=== PATIENT | female | born 1950 | race Caucasian/White ===

== ENCOUNTER 2020-03-23 19:42 | Inpatient (IN) | payer MEDICARE, BC ==
[~2020-03-23] VITALS: Ht 165.1 cm; Wt 72.7 kg
[2020-03-23] MEDS ORDERED: METHYL SALICYLATE/MENTHOL TOPICAL OINTMENT 57GM TUBE. TP PRN (20:30)
[2020-03-23] MEDS ORDERED: MAGNESIUM HYDROXIDE 2,400 MG/30 ML ORAL.SUSP. PO PRN (20:30)
[2020-03-23] MEDS ORDERED: MAG HYDROX/AL HYDROX/SIMETH 30 ML ORAL.SUSP PO PRN (20:30)
[2020-03-23] MEDS ORDERED: ACETAMINOPHEN 325 MG TABLET PO PRN (20:30)
[2020-03-23] MEDS ORDERED: CALC-44 PO (20:49)
[2020-03-23] MEDS ORDERED: OMEG-117 PO (20:49)
[2020-03-23] MEDS ORDERED: LISI-338 PO (20:49)
[2020-03-23] MEDS ORDERED: DONE10TA7 PO (20:49)
[2020-03-23] MEDS ORDERED: MULT-238 PO (20:49)
[2020-03-23] MEDS ORDERED: TRAZ-120 PO (20:49)
[2020-03-23] MEDS ORDERED: MEMA10TA PO (20:49)
[2020-03-23] MEDS ORDERED: OMEP20CA16 PO (20:49)
[2020-03-23] MEDS ORDERED: ESCITALOPRAM OX10 MG PO (20:49)
[2020-03-23] MEDS ORDERED: Vitamin D3 PO (20:49)
[2020-03-23] MEDS ORDERED: ACET500T68 PO (20:49)
[2020-03-23] MEDS ORDERED: ASCO500C PO (20:49)
[2020-03-23] MEDS ORDERED: ACETAMINOPHEN 500 MG TABLET PO PRN (21:00)
--- NOTE | 2020-03-23 21:01 | NUR ---
Admission Note with Justification for Admission to [facility] Patient admitted to [facility] for protective oversight for emergency stabilization of acute psychiatric crisis. Pt admitted from: [facility] Facility- [facility] Mode of arrival: POV Accompanied By: Family Precipitating behaviors that initiated intake and admission: Exit seeking, agitated, forgetful, hugs and kisses some peers, expresses "I just want to kill myself", gets into others personal space Description of failure of out patient attempts at stabilization in previous setting list behavior and medication trials:PCP appointment, 1:1 sitter, set boundaries, distraction Behaviors and assessment findings upon admission: Alert, fairly cooperative, sarcastic, VSS, ambulatory Plan: Admit for protective oversight for adjustment and stabilization of medications, behaviors and mood. Intense treatment regimen including groups, medication adjustments, therapy, consistent regimen for ADL's, self care, and sleep hygiene. Daily monitoring by Inpatient staff, Psychiatry, and Medical Physician.
[2020-03-23 21:09] VITALS: BP 135/64
[2020-03-23 21:52] LABS: BASO % 0 % (0-3); EOS # 0.1 x10^3/uL (0.0-0.7); EOS % 2 % (0-3); HEMOGLOBIN 9.7 g/dL (12.0-15.5); LYMPH # 1.9 x10^3/uL (1.0-4.8); LYMPH % 28 % (24-48); MEAN CORPUSCULAR HEMOGLOBIN 31 pg (25-35); MEAN CORPUSCULAR HGB CONC 33 g/dL (31-37); MEAN CORPUSCULAR VOLUME 95 fL (79-100); MONO # 0.5 x10^3/uL (0.0-1.1); MONO % 7 % (0-9); NEUT # 4.2 x10^3uL (1.8-7.7); NEUT % 63 % (31-73); PLATELET COUNT 198 x10^3/uL (140-400); RED BLOOD COUNT 3.17 x10^6/uL (3.50-5.40); RED CELL DISTRIBUTION WIDTH 13.1 % (11.5-14.5); WHITE BLOOD COUNT 6.7 x10^3/uL (4.0-11.0)
--- NOTE | 2020-03-23 22:01 | PDOC ---
Exam Note: Tyler Note: Please also refer to the separate dictated note~for this date of service dictated separately.~Patient seen individually. Discussed the patient with Nursing staff reviewed the chart.~Reviewed interim history and current functioning. Reviewed vital signs,~Labs/ Radiology~and current medications noted below. Continue current treatment with the changes noted in the dictated addendum note Assessment: Vital Signs/I&O: Vital Signs Date Time Temp Pulse Resp B/P (MAP) Pulse Ox O2 Delivery O2 Flow Rate FiO2 03/23/20 21:09 97.4 69 18 135/64 (87) 97 Labs: Laboratory Tests Test 03/23/20 21:40 White Blood Count 6.7 x10^3/uL (4.0-11.0) Red Blood Count 3.17 x10^6/uL (3.50-5.40) L Hemoglobin 9.7 g/dL (12.0-15.5) L Hematocrit 30.0 % (36.0-47.0) L Mean Corpuscular Volume 95 fL (79-100) Mean Corpuscular Hemoglobin 31 pg (25-35) Mean Corpuscular Hemoglobin Concent 33 g/dL (31-37) Red Cell Distribution Width 13.1 % (11.5-14.5) Platelet Count 198 x10^3/uL (140-400) Neutrophils (%) (Auto) 63 % (31-73) Lymphocytes (%) (Auto) 28 % (24-48) Monocytes (%) (Auto) 7 % (0-9) Eosinophils (%) (Auto) 2 % (0-3) Basophils (%) (Auto) 0 % (0-3) Neutrophils # (Auto) 4.2 x10^3uL (1.8-7.7) Lymphocytes # (Auto) 1.9 x10^3/uL (1.0-4.8) Monocytes # (Auto) 0.5 x10^3/uL (0.0-1.1) Eosinophils # (Auto) 0.1 x10^3/uL (0.0-0.7) Basophils # (Auto) 0.0 x10^3/uL (0.0-0.2) Current Medications: I have reviewed the current psychotropics carefully including drug interactions. Risk benefit ratio favors no change other than as noted in my dictated progress note. Diagnosis: Problems: (1) Major neurocognitive disorder DIMITRIOS RANDALL MD Mar 23, 2020 22:01
[2020-03-23 22:05] LABS: ALBUMIN 3.2 g/dL (3.4-5.0); ALBUMIN/GLOBULIN RATIO 1.2 (1.0-1.7); CALCIUM 8.2 mg/dL (8.5-10.1); CREATININE 1.8 mg/dL (0.6-1.0); GFR 27.7; MAGNESIUM 2.5 mg/dL (1.8-2.4); POTASSIUM 4.8 mmol/L (3.5-5.1); TOTAL BILIRUBIN 0.5 mg/dL (0.2-1.0); TOTAL PROTEIN 5.9 g/dL (6.4-8.2)
[2020-03-23] MEDS: DONEPEZIL HCL 10 MG TABLET PO SCH (22:21)
[2020-03-23 22:22] LABS: BACTERIA,URINE MOD /HPF (0-FEW); BILIRUBIN,URINE NEG (NEG); CLARITY,URINE CLOUDY; COLOR,URINE YELLOW; GLUCOSE,URINE NEG (NEG); NITRITE,URINE NEG (NEG); SQUAMOUS EPITHELIAL CELL,UR MANY /LPF; UROBILINOGEN,URINE 0.2 mg/dL (0.2 mg/dL); WBC,URINE >40 /HPF (0-4)
--- NOTE | 2020-03-24 06:15 | NUR ---
Covid test to lab pt tolerated well. Pt has slept well tonight. She is somewhat suspicious and sarcastic at times but has been cooperative. She walks without difficulty and has been continent of urine. Note that UA sent last night was sent for culture.
[2020-03-24 06:31] VITALS: BP 131/63
[2020-03-24] MEDS ORDERED: VITAMIN D3 50 MCG PO SCH (09:00)
[2020-03-24] MEDS: CALCIUM CARB/VIT D3 500/200 TABLET PO SCH ×2 (09:25→17:16)
[2020-03-24] MEDS: ASCORBIC ACID 500 MG TABLET PO SCH (09:26)
[2020-03-24] MEDS: LISINOPRIL 5 MG TABLET. PO SCH (09:26)
[2020-03-24] MEDS: OMEGA-3 FATTY ACIDS/FISH OIL 1,000 MG CAPSULE. PO SCH (09:26)
[2020-03-24] MEDS: MEMANTINE 10 MG TABLET. PO SCH (09:26)
[2020-03-24] MEDS: CITALOPRAM 20 MG TABLET. PO SCH (09:27)
[2020-03-24] MEDS: PANTOPRAZOLE 40 MG TABLET. PO SCH (09:27)
[2020-03-24] MEDS: CHOLECALCIFEROL (VITAMIN D3) 1,000 UNIT TABLET PO SCH (09:27)
[2020-03-24] MEDS: MULTIVITAMIN with MINERAL TABLET. PO SCH (09:27)
--- NOTE | 2020-03-24 11:30 | NUR ---
ACTIVITY THERAPY ASSESSMENT completed based on notes, observation, and interview. Pt was sitting in hallway speaking with DISABILITY COUNSELOR. AT asked pt if she could ask pt some questions in her room. Pt complied and walked into her room. To start the assessment pt was calm, pleasant, and sociable. Pt said that she likes to be with family, take care of Veterans, watch TV, reading, arts and crafts, exercise. Pt said that she doesn't like to color. Pt said that she isn't and has no children and also said she was sterile. AT asked pt if she knew where they were at and she said [place], [place]. AT explained that they were at [facility] in [place], [place]. At this point in time pt became agitated, frustrated,and unpleasant. AT asked pt if she knew why she was here and she said no. AT explained the doctor will be looking over her medications to get her better which she was not pleased with and said she didn't understand. Pt said that she came from her home in [place] before admission. AT asked if she took care of [place] at the [place]. Pt was sarcastic and replied with 'well yeah, where else would it be?' AT asked if the pt reports and stress and she said 'not till I came over.' AT asked how she coped with the stress and she said that she likes to make people laugh and get them involved. Pt said that she doesn't do many activities with her family. Pt said that she loves her friends and has no interference with activities. 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 AT asked if pt has any further questions and she said 'I guess not.' Pt asked if she had to sit in her room and AT explained she could sit in the hallway if she would like. Pt moved out to hallway where she began speaking with another pt. Pt kept making sarcastic comments about hospital gown and why she couldn't have her clothes. Pt then said "do you want to see my ass" as she flipped open her hospital gown." Pt is not redirectable and doesn't respond to structure well. Initial goal aimed to increase stress management/relaxation and socialization skills. Addendum: 03/24/20 at 1236 by JUNG LINTON ACT Pt will participate in at least one group or individual Activity Therapy session per week. Addendum: 04/01/20 at 1142 by FAY CERDA ACT Goal changed 04/01: Pt. will participate in at least five Activity Therapy groups per week.
--- NOTE | 2020-03-24 13:53 | CONS ---
DATE OF CONSULTATION: 03/24/2020 ATTENDING PHYSICIANS: Dr. Perry, Dr. Mendez. REASON FOR CONSULTATION: We are asked to see this patient for medical consultation. HISTORY OF PRESENT ILLNESS: The patient is a 69-year-old female admitted recently from a local [facility] for behavioral issues. She has had inappropriate behavior with some agitation. She has profound dementia. She cannot give much history, much of it is obtained from her chart from the [facility]. She has had a longstanding history of dementia, cognitive issues, behavioral issues essential hypertension, cognition impairment, and hypothyroidism. CURRENT MEDICATIONS: Reviewed. She takes aluminum hydroxide, vitamin C, calcium, benazepril, Celexa, lisinopril, Namenda, multivitamin, omega 3 fish oil and omeprazole. ALLERGIES: She has no recorded drug allergies. SOCIAL HISTORY: She is a nonsmoker and nondrinker by history. FAMILY HISTORY: Unobtainable. PHYSICAL EXAMINATION: VITAL SIGNS: Showed a blood pressure of 131/63 mmHg, pulse of 79 and regular, temperature 98.5 degrees Fahrenheit, oxygen saturation 99% on room air. HEENT: The head is without trauma. Pupils are reactive. Sclerae nonicteric. The oropharynx is clear. NECK: Supple, no bruits. LUNGS: Otherwise clear. CARDIOVASCULAR: Showed regular heart tones. No obvious gallops. Peripheral pulses are palpable and full. ABDOMEN: Soft, scaphoid, nontender, no organomegaly. Bowel sounds are hypoactive. EXTREMITIES: Showed no cyanosis or edema. NEUROLOGIC: Her cranial nerves 2 through 12 were grossly intact. She has a normal speech. Her diversional therapist were intact, upper and lower extremities. Tendon reflexes were symmetrical. Her gait was normal and her Romberg test was negative. PERTINENT LABORATORY AND X-RAY STUDIES: Her admission hemoglobin was 9.7 g/dL with a white count of 6700, in normal differential. Chemistry showed a sodium 140 mEq/L, potassium 4.8 mEq, creatinine is 1.8 mg/dL with a BUN of 19. Nonfasting blood sugar is 160. Her transaminases and liver functions were normal. I reviewed lab work from 2 weeks ago and at that time, her creatinine was 1.4 mg/dL, dated 03/09/2020. ASSESSMENT: 1. This 69-year-old female has profound dementia with behavioral issues. 2. Mild anemia, etiology is unclear. 3. Chronic kidney disease stage 3. I think her baseline creatinine is somewhere around 1.4 mg/dL. She is not on a diuretic at this time. 4. Hypothyroidism, on replacement. 5. Hypertension. RECOMMENDATIONS: 1. Home meds have been reviewed. 2. Diet as tolerated. 3. I would recommend following up with the weekly chemistry panel to see what kind of trending her creatinine does at this time. Otherwise, she is medically stable. Thank you again for asking me to see this patient for medical consultation. We should gladly follow with you during the course of her stay. ARI MENDEZ MD DR: DORI/uma JOB#: [id number] / [id number]
[2020-03-24 14:33] LABS: THYROID STIM HORMONE (TSH) 1.613 uIU/mL (0.358-3.740)
--- NOTE | 2020-03-24 14:41 | NUR ---
PSYCHOSOCIAL ASSESSMENT ADMISSION DATE: 03/23/20 CONTACT INFORMATION: DPOA/Guardian Contact Name: Ella Pelaez-sister in law Contact Phone #: [phone] ETHNIC ORIGIN: REASONS FOR ADMISSION: Agitated Angry Anxiety/Panic Confusion/Disoriented Depressed Poor impulse control Relation/conflict Suicidal ideation Suspicious/paranoid ADDITIONAL ADMISSION COMMENTS: Per intake record, Betty has been exit seeking, agitated, forgetful and confused, hugging and kissing peers making them feel uncomfortable, expressing "I just want to kill myself", and getting in to others personal space. REASON FOR ADMISSION IN PATIENT/FAMILY'S OWN WORDS: Per Betty, "I don't know why they sent me here." PATIENT/FAMILY EXPECTATIONS FOR ADMISSION: Per ZEE, wants Betty's medications reviewed to ensure they are the right ones for her, for Betty to have decreased anxiety, and feel at peace. LIVING SITUATION: Patient lives with: Assisted [facility] Contact Name: Chen AL Contact Address: [address] [place] [address] Contact Phone #: [phone] Contact Fax #: [phone] FAMILY RELATIONS: Marital Status: Single # of Marriages: 0 # of Children: 0 [facility] Family Support: Concerned Cooperative Additional Comments r/t Family: Betty is single. SIGNIFICANT PSYCHIATRIC/MEDICAL HISTORY: Psychiatric/Treatment History: Betty had gastric bypass surgery 15 years ago and was connected with a psychiatrist at that time. Betty continued to have regular psychiatry appointments until approximately 2 years ago when family felt that they were no longer beneficial. Pertinent Family History: Betty denies any history of mental illness in her family of origin. Betty's brother Carlitos has been sober for 36 years now. HISTORICAL DATA: Childhood Environment: [place] [facility] Environment Additional Comments: Betty was born in [facility] and raised in [place] [facility] [facility] to Abdulkadir and Cortney Pelaez. Her father was a grease machine worker and mother was a homemaker. Betty was the oldest of five children. Siblings are Andria, Carlitos, Neelima, and Ainsley. Betty reported her parents to have a good sense of humor and denied trauma or abuse in childhood. It was reported that Betty and her sisters have little contact. Trauma History: None Drug Abuse History last 12 months: None Comment: Betty does not smoke, drink alcohol, and use drugs. 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 service: None Hinduism background: Betty is of the Worship kyle and reports it is important to her. She states, "I want to be a good Worship and go to hoahaoism." She also shared that she prays regularly. Sexual orientation: Unknown Educational Level: Betty graduated high school and obtained her nursing training in the area. Past/Present Interests/Hobbies: Betty has enjoyed country music, reading, movies, playing [employer]thing[employer], volunteering at her hoahaoism, and doing word puzzles. Financial support/resources: Social Security Monthly income: Unknown-adequate Person handling finances: Ella/Carlitos Do you have a history of legal problems: None reported Cultural considerations: None reported SOCIAL RELATIONSHIPS-CURRENT/PAST: Psychiatrist: None. PCP: Dr. Gibbs- [phone] Counselor/Therapist: None Veterans' Administration: N/A Support Group: N/A Manufacturing Plant Technician/Recycle Worker: N/A Other relationships: Family support STRENGTHS & WEAKNESSES: Patient's strengths: Good family support Stable living arrange Ambulatory Patient's weaknesses: Impulsive Health problems Other patient weaknesses: Impaired memory due to dementia PRELIMINARY PLAN OF TREATMENT: Preliminary plan: Dec. Anxiety/Panic Dec. Symp. Depression No Suicidal/Kev. ideation Medication Stabilization Monitor Med Effects Control abnormal behavior Dec. Outbursts Other preliminary treatment comments: Betty will be encouraged to visit with staff, peers, and be involved in groups as offered while she is on the unit. DISCHARGE PLANNING: Discharge planning/disposition: Memory Care Additional discharge needs identified: [facility] is determining unit in which Betty would be best suited for readmission. Out patient psychiatry is available. ADDITIONAL INFORMATION: Other Pertinent Data: Met with Betty this afternoon to support related to recent admission. She was easily annoyed and sarcastic. Betty was disoriented to place and time. She was unable to recall when she arrived to the hospital. Betty was able to answer some questions about her past but at times, had difficulty recalling remote memories. She asked the same questions repeatedly. Betty expressed frustration and negativity about her sister in law Ella, "Ella is a big shot, Ella wants it all, Ella wants her men." Betty could not say how she was related to Ella. From [facility] report and this worker's observations, Ella is involved and supportive with Betty's care. Ella assisted to provide additional social history information and assisted Betty to live in her home until she moved to [facility] in 11/2019. Ella will be involved in team meeting via phone on 03/25/2020.
[2020-03-24 15:53] VITALS: BP 120/76
--- NOTE | 2020-03-24 17:46 | NUR ---
Patient has very short memory. She will forget the question that she asked while staff is answering her. She has asked why she is wearing the hospital gown at least 25 times today. She is compliant with medications, taken whole. She argues with staff stating that she is in [place]. She is refusing to wear her mask while in the hallway. Patient caused peers to become agitated because she was demanding to leave and to make phone calls. Patient yelling in hallway and very disruptive. Verbal redirection failed, patient taken to [facility] where she continued to yell and began cursing at this nurse. Patient eventually calmed down and was let into hallway, wearing her mask.
[2020-03-24 19:07] LABS: THYROXINE 5.8 ug/dL (4.5-12.0)
[2020-03-24] MEDS: DONEPEZIL HCL 10 MG TABLET PO SCH (20:42)
--- NOTE | 2020-03-24 22:12 | PDOC ---
Exam Note: Tyler Note: Please also refer to the separate dictated note~for this date of service dictated separately.~Patient seen individually. Discussed the patient with Nursing staff reviewed the chart.~Reviewed interim history and current functioning. Reviewed vital signs,~Labs/ Radiology~and current medications noted below. Continue current treatment with the changes noted in the dictated addendum note Assessment: Vital Signs/I&O: Vital Signs Date Time Temp Pulse Resp B/P (MAP) Pulse Ox O2 Delivery O2 Flow Rate FiO2 03/24/20 21:07 97.2 98 03/24/20 15:53 65 18 120/76 (91) 03/24/20 06:31 Room Air I & O 03/23/20 03/23/20 03/24/20 15:00 23:00 07:00 Intake Total 120 ml Balance 120 ml Current Medications: Meds: Current Medications Medications (Trade) Dose Ordered Sig/Toño Route PRN Reason Start Time Stop Time Status Last Admin Dose Admin Lisinopril (Prinivil) 5 mg DAILY PO 03/24/20 09:00 03/24/20 09:26 Memantine (Namenda) 10 mg DAILY PO 03/24/20 09:00 03/24/20 09:26 Ascorbic Acid (Vitamin C) 500 mg DAILY PO 03/24/20 09:00 03/24/20 09:26 Calcium/Vitamin D (Oscal D 500mg/ 200uts) 1 tab BIDWMEALS PO 03/24/20 08:00 03/24/20 09:25 Citalopram Hydrobromide (CeleXA) 20 mg DAILY PO 03/24/20 09:00 03/24/20 09:27 Multivitamins/ Calcium (Thera-M Plus) 1 tab DAILY PO 03/24/20 09:00 03/24/20 09:27 Fish Oil (Fish Oil) 1,000 mg DAILY PO 03/24/20 09:00 03/24/20 09:26 Pantoprazole Sodium (Protonix) 40 mg DAILYAC PO 03/24/20 07:30 03/24/20 09:27 Vitamin D (Vitamin D3) 2,000 unit DAILY PO 03/24/20 09:00 03/24/20 09:27 I have reviewed the current psychotropics carefully including drug interactions. Risk benefit ratio favors no change other than as noted in my dictated progress note. Diagnosis: Problems: (1) Major neurocognitive disorder (2) Mild cognitive impairment DIMITRIOS RANDALL MD Mar 24, 2020 22:12
--- NOTE | 2020-03-25 00:24 | NUR ---
Early in shift pt was angry and demanding to make phone calls and wants to see Ella. Attempted to orient and redirect, she soon was sitting in do calmly visiting with peers. At med pass she was in her room and was cheerful and pleasant. 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 A couple of times she has mentioned that she is sterile and has never been . Since going to bed she has been sleeping.
[2020-03-25 01:07] LABS: HEMOGLOBIN A1C 5.5 % (4.8-5.6)
[2020-03-25 05:42] VITALS: BP 103/63
--- NOTE | 2020-03-25 10:38 | TX PLAN ---
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 Problems Active Problems: agitated verbally aggressive, beligerent confused/disoriented UTI Inactive Problems: Medication compliant Sleeping adequately Intakes are adequate Pt Strengths/Limitations Ability for [place]: Poor Cognitive Functioning/Ability: Poor Communication Skills/Ability: Fair Financial Resources: Fair Insight/Judgement: Poor Intellectual Ability: Fair Physical Health: Fair Social Skills: Fair Stability in Family: Fair Verbal Skills: Fair Discharge Criteria Discharge Criteria: Adequate arrangements @DC, Improved behavior, Improved mood/thought Preliminary Discharge Plan Preliminary DC Plan: Memory Care Other Arrangements: Betty will be returning to [facility], but moving to memory care. Special Precautions Special Precautions: Agitation/Assault Fall Risk: High Initial D/C Plan Betty will return to [facility], she will be going to their memory care unit. Identified Discharge Needs: [facility] is determining unit in which Betty would be best suited for readmission. Currently Utilized Resources Currently Utilized Resources/P: PCP 24 hour oversight by [facility] Referrals Community Resources: Psychiatry if available Identified Problems/Hx/Goals Objectives/Short-Term Goals Short Term Goals: Control abnormal behavior, Dec. Anxiety/Panic, Dec. Outbursts, Dec. Symp. Depression, Medication Stabilization, Monitor Med Effects, No Suicidal/Kev. ideation Short Term Goals in Patient's: Medication review Decreased anxiousness peace Interventions/Frequency Staff Interventions/Frequency&: Nursing to provide routine safety checks, medication administration, and adl support. Psychiatry visits 3-5 times weekly. SW visits twice weekly. Recreational therapy activites as Betty will be involved. 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 Social: Betty enjoys Likva music, reading, and playing cards. 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 Community Follow-up PCP Psychiatry, if available Community Provider/Family Inpu: Ella, Betty's sister in law/POA, particpiated in team meeting via phone on this date. Will proceed with Medication evaluation, treatment of UTI, and CT head. Treatment Plan Explained Patient/Service Superintendent had this treatment plan explained to him/her as indicated by the signature below and has been given the opportunity to ask questions and make suggestions: Date: Patient/Service Superintendent Signature: Patient/Service Superintendent Decline: No CARROLL KAUR Mar 25, 2020 10:38
[2020-03-25] MEDS: ASCORBIC ACID 500 MG TABLET PO SCH (10:44)
[2020-03-25] MEDS: MEMANTINE 10 MG TABLET. PO SCH (10:45)
[2020-03-25] MEDS: CITALOPRAM 20 MG TABLET. PO SCH (10:45)
[2020-03-25] MEDS: MULTIVITAMIN with MINERAL TABLET. PO SCH (10:45)
[2020-03-25] MEDS: CHOLECALCIFEROL (VITAMIN D3) 1,000 UNIT TABLET PO SCH (10:45)
[2020-03-25] MEDS: OMEGA-3 FATTY ACIDS/FISH OIL 1,000 MG CAPSULE. PO SCH (10:45)
[2020-03-25] MEDS: PANTOPRAZOLE 40 MG TABLET. PO SCH (10:45)
[2020-03-25] MEDS: CALCIUM CARB/VIT D3 500/200 TABLET PO SCH ×2 (10:45→17:49)
[2020-03-25] MEDS: LISINOPRIL 5 MG TABLET. PO SCH (10:46)
--- NOTE | 2020-03-25 14:40 | NUR ---
Nurse took patient to radiology for CT of head. Patient cooperative and calm. 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
[2020-03-25 15:37] VITALS: BP 100/67
--- NOTE | 2020-03-25 16:02 | NUR ---
Patient interactive and pleasant this morning. Compliant with medications. After lunch she began door checking and exit seeking. She was not able to be verbally redirected. PRN zyprexa was given per order for agitation/psychosis. Patient later observed calmly walking in hallway holding hands with a male peer. Staff asked her to stop holding hands, she did. She was then observed flirting, giggling to two male peers. Patient remains very repetitive in her speech, asking the same question many times and sometimes forgetting what question nurse is even answering. She is focused on "where are my clothes", "why am I in this gown?". She has also told staff about her service to the veterans in the [facility]. 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 She seems very proud of this accomplishment. Patient has told nursing staff several times that she is "sterile" and has no children. Patient is calm at this time and much more relaxed.
--- NOTE | 2020-03-25 16:04 | NUR ---
Met with Betty this afternoon. She was resting in bed but awake and agreeable to meet with this worker. SW had observed Betty involved in a recreational therapy music activity earlier in the day. Betty was calm and without s/s of distress. She was not agitated or sarcastic as observed on 03/24/20. Betty scored 12/30 on the MMSE indicating possible severe cognitive impairment. Betty was unable to draw the face of a clock. Betty had no unmet needs or requests during visit. Ella, Betty's sister in law/POA, participated in team meeting via phone this morning. Estimated d/c date 04/02 or early the week after.
--- NOTE | 2020-03-25 16:59 | RAD ---
EXAM: CT HEAD WITHOUT CONTRAST. HISTORY: Altered mental status. TECHNIQUE: Computed tomography of the head was performed without intravenous contrast. One or more of the following individualized dose reduction techniques were utilized for this examination: 1. Automated exposure control. 2. Adjustment of the mA and/or kV according to patient size. 3. Use of iterative reconstruction technique. COMPARISON: None. FINDINGS: There is no intracranial hemorrhage. Hypoattenuation within the periventricular white matter indicates mild chronic microangiopathic change. Prominence of the lateral ventricles and hemispheric sulci indicates moderate atrophy. The visualized paranasal sinuses appear clear. The orbits are unremarkable. The temporal bones are unremarkable. The calvarium reveals no suspicious lesions. IMPRESSION: 1. No acute intracranial findings. 2. Moderate atrophy and mild chronic microangiopathic white matter change. Electronically signed by: Ben Seaman MD (03/25/2020 4:56 PM) [id number]
[2020-03-25] MEDS: DONEPEZIL HCL 10 MG TABLET PO SCH (20:50)
--- NOTE | 2020-03-25 22:07 | PDOC ---
Exam Note: Tyler Note: Please also refer to the separate dictated note~for this date of service dictated separately.~Patient seen individually. Discussed the patient with Nursing staff reviewed the chart.~Reviewed interim history and current functioning. Reviewed vital signs,~Labs/ Radiology~and current medications noted below. Continue current treatment with the changes noted in the dictated addendum note Assessment: Vital Signs/I&O: Vital Signs Date Time Temp Pulse Resp B/P (MAP) Pulse Ox O2 Delivery O2 Flow Rate FiO2 03/25/20 20:28 98.6 72 98 03/25/20 15:37 18 100/67 (78) 03/24/20 06:31 Room Air I & O 03/24/20 03/24/20 03/25/20 15:00 23:00 07:00 Intake Total 480 ml 360 ml Balance 480 ml 360 ml Current Medications: I have reviewed the current psychotropics carefully including drug interactions. Risk benefit ratio favors no change other than as noted in my dictated progress note. Diagnosis: Problems: (1) Major neurocognitive disorder (2) Mild cognitive impairment DIMITRIOS RANDALL MD Mar 25, 2020 22:07
--- NOTE | 2020-03-26 03:52 | NUR ---
Betty was in bed sleeping at shift change, she was awaken for HS med and was able to give name and but said she was in [place]. Med was taken whole without difficulty then she went back to sleep. She has continued to sleep, when awake to use BR she self toilets then returns self to bed. No behaviors tonight
[2020-03-26 07:08] VITALS: BP 135/79
[2020-03-26] MEDS: MULTIVITAMIN with MINERAL TABLET. PO SCH (08:16)
[2020-03-26] MEDS: CITALOPRAM 20 MG TABLET. PO SCH (08:16)
[2020-03-26] MEDS: MEMANTINE 10 MG TABLET. PO SCH (08:16)
[2020-03-26] MEDS: ASCORBIC ACID 500 MG TABLET PO SCH (08:16)
[2020-03-26] MEDS: OMEGA-3 FATTY ACIDS/FISH OIL 1,000 MG CAPSULE. PO SCH (08:16)
[2020-03-26] MEDS: CALCIUM CARB/VIT D3 500/200 TABLET PO SCH ×2 (08:16→16:31)
[2020-03-26] MEDS: PANTOPRAZOLE 40 MG TABLET. PO SCH (08:16)
[2020-03-26] MEDS: CHOLECALCIFEROL (VITAMIN D3) 1,000 UNIT TABLET PO SCH (08:16)
[2020-03-26] MEDS: LISINOPRIL 5 MG TABLET. PO SCH (08:17)
[2020-03-26] MEDS ORDERED: SERTRALINE 25 MG TABLET. PO SCH (09:00)
[2020-03-26 16:20] VITALS: BP 100/61
--- NOTE | 2020-03-26 17:04 | NUR ---
Pt up mid morning. Has been compliant with meds and cares. Has been sitting calmly at nursing station this afternoon.
[2020-03-26 20:49] VITALS: BP 116/66
[2020-03-26] MEDS: DONEPEZIL HCL 10 MG TABLET PO SCH (21:04)
--- NOTE | 2020-03-26 22:00 | NUR ---
Patient is located in her room on assumption of care, reading in her bed. She is in pleasant spirits, polite and interactive with this nurse. Compliant with assessments and medications taken whole. Requested to have a large print book, which she was given. No agitation. Denies any pain or discomfort. Denies SI/HI. Patient appears to be sleeping comfortably at present time.
--- NOTE | 2020-03-26 22:25 | PDOC ---
Exam Note: Tyler Note: Please also refer to the separate dictated note~for this date of service dictated separately.~Patient seen individually. Discussed the patient with Nursing staff reviewed the chart.~Reviewed interim history and current functioning. Reviewed vital signs,~Labs/ Radiology~and current medications noted below. Continue current treatment with the changes noted in the dictated addendum note Assessment: Vital Signs/I&O: Vital Signs Date Time Temp Pulse Resp B/P (MAP) Pulse Ox O2 Delivery O2 Flow Rate FiO2 03/26/20 20:49 97.5 79 116/66 (83) 97 03/26/20 16:20 18 03/24/20 06:31 Room Air I & O 03/25/20 03/25/20 03/26/20 15:00 23:00 07:00 Intake Total 240 ml Balance 240 ml Current Medications: I have reviewed the current psychotropics carefully including drug interactions. Risk benefit ratio favors no change other than as noted in my dictated progress note. Diagnosis: Problems: (1) Major neurocognitive disorder (2) Mild cognitive impairment DIMITRIOS RANDALL MD Mar 26, 2020 22:25
--- NOTE | 2020-03-26 22:36 | PN ---
DATE: 03/24/2020 PSYCHIATRIC PROGRESS NOTE This late entry of 03/24/2020 covers the elements not covered in my initial note. SUBJECTIVE: I met with the patient in the evening of 03/24/2020. Per nursing report, the patient remains confused, anxious, restless. REVIEW OF SYSTEMS: No CV, , pulmonary, eye, ENT system symptoms on review. Reliability poor. MENTAL STATUS EXAM: Oriented to herself. Insight, judgment, recent and remote memory, attention, concentration, fund of knowledge poor, consistent with her diagnosis mentioned in my initial note. PLAN: No change from initial note. MAN Shayan RANDALL MD DR: TARYN/uma JOB#: [id number] / [id number]
--- NOTE | 2020-03-26 22:38 | PN ---
DATE: 03/25/2020 PSYCHIATRIC PROGRESS NOTE This late entry 03/25/2020 covers elements not covered in my initial note. SUBJECTIVE: I met with the patient evening of 03/25/2020 on telehealth rounds and staffed at a treatment team meeting with the entire team earlier in the day with GIANFRANCO Peralta and [facility]. Reviewed the patient's family history of Alzheimer's disease in her mother and maternal aunt. The patient's [id number], Ella, attended the treatment team meeting as well. Ella reported a 7-year history of progressive memory deficits. We will do a CT head. She was agitated, intermittently. Slept 7 hours previous night. REVIEW OF SYSTEMS: No CV, , pulmonary, eye, ENT system symptoms on review. Reliability poor. MENTAL STATUS EXAM: Oriented to herself. Insight, judgment, recent and remote memory, attention, concentration, fund of knowledge poor, consistent with her diagnoses. IMPRESSION: Major neurocognitive disorder, Alzheimer, vascular with delusion, depression, behavioral disturbance; anxiety disorder, unspecified; impulse control disorder, unspecified. Rest unchanged. PLAN: Continue psychotropics from initial note. Adjust further as clinically indicated. DIMITRIOS RANDALL MD DR: TARYN/uma JOB#: [id number] / [id number]
--- NOTE | 2020-03-26 22:40 | PN ---
DATE: 03/26/2020 PSYCHIATRIC PROGRESS NOTE This note covers elements not covered in my initial note 03/26/2020. SUBJECTIVE: The patient was seen on telehealth rounds in the evening. Per GIANFRANCO Chacon, the patient was somewhat sedated in the morning, slept through breakfast, slept 9 hours previous night. She has been up and awake rest of the day. As I met with her on rounds in the evening, she had a book in her hands and said she was reading it oblivious of what it was. CT head shows no acute changes, some white matter changes, compliant with medications. REVIEW OF SYSTEMS: No CV, , pulmonary, eye, ENT system symptoms on review. Reliability is poor. MENTAL STATUS EXAM: Oriented to herself. Insight, judgment, recent and remote memory, attention, concentration, fund of knowledge poor, consistent with her diagnosis mentioned in my initial note. PLAN: No change from initial note. DIMITRIOS RANDALL MD DR: TARYN/uma JOB#: [id number] / [id number]
[2020-03-27 05:59] VITALS: BP 105/58
[2020-03-27] MEDS: ASCORBIC ACID 500 MG TABLET PO SCH (08:52)
[2020-03-27] MEDS: CHOLECALCIFEROL (VITAMIN D3) 1,000 UNIT TABLET PO SCH (08:52)
[2020-03-27] MEDS: MEMANTINE 10 MG TABLET. PO SCH (08:52)
[2020-03-27] MEDS: CITALOPRAM 20 MG TABLET. PO SCH (08:52)
[2020-03-27] MEDS: PANTOPRAZOLE 40 MG TABLET. PO SCH (08:52)
[2020-03-27] MEDS: MULTIVITAMIN with MINERAL TABLET. PO SCH (08:52)
[2020-03-27] MEDS: CALCIUM CARB/VIT D3 500/200 TABLET PO SCH ×2 (08:52→17:00)
[2020-03-27] MEDS: LISINOPRIL 5 MG TABLET. PO SCH (08:52)
[2020-03-27] MEDS: OMEGA-3 FATTY ACIDS/FISH OIL 1,000 MG CAPSULE. PO SCH (08:52)
[2020-03-27 16:17] VITALS: BP 109/63
--- NOTE | 2020-03-27 18:16 | NUR ---
Pt up for meals. Has attempted several times to console peer. Pt has been compliant with meds cares and wearing mask.
[2020-03-27] MEDS: DONEPEZIL HCL 10 MG TABLET PO SCH (20:47)
--- NOTE | 2020-03-27 22:00 | NUR ---
Patient is in her room on assumption of care. She is pleasant, compliant with assessments and medications taken whole. She spent the evening in her room, reading. No agitation. Denies any pain or discomfort. Denies SI. Patient appears to be sleeping comfortably at present time.
--- NOTE | 2020-03-27 22:09 | PDOC ---
Exam Note: Tyler Note: Please also refer to the separate dictated note~for this date of service dictated separately.~Patient seen individually. Discussed the patient with Nursing staff reviewed the chart.~Reviewed interim history and current functioning. Reviewed vital signs,~Labs/ Radiology~and current medications noted below. Continue current treatment with the changes noted in the dictated addendum note Assessment: Vital Signs/I&O: Vital Signs Date Time Temp Pulse Resp B/P (MAP) Pulse Ox O2 Delivery O2 Flow Rate FiO2 03/27/20 16:17 98.1 65 17 109/63 (78) 99 Room Air I & O 03/26/20 03/26/20 03/27/20 15:00 23:00 07:00 Intake Total 240 ml 480 ml 240 ml Balance 240 ml 480 ml 240 ml Current Medications: I have reviewed the current psychotropics carefully including drug interactions. Risk benefit ratio favors no change other than as noted in my dictated progress note. Diagnosis: Problems: (1) Major neurocognitive disorder (2) Mild cognitive impairment DIMITRIOS RANDALL MD Mar 27, 2020 22:09
[2020-03-28 05:38] VITALS: BP 94/51
[2020-03-28] MEDS: CITALOPRAM 20 MG TABLET. PO SCH (08:37)
[2020-03-28] MEDS: MEMANTINE 10 MG TABLET. PO SCH (08:37)
[2020-03-28] MEDS: OMEGA-3 FATTY ACIDS/FISH OIL 1,000 MG CAPSULE. PO SCH (08:37)
[2020-03-28] MEDS: PANTOPRAZOLE 40 MG TABLET. PO SCH (08:38)
[2020-03-28] MEDS: CHOLECALCIFEROL (VITAMIN D3) 1,000 UNIT TABLET PO SCH (08:38)
[2020-03-28] MEDS: LISINOPRIL 5 MG TABLET. PO SCH (08:38)
[2020-03-28] MEDS: CALCIUM CARB/VIT D3 500/200 TABLET PO SCH ×2 (08:38→17:00)
[2020-03-28] MEDS: MULTIVITAMIN with MINERAL TABLET. PO SCH (08:38)
[2020-03-28] MEDS: ASCORBIC ACID 500 MG TABLET PO SCH (08:38)
--- NOTE | 2020-03-28 15:44 | NUR ---
Pt up for meals in room. Compliant with meds and cares. Has been withdrawn to room thus far.
[2020-03-28 16:18] VITALS: BP 126/80
[2020-03-28] MEDS: DONEPEZIL HCL 10 MG TABLET PO SCH (20:47)
--- NOTE | 2020-03-28 22:03 | PDOC ---
Exam Note: Tyler Note: Please also refer to the separate dictated note~for this date of service dictated separately.~Patient seen individually. Discussed the patient with Nursing staff reviewed the chart.~Reviewed interim history and current functioning. Reviewed vital signs,~Labs/ Radiology~and current medications noted below. Continue current treatment with the changes noted in the dictated addendum note Assessment: Vital Signs/I&O: Vital Signs Date Time Temp Pulse Resp B/P (MAP) Pulse Ox O2 Delivery O2 Flow Rate FiO2 03/28/20 19:59 98.4 97 03/28/20 16:18 71 16 126/80 (95) 03/27/20 16:17 Room Air I & O 03/27/20 03/27/20 03/28/20 15:00 23:00 07:00 Intake Total 480 ml 240 ml 120 ml Balance 480 ml 240 ml 120 ml Current Medications: I have reviewed the current psychotropics carefully including drug interactions. Risk benefit ratio favors no change other than as noted in my dictated progress note. Diagnosis: Problems: (1) Major neurocognitive disorder (2) Mild cognitive impairment DIMITRIOS RANDALL MD Mar 28, 2020 22:03
[2020-03-29 05:51] VITALS: BP 111/72
[2020-03-29] MEDS: MEMANTINE 10 MG TABLET. PO SCH (08:02)
[2020-03-29] MEDS: PANTOPRAZOLE 40 MG TABLET. PO SCH (08:02)
[2020-03-29] MEDS: OMEGA-3 FATTY ACIDS/FISH OIL 1,000 MG CAPSULE. PO SCH (08:02)
[2020-03-29] MEDS: LISINOPRIL 5 MG TABLET. PO SCH (08:02)
[2020-03-29] MEDS: MULTIVITAMIN with MINERAL TABLET. PO SCH (08:03)
[2020-03-29] MEDS: CITALOPRAM 20 MG TABLET. PO SCH (08:03)
[2020-03-29] MEDS: CALCIUM CARB/VIT D3 500/200 TABLET PO SCH ×2 (08:03→17:00)
[2020-03-29] MEDS: ASCORBIC ACID 500 MG TABLET PO SCH (08:03)
[2020-03-29] MEDS: CHOLECALCIFEROL (VITAMIN D3) 1,000 UNIT TABLET PO SCH (08:03)
--- NOTE | 2020-03-29 14:23 | HP ---
ADMIT DATE: 03/23/2020 This late entry 03/23/2020 covers elements not covered in my initial note 03/23/2020. I had previously dictated this evaluation or at least that is what I remember, but it cannot be traced [facility] the [facility] [place] [facility] at [facility]. IDENTIFYING DATA: The patient is a 69-year-old female referred to us from [facility] by her primary care physician on account of worsening confusion within the context of her diagnosis of major neurocognitive disorder, vascular Alzheimer with delusion, depression, behavioral disturbance. The patient has been exit seeking, agitated, forgetful, making statements, "I just want to kill myself. At other times, she has been hugging and kissing her peers very inappropriately, disruptive, intrusive, unmanageable. She has failed outpatient psychiatric interventions resulting in this referral. CHIEF COMPLAINT: "I have been here a long time." HISTORY OF PRESENT ILLNESS: The patient has a history of dementia, Alzheimer's vascular type. She has been residing at the [facility] assisted for some time and according to information from the family, specifically Ella her zjoefr-xm-wem who is her power of insurance assistant, the patient's confusion has been worsening for about 7 years. She does have a history of Alzheimer's disease in her mother and maternal aunt as well predisposing her to the illness. She has had sleep and appetite changes and recent behaviors have been disruptive, unmanageable at the facility. No clear history of bipolar disorder. PAST PSYCHIATRIC HISTORY: As above. MEDICAL HISTORY: Positive for hypothyroidism, polycystic ovarian disease, urethral strictures. DRUG ALLERGIES: Negative. CODE STATUS: Full code. ACCU-CHEKS: None. Ambulates up ad radha. CURRENT PSYCHOTROPICS: Aricept 10 mg a day, Namenda 10 mg daily, trazodone p.r.n. FAMILY HISTORY: Noncontributory. SOCIAL HISTORY: No history of alcohol, drug abuse, physical, sexual or elder abuse. She is not known to be a perpetrator. REVIEW OF SYSTEMS: No CV, , pulmonary, eye, ENT system symptoms on review. MENTAL STATUS EXAMINATION: The patient is oriented to herself. Insight, judgment, recent and remote memory, attention, concentration, fund of knowledge poor, consistent with her diagnoses. IMPRESSION: Major neurocognitive disorder, Alzheimer, vascular with delusion, depression, behavioral disturbance; anxiety disorder, unspecified; impulse control disorder, unspecified. Rest as above. PLAN: Admit to Geropsychiatry Unit at [facility]. I will see the patient daily individually from a psychiatric standpoint. Medical followup per Dr. Machado/Dr. Sr. Continue the patient on her current psychotropics. Observe baseline, adjust psychotropics further as clinically indicated. ESTIMATED LENGTH OF STAY: 10-12 days. DISPOSITION: Plans back to assisted when stable. DIMITRIOS RANDALL MD DR: TARYN/uma JOB#: [id number] / [id number]
[2020-03-29 16:26] VITALS: BP 130/75
--- NOTE | 2020-03-29 16:53 | NUR ---
Pt has been pleasant and compliant. Has been in room most of day.
[2020-03-29] MEDS: traZODone 50 MG TABLET. PO PRN (20:54)
[2020-03-29] MEDS: DONEPEZIL HCL 10 MG TABLET PO SCH (20:54)
--- NOTE | 2020-03-29 22:01 | PDOC ---
Exam Note: Tyler Note: Please also refer to the separate dictated note~for this date of service dictated separately.~Patient seen individually. Discussed the patient with Nursing staff reviewed the chart.~Reviewed interim history and current functioning. Reviewed vital signs,~Labs/ Radiology~and current medications noted below. Continue current treatment with the changes noted in the dictated addendum note Assessment: Vital Signs/I&O: Vital Signs Date Time Temp Pulse Resp B/P (MAP) Pulse Ox O2 Delivery O2 Flow Rate FiO2 03/29/20 16:26 98.6 82 18 130/75 (93) 98 03/27/20 16:17 Room Air I & O 03/28/20 03/28/20 03/29/20 15:00 23:00 07:00 Intake Total 240 ml 600 ml Balance 240 ml 600 ml Current Medications: I have reviewed the current psychotropics carefully including drug interactions. Risk benefit ratio favors no change other than as noted in my dictated progress note. Diagnosis: Problems: (1) Dementia in Alzheimer's disease with delusions (2) Dementia in Alzheimer's disease with depression (3) Dementia in Alzheimer's disease with early onset with behavioral disturbance (4) Dementia, vascular, with delusions (5) Dementia, vascular, with depression (6) Anxiety disorder, unspecified (7) Impulse control disorder, unspecified (8) Major neurocognitive disorder DIMITRIOS RANDALL MD Mar 29, 2020 22:01
--- NOTE | 2020-03-30 02:31 | NUR ---
Last evening pt walked in the do or sat in her room. She was cooperative with shower and took meds whole. She has had no behaviors tonight.
[2020-03-30 05:59] VITALS: BP 155/80
--- NOTE | 2020-03-30 06:14 | NUR ---
Covid test obtained and sent to lab.
--- NOTE | 2020-03-30 07:24 | PDOC ---
Exam Note: Tyler Note: This note is a late entry for 03/27/2020 covers elements not covered in my initial note. Subjective: The patient was evaluated face to face in the evening of 03/27/2020 with Ines MEDEL. The patient slept 5-3/4 hours previous night. She has been out in the hallway, keeping her mask on. She minimizes her memory deficits. At one point, she was dancing with another male patient, quite appropriately on the unit. Review of Systems: No CV, , pulmonary, eye, ENT system symptoms on review. Reliability poor. Mental Status Exam: Oriented to herself. Insight and judgment, recent and remote memory, attention and concentration, fund of knowledge is poor consistent with her diagnoses mentioned in my initial note. Laboratory Data: Reviewed. Impression: Major neurocognitive disorder Alzheimer vascular with delusion, depression, behavioral disturbance. Anxiety disorder unspecified. Impulse control disorder unspecified. Mild cognitive impairment. Plan: No change from initial note. Assessment: Vital Signs/I&O: Vital Signs Date Time Temp Pulse Resp B/P (MAP) Pulse Ox O2 Delivery O2 Flow Rate FiO2 03/30/20 05:59 97.9 70 16 155/80 (105) 97 03/27/20 16:17 Room Air I & O 03/29/20 03/29/20 03/30/20 15:00 23:00 07:00 Intake Total 720 ml 360 ml 360 ml Balance 720 ml 360 ml 360 ml Current Medications: I have reviewed the current psychotropics carefully including drug interactions. Risk benefit ratio favors no change other than as noted in my dictated progress note. Diagnosis: Problems: (1) Major neurocognitive disorder (2) Mild cognitive impairment (3) Impulse control disorder, unspecified (4) Anxiety disorder, unspecified (5) Dementia, vascular, with depression (6) Dementia, vascular, with delusions (7) Dementia in Alzheimer's disease with depression (8) Dementia in Alzheimer's disease with delusions (9) Dementia in Alzheimer's disease with early onset with behavioral disturbance DIMITRIOS RANDALL MD Mar 30, 2020 07:23
--- NOTE | 2020-03-30 07:54 | PDOC ---
Exam Note: Tyler Note: This note is a late entry for 03/28/2020 covers elements not covered in my initial note. Subjective: The patient was evaluated on telehealth rounds in the evening of 03/28/2020 with Tavo Felix RN. Nursing report with Ines MEDEL. The patient remains confused, otherwise pleasant, keeping her mask on as before when she is out in the hallway. Review of Systems: No CV, , pulmonary, eye, ENT system symptoms on review. Reliability poor. Mental Status Exam: Oriented to herself. Insight and judgment, recent and remote memory, attention and concentration, fund of knowledge is poor consistent with her diagnoses mentioned in my initial note. Laboratory Data: Reviewed. Impression: Major neurocognitive disorder Alzheimer vascular with delusion, depression, behavioral disturbance. Mild cognitive impairment. Rest unchanged. Plan: No change from initial note. Assessment: Vital Signs/I&O: Vital Signs Date Time Temp Pulse Resp B/P (MAP) Pulse Ox O2 Delivery O2 Flow Rate FiO2 03/30/20 05:59 97.9 70 16 155/80 (105) 97 03/27/20 16:17 Room Air I & O 03/29/20 03/29/20 03/30/20 15:00 23:00 07:00 Intake Total 720 ml 360 ml 360 ml Balance 720 ml 360 ml 360 ml Current Medications: I have reviewed the current psychotropics carefully including drug interactions. Risk benefit ratio favors no change other than as noted in my dictated progress note. Diagnosis: Problems: (1) Major neurocognitive disorder (2) Mild cognitive impairment (3) Impulse control disorder, unspecified (4) Anxiety disorder, unspecified (5) Dementia, vascular, with depression (6) Dementia, vascular, with delusions (7) Dementia in Alzheimer's disease with depression (8) Dementia in Alzheimer's disease with delusions (9) Dementia in Alzheimer's disease with early onset with behavioral disturbance DIMITRIOS RANDALL MD Mar 30, 2020 07:54
[2020-03-30] MEDS: CALCIUM CARB/VIT D3 500/200 TABLET PO SCH ×2 (07:59→17:00)
[2020-03-30] MEDS: ASCORBIC ACID 500 MG TABLET PO SCH (07:59)
[2020-03-30] MEDS: MEMANTINE 10 MG TABLET. PO SCH (07:59)
[2020-03-30] MEDS: MULTIVITAMIN with MINERAL TABLET. PO SCH (07:59)
[2020-03-30] MEDS: PANTOPRAZOLE 40 MG TABLET. PO SCH (07:59)
[2020-03-30] MEDS: CITALOPRAM 20 MG TABLET. PO SCH (08:00)
[2020-03-30] MEDS: CHOLECALCIFEROL (VITAMIN D3) 1,000 UNIT TABLET PO SCH (08:00)
[2020-03-30] MEDS: LISINOPRIL 5 MG TABLET. PO SCH (08:00)
[2020-03-30] MEDS: OMEGA-3 FATTY ACIDS/FISH OIL 1,000 MG CAPSULE. PO SCH (08:00)
--- NOTE | 2020-03-30 15:36 | NUR ---
1:1 with Betty who was resting in her bed in her room reading a large print book. Betty's affect was pleasant and social. She reported to be eating and sleeping well and had no complaints or unmet needs at time of visit. 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 She also repeated several times about being sterile. Betty expressed that she knows everything is going wrong in the world today but prays about it and depends on God. Later, observed Betty in a small group conversation with staff and peers. Call placed to Tiffanie at [facility] unit and provided update. Faxed current notes, medication list, and labs for review. Anticipated d/c date of 04/05/20.
[2020-03-30 16:18] VITALS: BP 101/58
--- NOTE | 2020-03-30 18:33 | NUR ---
Pt up adl in room. Has been pleasantly confused. Compliant with meds and cares.
[2020-03-30] MEDS: DONEPEZIL HCL 10 MG TABLET PO SCH (19:52)
--- NOTE | 2020-03-30 22:10 | PDOC ---
Exam Note: Tyler Note: Please also refer to the separate dictated note~for this date of service dictated separately.~Patient seen individually. Discussed the patient with Nursing staff reviewed the chart.~Reviewed interim history and current functioning. Reviewed vital signs,~Labs/ Radiology~and current medications noted below. Continue current treatment with the changes noted in the dictated addendum note Assessment: Vital Signs/I&O: Vital Signs Date Time Temp Pulse Resp B/P (MAP) Pulse Ox O2 Delivery O2 Flow Rate FiO2 03/30/20 16:18 98.2 82 20 101/58 (72) 97 Room Air I & O 03/29/20 03/29/20 03/30/20 15:00 23:00 07:00 Intake Total 720 ml 360 ml 360 ml Balance 720 ml 360 ml 360 ml Current Medications: I have reviewed the current psychotropics carefully including drug interactions. Risk benefit ratio favors no change other than as noted in my dictated progress note. Diagnosis: Problems: (1) Major neurocognitive disorder (2) Mild cognitive impairment (3) Impulse control disorder, unspecified (4) Anxiety disorder, unspecified (5) Dementia, vascular, with depression (6) Dementia, vascular, with delusions (7) Dementia in Alzheimer's disease with depression (8) Dementia in Alzheimer's disease with delusions (9) Dementia in Alzheimer's disease with early onset with behavioral disturbance DIMITRIOS RANDALL MD Mar 30, 2020 22:10
--- NOTE | 2020-03-30 23:55 | NUR ---
Pt has mainly been in her room tonight. She is pleasantly confused, talking about taking care of all the veterans and how they come to visit her everyday. She took her med without difficulty. Later she came out of her room and said "all the people that went to [place] are going to be coming back soon so we need to be ready". After this announcement she went back into her room and has been sleeping.
[2020-03-31 06:42] VITALS: BP 158/80
--- NOTE | 2020-03-31 07:23 | PDOC ---
Exam Note: Tyler Note: This note is a late entry for 03/29/2020 covers elements not covered in my initial note. Subjective: The patient was evaluated face to face in the evening 03/29/2020 with Ines MEDEL. The patient slept 7-1/4 hours previous night. Overall the patient remains confused. She was seen in her room at length by me individually and she was reading a novel, said she read about a 100 pages but did not have any idea what the novel was about once I talked to her. Review of Systems: No CV, , pulmonary, eye, ENT system symptoms on review. Reliability poor. Mental Status Exam: Oriented to herself. Insight and judgment, recent and remote memory, attention and concentration, fund of knowledge is poor consistent with her diagnoses mentioned in my initial note. Laboratory Data: Reviewed. Impression: Major neurocognitive disorder Alzheimer vascular with delusion, depression, behavioral disturbance. Mild cognitive impairment. Rest unchanged. Plan: No change from initial note. Maintain Aricept, Namenda, Celexa, Zyprexa p.r.n. Adjust further as clinically indicated. Assessment: Vital Signs/I&O: Vital Signs Date Time Temp Pulse Resp B/P (MAP) Pulse Ox O2 Delivery O2 Flow Rate FiO2 03/31/20 06:42 98.2 75 14 158/80 (106) 98 03/30/20 16:18 Room Air l I & O 03/30/20 03/30/20 03/31/20 15:00 23:00 07:00 Intake Total 440 ml 480 ml Balance 440 ml 480 ml Current Medications: I have reviewed the current psychotropics carefully including drug interactions. Risk benefit ratio favors no change other than as noted in my dictated progress note. Diagnosis: Problems: (1) Major neurocognitive disorder (2) Mild cognitive impairment (3) Impulse control disorder, unspecified (4) Anxiety disorder, unspecified (5) Dementia, vascular, with depression (6) Dementia, vascular, with delusions (7) Dementia in Alzheimer's disease with depression (8) Dementia in Alzheimer's disease with delusions (9) Dementia in Alzheimer's disease with early onset with behavioral disturbance DIMITRIOS RANDALL MD Mar 31, 2020 07:23
--- NOTE | 2020-03-31 07:37 | PDOC ---
Exam Note: Tyler Note: This note is a late entry for 03/30/2020 covers elements not covered in my initial note. Subjective: The patient was evaluated on telehealth rounds in the evening of 03/30/2020 because of the COVID-19 pandemic restrictions with [facility] nursing aid. Nursing report was with Ines MEDEL. She slept 6-1/2 hours previous night. She was irritable previous night. Family are looking at Memory Care placement for her. Review of Systems: No CV, , pulmonary, eye, ENT system symptoms on review. Mental Status Exam: Oriented to herself. Insight and judgment, recent and remote memory, attention and concentration, fund of knowledge is poor consistent with her diagnoses mentioned in my initial note. Laboratory Data: Reviewed. Impression: Major neurocognitive disorder Alzheimer vascular with delusion, depression, behavioral disturbance. Mild cognitive impairment. Rest unchanged. Plan: The patient continues to spend much time in her room reading a novel but in fact does not follow much of that at all and I processed this with her. Assessment: Vital Signs/I&O: Vital Signs Date Time Temp Pulse Resp B/P (MAP) Pulse Ox O2 Delivery O2 Flow Rate FiO2 03/31/20 06:42 98.2 75 14 158/80 (106) 98 03/30/20 16:18 Room Air I & O 03/30/20 03/30/20 03/31/20 15:00 23:00 07:00 Intake Total 440 ml 480 ml Balance 440 ml 480 ml Current Medications: I have reviewed the current psychotropics carefully including drug interactions. Risk benefit ratio favors no change other than as noted in my dictated progress note. Diagnosis: Problems: (1) Major neurocognitive disorder (2) Mild cognitive impairment (3) Impulse control disorder, unspecified (4) Anxiety disorder, unspecified (5) Dementia, vascular, with depression (6) Dementia, vascular, with delusions (7) Dementia in Alzheimer's disease with depression (8) Dementia in Alzheimer's disease with delusions (9) Dementia in Alzheimer's disease with early onset with behavioral disturbance DIMITRIOS RANDALL MD Mar 31, 2020 07:37
[2020-03-31 09:35] LABS: BASO % 0 % (0-3); EOS # 0.1 x10^3/uL (0.0-0.7); EOS % 3 % (0-3); HEMATOCRIT 32.3 % (36.0-47.0); HEMOGLOBIN 10.4 g/dL (12.0-15.5); LYMPH % 20 % (24-48); MEAN CORPUSCULAR HEMOGLOBIN 30 pg (25-35); MEAN CORPUSCULAR HGB CONC 32 g/dL (31-37); MEAN CORPUSCULAR VOLUME 94 fL (79-100); MONO # 0.3 x10^3/uL (0.0-1.1); MONO % 5 % (0-9); NEUT # 3.6 x10^3uL (1.8-7.7); NEUT % 72 % (31-73); PLATELET COUNT 214 x10^3/uL (140-400); RED BLOOD COUNT 3.45 x10^6/uL (3.50-5.40)
[2020-03-31 09:44] LABS: ALBUMIN/GLOBULIN RATIO 0.9 (1.0-1.7); CALCIUM 8.3 mg/dL (8.5-10.1); CREATININE 1.8 mg/dL (0.6-1.0); GFR 27.7; POTASSIUM 4.4 mmol/L (3.5-5.1); TOTAL BILIRUBIN 0.6 mg/dL (0.2-1.0); TOTAL PROTEIN 6.2 g/dL (6.4-8.2)
[2020-03-31] MEDS: PANTOPRAZOLE 40 MG TABLET. PO SCH (09:46)
[2020-03-31] MEDS: CALCIUM CARB/VIT D3 500/200 TABLET PO SCH ×2 (09:46→17:33)
[2020-03-31] MEDS: CITALOPRAM 20 MG TABLET. PO SCH (09:47)
[2020-03-31] MEDS: MEMANTINE 10 MG TABLET. PO SCH (09:47)
[2020-03-31] MEDS: OMEGA-3 FATTY ACIDS/FISH OIL 1,000 MG CAPSULE. PO SCH (09:47)
[2020-03-31] MEDS: ASCORBIC ACID 500 MG TABLET PO SCH (09:48)
[2020-03-31] MEDS: MULTIVITAMIN with MINERAL TABLET. PO SCH (09:48)
[2020-03-31] MEDS: LISINOPRIL 5 MG TABLET. PO SCH (09:48)
[2020-03-31] MEDS: CHOLECALCIFEROL (VITAMIN D3) 1,000 UNIT TABLET PO SCH (09:48)
--- NOTE | 2020-03-31 15:07 | NUR ---
Pt is calm, cooperative and compliant. No agitation, no aggression, no hallucinations, no delusions. She is compliant with her medications and assessment.
--- NOTE | 2020-03-31 15:07 | NUR ---
Observed Betty walking hand in hand with two male peers on the unit this afternoon. She is socializing with her peers and has decreased episodes of agitation and verbal aggression. She remains disoriented to place and time. Call placed to ZEE Jaramillo, who will be involved in team meeting via phone on 04/01/20. Ella is in the process of moving Betty's personal belongings at [facility] to the memory care unit which is in an alternate building. Update provided to Ella with tentative d/c date of 04/05/20.
[2020-03-31 16:28] VITALS: BP 130/83
[2020-03-31] MEDS: DONEPEZIL HCL 10 MG TABLET PO SCH (20:46)
--- NOTE | 2020-03-31 22:05 | PDOC ---
Exam Note: Tyler Note: Please also refer to the separate dictated note~for this date of service dictated separately.~Patient seen individually. Discussed the patient with Nursing staff reviewed the chart.~Reviewed interim history and current functioning. Reviewed vital signs,~Labs/ Radiology~and current medications noted below. Continue current treatment with the changes noted in the dictated addendum note Assessment: Vital Signs/I&O: Vital Signs Date Time Temp Pulse Resp B/P (MAP) Pulse Ox O2 Delivery O2 Flow Rate FiO2 03/31/20 21:57 98.1 98 03/31/20 16:28 74 18 130/83 (99) 03/30/20 16:18 Room Air I & O 03/30/20 03/30/20 03/31/20 15:00 23:00 07:00 Intake Total 440 ml 480 ml Balance 440 ml 480 ml Labs: Laboratory Tests Test 03/31/20 09:10 White Blood Count 5.0 x10^3/uL (4.0-11.0) Red Blood Count 3.45 x10^6/uL (3.50-5.40) L Hemoglobin 10.4 g/dL (12.0-15.5) L Hematocrit 32.3 % (36.0-47.0) L Mean Corpuscular Volume 94 fL (79-100) Mean Corpuscular Hemoglobin 30 pg (25-35) Mean Corpuscular Hemoglobin Concent 32 g/dL (31-37) Red Cell Distribution Width 13.0 % (11.5-14.5) Platelet Count 214 x10^3/uL (140-400) Neutrophils (%) (Auto) 72 % (31-73) Lymphocytes (%) (Auto) 20 % (24-48) L Monocytes (%) (Auto) 5 % (0-9) Eosinophils (%) (Auto) 3 % (0-3) Basophils (%) (Auto) 0 % (0-3) Neutrophils # (Auto) 3.6 x10^3uL (1.8-7.7) Lymphocytes # (Auto) 1.0 x10^3/uL (1.0-4.8) Monocytes # (Auto) 0.3 x10^3/uL (0.0-1.1) Eosinophils # (Auto) 0.1 x10^3/uL (0.0-0.7) Basophils # (Auto) 0.0 x10^3/uL (0.0-0.2) Sodium Level 140 mmol/L (136-145) Potassium Level 4.4 mmol/L (3.5-5.1) Chloride Level 108 mmol/L (98-107) H Carbon Dioxide Level 25 mmol/L (21-32) Anion Gap 7 (6-14) Blood Urea Nitrogen 30 mg/dL (7-20) H Creatinine 1.8 mg/dL (0.6-1.0) H Estimated GFR (Cockcroft-Gault) 27.7 BUN/Creatinine Ratio 17 (6-20) Glucose Level 136 mg/dL (70-99) H Calcium Level 8.3 mg/dL (8.5-10.1) L Total Bilirubin 0.6 mg/dL (0.2-1.0) Aspartate Amino Transferase (AST) 21 U/L (15-37) Alanine Aminotransferase (ALT) 23 U/L (14-59) Alkaline Phosphatase 84 U/L (46-116) Total Protein 6.2 g/dL (6.4-8.2) L Albumin 3.0 g/dL (3.4-5.0) L Albumin/Globulin Ratio 0.9 (1.0-1.7) L Current Medications: I have reviewed the current psychotropics carefully including drug interactions. Risk benefit ratio favors no change other than as noted in my dictated progress note. Diagnosis: Problems: (1) Major neurocognitive disorder (2) Mild cognitive impairment (3) Impulse control disorder, unspecified (4) Anxiety disorder, unspecified (5) Dementia, vascular, with depression (6) Dementia, vascular, with delusions (7) Dementia in Alzheimer's disease with depression (8) Dementia in Alzheimer's disease with delusions (9) Dementia in Alzheimer's disease with early onset with behavioral disturbance DIMITRIOS RANDALL MD Mar 31, 2020 22:05
--- NOTE | 2020-04-01 00:28 | NUR ---
Nursing Note Pt doesn't even know her own name this PM, asks where we are, what kind of place is this, where did she come from. Compliant with meds and assessments. Seems genuinely confused about all the orientation questions but not emotional etc.
[2020-04-01 07:17] VITALS: BP 96/53
[2020-04-01] MEDS: ASCORBIC ACID 500 MG TABLET PO SCH (08:45)
[2020-04-01] MEDS: OMEGA-3 FATTY ACIDS/FISH OIL 1,000 MG CAPSULE. PO SCH (08:45)
[2020-04-01] MEDS: MEMANTINE 10 MG TABLET. PO SCH (08:46)
[2020-04-01] MEDS: LISINOPRIL 5 MG TABLET. PO SCH (08:46)
[2020-04-01] MEDS: CITALOPRAM 20 MG TABLET. PO SCH (08:46)
[2020-04-01] MEDS: CALCIUM CARB/VIT D3 500/200 TABLET PO SCH ×2 (08:46→16:36)
[2020-04-01] MEDS: PANTOPRAZOLE 40 MG TABLET. PO SCH (08:46)
[2020-04-01] MEDS: CHOLECALCIFEROL (VITAMIN D3) 1,000 UNIT TABLET PO SCH (08:46)
[2020-04-01] MEDS: MULTIVITAMIN with MINERAL TABLET. PO SCH (08:46)
--- NOTE | 2020-04-01 11:21 | TX PLAN ---
Interdisciplinary Tx Plan Admission Information Mar 23, 2020 at 19:55 Legal Status (on Admission): Voluntary, DPOA DPOA/Guardian Name: Ella Pelaez-sister in law Contact Other Contact Name: Chen AL Other Contact Verified Code Status: Full Code Allergies: Coded Allergies: No Known Drug Allergies (Unverified , 03/23/20) Estimated Length of Stay: 14 Diagnoses Primary Diagnosis: Major neurocognitive disorder vascular Alzheimer's with delusions, depression, BD; Anxiety disorder unspecified; impulse control disorder Reasons for Admission: Relation/conflict, Agitated, Depressed, Angry, Anxiety/Panic, Suicidal ideation, Suspicious/paranoid, Confusion/Disoriented, Poor impulse control Problem in Patient's Words: Per Ebtty, "I don't know why they sent me here." Additional Admission Comments: Per intake record, Betty has been exit seeking, agitated, forgetful and confused, hugging and kissing peers making them feel uncomfortable, expressing "I just want to kill myself", and getting in to others personal space. Problems Active Problems: agitated verbally aggressive, beligerent confused/disoriented UTI Inactive Problems: Medication compliant Sleeping adequately Intakes are adequate Pt Strengths/Limitations Ability for [place]: Poor Cognitive Functioning/Ability: Poor Communication Skills/Ability: Fair Financial Resources: Fair Insight/Judgement: Poor Intellectual Ability: Fair Physical Health: Fair Social Skills: Fair Stability in Family: Fair Verbal Skills: Fair Discharge Criteria Discharge Criteria: Adequate arrangements @DC, Improved behavior, Improved mood/thought Preliminary Discharge Plan Preliminary DC Plan: Memory Care Other Arrangements: Betty will be returning to [facility], but moving to memory care. Special Precautions Special Precautions: Agitation/Assault Fall Risk: High Initial D/C Plan Betty will return to [facility], she will be going to their memory care unit. Identified Discharge Needs: [facility] is determining unit in which Betty would be best suited for readmission. Currently Utilized Resources Currently Utilized Resources/P: PCP 24 hour oversight by [facility] Referrals Community Resources: Psychiatry if available Identified Problems/Hx/Goals Objectives/Short-Term Goals Short Term Goals: Control abnormal behavior, Dec. Anxiety/Panic, Dec. Outbursts, Dec. Symp. Depression, Medication Stabilization, Monitor Med Effects, No Suicidal/Kev. ideation Short Term Goals in Patient's: Medication review Decreased anxiousness peace Interventions/Frequency Staff Interventions/Frequency&: Nursing to provide routine safety checks, medication administration, and adl support. Psychiatry visits 3-5 times weekly. SW visits twice weekly. Recreational therapy activites as Betty will be involved. 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 Social: Betty enjoys [email or web address] music, reading, and playing cards. 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 Community Follow-up PCP Psychiatry, if available Community Provider/Family Inpu: Ella Betty's sister in law/ZEE, particpiated in team meeting via phone on this date. Will proceed with Medication evaluation, treatment of UTI, and CT head. Treatment Plan Explained Patient/Hand Plate Stacker had this treatment plan explained to him/her as indicated by the signature below and has been given the opportunity to ask questions and make suggestions: Date: Patient/Hand Plate Stacker Signature: Status Update Update WEEKLY NOTE/UPDATE: Betty is averaging 6-7 hours of sleep at night and 70-80% of meal intakes. She has been medication compliant and has had decreased verbal and physical aggression towards staff. Betty relates to her role as a nurse caring for veterans and often believes she is still fulfilling that role and responsibility. She will care take her peers and can be intrusive at times with her peers. She scored 12/30 on MMSE indicating significant cognitive impairment. Betty has been involved in six small group activities. ZEE Jaramillo, participated in team meeting via phone on this date and is in the process of moving Betty's personal belongings to the memory care unit at [facility]. Betty will return to [facility] early to middle of next week. CARROLL KAUR Apr 01, 2020 11:20
--- NOTE | 2020-04-01 11:27 | NUR ---
WEEKLY ACTIVITY THERAPY NOTE Date of Admission:03/23 Date of AT Assessment:03/24 Precipitating behaviors that initiated intake and admission:Exit seeking, agitated, forgetful, hugs and kisses some peers, expresses "I just want to kill myself", gets into others personal space Description of failure of out patient attempts at stabilization in previous setting list behavior and medication trials:PCP appointment, 1:1 sitter, set boundaries, distraction Goal aimed:increase stress management/relaxation and socialization skills Initial Goal:Pt will participate in at least one group or individual Activity Therapy session per week. Weekly progress towards goal: exceeded, 01/04 Group participation level: 4 full, 2 mod Weekly highlights: enjoying banana split on Sunday Behaviors observed: sarcastic comments, attention seeking with mask in group on Sunday, dancing and holding hands wither peers with need monitoring and redirection, comments about buildings nearby and wanting to drive to them, wants to help peers Plan: change goal to: Pt. will participate in at least five Activity Therapy groups per week. Beneficial adaptations:
[2020-04-01 15:26] LABS: BACTERIA,URINE MOD /HPF (0-FEW); BILIRUBIN,URINE NEG (NEG); CLARITY,URINE CLOUDY; COLOR,URINE YELLOW; GLUCOSE,URINE NEG (NEG); NITRITE,URINE NEG (NEG); SQUAMOUS EPITHELIAL CELL,UR MANY /LPF; UROBILINOGEN,URINE 0.2 mg/dL (0.2 mg/dL); WBC,URINE >40 /HPF (0-4)
--- NOTE | 2020-04-01 15:49 | NUR ---
1:1 with Betty this afternoon. She was sitting in the [place] area with several peers. She was listening to music and tapping her foot. She was upbeat and social. Betty's conversation is often unrelated to the present situation or hard to follow. 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 ZEE Jaramillo, was involved in treatment team via phone this morning. See treatment plan update for details.
[2020-04-01 16:43] VITALS: BP 144/84
[2020-04-01] MEDS: DONEPEZIL HCL 10 MG TABLET PO SCH (21:30)
--- NOTE | 2020-04-01 22:06 | PDOC ---
Exam Note: Tyler Note: Please also refer to the separate dictated note~for this date of service dictated separately.~Patient seen individually. Discussed the patient with Nursing staff reviewed the chart.~Reviewed interim history and current functioning. Reviewed vital signs,~Labs/ Radiology~and current medications noted below. Continue current treatment with the changes noted in the dictated addendum note Assessment: Vital Signs/I&O: Vital Signs Date Time Temp Pulse Resp B/P (MAP) Pulse Ox O2 Delivery O2 Flow Rate FiO2 04/01/20 16:43 98.3 69 16 144/84 (104) 98 03/30/20 16:18 Room Air I & O 03/31/20 03/31/20 04/01/20 15:00 23:00 07:00 Intake Total 240 ml 480 ml Balance 240 ml 480 ml Labs: Laboratory Tests Test 04/01/20 14:25 Urine Collection Type Unknown Urine Color Yellow Urine Clarity Cloudy Urine pH 5.5 Urine Specific [place] 1.015 Urine Protein Neg (NEG-TRACE) Urine Glucose (UA) Neg mg/dL (NEG) Urine Ketones (Stick) Neg mg/dL (NEG) Urine Blood Neg (NEG) Urine Nitrite Neg (NEG) Urine Bilirubin Neg (NEG) Urine Urobilinogen Dipstick 0.2 mg/dL (0.2 mg/dL) Urine Leukocyte Esterase Mod (NEG) Urine RBC 1-2 /HPF (0-2) Urine WBC >40 /HPF (0-4) Urine Squamous Epithelial Cells Many /LPF Urine Bacteria Mod /HPF (0-FEW) Current Medications: I have reviewed the current psychotropics carefully including drug interactions. Risk benefit ratio favors no change other than as noted in my dictated progress note. Diagnosis: Problems: (1) Major neurocognitive disorder (2) Mild cognitive impairment (3) Impulse control disorder, unspecified (4) Anxiety disorder, unspecified (5) Dementia, vascular, with depression (6) Dementia, vascular, with delusions (7) Dementia in Alzheimer's disease with depression (8) Dementia in Alzheimer's disease with delusions (9) Dementia in Alzheimer's disease with early onset with behavioral disturbance DIMITRIOS RANDALL MD Apr 01, 2020 22:06
--- NOTE | 2020-04-01 23:01 | NUR ---
Pt very disorganized today. A/O to name only. Irritable, sarcastic and demanding at times. Compliant with HS medications. Intrusive with other pts, attempting to "help" them.
[2020-04-02 06:34] VITALS: BP 139/68
--- NOTE | 2020-04-02 07:09 | PDOC ---
Exam Note: Tyler Note: This note is a late entry for 03/31/2020 covers elements not covered in my initial note. Subjective: The patient was evaluated face to face in the evening of 03/31/2020 with Palma MEDEL. She slept 6-1/2 hours previous night. She is confused, reading a book, but unaware of what she is reading as I questioned her, did well at night, reasonably during the day. Review of Systems: No CV, , pulmonary, eye, ENT system symptoms on review. Reliability poor. Mental Status Exam: Oriented to herself. Insight and judgment, recent and remote memory, attention and concentration, fund of knowledge is poor consistent with her diagnoses mentioned in my initial note. Laboratory Data: Reviewed. Impression: Major neurocognitive disorder Alzheimer vascular with delusion, depression, behavioral disturbance. Mild cognitive impairment. Rest unchanged. Plan: No change from initial note. Assessment: Vital Signs/I&O: Vital Signs Date Time Temp Pulse Resp B/P (MAP) Pulse Ox O2 Delivery O2 Flow Rate FiO2 04/02/20 06:34 98.0 71 22 139/68 (91) 97 03/30/20 16:18 Room Air I & O 04/01/20 04/01/20 04/02/20 15:00 23:00 07:00 Intake Total 600 ml 240 ml 360 ml Balance 600 ml 240 ml 360 ml Labs: Laboratory Tests Test 04/01/20 14:25 Urine Collection Type Unknown Urine Color Yellow Urine Clarity Cloudy Urine pH 5.5 Urine Specific [place] 1.015 Urine Protein Neg (NEG-TRACE) Urine Glucose (UA) Neg mg/dL (NEG) Urine Ketones (Stick) Neg mg/dL (NEG) Urine Blood Neg (NEG) Urine Nitrite Neg (NEG) Urine Bilirubin Neg (NEG) Urine Urobilinogen Dipstick 0.2 mg/dL (0.2 mg/dL) Urine Leukocyte Esterase Mod (NEG) Urine RBC 1-2 /HPF (0-2) Urine WBC >40 /HPF (0-4) Urine Squamous Epithelial Cells Many /LPF Urine Bacteria Mod /HPF (0-FEW) Current Medications: I have reviewed the current psychotropics carefully including drug interactions. Risk benefit ratio favors no change other than as noted in my dictated progress note. Diagnosis: Problems: (1) Major neurocognitive disorder (2) Mild cognitive impairment (3) Impulse control disorder, unspecified (4) Anxiety disorder, unspecified (5) Dementia, vascular, with depression (6) Dementia, vascular, with delusions (7) Dementia in Alzheimer's disease with depression (8) Dementia in Alzheimer's disease with delusions (9) Dementia in Alzheimer's disease with early onset with behavioral disturbance DIMITRIOS RANDALL MD Apr 02, 2020 07:09
--- NOTE | 2020-04-02 07:45 | PDOC ---
Exam Note: Tyler Note: This note is a late entry for 04/01/2020 covers elements not covered in my initial note. Subjective: The patient was evaluated face to face in the morning of 04/01/2020 for treatment team meeting with Tc (social service staff), Mercedes, activity therapy, and Tarah Grover RN. She slept 6-7 hours previous night. Lopymx-mz-eau Ella attended the treatment team meeting with entire team in the morning. Appetite is 80%. Review of Systems: No CV, , pulmonary, eye, ENT system symptoms on review. Mental Status Exam: Oriented to herself. Insight and judgment, recent and remote memory, attention and concentration, fund of knowledge is poor consistent with her diagnoses mentioned in my initial note. Laboratory Data: Reviewed. Impression: Major neurocognitive disorder Alzheimer vascular with delusion, depression, behavioral disturbance. Mild cognitive impairment. Rest unchanged. Plan: No change from initial note. Assessment: Vital Signs/I&O: Vital Signs Date Time Temp Pulse Resp B/P (MAP) Pulse Ox O2 Delivery O2 Flow Rate FiO2 04/02/20 06:34 98.0 71 22 139/68 (91) 97 03/30/20 16:18 Room Air I & O 04/01/20 04/01/20 04/02/20 14:59 22:59 06:59 Intake Total 600 ml 240 ml 360 ml Balance 600 ml 240 ml 360 ml Labs: Laboratory Tests Test 04/01/20 14:25 Urine Collection Type Unknown Urine Color Yellow Urine Clarity Cloudy Urine pH 5.5 Urine Specific [place] 1.015 Urine Protein Neg (NEG-TRACE) Urine Glucose (UA) Neg mg/dL (NEG) Urine Ketones (Stick) Neg mg/dL (NEG) Urine Blood Neg (NEG) Urine Nitrite Neg (NEG) Urine Bilirubin Neg (NEG) Urine Urobilinogen Dipstick 0.2 mg/dL (0.2 mg/dL) Urine Leukocyte Esterase Mod (NEG) Urine RBC 1-2 /HPF (0-2) Urine WBC >40 /HPF (0-4) Urine Squamous Epithelial Cells Many /LPF Urine Bacteria Mod /HPF (0-FEW) Current Medications: I have reviewed the current psychotropics carefully including drug interactions. Risk benefit ratio favors no change other than as noted in my dictated progress note. Diagnosis: Problems: (1) Major neurocognitive disorder (2) Mild cognitive impairment (3) Impulse control disorder, unspecified (4) Anxiety disorder, unspecified (5) Dementia, vascular, with depression (6) Dementia, vascular, with delusions (7) Dementia in Alzheimer's disease with depression (8) Dementia in Alzheimer's disease with delusions (9) Dementia in Alzheimer's disease with early onset with behavioral disturbance DIMITRIOS RANDALL MD Apr 02, 2020 07:45
[2020-04-02] MEDS: CHOLECALCIFEROL (VITAMIN D3) 1,000 UNIT TABLET PO SCH (08:53)
[2020-04-02] MEDS: MEMANTINE 10 MG TABLET. PO SCH (08:53)
[2020-04-02] MEDS: OMEGA-3 FATTY ACIDS/FISH OIL 1,000 MG CAPSULE. PO SCH (08:53)
[2020-04-02] MEDS: CALCIUM CARB/VIT D3 500/200 TABLET PO SCH ×2 (08:53→16:35)
[2020-04-02] MEDS: CITALOPRAM 20 MG TABLET. PO SCH (08:53)
[2020-04-02] MEDS: LISINOPRIL 5 MG TABLET. PO SCH (08:53)
[2020-04-02] MEDS: MULTIVITAMIN with MINERAL TABLET. PO SCH (08:54)
[2020-04-02] MEDS: PANTOPRAZOLE 40 MG TABLET. PO SCH (08:54)
[2020-04-02] MEDS: ASCORBIC ACID 500 MG TABLET PO SCH (08:54)
--- NOTE | 2020-04-02 13:12 | NUR ---
Call placed to Ella (ZEE) to inform that d/c for 04/07/20 is currently on hold due to a possible Covid exposure on [facility]. Explained that a call has been placed to the health department for further direction and that we are awaiting return phone call. MALU will update Ella as additional guidance is given.
[2020-04-02 17:05] VITALS: BP 150/79
--- NOTE | 2020-04-02 17:26 | NUR ---
Pt up adl in room. Has been reading books. Out of room x1 without mask. Returned to room when asked. Has been pleasantly confused.
[2020-04-02] MEDS: traZODone 50 MG TABLET. PO PRN (21:04)
[2020-04-02] MEDS: DONEPEZIL HCL 10 MG TABLET PO SCH (21:04)
--- NOTE | 2020-04-02 22:01 | PDOC ---
Exam Note: Tyler Note: Please also refer to the separate dictated note~for this date of service dictated separately.~Patient seen individually. Discussed the patient with Nursing staff reviewed the chart.~Reviewed interim history and current functioning. Reviewed vital signs,~Labs/ Radiology~and current medications noted below. Continue current treatment with the changes noted in the dictated addendum note Assessment: Vital Signs/I&O: Vital Signs Date Time Temp Pulse Resp B/P (MAP) Pulse Ox O2 Delivery O2 Flow Rate FiO2 04/02/20 17:05 98.1 60 18 150/79 (102) 96 03/30/20 16:18 Room Air I & O 04/01/20 04/01/20 04/02/20 15:00 23:00 07:00 Intake Total 600 ml 240 ml 360 ml Balance 600 ml 240 ml 360 ml Current Medications: I have reviewed the current psychotropics carefully including drug interactions. Risk benefit ratio favors no change other than as noted in my dictated progress note. Diagnosis: Problems: (1) Major neurocognitive disorder (2) Mild cognitive impairment (3) Impulse control disorder, unspecified (4) Anxiety disorder, unspecified (5) Dementia, vascular, with depression (6) Dementia, vascular, with delusions (7) Dementia in Alzheimer's disease with depression (8) Dementia in Alzheimer's disease with delusions (9) Dementia in Alzheimer's disease with early onset with behavioral disturbance DIMITRIOS RANDALL MD Apr 02, 2020 22:01
--- NOTE | 2020-04-02 22:47 | NUR ---
Nursing Note: Pt in room upon assessment. Pt pleasant and cooperative with meds and assessment. Pt took medications whole. Pt pleasant and cooperative.
[2020-04-03 05:56] VITALS: BP 144/79
[2020-04-03] MEDS: CHOLECALCIFEROL (VITAMIN D3) 1,000 UNIT TABLET PO SCH (08:16)
[2020-04-03] MEDS: MEMANTINE 10 MG TABLET. PO SCH (08:16)
[2020-04-03] MEDS: MULTIVITAMIN with MINERAL TABLET. PO SCH (08:16)
[2020-04-03] MEDS: CALCIUM CARB/VIT D3 500/200 TABLET PO SCH ×2 (08:16→17:00)
[2020-04-03] MEDS: ASCORBIC ACID 500 MG TABLET PO SCH (08:16)
[2020-04-03] MEDS: CITALOPRAM 20 MG TABLET. PO SCH (08:16)
[2020-04-03] MEDS: PANTOPRAZOLE 40 MG TABLET. PO SCH (08:16)
[2020-04-03] MEDS: OMEGA-3 FATTY ACIDS/FISH OIL 1,000 MG CAPSULE. PO SCH (08:16)
[2020-04-03] MEDS: LISINOPRIL 5 MG TABLET. PO SCH (08:17)
[2020-04-03 15:52] VITALS: BP 130/77
--- NOTE | 2020-04-03 16:27 | NUR ---
Pt up adl in room. Has been compliant with meds and cares.
--- NOTE | 2020-04-03 22:00 | PDOC ---
Exam Note: Tyler Note: Please also refer to the separate dictated note~for this date of service dictated separately.~Patient seen individually. Discussed the patient with Nursing staff reviewed the chart.~Reviewed interim history and current functioning. Reviewed vital signs,~Labs/ Radiology~and current medications noted below. Continue current treatment with the changes noted in the dictated addendum note Assessment: Vital Signs/I&O: Vital Signs Date Time Temp Pulse Resp B/P (MAP) Pulse Ox O2 Delivery O2 Flow Rate FiO2 04/03/20 15:52 98.2 81 18 130/77 (94) 99 Room Air I & O 04/02/20 04/02/20 04/03/20 15:00 23:00 07:00 Intake Total 600 ml 360 ml Balance 600 ml 360 ml Current Medications: I have reviewed the current psychotropics carefully including drug interactions. Risk benefit ratio favors no change other than as noted in my dictated progress note. Diagnosis: Problems: (1) Major neurocognitive disorder (2) Mild cognitive impairment (3) Impulse control disorder, unspecified (4) Anxiety disorder, unspecified (5) Dementia, vascular, with depression (6) Dementia, vascular, with delusions (7) Dementia in Alzheimer's disease with depression (8) Dementia in Alzheimer's disease with delusions (9) Dementia in Alzheimer's disease with early onset with behavioral disturbance DIMITRIOS RANDALL MD Apr 03, 2020 22:00
[2020-04-03] MEDS: DONEPEZIL HCL 10 MG TABLET PO SCH (22:08)
[2020-04-03] MEDS: AMOXICILLIN 250 MG CAPSULE PO SCH (22:08)
--- NOTE | 2020-04-03 23:43 | NUR ---
Pt located in her room all evening. Compliant with whole medications. Became irritable with assessment questions. Pt asked "what is going on here?" "why is everyone crazy?" When asked to elaborate, pt became irritated and sarcastically stated "oh nevermind." It appears as if pt is hoarding various items on her window sill. Will continue to monitor.
[2020-04-04 05:50] VITALS: BP 114/63
[2020-04-04] MEDS: MEMANTINE 10 MG TABLET. PO SCH (07:53)
[2020-04-04] MEDS: ASCORBIC ACID 500 MG TABLET PO SCH (07:53)
[2020-04-04] MEDS: CALCIUM CARB/VIT D3 500/200 TABLET PO SCH ×2 (07:53→17:00)
[2020-04-04] MEDS: OMEGA-3 FATTY ACIDS/FISH OIL 1,000 MG CAPSULE. PO SCH (07:53)
[2020-04-04] MEDS: PANTOPRAZOLE 40 MG TABLET. PO SCH (07:53)
[2020-04-04] MEDS: CITALOPRAM 20 MG TABLET. PO SCH (07:53)
[2020-04-04] MEDS: MULTIVITAMIN with MINERAL TABLET. PO SCH (07:53)
[2020-04-04] MEDS: AMOXICILLIN 250 MG CAPSULE PO SCH ×2 (07:53→21:00)
[2020-04-04] MEDS: CHOLECALCIFEROL (VITAMIN D3) 1,000 UNIT TABLET PO SCH (07:53)
[2020-04-04] MEDS: LISINOPRIL 5 MG TABLET. PO SCH (07:54)
[2020-04-04 15:50] VITALS: BP 108/64
--- NOTE | 2020-04-04 17:15 | NUR ---
Pt irritable when woken to take am meds but was easily redirected. Has been up adl in room.
[2020-04-04] MEDS: DONEPEZIL HCL 10 MG TABLET PO SCH (21:00)
[2020-04-04] MEDS: LACTOBACILLUS RHAMNOSUS GG 1 CAPSULE. PO SCH (21:01)
--- NOTE | 2020-04-04 22:03 | PDOC ---
Exam Note: Tyler Note: Please also refer to the separate dictated note~for this date of service dictated separately.~Patient seen individually. Discussed the patient with Nursing staff reviewed the chart.~Reviewed interim history and current functioning. Reviewed vital signs,~Labs/ Radiology~and current medications noted below. Continue current treatment with the changes noted in the dictated addendum note Assessment: Vital Signs/I&O: Vital Signs Date Time Temp Pulse Resp B/P (MAP) Pulse Ox O2 Delivery O2 Flow Rate FiO2 04/04/20 21:15 98.5 98 Room Air 04/04/20 15:50 71 18 108/64 (79) I & O 04/03/20 04/03/20 04/04/20 15:00 23:00 07:00 Intake Total 240 ml 240 ml 400 ml Balance 240 ml 240 ml 400 ml Current Medications: Meds: Current Medications Medications (Trade) Dose Ordered Sig/Toño Route PRN Reason Start Time Stop Time Status Last Admin Dose Admin Lactobacillus Rhamnosus (Culturelle) 1 cap BID PO 04/04/20 21:00 04/04/20 21:01 I have reviewed the current psychotropics carefully including drug interactions. Risk benefit ratio favors no change other than as noted in my dictated progress note. Diagnosis: Problems: (1) Major neurocognitive disorder (2) Mild cognitive impairment (3) Impulse control disorder, unspecified (4) Anxiety disorder, unspecified (5) Dementia, vascular, with depression (6) Dementia, vascular, with delusions (7) Dementia in Alzheimer's disease with depression (8) Dementia in Alzheimer's disease with delusions (9) Dementia in Alzheimer's disease with early onset with behavioral disturbance DIMITRIOS RANDALL MD Apr 04, 2020 22:03
--- NOTE | 2020-04-04 22:43 | NUR ---
Pt has been disorganized but calmer than previous evenings. Compliant with whole medications. Pt is currently awake and reading in bed.
[2020-04-05 06:11] VITALS: BP 100/62
--- NOTE | 2020-04-05 07:05 | PDOC ---
Exam Note: Tyler Note: This note is a late entry for 04/02/2020 covers elements not covered in my initial note. Subjective: The patient was evaluated on telehealth rounds in the evening of 04/02/2020 with [facility] nursing aid as one of the patients on the unit has tested positive for COVID-19 and unit is on a lockdown with no admission and discharges. That is the reason I am doing telehealth rounds to minimize any further spread of the infection. Nursing report with Ines MEDEL. She slept 6- 1/2 hours previous night. She remains confused, but otherwise pleasant. Has a sense of humor, smiling as I met with her. Review of Systems: No CV, , pulmonary, eye, ENT system symptoms on review. Mental Status Exam: Oriented to herself. Insight and judgment, recent and remote memory, attention and concentration, fund of knowledge is poor consistent with her diagnoses mentioned in my initial note. Laboratory Data: Reviewed. Impression: Major neurocognitive disorder Alzheimer vascular with delusion, depression, behavioral disturbance. Mild cognitive impairment. Rest unchanged. Plan: No change from initial note. Assessment: Vital Signs/I&O: Vital Signs Date Time Temp Pulse Resp B/P (MAP) Pulse Ox O2 Delivery O2 Flow Rate FiO2 04/05/20 06:11 98.1 65 18 100/62 (75) 98 04/04/20 21:15 Room Air I & O 04/04/20 04/04/20 04/05/20 15:00 23:00 07:00 Intake Total 360 ml 480 ml Balance 360 ml 480 ml Current Medications: Meds: Current Medications Medications (Trade) Dose Ordered Sig/Toño Route PRN Reason Start Time Stop Time Status Last Admin Dose Admin Lactobacillus Rhamnosus (Culturelle) 1 cap BID PO 04/04/20 21:00 04/04/20 21:01 I have reviewed the current psychotropics carefully including drug interactions. Risk benefit ratio favors no change other than as noted in my dictated progress note. Diagnosis: Problems: (1) Major neurocognitive disorder (2) Mild cognitive impairment (3) Impulse control disorder, unspecified (4) Anxiety disorder, unspecified (5) Dementia, vascular, with depression (6) Dementia, vascular, with delusions (7) Dementia in Alzheimer's disease with depression (8) Dementia in Alzheimer's disease with delusions (9) Dementia in Alzheimer's disease with early onset with behavioral disturbance PRAKASH,MAN M MD Apr 05, 2020 07:05
--- NOTE | 2020-04-05 07:20 | PDOC ---
Exam Note: Tyler Note: This note is a late entry for 04/03/2020 covers elements not covered in my initial note. Subjective: The patient was evaluated on telehealth rounds in the evening of 04/03/2020 with An[facility] nursing aid as one of the patients on the unit has tested positive for COVID-19 and unit is on a lockdown with no admission and discharges. That is the reason I am doing telehealth rounds to minimize any further spread of the infection. Nursing report with Ines MEDEL. She slept 8- 1/4 hours previous night. She has been coming out of her room, a little bit more. She has a bit sense of humor, confused. She still believes she is working with the [employer]. Review of Systems: No CV, , pulmonary, eye, ENT system symptoms on review. Mental Status Exam: Reasonably oriented. Insight and judgment, recent and remote memory, attention and concentration, fund of knowledge is poor consistent with her diagnoses mentioned in my initial note. Laboratory Data: Reviewed. Impression: Major neurocognitive disorder Alzheimer vascular with delusion, depression, behavioral disturbance. Mild cognitive impairment. Rest unchanged. Plan: No change from initial note. Assessment: Vital Signs/I&O: Vital Signs Date Time Temp Pulse Resp B/P (MAP) Pulse Ox O2 Delivery O2 Flow Rate FiO2 04/05/20 06:11 98.1 65 18 100/62 (75) 98 04/04/20 21:15 Room Air I & O 04/04/20 04/04/20 04/05/20 15:00 23:00 07:00 Intake Total 360 ml 480 ml Balance 360 ml 480 ml Current Medications: Meds: Current Medications Medications (Trade) Dose Ordered Sig/Toño Route PRN Reason Start Time Stop Time Status Last Admin Dose Admin Lactobacillus Rhamnosus (Culturelle) 1 cap BID PO 04/04/20 21:00 04/04/20 21:01 I have reviewed the current psychotropics carefully including drug interactions. Risk benefit ratio favors no change other than as noted in my dictated progress note. Diagnosis: Problems: (1) Major neurocognitive disorder (2) Mild cognitive impairment (3) Impulse control disorder, unspecified (4) Anxiety disorder, unspecified (5) Dementia, vascular, with depression (6) Dementia, vascular, with delusions (7) Dementia in Alzheimer's disease with depression (8) Dementia in Alzheimer's disease with delusions (9) Dementia in Alzheimer's disease with early onset with behavioral disturbance DIMITRIOS RANDALL MD Apr 05, 2020 07:20
--- NOTE | 2020-04-05 07:30 | PDOC ---
Exam Note: Tyler Note: This note is a late entry for 04/04/2020 covers elements not covered in my initial note. Subjective: The patient was evaluated on telehealth rounds in the evening of 04/04/2020 with An[facility] nursing aid as one of the patients on the unit has tested positive for COVID-19 and unit is on a lockdown with no admission and discharges. That is the reason I am doing telehealth rounds to minimize any further spread of the infection. Nursing report with Robby MEDEL. The patient does have a UTI, started on Amoxil. Previous night she was irritable, sarcastic, hoarding things. She is pleasant, verbal, smiling as I met with her. Review of Systems: No CV, , pulmonary, eye, ENT system symptoms on review. Mental Status Exam: Oriented to herself. Insight and judgment, recent and remote memory, attention and concentration, fund of knowledge is poor consistent with her diagnoses mentioned in my initial note. Laboratory Data: Reviewed. Impression: Major neurocognitive disorder Alzheimer vascular with delusion, depression, behavioral disturbance. Mild cognitive impairment. Rest unchanged. Plan: No change from initial note. Assessment: Vital Signs/I&O: Vital Signs Date Time Temp Pulse Resp B/P (MAP) Pulse Ox O2 Delivery O2 Flow Rate FiO2 04/05/20 06:11 98.1 65 18 100/62 (75) 98 04/04/20 21:15 Room Air I & O 04/04/20 04/04/20 04/05/20 15:00 23:00 07:00 Intake Total 360 ml 480 ml Balance 360 ml 480 ml Current Medications: Meds: Current Medications Medications (Trade) Dose Ordered Sig/Toño Route PRN Reason Start Time Stop Time Status Last Admin Dose Admin Lactobacillus Rhamnosus (Culturelle) 1 cap BID PO 04/04/20 21:00 04/04/20 21:01 I have reviewed the current psychotropics carefully including drug interactions. Risk benefit ratio favors no change other than as noted in my dictated progress note. Diagnosis: Problems: (1) Major neurocognitive disorder (2) Mild cognitive impairment (3) Impulse control disorder, unspecified (4) Anxiety disorder, unspecified (5) Dementia, vascular, with depression (6) Dementia, vascular, with delusions (7) Dementia in Alzheimer's disease with depression (8) Dementia in Alzheimer's disease with delusions (9) Dementia in Alzheimer's disease with early onset with behavioral disturbance DIMITRIOS RANDALL MD Apr 05, 2020 07:30
[2020-04-05] MEDS: PANTOPRAZOLE 40 MG TABLET. PO SCH (08:33)
[2020-04-05] MEDS: MULTIVITAMIN with MINERAL TABLET. PO SCH (08:33)
[2020-04-05] MEDS: CALCIUM CARB/VIT D3 500/200 TABLET PO SCH ×2 (08:33→16:12)
[2020-04-05] MEDS: CITALOPRAM 20 MG TABLET. PO SCH (08:33)
[2020-04-05] MEDS: LACTOBACILLUS RHAMNOSUS GG 1 CAPSULE. PO SCH ×2 (08:34→20:49)
[2020-04-05] MEDS: LISINOPRIL 5 MG TABLET. PO SCH (08:34)
[2020-04-05] MEDS: CHOLECALCIFEROL (VITAMIN D3) 1,000 UNIT TABLET PO SCH (08:34)
[2020-04-05] MEDS: MEMANTINE 10 MG TABLET. PO SCH (08:34)
[2020-04-05] MEDS: ASCORBIC ACID 500 MG TABLET PO SCH (08:34)
[2020-04-05] MEDS: AMOXICILLIN 250 MG CAPSULE PO SCH ×2 (08:34→20:49)
[2020-04-05] MEDS: OMEGA-3 FATTY ACIDS/FISH OIL 1,000 MG CAPSULE. PO SCH (08:34)
--- NOTE | 2020-04-05 11:57 | NUR ---
Call placed to ZEE Jaramillo, to inform that all patients will be rapid swabbed today per recommendation of the health department. [facility] is currently on hold for any admission or discharges. Will update Ella as needed. Addendum: 04/05/20 at 1203 by CARROLL TORIBIO MALU received call from Tiffanie, nurse at [facility], indicating that she would be faxing over admission assessment that needed to be completed by physician on Betty's behalf. Updated Tiffanie that [facility] is currently on hold for admissions/discharges due to Covid exposer last week. Awaiting further direction from health department once all patients are rapid swabbed this date. Addendum: 04/05/20 at 1507 by CARROLL TORIBIO Admission assessment paperwork completed and signed by Dr. Machado and faxed to Tiffanie at [facility].
--- NOTE | 2020-04-05 12:57 | NUR ---
Patient in bed with eyes open at shift change. Patient answered questions but not conversational. Took medications whole without difficulty. Denied pain, no delusions noted. Calm and cooperative with assessment and care. Patient very upset during COVID testing. Will continue to monitor.
--- NOTE | 2020-04-05 15:42 | NUR ---
MALU updated ZEE Jaramillo, that per health department recommendations, SB will be on a 14 day quarantine, no admissions or discharges during that time.
[2020-04-05 16:39] VITALS: BP 130/71
[2020-04-05] MEDS: DONEPEZIL HCL 10 MG TABLET PO SCH (20:49)
--- NOTE | 2020-04-05 23:11 | NUR ---
Pt calm and cooperative this evening. Compliant with whole medications. Less irritable and sarcastic.
[2020-04-06 06:02] VITALS: BP 125/58
--- NOTE | 2020-04-06 07:35 | PDOC ---
Exam Note: Tyler Note: This note is a late entry for 04/05/2020 covers elements not covered in my initial note. Subjective: The patient was evaluated on telehealth rounds in the evening on 04/05/2020 due to COVID-19 pandemic on the unit with [facility], nursing aid. Nursing report in the evening was with Tami MEDEL. She is compliant with medications. She slept 5-1/4 hours previous night. Review of Systems: No CV, , pulmonary, eye, ENT system symptoms on review. Mental Status Exam: She is quite pleasant, verbal, interactive, confused. She has a sense of humor. She tries to cover up her memory deficits with her humor. Insight and judgment, recent and remote memory, attention and concentration, fund of knowledge is poor consistent with her diagnoses mentioned in my initial note. Laboratory Data: Reviewed. Impression: Major neurocognitive disorder Alzheimer vascular with delusion, depression, behavioral disturbance. Mild cognitive impairment. Rest unchanged. Plan: No change from initial note. Dr. Roberson will be covering for me during my vacation from 04/06/2020 to 04/12/2020. Assessment: Vital Signs/I&O: Vital Signs Date Time Temp Pulse Resp B/P (MAP) Pulse Ox O2 Delivery O2 Flow Rate FiO2 04/06/20 06:02 98.1 65 16 125/58 (80) 97 04/04/20 21:15 Room Air I & O 04/05/20 04/05/20 04/06/20 15:00 23:00 07:00 Intake Total 600 ml 480 ml Balance 600 ml 480 ml Labs: Laboratory Tests Test 04/05/20 11:20 SARS-CoV-2 Antigen (Rapid) Negative (NEGATIVE) Current Medications: I have reviewed the current psychotropics carefully including drug interactions. Risk benefit ratio favors no change other than as noted in my dictated progress note. Diagnosis: Problems: (1) Major neurocognitive disorder (2) Mild cognitive impairment (3) Impulse control disorder, unspecified (4) Anxiety disorder, unspecified (5) Dementia, vascular, with depression (6) Dementia, vascular, with delusions (7) Dementia in Alzheimer's disease with depression (8) Dementia in Alzheimer's disease with delusions (9) Dementia in Alzheimer's disease with early onset with behavioral disturbance DIMITRIOS RANDALL MD Apr 06, 2020 07:35
[2020-04-06] MEDS: ASCORBIC ACID 500 MG TABLET PO SCH (09:40)
[2020-04-06] MEDS: CITALOPRAM 20 MG TABLET. PO SCH (09:40)
[2020-04-06] MEDS: LACTOBACILLUS RHAMNOSUS GG 1 CAPSULE. PO SCH ×2 (09:40→21:17)
[2020-04-06] MEDS: MULTIVITAMIN with MINERAL TABLET. PO SCH (09:40)
[2020-04-06] MEDS: AMOXICILLIN 250 MG CAPSULE PO SCH ×2 (09:40→21:17)
[2020-04-06] MEDS: CALCIUM CARB/VIT D3 500/200 TABLET PO SCH ×2 (09:40→17:15)
[2020-04-06] MEDS: OMEGA-3 FATTY ACIDS/FISH OIL 1,000 MG CAPSULE. PO SCH (09:40)
[2020-04-06] MEDS: MEMANTINE 10 MG TABLET. PO SCH (09:41)
[2020-04-06] MEDS: CHOLECALCIFEROL (VITAMIN D3) 1,000 UNIT TABLET PO SCH (09:41)
[2020-04-06] MEDS: LISINOPRIL 5 MG TABLET. PO SCH (09:41)
[2020-04-06] MEDS: PANTOPRAZOLE 40 MG TABLET. PO SCH (09:41)
--- NOTE | 2020-04-06 12:03 | NUR ---
Patient laying in bed facing the window. She told this nurse that she did not eat breakfast as her stomach hurts too bad. Nurse asked SAFETY PHYSICIAN who reported that patient ate 100% at breakfast. Patient is compliant with medications, she takes them whole. She was calm and cooperative in the shower this morning. Patient spent time sleeping and then was observed reading a book. No adverse behaviors noted at this time.
--- NOTE | 2020-04-06 14:12 | NUR ---
1:1 with Betty to socialize and support. Betty was resting in her bed reading a western book. She was in good spirits and made jokes about the cowboy on the front of the book being handsome and how she would him. She laughed easily and often and expressed that laughing is better than crying. She is oriented to herself only and does not recall SW from previous visits. She had no unmet needs when asked and SW provided her some water at request.
[2020-04-06 16:20] VITALS: BP 165/66
--- NOTE | 2020-04-06 17:44 | NUR ---
Patient was flirty and giggling while talking to Dr Aiken on Zoom rounds. She is oriented to self only and has been reading the same page in her book most of the day. She is compliant with staying in her room and wearing her mask if she comes to the doorway to speak to staff.
[2020-04-06] MEDS: DONEPEZIL HCL 10 MG TABLET PO SCH (21:17)
--- NOTE | 2020-04-06 23:03 | PN ---
DATE: 04/06/2020 SUBJECTIVE: The patient was evaluated by tele rounds, discussed with the staff, reviewed her current medications and labs. The patient continues to have some emotional lability, talkative, impulse control problems. Otherwise, no major complaints. OBSERVATION: VITAL SIGNS: Temperature 98.1, blood pressure 125/58, pulse 65, respirations 16, O2 sat 97%. Slept about 7 hours last night. MEDICATIONS: Reviewed. Currently on citalopram 20 mg daily, Namenda 10 mg daily, Aricept 10 mg at night, and olanzapine 2.5 mg q. 2 hours p.r.n. The patient also currently on amoxicillin 250 mg b.i.d. p.o. The patient is not having any side effects. ASSESSMENT: Major neurocognitive disorder, most likely Alzheimer's with behavior problems. PLAN: To continue with the current treatment plan. LENGTH OF STAY: 4-5 days. TODD PENG MD DR: DEVANTE/uma JOB#: [id number] / [id number]
--- NOTE | 2020-04-06 23:35 | NUR ---
At meds pass pt was sitting up in bed reading a book. 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 She took her meds without difficulty. She is only able to state name and . No behaviors tonight.
[2020-04-07 06:39] VITALS: BP 116/62
[2020-04-07] MEDS: MULTIVITAMIN with MINERAL TABLET. PO SCH (09:17)
[2020-04-07] MEDS: LISINOPRIL 5 MG TABLET. PO SCH (09:18)
[2020-04-07] MEDS: CHOLECALCIFEROL (VITAMIN D3) 1,000 UNIT TABLET PO SCH (09:18)
[2020-04-07] MEDS: LACTOBACILLUS RHAMNOSUS GG 1 CAPSULE. PO SCH ×2 (09:18→20:45)
[2020-04-07] MEDS: PANTOPRAZOLE 40 MG TABLET. PO SCH (09:19)
[2020-04-07] MEDS: ASCORBIC ACID 500 MG TABLET PO SCH (09:19)
[2020-04-07] MEDS: AMOXICILLIN 250 MG CAPSULE PO SCH ×2 (09:19→20:45)
[2020-04-07] MEDS: CALCIUM CARB/VIT D3 500/200 TABLET PO SCH ×2 (09:19→17:00)
[2020-04-07] MEDS: MEMANTINE 10 MG TABLET. PO SCH (09:19)
[2020-04-07] MEDS: OMEGA-3 FATTY ACIDS/FISH OIL 1,000 MG CAPSULE. PO SCH (09:19)
[2020-04-07] MEDS: CITALOPRAM 20 MG TABLET. PO SCH (09:19)
--- NOTE | 2020-04-07 11:05 | NUR ---
Patient is calm and compliant. She stated that she is in [place], [place]. 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 Patient is up adlib and independent. She has been appropriate during interactions this day. No agitation or self harm statements made. She spends her time in bed reading a book.
[2020-04-07 16:09] VITALS: BP 125/93
[2020-04-07] MEDS: DONEPEZIL HCL 10 MG TABLET PO SCH (20:45)
--- NOTE | 2020-04-07 22:13 | PN ---
DATE: 04/07/2020 SUBJECTIVE: The patient was seen on daily rounds, met with the staff, chart reviewed. The patient has not presented with any major problems. She is interacting with the staff, periods of high level of anxiety and some agitation. OBSERVATION: VITAL SIGNS: Temperature 98.3, blood pressure 116/62, pulse 74, respiration 18, O2 sat 98%. GENERAL: Slept about 4 hours last night. The patient is not having any physical problems. No falls. CURRENT MEDICATIONS: Include citalopram 20 mg daily, Namenda 10 mg daily, Aricept 10 mg at night, and olanzapine 2.5 mg every 2 hours p.r.n. The patient denies of any side effects. LABORATORY DATA: The patient's lab reviewed. ASSESSMENT: 1. Major neurocognitive disorder, most likely Alzheimer's with behavior problems. PLAN: To continue with the current treatment plan. LENGTH OF STAY: [address] PENG MD DR: DEVANTE/uma JOB#: [id number] / [id number]
--- NOTE | 2020-04-08 00:42 | NUR ---
Pt has been in her room tonight mainly resting in bed. She took her meds whole without difficulty and has been pleasant and cooperative. She is only able to state name and and continues to say we are in [place]. She has had no behaviors tonight and seems to be sleeping well.
[2020-04-08 06:43] VITALS: BP 106/62
[2020-04-08] MEDS: PANTOPRAZOLE 40 MG TABLET. PO SCH (08:06)
[2020-04-08] MEDS: CHOLECALCIFEROL (VITAMIN D3) 1,000 UNIT TABLET PO SCH (08:06)
[2020-04-08] MEDS: ASCORBIC ACID 500 MG TABLET PO SCH (08:06)
[2020-04-08] MEDS: MULTIVITAMIN with MINERAL TABLET. PO SCH (08:06)
[2020-04-08] MEDS: AMOXICILLIN 250 MG CAPSULE PO SCH (08:06)
[2020-04-08] MEDS: MEMANTINE 10 MG TABLET. PO SCH (08:07)
[2020-04-08] MEDS: CITALOPRAM 20 MG TABLET. PO SCH (08:07)
[2020-04-08] MEDS: LACTOBACILLUS RHAMNOSUS GG 1 CAPSULE. PO SCH ×2 (08:07→20:19)
[2020-04-08] MEDS: OMEGA-3 FATTY ACIDS/FISH OIL 1,000 MG CAPSULE. PO SCH (08:07)
[2020-04-08] MEDS: LISINOPRIL 5 MG TABLET. PO SCH (08:07)
[2020-04-08] MEDS: CALCIUM CARB/VIT D3 500/200 TABLET PO SCH ×2 (08:10→17:33)
--- NOTE | 2020-04-08 11:48 | NUR ---
Patient has been sitting in her chair reading a book. When the floors were being deep cleaned, patient sat outside and put her face mask over her eyes as well as mouth and nose. Patient takes medications whole. She is cooperative and independent with ADLs, No adverse behaviors noted at this time,
--- NOTE | 2020-04-08 14:38 | TX PLAN ---
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 Problems Active Problems: agitated verbally aggressive, beligerent confused/disoriented UTI Inactive Problems: Medication compliant Sleeping adequately Intakes are adequate Pt Strengths/Limitations Ability for [place]: Poor Cognitive Functioning/Ability: Poor Communication Skills/Ability: Fair Financial Resources: Fair Insight/Judgement: Poor Intellectual Ability: Fair Physical Health: Fair Social Skills: Fair Stability in Family: Fair Verbal Skills: Fair Discharge Criteria Discharge Criteria: Adequate arrangements @DC, Improved behavior, Improved mood/thought Preliminary Discharge Plan Preliminary DC Plan: Memory Care Other Arrangements: Betty will be returning to [facility], but moving to memory care. Special Precautions Special Precautions: Agitation/Assault Fall Risk: High Initial D/C Plan Betty will return to [facility], she will be going to their memory care unit. Identified Discharge Needs: [facility] is determining unit in which Betty would be best suited for readmission. Currently Utilized Resources Currently Utilized Resources/P: PCP 24 hour oversight by [facility] Referrals Community Resources: Psychiatry if available Identified Problems/Hx/Goals Objectives/Short-Term Goals Short Term Goals: Control abnormal behavior, Dec. Anxiety/Panic, Dec. Outbursts, Dec. Symp. Depression, Medication Stabilization, Monitor Med Effects, No Suicidal/Kev. ideation Short Term Goals in Patient's: Medication review Decreased anxiousness peace Interventions/Frequency Staff Interventions/Frequency&: Nursing to provide routine safety checks, medication administration, and adl support. Psychiatry visits 3-5 times weekly. SW visits twice weekly. Recreational therapy activites as Betty will be involved. 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 Social: Betty enjoys [employer] music, reading, and playing cards. 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 Community Follow-up PCP Psychiatry, if available Community Provider/Family Inpu: Ella Betty's sister in law/ZEE, particpiated in team meeting via phone on this date. Will proceed with Medication evaluation, treatment of UTI, and CT head. Treatment Plan Explained Patient/Fourchette Sewer had this treatment plan explained to him/her as indicated by the signature below and has been given the opportunity to ask questions and make suggestions: Date: Patient/Fourchette Sewer Signature: Status Update Update WEEKLY UPDATE/NOTE: Betty is averaging 95% of meal intakes and 7.5 hours of sleep. She has been cooperative with cares and medication administration. She is compliant with being in her room for quarantine and occupies her time reading. Tentative d/c date of 04/19/20 provided quarantine is lifted at that time. MALU updated Ella KOCH, via phone on 04/07/20. MALU will fax update to Tiffanie nurse at [facility] for review. Betty completed her antibiotic for UTI this date. CARROLL KAUR Apr 08, 2020 14:38
[2020-04-08 15:51] VITALS: BP 112/71
[2020-04-08] MEDS: DONEPEZIL HCL 10 MG TABLET PO SCH (20:19)
--- NOTE | 2020-04-08 21:23 | PN ---
DATE: 04/08/2020 SUBJECTIVE: The patient was evaluated today by telehealth rounds, met with the staff, chart reviewed. Staff reports no major behavior problems. She is compliant with the medications. Still has periods of confusion. OBSERVATION: VITAL SIGNS: Stable. Slept about 7-1/2 hours last night. The patient ate 95% of her meals. The patient is not having any side effects from the medication, also reviewed the patient's care, the discharge plan and the treatment review conference. ASSESSMENT: Major neurocognitive disorder, most likely Alzheimer's with behavior problems. PLAN: To continue with the current treatment plan. The patient is scheduled for discharge on 04/19/2020. TODD PENG MD DR: DEVANTE/uma JOB#: [id number] / [id number]
--- NOTE | 2020-04-08 22:16 | NUR ---
Pt has been in her room tonight and has been pleasant and cooperative. She remains confused other than to name and . Meds were taken whole and she has had no behaviors tonight.
[2020-04-09 05:50] VITALS: BP 134/73
[2020-04-09] MEDS: CHOLECALCIFEROL (VITAMIN D3) 1,000 UNIT TABLET PO SCH (07:59)
[2020-04-09] MEDS: PANTOPRAZOLE 40 MG TABLET. PO SCH (07:59)
[2020-04-09] MEDS: CALCIUM CARB/VIT D3 500/200 TABLET PO SCH ×2 (08:00→17:00)
[2020-04-09] MEDS: CITALOPRAM 20 MG TABLET. PO SCH (08:00)
[2020-04-09] MEDS: OMEGA-3 FATTY ACIDS/FISH OIL 1,000 MG CAPSULE. PO SCH (08:00)
[2020-04-09] MEDS: LACTOBACILLUS RHAMNOSUS GG 1 CAPSULE. PO SCH ×2 (08:00→21:06)
[2020-04-09] MEDS: ASCORBIC ACID 500 MG TABLET PO SCH (08:00)
[2020-04-09] MEDS: MULTIVITAMIN with MINERAL TABLET. PO SCH (08:00)
[2020-04-09] MEDS: MEMANTINE 10 MG TABLET. PO SCH (08:00)
[2020-04-09] MEDS: LISINOPRIL 5 MG TABLET. PO SCH (08:00)
[2020-04-09 09:23] LABS: BASO % 0 % (0-3); EOS # 0.1 x10^3/uL (0.0-0.7); EOS % 3 % (0-3); HEMATOCRIT 32.2 % (36.0-47.0); HEMOGLOBIN 10.4 g/dL (12.0-15.5); LYMPH # 0.8 x10^3/uL (1.0-4.8); LYMPH % 19 % (24-48); MEAN CORPUSCULAR HEMOGLOBIN 30 pg (25-35); MEAN CORPUSCULAR HGB CONC 32 g/dL (31-37); MEAN CORPUSCULAR VOLUME 93 fL (79-100); MONO # 0.3 x10^3/uL (0.0-1.1); MONO % 8 % (0-9); NEUT % 70 % (31-73); PLATELET COUNT 203 x10^3/uL (140-400); RED BLOOD COUNT 3.45 x10^6/uL (3.50-5.40); RED CELL DISTRIBUTION WIDTH 12.8 % (11.5-14.5); WHITE BLOOD COUNT 4.3 x10^3/uL (4.0-11.0)
--- NOTE | 2020-04-09 09:30 | NUR ---
Covid and rapid done and sent to lab.
[2020-04-09 09:35] LABS: ALBUMIN 3.1 g/dL (3.4-5.0); CALCIUM 8.3 mg/dL (8.5-10.1); CREATININE 1.7 mg/dL (0.6-1.0); GFR 29.6; TOTAL BILIRUBIN 0.7 mg/dL (0.2-1.0); TOTAL PROTEIN 6.2 g/dL (6.4-8.2)
--- NOTE | 2020-04-09 10:13 | NUR ---
Faxed current notes, labs, and medication list to Tiffanie/Orly Marr at [facility] for review. Call placed to Olry Marr who confirmed she received the faxed update. Reviewed that tentative d/c date is 04/19/20 provided unit quarantine is not extended. Betty will need one negative Covid swab in order to transfer to [facility]. Call placed to ZEE Jaramillo, to provide update on above information.
--- NOTE | 2020-04-09 13:16 | NUR ---
Pt up for meals and took am without difficulty. Pt outside with mask for morning group.
--- NOTE | 2020-04-09 14:16 | NUR ---
1:1 with Betty this afternoon to socialize. Betty was reading a book in her bed. She was alert and oriented to herself. 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 She told SW of one that joked with her about being the mother of his 13 children and how she always said back to him, "Where's my milk money?" Betty laughed throughout visit. Betty showed SW coloring pages that she had completed and SW assisted to pompa her how to do a word search puzzle. Betty spoke positively of her brother and sister in law this date and expressed the desire to see them again soon. Will follow.
[2020-04-09 16:05] VITALS: BP 106/48
[2020-04-09 21:00] VITALS: BP 110/67
[2020-04-09] MEDS: traZODone 50 MG TABLET. PO PRN (21:06)
[2020-04-09] MEDS: DONEPEZIL HCL 10 MG TABLET PO SCH (21:06)
--- NOTE | 2020-04-09 22:00 | NUR ---
Patient is in her room on assumption of care. She is laying in bed, awake. Calm, cooperative and compliant with assessments and medications taken whole. No agitation. Patient denies any pain or discomfort. She appears to be sleeping comfortably at present time.
--- NOTE | 2020-04-09 22:10 | PN ---
DATE: 04/09/2020 SUBJECTIVE: The patient was seen today, met with the staff, chart reviewed. The patient was evaluated today by the telehealth rounds. Staff reports no major behavior problems except she is confused, having difficulty orienting herself. She is disoriented to time, place, and person. The patient is also having difficulty following the rules. The patient is also impulsive at times, but no major behavior problems. OBSERVATION: VITAL SIGNS: Temperature 98.2, blood pressure 134/73, pulse 63, respirations 16, and O2 sat 97%. GENERAL: Slept about 7 hours last night. The patient's appetite is normal. MEDICATIONS: The patient's current medications include olanzapine 2.5 mg q. __ hours p.r.n., citalopram 20 mg daily, Namenda 10 mg daily, trazodone 50 mg at night p.r.n., Aricept 10 mg at night. She is not having any side effects to medications. ASSESSMENT: 1. Major neurocognitive disorder, most likely Alzheimer's with behavior problems. PLAN: To continue with the treatment. LENGTH OF STAY: 5 days. The patient is planned for discharge on the because of discharge restrictions. TODD PENG MD DR: DEVANTE/uma JOB#: [id number] / [id number]
[2020-04-10 06:10] VITALS: BP 105/64
[2020-04-10] MEDS: CITALOPRAM 20 MG TABLET. PO SCH (07:55)
[2020-04-10] MEDS: PANTOPRAZOLE 40 MG TABLET. PO SCH (07:55)
[2020-04-10] MEDS: LACTOBACILLUS RHAMNOSUS GG 1 CAPSULE. PO SCH ×2 (07:55→19:58)
[2020-04-10] MEDS: CALCIUM CARB/VIT D3 500/200 TABLET PO SCH ×2 (07:55→17:00)
[2020-04-10] MEDS: ASCORBIC ACID 500 MG TABLET PO SCH (07:55)
[2020-04-10] MEDS: MEMANTINE 10 MG TABLET. PO SCH (07:55)
[2020-04-10] MEDS: LISINOPRIL 5 MG TABLET. PO SCH (07:56)
[2020-04-10] MEDS: MULTIVITAMIN with MINERAL TABLET. PO SCH (07:56)
[2020-04-10] MEDS: CHOLECALCIFEROL (VITAMIN D3) 1,000 UNIT TABLET PO SCH (07:56)
[2020-04-10] MEDS: OMEGA-3 FATTY ACIDS/FISH OIL 1,000 MG CAPSULE. PO SCH (07:56)
[2020-04-10 16:18] VITALS: BP 124/73
--- NOTE | 2020-04-10 16:58 | NUR ---
Pt up in room for meals. Has been compliant with meds and cares.
[2020-04-10] MEDS: traZODone 50 MG TABLET. PO PRN (19:58)
[2020-04-10] MEDS: DONEPEZIL HCL 10 MG TABLET PO SCH (19:59)
[2020-04-11 06:12] VITALS: BP 108/58
[2020-04-11] MEDS: OMEGA-3 FATTY ACIDS/FISH OIL 1,000 MG CAPSULE. PO SCH (07:55)
[2020-04-11] MEDS: LACTOBACILLUS RHAMNOSUS GG 1 CAPSULE. PO SCH ×2 (07:55→19:44)
[2020-04-11] MEDS: CITALOPRAM 20 MG TABLET. PO SCH (07:56)
[2020-04-11] MEDS: PANTOPRAZOLE 40 MG TABLET. PO SCH (07:56)
[2020-04-11] MEDS: MEMANTINE 10 MG TABLET. PO SCH (07:56)
[2020-04-11] MEDS: CHOLECALCIFEROL (VITAMIN D3) 1,000 UNIT TABLET PO SCH (07:56)
[2020-04-11] MEDS: CALCIUM CARB/VIT D3 500/200 TABLET PO SCH ×2 (07:56→17:00)
[2020-04-11] MEDS: MULTIVITAMIN with MINERAL TABLET. PO SCH (07:56)
[2020-04-11] MEDS: ASCORBIC ACID 500 MG TABLET PO SCH (07:56)
[2020-04-11] MEDS: LISINOPRIL 5 MG TABLET. PO SCH (07:57)
--- NOTE | 2020-04-11 08:55 | PN ---
DATE: 04/10/2020 SUBJECTIVE: The patient was evaluated today by telehealth rounds, met with the staff, chart reviewed. Staff reports that she has been irritable and rankin today and also isolating herself and also periods of confusion. OBSERVATION: VITAL SIGNS: Temperature 97.9, blood pressure 105/64, pulse 61, respirations 16, O2 sat 98%. GENERAL: Slept about 8 hours last night. The patient is not having any physical complaints. CURRENT MEDICATIONS: Include olanzapine 2.5 mg p.r.n., citalopram 20 mg daily, Namenda 10 mg daily, trazodone 50 mg at night p.r.n. She is also on Aricept 10 mg at night. She is not exhibiting any side effects to medications. ASSESSMENT: Major neurocognitive disorder, most likely Alzheimer's with behavior problems. PLAN: To continue with the current treatment plan. The patient is scheduled for discharge on 04/20/2020. TODD PENG MD DR: DEVANTE/uma JOB#: [id number] / [id number]
--- NOTE | 2020-04-11 12:17 | PN ---
DATE: 04/11/2020 SUBJECTIVE: The patient was evaluated by telehealth rounds, met with the staff, chart reviewed and also covering for Dr. Perry. The patient's behavior remains the same and she is usually irritable in the morning. Later in the day, her behavior improves, pleasant. OBSERVATION: VITAL SIGNS: Temperature 98.7, blood pressure 108/58, pulse 62, respirations 16, O2 sat 99%. Slept about 3 hours last night. CURRENT MEDICATIONS: The patient's current medications include Celexa 20 mg daily, Namenda 10 mg daily, trazodone 50 mg at night p.r.n., also olanzapine 2.5 mg p.r.n. daily. The patient is also on Aricept 10 mg daily. She denies of any side effects, no major physical complaints. No falls. ASSESSMENT: Major neurocognitive disorder, most likely Alzheimer's with behavior problems. PLAN: To continue with the current treatment plan. The patient is planned for discharge on 04/20/2020. TODD PENG MD DR: DEVANTE/uma JOB#: [id number] / [id number]
[2020-04-11 16:27] VITALS: BP 118/74
--- NOTE | 2020-04-11 17:28 | NUR ---
Pt up adl in room. Has been in pleasant spirits. Has been compliant with meds and cares.
[2020-04-11] MEDS: traZODone 50 MG TABLET. PO PRN (19:44)
[2020-04-11] MEDS: DONEPEZIL HCL 10 MG TABLET PO SCH (19:44)
--- NOTE | 2020-04-11 21:01 | NUR ---
Patient is in her room on assumption of care. She is laying in bed, reading. Calm, cooperative and compliant with assessments and medications taken whole. No agitation. Patient denies any pain or discomfort. She continues to sit in her room reading at present time. Will continue to monitor.
[2020-04-12 05:59] VITALS: BP 106/69
[2020-04-12] MEDS: PANTOPRAZOLE 40 MG TABLET. PO SCH (08:09)
[2020-04-12] MEDS: LISINOPRIL 5 MG TABLET. PO SCH (08:09)
[2020-04-12] MEDS: CITALOPRAM 20 MG TABLET. PO SCH (08:09)
[2020-04-12] MEDS: OMEGA-3 FATTY ACIDS/FISH OIL 1,000 MG CAPSULE. PO SCH (08:10)
[2020-04-12] MEDS: MEMANTINE 10 MG TABLET. PO SCH (08:10)
[2020-04-12] MEDS: LACTOBACILLUS RHAMNOSUS GG 1 CAPSULE. PO SCH ×2 (08:10→20:16)
[2020-04-12] MEDS: ASCORBIC ACID 500 MG TABLET PO SCH (08:10)
[2020-04-12] MEDS: MULTIVITAMIN with MINERAL TABLET. PO SCH (08:10)
[2020-04-12] MEDS: CALCIUM CARB/VIT D3 500/200 TABLET PO SCH ×2 (08:10→16:57)
[2020-04-12] MEDS: CHOLECALCIFEROL (VITAMIN D3) 1,000 UNIT TABLET PO SCH (08:10)
--- NOTE | 2020-04-12 12:14 | NUR ---
Patient is in her room, up to bathroom and then sitting on her bed. Patient compliant with medications taken whole. Patient later observed lying in her bed reading a book. Patient is pleasant when approached but does not initiate conversation. Patient oriented to self only, she is calm and appropriate in her interactions with peers.
[2020-04-12 16:09] VITALS: BP 118/56
--- NOTE | 2020-04-12 20:03 | PN ---
DATE: 04/12/2020 SUBJECTIVE: The patient was seen today on telehealth rounds, met with the staff, chart reviewed. Staff reports no major behavior problems except in the morning. She is very irritable, rankin. The patient is pleasant today, not angry, not upset, able to make eye contact, able to hold a reasonable conversation. OBSERVATION: VITAL SIGNS: Stable. GENERAL: Slept about 6-1/2 hours last night. The patient is not having any side effects of medications. No falls. CURRENT MEDICATIONS: Include Celexa 20 mg daily, Namenda 10 mg daily, trazodone 50 mg at night p.r.n. and olanzapine 2.5 mg p.r.n. She is also on Aricept 10 mg at night. ASSESSMENT: Major neurocognitive disorder, most likely Alzheimer's with behavior problems. PLAN: To continue with the treatment. TODD PENG MD DR: DEVANTE/uma JOB#: [id number] / [id number]
[2020-04-12] MEDS: DONEPEZIL HCL 10 MG TABLET PO SCH (20:16)
--- NOTE | 2020-04-12 22:47 | NUR ---
Pt has been in her room this shift. She took her meds whole without difficulty and has been pleasant and cooperative. She remains very confused only able to state name and . No behaviors seen tonight.
[2020-04-13 06:02] VITALS: BP 118/62
[2020-04-13] MEDS: PANTOPRAZOLE 40 MG TABLET. PO SCH (09:48)
[2020-04-13] MEDS: CHOLECALCIFEROL (VITAMIN D3) 1,000 UNIT TABLET PO SCH (09:48)
[2020-04-13] MEDS: MULTIVITAMIN with MINERAL TABLET. PO SCH (09:48)
[2020-04-13] MEDS: CALCIUM CARB/VIT D3 500/200 TABLET PO SCH ×2 (09:48→17:22)
[2020-04-13] MEDS: ASCORBIC ACID 500 MG TABLET PO SCH (09:48)
[2020-04-13] MEDS: LISINOPRIL 5 MG TABLET. PO SCH (09:48)
[2020-04-13] MEDS: OMEGA-3 FATTY ACIDS/FISH OIL 1,000 MG CAPSULE. PO SCH (09:49)
[2020-04-13] MEDS: CITALOPRAM 20 MG TABLET. PO SCH (09:49)
[2020-04-13] MEDS: MEMANTINE 10 MG TABLET. PO SCH (09:49)
[2020-04-13] MEDS: LACTOBACILLUS RHAMNOSUS GG 1 CAPSULE. PO SCH ×2 (09:49→19:47)
--- NOTE | 2020-04-13 11:24 | NUR ---
Patient laying in bed, oriented only to self. Patient up for meals and to go to the bathroom and then usually returns to bed. Patient denies pain when asked, states she is "fine" and answers most questions with yes or no. Patient is oriented only to herself and thinks she is in [place], [place]. Patient has not been intrusive nor exit seeking.
[2020-04-13 16:01] VITALS: BP 134/80
[2020-04-13] MEDS: DONEPEZIL HCL 10 MG TABLET PO SCH (19:47)
--- NOTE | 2020-04-13 22:13 | PDOC ---
Exam Note: Tyler Note: Please also refer to the separate dictated note~for this date of service dictated separately.~Patient seen individually. Discussed the patient with Nursing staff reviewed the chart.~Reviewed interim history and current functioning. Reviewed vital signs,~Labs/ Radiology~and current medications noted below. Continue current treatment with the changes noted in the dictated addendum note Assessment: Vital Signs/I&O: Vital Signs Date Time Temp Pulse Resp B/P (MAP) Pulse Ox O2 Delivery O2 Flow Rate FiO2 04/13/20 19:43 97.5 97 04/13/20 16:01 65 19 134/80 (98) 04/10/20 16:18 Room Air I & O 04/12/20 04/12/20 04/13/20 15:00 23:00 07:00 Intake Total 600 ml 480 ml Balance 600 ml 480 ml Current Medications: I have reviewed the current psychotropics carefully including drug interactions. Risk benefit ratio favors no change other than as noted in my dictated progress note. Diagnosis: Problems: (1) Major neurocognitive disorder (2) Mild cognitive impairment (3) Impulse control disorder, unspecified (4) Anxiety disorder, unspecified (5) Dementia, vascular, with depression (6) Dementia, vascular, with delusions (7) Dementia in Alzheimer's disease with depression (8) Dementia in Alzheimer's disease with delusions (9) Dementia in Alzheimer's disease with early onset with behavioral disturbance DIMITRIOS RANDALL MD Apr 13, 2020 22:13
--- NOTE | 2020-04-13 23:49 | NUR ---
Pt has been pleasant and cooperative tonight. Meds were taken whole without difficulty. She remains confused said we are in [place] and when reoriented quickly forgets. She denies pain has no complaints and no behaviors observed tonight.
[2020-04-14 06:08] VITALS: BP 126/61
[2020-04-14] MEDS: CALCIUM CARB/VIT D3 500/200 TABLET PO SCH ×2 (08:20→17:27)
[2020-04-14] MEDS: CHOLECALCIFEROL (VITAMIN D3) 1,000 UNIT TABLET PO SCH (08:20)
[2020-04-14] MEDS: OMEGA-3 FATTY ACIDS/FISH OIL 1,000 MG CAPSULE. PO SCH (08:20)
[2020-04-14] MEDS: LACTOBACILLUS RHAMNOSUS GG 1 CAPSULE. PO SCH ×2 (08:20→21:06)
[2020-04-14] MEDS: PANTOPRAZOLE 40 MG TABLET. PO SCH (08:21)
[2020-04-14] MEDS: CITALOPRAM 20 MG TABLET. PO SCH (08:21)
[2020-04-14] MEDS: MEMANTINE 10 MG TABLET. PO SCH (08:21)
[2020-04-14] MEDS: ASCORBIC ACID 500 MG TABLET PO SCH (08:21)
[2020-04-14] MEDS: LISINOPRIL 5 MG TABLET. PO SCH (08:21)
[2020-04-14] MEDS: MULTIVITAMIN with MINERAL TABLET. PO SCH (08:21)
--- NOTE | 2020-04-14 10:24 | PDOC ---
Exam Note: Tyler Note: This note is a late entry for 04/13/2020 covers elements not covered in my initial note. Subjective: The patient was evaluated on telehealth rounds in the evening of 04/13/2020 with [facility] nursing aid. The unit is shut down due to COVID-19 exposure on the unit with no admissions and discharges for now. Dr. Roberson has covered for me for the past several days since I had been on vacation. Reviewed information with Dr. Roberson. Per Kathryn MEDEL, she slept 8 hours previous night. She remains confused, pleasant, has a sense of humor. Review of Systems: No CV, , pulmonary, eye, ENT system symptoms on review. Mental Status Exam: Oriented to herself. Insight and judgment, recent and alexa te memory, attention and concentration, fund of knowledge is poor consistent with her diagnoses mentioned in my initial note. Laboratory Data: Reviewed. Impression: Major neurocognitive disorder Alzheimer vascular with delusion, depression, behavioral disturbance. Mild cognitive impairment. Plan: No change from initial note. Assessment: Vital Signs/I&O: Vital Signs Date Time Temp Pulse Resp B/P (MAP) Pulse Ox O2 Delivery O2 Flow Rate FiO2 04/14/20 08:21 61 126/61 04/14/20 06:08 98.0 14 98 04/10/20 16:18 Room Air I & O 04/13/20 04/13/20 04/14/20 15:00 23:00 07:00 Intake Total 720 ml 360 ml Balance 720 ml 360 ml Current Medications: I have reviewed the current psychotropics carefully including drug interactions. Risk benefit ratio favors no change other than as noted in my dictated progress note. Diagnosis: Problems: (1) Major neurocognitive disorder (2) Mild cognitive impairment (3) Impulse control disorder, unspecified (4) Anxiety disorder, unspecified (5) Dementia, vascular, with depression (6) Dementia, vascular, with delusions (7) Dementia in Alzheimer's disease with depression (8) Dementia in Alzheimer's disease with delusions (9) Dementia in Alzheimer's disease with early onset with behavioral disturbance DIMITRIOS RANDALL MD Apr 14, 2020 10:24
--- NOTE | 2020-04-14 11:59 | NUR ---
Patient pacing in the room and hallway after breakfast, this is unusual for her. When nurse asked what she was doing she wanted to go into the day room. Nurse told patient that group would be later this morning and she calmed down and went to her room. She was then calmly sitting on her bed looking at her book. Patient compliant with medications, disorganized and has very poor short term memory.
[2020-04-14 16:07] VITALS: BP 140/68
--- NOTE | 2020-04-14 18:22 | NUR ---
Patient interested in looking out the window today. She has asked nurse several times what was "behind the farthest trees". She has been reading her book and resting in bed this afternoon. She attended group earlier in the day room.
[2020-04-14] MEDS: DONEPEZIL HCL 10 MG TABLET PO SCH (21:06)
--- NOTE | 2020-04-14 21:57 | PDOC ---
Exam Note: Tyler Note: Please also refer to the separate dictated note~for this date of service dictated separately.~Patient seen individually. Discussed the patient with Nursing staff reviewed the chart.~Reviewed interim history and current functioning. Reviewed vital signs,~Labs/ Radiology~and current medications noted below. Continue current treatment with the changes noted in the dictated addendum note Assessment: Vital Signs/I&O: Vital Signs Date Time Temp Pulse Resp B/P (MAP) Pulse Ox O2 Delivery O2 Flow Rate FiO2 04/14/20 19:48 97.8 99 04/14/20 16:07 60 18 140/68 (92) 04/10/20 16:18 Room Air I & O 04/13/20 04/13/20 04/14/20 15:00 23:00 07:00 Intake Total 720 ml 360 ml Balance 720 ml 360 ml Current Medications: I have reviewed the current psychotropics carefully including drug interactions. Risk benefit ratio favors no change other than as noted in my dictated progress note. Diagnosis: Problems: (1) Major neurocognitive disorder (2) Mild cognitive impairment (3) Impulse control disorder, unspecified (4) Anxiety disorder, unspecified (5) Dementia, vascular, with depression (6) Dementia, vascular, with delusions (7) Dementia in Alzheimer's disease with depression (8) Dementia in Alzheimer's disease with delusions (9) Dementia in Alzheimer's disease with early onset with behavioral disturbance DIMITRIOS RANDALL MD Apr 14, 2020 21:57
--- NOTE | 2020-04-15 04:45 | NUR ---
Nursing Note The patient has been calm and cooperative this shift and took all of her medication whole. The patient is currently sleeping in her room.
[2020-04-15 05:43] VITALS: BP 113/64
[2020-04-15] MEDS: CALCIUM CARB/VIT D3 500/200 TABLET PO SCH ×2 (08:36→16:03)
[2020-04-15] MEDS: MEMANTINE 10 MG TABLET. PO SCH (08:36)
[2020-04-15] MEDS: LACTOBACILLUS RHAMNOSUS GG 1 CAPSULE. PO SCH ×2 (08:36→20:09)
[2020-04-15] MEDS: MULTIVITAMIN with MINERAL TABLET. PO SCH (08:37)
[2020-04-15] MEDS: CHOLECALCIFEROL (VITAMIN D3) 1,000 UNIT TABLET PO SCH (08:37)
[2020-04-15] MEDS: ASCORBIC ACID 500 MG TABLET PO SCH (08:37)
[2020-04-15] MEDS: LISINOPRIL 5 MG TABLET. PO SCH (08:37)
[2020-04-15] MEDS: CITALOPRAM 20 MG TABLET. PO SCH (08:37)
[2020-04-15] MEDS: PANTOPRAZOLE 40 MG TABLET. PO SCH (08:37)
[2020-04-15] MEDS: OMEGA-3 FATTY ACIDS/FISH OIL 1,000 MG CAPSULE. PO SCH (08:37)
--- NOTE | 2020-04-15 11:07 | NUR ---
Patient in bed with eyes closed at the time of initial assessment. Calm and cooperative with assessment. Medications taken whole without difficulty. Assessment per charting. Patient continues to be withdrawn to her room. Patient stated "thank you for being nice to me" after assessment. No behaviors noted at this time. Patient currently in bed resting with her eye closed.
[2020-04-15 16:19] VITALS: BP 106/65
[2020-04-15] MEDS: DONEPEZIL HCL 10 MG TABLET PO SCH (20:09)
--- NOTE | 2020-04-15 21:55 | PDOC ---
Exam Note: Tyler Note: This note is a late entry for 04/14/2020 covers elements not covered in my initial note. Subjective: The patient was evaluated on telehealth rounds in the evening of 04/14/2020 with Kathryn MEDEL. The unit is shut down due to COVID-19 exposure on the unit with no admissions and discharges for now. Per Kathryn MEDEL, she slept 7 hours previous night. She remains confused, but pleasant, has a sense of humor, smiling, interacting with me as I met with her on telehealth rounds. Review of Systems: No CV, , pulmonary, eye, ENT system symptoms on review. Mental Status Exam: Oriented to herself. Insight and judgment, recent and remote memory, attention and concentration, fund of knowledge is poor consistent with her diagnoses mentioned in my initial note. 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 Able to compensate for this. No suicidal or homicidal ideation. Laboratory Data: Reviewed. Impression: Major neurocognitive disorder Alzheimer vascular with delusion, depression, behavioral disturbance. Mild cognitive impairment. Plan: No change from initial note. Assessment: Vital Signs/I&O: Vital Signs Date Time Temp Pulse Resp B/P (MAP) Pulse Ox O2 Delivery O2 Flow Rate FiO2 04/15/20 21:37 97.9 97 04/15/20 16:19 73 15 106/65 (79) Room Air I & O 04/14/20 04/14/20 04/15/20 15:00 23:00 07:00 Intake Total 600 ml 480 ml Balance 600 ml 480 ml Current Medications: I have reviewed the current psychotropics carefully including drug interactions. Risk benefit ratio favors no change other than as noted in my dictated progress note. Diagnosis: Problems: (1) Major neurocognitive disorder (2) Mild cognitive impairment (3) Impulse control disorder, unspecified (4) Anxiety disorder, unspecified (5) Dementia, vascular, with depression (6) Dementia, vascular, with delusions (7) Dementia in Alzheimer's disease with depression (8) Dementia in Alzheimer's disease with delusions (9) Dementia in Alzheimer's disease with early onset with behavioral disturbance DIMITRIOS RANDALL MD Apr 15, 2020 21:55
--- NOTE | 2020-04-15 22:00 | PDOC ---
Exam Note: Tyler Note: Please also refer to the separate dictated note~for this date of service dictated separately.~Patient seen individually. Discussed the patient with Nursing staff reviewed the chart.~Reviewed interim history and current functioning. Reviewed vital signs,~Labs/ Radiology~and current medications noted below. Continue current treatment with the changes noted in the dictated addendum note Assessment: Vital Signs/I&O: Vital Signs Date Time Temp Pulse Resp B/P (MAP) Pulse Ox O2 Delivery O2 Flow Rate FiO2 04/15/20 21:37 97.9 97 04/15/20 16:19 73 15 106/65 (79) Room Air I & O 04/14/20 04/14/20 04/15/20 15:00 23:00 07:00 Intake Total 600 ml 480 ml Balance 600 ml 480 ml Current Medications: I have reviewed the current psychotropics carefully including drug interactions. Risk benefit ratio favors no change other than as noted in my dictated progress note. Diagnosis: Problems: (1) Major neurocognitive disorder (2) Mild cognitive impairment (3) Impulse control disorder, unspecified (4) Anxiety disorder, unspecified (5) Dementia, vascular, with depression (6) Dementia, vascular, with delusions (7) Dementia in Alzheimer's disease with depression (8) Dementia in Alzheimer's disease with delusions (9) Dementia in Alzheimer's disease with early onset with behavioral disturbance DIMITRIOS RANDALL MD Apr 15, 2020 22:00
--- NOTE | 2020-04-15 22:33 | NUR ---
Patient is in her room on assumption of care. She is in pleasant spirits. Polite, interactive, appropriate. Compliant with assessments and medications taken whole. Denies any pain or discomfort. Patient appears to be sleeping comfortably at present time.
[2020-04-16 06:42] VITALS: BP 120/68
[2020-04-16] MEDS: CHOLECALCIFEROL (VITAMIN D3) 1,000 UNIT TABLET PO SCH (07:50)
[2020-04-16] MEDS: CALCIUM CARB/VIT D3 500/200 TABLET PO SCH ×2 (07:50→16:37)
[2020-04-16] MEDS: LACTOBACILLUS RHAMNOSUS GG 1 CAPSULE. PO SCH ×2 (07:50→21:18)
[2020-04-16] MEDS: MEMANTINE 10 MG TABLET. PO SCH (07:50)
[2020-04-16] MEDS: CITALOPRAM 20 MG TABLET. PO SCH (07:51)
[2020-04-16] MEDS: LISINOPRIL 5 MG TABLET. PO SCH (07:51)
[2020-04-16] MEDS: PANTOPRAZOLE 40 MG TABLET. PO SCH (07:51)
[2020-04-16] MEDS: OMEGA-3 FATTY ACIDS/FISH OIL 1,000 MG CAPSULE. PO SCH (07:51)
[2020-04-16] MEDS: MULTIVITAMIN with MINERAL TABLET. PO SCH (07:51)
[2020-04-16] MEDS: ASCORBIC ACID 500 MG TABLET PO SCH (07:51)
--- NOTE | 2020-04-16 11:26 | NUR ---
[facility] Social Work Discharge Planning Form Patient Name MADIHA WASHINGTON Admit Date: 03/23/2020 DISCHARGE PLAN Discharge Destination: [facility] Care Assessment: Previously completed Transportation: Ella, sister in law/POA, will transport on 04/19/2020 at 10am. Special Instructions/Notes: Upon return to [facility], schedule f/u appointment with PCP and facility psychiatrist in 7-10 days. DISCHARGE TO FACILITY Facility: [facility] Address: [address] [place] [address] Contact Name: MIKAELA Moreno Contact Name: Corinne Marr, Metals Analyst PCP: Dr. Gibbs [phone], (fax) Psychiatrist: Facility Provider
[2020-04-16 15:40] VITALS: BP 111/67
--- NOTE | 2020-04-16 16:09 | NUR ---
Pt up adl in room. Compliant with meds and cares.
[2020-04-16] MEDS: DONEPEZIL HCL 10 MG TABLET PO SCH (21:18)
--- NOTE | 2020-04-16 22:03 | PDOC ---
Exam Note: Tyler Note: Please also refer to the separate dictated note~for this date of service dictated separately.~Patient seen individually. Discussed the patient with Nursing staff reviewed the chart.~Reviewed interim history and current functioning. Reviewed vital signs,~Labs/ Radiology~and current medications noted below. Continue current treatment with the changes noted in the dictated addendum note Assessment: Vital Signs/I&O: Vital Signs Date Time Temp Pulse Resp B/P (MAP) Pulse Ox O2 Delivery O2 Flow Rate FiO2 04/16/20 21:59 98.5 100 04/16/20 15:40 67 18 111/67 (82) Room Air I & O 04/15/20 04/15/20 04/16/20 15:00 23:00 07:00 Intake Total 360 ml 240 ml Balance 360 ml 240 ml Current Medications: I have reviewed the current psychotropics carefully including drug interactions. Risk benefit ratio favors no change other than as noted in my dictated progress note. Diagnosis: Problems: (1) Major neurocognitive disorder (2) Mild cognitive impairment (3) Impulse control disorder, unspecified (4) Anxiety disorder, unspecified (5) Dementia, vascular, with depression (6) Dementia, vascular, with delusions (7) Dementia in Alzheimer's disease with depression (8) Dementia in Alzheimer's disease with delusions (9) Dementia in Alzheimer's disease with early onset with behavioral disturbance DIMITRIOS RANDALL MD Apr 16, 2020 22:03
--- NOTE | 2020-04-16 22:31 | NUR ---
Nursing Note The patient was located in her room laying in bed reading when approached for her assessment and medication pass. The patient took her medication whole. The patient was unable to answer orientation questions such as date, location and situation. The only answers the patient was able to provide were "we are in [place]" and her first and last name. The patient is currently sleeping in her room.
--- NOTE | 2020-04-16 23:25 | PDOC ---
Exam Note: Tyler Note: This note is a late entry for 04/15/2020 covers elements not covered in my initial note. Subjective: The patient was evaluated on telehealth rounds in the morning of 04/15/2020 with treatment team meeting with Ekta (social services technician), Tami MEDEL and [facility] nursing aid. The unit is still on a lockdown due to COVID-19 exposure with no admissions and discharges. Per Tami MEDEL in the evening, she slept 7-1/2 hours previous night. She remains confused, somewhat withdrawn, spends much time in her room by herself. She does keep her mask in place. Review of Systems: No CV, , pulmonary, eye, ENT system symptoms on review. Mental Status Exam: Oriented to herself. Insight and judgment, recent and remote memory, attention and concentration, fund of knowledge is poor consistent with her diagnoses mentioned in my initial note. Laboratory Data: Reviewed. Impression: Major neurocognitive disorder Alzheimer vascular with delusion, depression, behavioral disturbance. Mild cognitive impairment. Plan: No change from initial note. Transition back to nursing facility next week. Assessment: Vital Signs/I&O: Vital Signs Date Time Temp Pulse Resp B/P (MAP) Pulse Ox O2 Delivery O2 Flow Rate FiO2 04/16/20 21:59 98.5 100 04/16/20 15:40 67 18 111/67 (82) Room Air I & O 04/15/20 04/15/20 04/16/20 15:00 23:00 07:00 Intake Total 360 ml 240 ml Balance 360 ml 240 ml Current Medications: I have reviewed the current psychotropics carefully including drug interactions. Risk benefit ratio favors no change other than as noted in my dictated progress note. Diagnosis: Problems: (1) Major neurocognitive disorder (2) Mild cognitive impairment (3) Impulse control disorder, unspecified (4) Anxiety disorder, unspecified (5) Dementia, vascular, with depression (6) Dementia, vascular, with delusions (7) Dementia in Alzheimer's disease with depression (8) Dementia in Alzheimer's disease with delusions (9) Dementia in Alzheimer's disease with early onset with behavioral disturbance DIMITRIOS RANDALL MD Apr 16, 2020 23:25
[2020-04-17 05:51] VITALS: BP 118/73
[2020-04-17 07:44] LABS: BASO % 0 % (0-3); EOS # 0.1 x10^3/uL (0.0-0.7); EOS % 3 % (0-3); HEMATOCRIT 33.1 % (36.0-47.0); LYMPH # 1.3 x10^3/uL (1.0-4.8); LYMPH % 28 % (24-48); MEAN CORPUSCULAR HEMOGLOBIN 31 pg (25-35); MEAN CORPUSCULAR HGB CONC 33 g/dL (31-37); MEAN CORPUSCULAR VOLUME 92 fL (79-100); MONO # 0.4 x10^3/uL (0.0-1.1); MONO % 8 % (0-9); NEUT # 2.7 x10^3uL (1.8-7.7); NEUT % 60 % (31-73); PLATELET COUNT 211 x10^3/uL (140-400); RED BLOOD COUNT 3.59 x10^6/uL (3.50-5.40); RED CELL DISTRIBUTION WIDTH 12.8 % (11.5-14.5); WHITE BLOOD COUNT 4.5 x10^3/uL (4.0-11.0)
[2020-04-17 07:51] LABS: ALBUMIN 3.2 g/dL (3.4-5.0); CALCIUM 8.6 mg/dL (8.5-10.1); CREATININE 1.5 mg/dL (0.6-1.0); GFR 34.2; POTASSIUM 4.8 mmol/L (3.5-5.1); TOTAL BILIRUBIN 0.8 mg/dL (0.2-1.0); TOTAL PROTEIN 6.3 g/dL (6.4-8.2)
[2020-04-17] MEDS: MEMANTINE 10 MG TABLET. PO SCH (07:59)
[2020-04-17] MEDS: OMEGA-3 FATTY ACIDS/FISH OIL 1,000 MG CAPSULE. PO SCH (07:59)
[2020-04-17] MEDS: MULTIVITAMIN with MINERAL TABLET. PO SCH (07:59)
[2020-04-17] MEDS: LACTOBACILLUS RHAMNOSUS GG 1 CAPSULE. PO SCH (07:59)
[2020-04-17] MEDS: ASCORBIC ACID 500 MG TABLET PO SCH (08:00)
[2020-04-17] MEDS: CALCIUM CARB/VIT D3 500/200 TABLET PO SCH ×2 (08:00→17:00)
[2020-04-17] MEDS: CHOLECALCIFEROL (VITAMIN D3) 1,000 UNIT TABLET PO SCH (08:00)
[2020-04-17] MEDS: CITALOPRAM 20 MG TABLET. PO SCH (08:00)
[2020-04-17] MEDS: PANTOPRAZOLE 40 MG TABLET. PO SCH (08:00)
[2020-04-17] MEDS: LISINOPRIL 5 MG TABLET. PO SCH (08:00)
[2020-04-17 16:07] VITALS: BP 118/74
--- NOTE | 2020-04-17 16:56 | NUR ---
Pt up adl in room. Pt came out to nurses station to ask when she was going home. Has been compliant with meds and cares. Compliant with redirection.
[2020-04-17] MEDS: DONEPEZIL HCL 10 MG TABLET PO SCH (21:22)
[2020-04-17] MEDS: traZODone 50 MG TABLET. PO SCH (21:23)
--- NOTE | 2020-04-17 21:53 | PDOC ---
Exam Note: Tyler Note: Please also refer to the separate dictated note~for this date of service dictated separately.~Patient seen individually. Discussed the patient with Nursing staff reviewed the chart.~Reviewed interim history and current functioning. Reviewed vital signs,~Labs/ Radiology~and current medications noted below. Continue current treatment with the changes noted in the dictated addendum note Assessment: Vital Signs/I&O: Vital Signs Date Time Temp Pulse Resp B/P (MAP) Pulse Ox O2 Delivery O2 Flow Rate FiO2 04/17/20 16:07 97.6 64 16 118/74 (89) 97 Room Air I & O 04/16/20 04/16/20 04/17/20 15:00 23:00 07:00 Intake Total 556 ml 600 ml Balance 556 ml 600 ml Labs: Laboratory Tests Test 04/17/20 07:26 White Blood Count 4.5 x10^3/uL (4.0-11.0) Red Blood Count 3.59 x10^6/uL (3.50-5.40) Hemoglobin 11.0 g/dL (12.0-15.5) L Hematocrit 33.1 % (36.0-47.0) L Mean Corpuscular Volume 92 fL (79-100) Mean Corpuscular Hemoglobin 31 pg (25-35) Mean Corpuscular Hemoglobin Concent 33 g/dL (31-37) Red Cell Distribution Width 12.8 % (11.5-14.5) Platelet Count 211 x10^3/uL (140-400) Neutrophils (%) (Auto) 60 % (31-73) Lymphocytes (%) (Auto) 28 % (24-48) Monocytes (%) (Auto) 8 % (0-9) Eosinophils (%) (Auto) 3 % (0-3) Basophils (%) (Auto) 0 % (0-3) Neutrophils # (Auto) 2.7 x10^3uL (1.8-7.7) Lymphocytes # (Auto) 1.3 x10^3/uL (1.0-4.8) Monocytes # (Auto) 0.4 x10^3/uL (0.0-1.1) Eosinophils # (Auto) 0.1 x10^3/uL (0.0-0.7) Basophils # (Auto) 0.0 x10^3/uL (0.0-0.2) Sodium Level 140 mmol/L (136-145) Potassium Level 4.8 mmol/L (3.5-5.1) Chloride Level 107 mmol/L (98-107) Carbon Dioxide Level 26 mmol/L (21-32) Anion Gap 7 (6-14) Blood Urea Nitrogen 19 mg/dL (7-20) Creatinine 1.5 mg/dL (0.6-1.0) H Estimated GFR (Cockcroft-Gault) 34.2 BUN/Creatinine Ratio 13 (6-20) Glucose Level 103 mg/dL (70-99) H Calcium Level 8.6 mg/dL (8.5-10.1) Total Bilirubin 0.8 mg/dL (0.2-1.0) Aspartate Amino Transferase (AST) 48 U/L (15-37) H Alanine Aminotransferase (ALT) 59 U/L (14-59) Alkaline Phosphatase 81 U/L (46-116) Total Protein 6.3 g/dL (6.4-8.2) L Albumin 3.2 g/dL (3.4-5.0) L Albumin/Globulin Ratio 1.0 (1.0-1.7) Current Medications: Meds: Current Medications Medications (Trade) Dose Ordered Sig/Toño Route PRN Reason Start Time Stop Time Status Last Admin Dose Admin Trazodone HCl (Desyrel) 50 mg QHS PO 04/17/20 21:00 04/17/20 21:23 I have reviewed the current psychotropics carefully including drug interactions. Risk benefit ratio favors no change other than as noted in my dictated progress note. Diagnosis: Problems: (1) Major neurocognitive disorder (2) Mild cognitive impairment (3) Impulse control disorder, unspecified (4) Anxiety disorder, unspecified (5) Dementia, vascular, with depression (6) Dementia, vascular, with delusions (7) Dementia in Alzheimer's disease with depression (8) Dementia in Alzheimer's disease with delusions (9) Dementia in Alzheimer's disease with early onset with behavioral disturbance DIMITRIOS RANDALL MD Apr 17, 2020 21:53
--- NOTE | 2020-04-17 23:08 | NUR ---
Nursing Note The patient was located in her room laying in bed for her assessment and medication pass. The patient was unable to answer her assessment questions such as date, location and situation. The patient was pleasant during interactions. The patient took her medication whole and is currently sleeping in her room.
[2020-04-18 06:29] VITALS: BP 146/74
--- NOTE | 2020-04-18 06:39 | PDOC ---
Exam Note: Tyler Note: This note is a late entry for 04/16/2020 covers elements not covered in my initial note. Subjective: The patient was evaluated on telehealth rounds in the evening of 04/16/2020 with [facility] nursing aid. The unit is shut down due to COVID-19 exposure on the unit with no admissions and discharges per Department of Health directives. Per Ines RN in the evening, she slept 7-3/4 hours previous night. She has been pleasant, cooperative, quite confused. Review of Systems: No CV, , pulmonary, eye, ENT system symptoms on review. Mental Status Exam: Oriented to herself. Insight and judgment, recent and remote memory, attention and concentration, fund of knowledge is poor consistent with her diagnoses mentioned in my initial note. Laboratory Data: Reviewed. Impression: Major neurocognitive disorder Alzheimer vascular with delusion, depression, behavioral disturbance. Mild cognitive impairment. Plan: No change from initial note. The patient is on Aricept and Namenda which are probably little benefit for her memory deficits but given the fact that she is overall doing better, I would rather not stop this but consideration may be given to stopping both of these [facility] perhaps Aricept in 30 days and Namenda in 60 days depending on her progress. Assessment: Vital Signs/I&O: Vital Signs Date Time Temp Pulse Resp B/P (MAP) Pulse Ox O2 Delivery O2 Flow Rate FiO2 04/18/20 06:29 98.2 76 18 146/74 (98) 97 Room Air I & O 04/17/20 04/17/20 04/18/20 15:00 23:00 07:00 Intake Total 240 ml 360 ml 60 ml Balance 240 ml 360 ml 60 ml Labs: Laboratory Tests Test 04/17/20 07:26 White Blood Count 4.5 x10^3/uL (4.0-11.0) Red Blood Count 3.59 x10^6/uL (3.50-5.40) Hemoglobin 11.0 g/dL (12.0-15.5) L Hematocrit 33.1 % (36.0-47.0) L Mean Corpuscular Volume 92 fL (79-100) Mean Corpuscular Hemoglobin 31 pg (25-35) Mean Corpuscular Hemoglobin Concent 33 g/dL (31-37) Red Cell Distribution Width 12.8 % (11.5-14.5) Platelet Count 211 x10^3/uL (140-400) Neutrophils (%) (Auto) 60 % (31-73) Lymphocytes (%) (Auto) 28 % (24-48) Monocytes (%) (Auto) 8 % (0-9) Eosinophils (%) (Auto) 3 % (0-3) Basophils (%) (Auto) 0 % (0-3) Neutrophils # (Auto) 2.7 x10^3uL (1.8-7.7) Lymphocytes # (Auto) 1.3 x10^3/uL (1.0-4.8) Monocytes # (Auto) 0.4 x10^3/uL (0.0-1.1) Eosinophils # (Auto) 0.1 x10^3/uL (0.0-0.7) Basophils # (Auto) 0.0 x10^3/uL (0.0-0.2) Sodium Level 140 mmol/L (136-145) Potassium Level 4.8 mmol/L (3.5-5.1) Chloride Level 107 mmol/L (98-107) Carbon Dioxide Level 26 mmol/L (21-32) Anion Gap 7 (6-14) Blood Urea Nitrogen 19 mg/dL (7-20) Creatinine 1.5 mg/dL (0.6-1.0) H Estimated GFR (Cockcroft-Gault) 34.2 BUN/Creatinine Ratio 13 (6-20) Glucose Level 103 mg/dL (70-99) H Calcium Level 8.6 mg/dL (8.5-10.1) Total Bilirubin 0.8 mg/dL (0.2-1.0) Aspartate Amino Transferase (AST) 48 U/L (15-37) H Alanine Aminotransferase (ALT) 59 U/L (14-59) Alkaline Phosphatase 81 U/L (46-116) Total Protein 6.3 g/dL (6.4-8.2) L Albumin 3.2 g/dL (3.4-5.0) L Albumin/Globulin Ratio 1.0 (1.0-1.7) Current Medications: Meds: Current Medications Medications (Trade) Dose Ordered Sig/Toño Route PRN Reason Start Time Stop Time Status Last Admin Dose Admin Trazodone HCl (Desyrel) 50 mg QHS PO 04/17/20 21:00 04/17/20 21:23 I have reviewed the current psychotropics carefully including drug interactions. Risk benefit ratio favors no change other than as noted in my dictated progress note. Diagnosis: Problems: (1) Major neurocognitive disorder (2) Mild cognitive impairment (3) Impulse control disorder, unspecified (4) Anxiety disorder, unspecified (5) Dementia, vascular, with depression (6) Dementia, vascular, with delusions (7) Dementia in Alzheimer's disease with depression (8) Dementia in Alzheimer's disease with delusions (9) Dementia in Alzheimer's disease with early onset with behavioral disturbance DIMITRIOS RANDALL MD Apr 18, 2020 06:39
--- NOTE | 2020-04-18 06:51 | PDOC ---
Exam Note: Tyler Note: This note is a late entry for 04/17/2020 covers elements not covered in my initial note. Subjective: The patient was evaluated on telehealth rounds in the evening of 04/17/2020 with Ines MEDEL. The unit is shut down due to COVID-19 exposure on the unit with no admissions and discharges per Department of Health directives. Per Ines RN in the evening, she slept 7 hours previous night. She has been anxious, restless, but appropriate, has a sense of humor. Review of Systems: No CV, , pulmonary, eye, ENT system symptoms on review. Reliability poor. Mental Status Exam: Oriented to herself. 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 Insight and judgment, recent and remote memory, attention and concentration, fund of knowledge is poor consistent with her diagnoses mentioned in my initial note. No suicidal or homicidal ideation. Laboratory Data: Reviewed. Impression: Major neurocognitive disorder Alzheimer vascular with delusion, depression, behavioral disturbance. Mild cognitive impairment. Plan: No change from initial note. Assessment: Vital Signs/I&O: Vital Signs Date Time Temp Pulse Resp B/P (MAP) Pulse Ox O2 Delivery O2 Flow Rate FiO2 04/18/20 06:29 98.2 76 18 146/74 (98) 97 Room Air I & O 04/17/20 04/17/20 04/18/20 15:00 23:00 07:00 Intake Total 240 ml 360 ml 60 ml Balance 240 ml 360 ml 60 ml Labs: Laboratory Tests Test 04/17/20 07:26 White Blood Count 4.5 x10^3/uL (4.0-11.0) Red Blood Count 3.59 x10^6/uL (3.50-5.40) Hemoglobin 11.0 g/dL (12.0-15.5) L Hematocrit 33.1 % (36.0-47.0) L Mean Corpuscular Volume 92 fL (79-100) Mean Corpuscular Hemoglobin 31 pg (25-35) Mean Corpuscular Hemoglobin Concent 33 g/dL (31-37) Red Cell Distribution Width 12.8 % (11.5-14.5) Platelet Count 211 x10^3/uL (140-400) Neutrophils (%) (Auto) 60 % (31-73) Lymphocytes (%) (Auto) 28 % (24-48) Monocytes (%) (Auto) 8 % (0-9) Eosinophils (%) (Auto) 3 % (0-3) Basophils (%) (Auto) 0 % (0-3) Neutrophils # (Auto) 2.7 x10^3uL (1.8-7.7) Lymphocytes # (Auto) 1.3 x10^3/uL (1.0-4.8) Monocytes # (Auto) 0.4 x10^3/uL (0.0-1.1) Eosinophils # (Auto) 0.1 x10^3/uL (0.0-0.7) Basophils # (Auto) 0.0 x10^3/uL (0.0-0.2) Sodium Level 140 mmol/L (136-145) Potassium Level 4.8 mmol/L (3.5-5.1) Chloride Level 107 mmol/L (98-107) Carbon Dioxide Level 26 mmol/L (21-32) Anion Gap 7 (6-14) Blood Urea Nitrogen 19 mg/dL (7-20) Creatinine 1.5 mg/dL (0.6-1.0) H Estimated GFR (Cockcroft-Gault) 34.2 BUN/Creatinine Ratio 13 (6-20) Glucose Level 103 mg/dL (70-99) H Calcium Level 8.6 mg/dL (8.5-10.1) Total Bilirubin 0.8 mg/dL (0.2-1.0) Aspartate Amino Transferase (AST) 48 U/L (15-37) H Alanine Aminotransferase (ALT) 59 U/L (14-59) Alkaline Phosphatase 81 U/L (46-116) Total Protein 6.3 g/dL (6.4-8.2) L Albumin 3.2 g/dL (3.4-5.0) L Albumin/Globulin Ratio 1.0 (1.0-1.7) Current Medications: Meds: Current Medications Medications (Trade) Dose Ordered Sig/Toño Route PRN Reason Start Time Stop Time Status Last Admin Dose Admin Trazodone HCl (Desyrel) 50 mg QHS PO 04/17/20 21:00 04/17/20 21:23 I have reviewed the current psychotropics carefully including drug interactions. Risk benefit ratio favors no change other than as noted in my dictated progress note. Diagnosis: Problems: (1) Major neurocognitive disorder (2) Mild cognitive impairment (3) Impulse control disorder, unspecified (4) Anxiety disorder, unspecified (5) Dementia, vascular, with depression (6) Dementia, vascular, with delusions (7) Dementia in Alzheimer's disease with depression (8) Dementia in Alzheimer's disease with delusions (9) Dementia in Alzheimer's disease with early onset with behavioral disturbance DIMITRIOS RANDALL MD Apr 18, 2020 06:51
[2020-04-18] MEDS: OMEGA-3 FATTY ACIDS/FISH OIL 1,000 MG CAPSULE. PO SCH (08:17)
[2020-04-18] MEDS: PANTOPRAZOLE 40 MG TABLET. PO SCH (08:17)
[2020-04-18] MEDS: CALCIUM CARB/VIT D3 500/200 TABLET PO SCH ×2 (08:17→16:26)
[2020-04-18] MEDS: CHOLECALCIFEROL (VITAMIN D3) 1,000 UNIT TABLET PO SCH (08:17)
[2020-04-18] MEDS: CITALOPRAM 20 MG TABLET. PO SCH (08:17)
[2020-04-18] MEDS: MEMANTINE 10 MG TABLET. PO SCH (08:18)
[2020-04-18] MEDS: ASCORBIC ACID 500 MG TABLET PO SCH (08:18)
[2020-04-18] MEDS: LISINOPRIL 5 MG TABLET. PO SCH (08:18)
[2020-04-18] MEDS: MULTIVITAMIN with MINERAL TABLET. PO SCH (08:18)
[2020-04-18] MEDS ORDERED: ACET325T21 PO (10:57)
[2020-04-18] MEDS ORDERED: MAG355OR12 PO (11:00)
[2020-04-18] MEDS ORDERED: MAGN24003 PO (11:01)
[2020-04-18] MEDS ORDERED: OLAN5TAB99 PO (11:02)
[2020-04-18] MEDS ORDERED: TRAZ-120 PO (11:03)
[2020-04-18 16:05] VITALS: BP 128/68
--- NOTE | 2020-04-18 16:36 | NUR ---
Pt up adl in room. Out in do in afternoon with mask. Sitting with staff. Out in dayroom with staff in afternoon watching TV. Has been compliant with meds and cares.
[2020-04-18] MEDS: DONEPEZIL HCL 10 MG TABLET PO SCH (20:26)
[2020-04-18] MEDS: traZODone 50 MG TABLET. PO SCH (20:26)
--- NOTE | 2020-04-18 21:56 | PDOC ---
Exam Note: Tyler Note: Please also refer to the separate dictated note~for this date of service dictated separately.~Patient seen individually. Discussed the patient with Nursing staff reviewed the chart.~Reviewed interim history and current functioning. Reviewed vital signs,~Labs/ Radiology~and current medications noted below. Continue current treatment with the changes noted in the dictated addendum note Assessment: Vital Signs/I&O: Vital Signs Date Time Temp Pulse Resp B/P (MAP) Pulse Ox O2 Delivery O2 Flow Rate FiO2 04/18/20 20:24 98.1 97 04/18/20 16:05 65 16 128/68 (88) 04/18/20 06:29 Room Air I & O 04/17/20 04/17/20 04/18/20 15:00 23:00 07:00 Intake Total 240 ml 360 ml 60 ml Balance 240 ml 360 ml 60 ml Current Medications: I have reviewed the current psychotropics carefully including drug interactions. Risk benefit ratio favors no change other than as noted in my dictated progress note. Diagnosis: Problems: (1) Major neurocognitive disorder (2) Mild cognitive impairment (3) Impulse control disorder, unspecified (4) Anxiety disorder, unspecified (5) Dementia, vascular, with depression (6) Dementia, vascular, with delusions (7) Dementia in Alzheimer's disease with depression (8) Dementia in Alzheimer's disease with delusions (9) Dementia in Alzheimer's disease with early onset with behavioral disturbance DIMITRIOS RANDALL MD Apr 18, 2020 21:56
--- NOTE | 2020-04-18 22:28 | NUR ---
Pt located in her room this evening. Pt A/O to name and became defensive when asked other orientation questions. Compliant with whole HS medications.
[2020-04-19 05:48] VITALS: BP 102/60
[2020-04-19] MEDS: PANTOPRAZOLE 40 MG TABLET. PO SCH (08:04)
[2020-04-19] MEDS: CHOLECALCIFEROL (VITAMIN D3) 1,000 UNIT TABLET PO SCH (08:04)
[2020-04-19] MEDS: MULTIVITAMIN with MINERAL TABLET. PO SCH (08:04)
[2020-04-19] MEDS: CALCIUM CARB/VIT D3 500/200 TABLET PO SCH ×2 (08:04→16:30)
[2020-04-19] MEDS: ASCORBIC ACID 500 MG TABLET PO SCH (08:04)
[2020-04-19] MEDS: OMEGA-3 FATTY ACIDS/FISH OIL 1,000 MG CAPSULE. PO SCH (08:04)
[2020-04-19] MEDS: CITALOPRAM 20 MG TABLET. PO SCH (08:05)
[2020-04-19] MEDS: MEMANTINE 10 MG TABLET. PO SCH (08:05)
[2020-04-19] MEDS: LISINOPRIL 5 MG TABLET. PO SCH (08:41)
--- NOTE | 2020-04-19 10:46 | NUR ---
Patient sitting in bed during initial assessment. Cooperative with assessment and medications. Denies pain. Stated "I want to go home now." Asked this nurse if she could use the phone. When I asked her who she wanted to call she said "myself because I want to leave." Patient sitting in do with mask on at this time. Will continue to monitor.
--- NOTE | 2020-04-19 14:28 | NUR ---
Betty's discharge is on hold at this time pending direction from health department. MALU discussed with ZEE Jaramillo, this morning and left detailed message this afternoon that unit is still waiting to hear from health department. SW will update family once additional direction from the health department is provided.
[2020-04-19 18:39] VITALS: BP 115/72
[2020-04-19] MEDS: DONEPEZIL HCL 10 MG TABLET PO SCH (20:13)
[2020-04-19] MEDS: traZODone 50 MG TABLET. PO SCH (20:13)
--- NOTE | 2020-04-19 21:44 | NUR ---
Pt calm and cooperative. Compliant with whole medications. Pt currently laying in bed reading a book.
--- NOTE | 2020-04-19 22:17 | PDOC ---
Exam Note: Tyler Note: Please also refer to the separate dictated note~for this date of service dictated separately.~Patient seen individually. Discussed the patient with Nursing staff reviewed the chart.~Reviewed interim history and current functioning. Reviewed vital signs,~Labs/ Radiology~and current medications noted below. Continue current treatment with the changes noted in the dictated addendum note Assessment: Vital Signs/I&O: Vital Signs Date Time Temp Pulse Resp B/P (MAP) Pulse Ox O2 Delivery O2 Flow Rate FiO2 04/19/20 21:34 97.8 97 04/19/20 18:39 75 18 115/72 (86) 04/18/20 06:29 Room Air I & O 04/18/20 04/18/20 04/19/20 15:00 23:00 07:00 Intake Total 100 ml 600 ml Balance 100 ml 600 ml Current Medications: I have reviewed the current psychotropics carefully including drug interactions. Risk benefit ratio favors no change other than as noted in my dictated progress note. Diagnosis: Problems: (1) Major neurocognitive disorder (2) Mild cognitive impairment (3) Impulse control disorder, unspecified (4) Anxiety disorder, unspecified (5) Dementia, vascular, with depression (6) Dementia, vascular, with delusions (7) Dementia in Alzheimer's disease with depression (8) Dementia in Alzheimer's disease with delusions (9) Dementia in Alzheimer's disease with early onset with behavioral disturbance DIMITRIOS RANDALL MD Apr 19, 2020 22:17
[2020-04-20 05:49] VITALS: BP 113/60
[2020-04-20] MEDS: CALCIUM CARB/VIT D3 500/200 TABLET PO SCH ×2 (08:49→17:26)
[2020-04-20] MEDS: MULTIVITAMIN with MINERAL TABLET. PO SCH (08:49)
[2020-04-20] MEDS: PANTOPRAZOLE 40 MG TABLET. PO SCH (08:49)
[2020-04-20] MEDS: OMEGA-3 FATTY ACIDS/FISH OIL 1,000 MG CAPSULE. PO SCH (08:49)
[2020-04-20] MEDS: ASCORBIC ACID 500 MG TABLET PO SCH (08:49)
[2020-04-20] MEDS: CHOLECALCIFEROL (VITAMIN D3) 1,000 UNIT TABLET PO SCH (08:49)
[2020-04-20] MEDS: LISINOPRIL 5 MG TABLET. PO SCH (08:49)
[2020-04-20] MEDS: MEMANTINE 10 MG TABLET. PO SCH (08:49)
[2020-04-20] MEDS: CITALOPRAM 20 MG TABLET. PO SCH (08:49)
--- NOTE | 2020-04-20 12:30 | NUR ---
Patient swabbed for COVID send out lab.
--- NOTE | 2020-04-20 13:19 | NUR ---
Provided update to ZEE Jaramillo, on health department recommendations. Depending on staff Covid swab results that are being completed this date, will determine if [facility] is able to proceed with discharging patients. will update Ella accordingly. Left message for Tiffanie, director global medical affairs at [facility], to inform of above. Requested return call. Awaiting call.
--- NOTE | 2020-04-20 13:46 | NUR ---
Patient is lying in her bed, sleeping at times and reading a book at others. She is oriented only to herself and states we are in [place], [place] when asked. She is compliant with medications, she takes them whole with water. She is a finicky eater and has been eating 50% of her meals this day. She is not agitated and spends her time reading, sleeping and looking out the window. Patient sometimes gets defensive when being asked orientation questions, if pressured to answer.
[2020-04-20 15:38] VITALS: BP 112/71
[2020-04-20] MEDS: traZODone 50 MG TABLET. PO SCH (20:50)
[2020-04-20] MEDS: DONEPEZIL HCL 10 MG TABLET PO SCH (20:50)
--- NOTE | 2020-04-20 21:58 | PDOC ---
Exam Note: Tyler Note: Please also refer to the separate dictated note~for this date of service dictated separately.~Patient seen individually. Discussed the patient with Nursing staff reviewed the chart.~Reviewed interim history and current functioning. Reviewed vital signs,~Labs/ Radiology~and current medications noted below. Continue current treatment with the changes noted in the dictated addendum note Assessment: Vital Signs/I&O: Vital Signs Date Time Temp Pulse Resp B/P (MAP) Pulse Ox O2 Delivery O2 Flow Rate FiO2 04/20/20 19:57 97.7 97 04/20/20 15:38 63 17 112/71 (85) Room Air I & O 04/19/20 04/19/20 04/20/20 15:00 23:00 07:00 Intake Total 554 ml 240 ml Balance 554 ml 240 ml Current Medications: I have reviewed the current psychotropics carefully including drug interactions. Risk benefit ratio favors no change other than as noted in my dictated progress note. Diagnosis: Problems: (1) Major neurocognitive disorder (2) Mild cognitive impairment (3) Impulse control disorder, unspecified (4) Anxiety disorder, unspecified (5) Dementia, vascular, with depression (6) Dementia, vascular, with delusions (7) Dementia in Alzheimer's disease with depression (8) Dementia in Alzheimer's disease with delusions (9) Dementia in Alzheimer's disease with early onset with behavioral disturbance DIMITRIOS RANDALL MD Apr 20, 2020 21:58
--- NOTE | 2020-04-20 22:49 | NUR ---
Pt resting in bed this evening. Compliant with whole medications. Disorganized and irritable with assessment questions.
[2020-04-21 05:49] VITALS: BP 126/71
[2020-04-21] MEDS: MEMANTINE 10 MG TABLET. PO SCH (09:28)
[2020-04-21] MEDS: LISINOPRIL 5 MG TABLET. PO SCH (09:28)
[2020-04-21] MEDS: CALCIUM CARB/VIT D3 500/200 TABLET PO SCH ×2 (09:28→17:06)
[2020-04-21] MEDS: PANTOPRAZOLE 40 MG TABLET. PO SCH (09:28)
[2020-04-21] MEDS: CITALOPRAM 20 MG TABLET. PO SCH (09:28)
[2020-04-21] MEDS: ASCORBIC ACID 500 MG TABLET PO SCH (09:28)
[2020-04-21] MEDS: OMEGA-3 FATTY ACIDS/FISH OIL 1,000 MG CAPSULE. PO SCH (09:29)
[2020-04-21] MEDS: MULTIVITAMIN with MINERAL TABLET. PO SCH (09:29)
[2020-04-21] MEDS: CHOLECALCIFEROL (VITAMIN D3) 1,000 UNIT TABLET PO SCH (09:29)
--- NOTE | 2020-04-21 11:43 | PDOC ---
Exam Note: Tyler Note: This note is a late entry for 04/18/2020 covers elements not covered in my initial note. Subjective: The patient was evaluated on telehealth rounds in the evening of 04/18/2020 due to COVID-19 restrictions on the unit with no admissions and discharges. Per Ines RN in the evening, she slept 7-1/4 hours previous night. She has been pleasant, verbal, interactive, confused, but smiling. Review of Systems: No CV, , pulmonary, eye, ENT system symptoms on review. Reliability poor. Mental Status Exam: Oriented to herself. Insight and judgment, recent and re mote memory, attention and concentration, fund of knowledge is poor consistent with her diagnoses mentioned in my initial note. Laboratory Data: Reviewed. Impression: Major neurocognitive disorder Alzheimer vascular with delusion, depression, behavioral disturbance. Mild cognitive impairment. Plan: No change from initial note. Assessment: Vital Signs/I&O: Vital Signs Date Time Temp Pulse Resp B/P (MAP) Pulse Ox O2 Delivery O2 Flow Rate FiO2 04/21/20 09:28 57 126/71 04/21/20 05:49 97.8 16 97 04/20/20 15:38 Room Air I & O 04/20/20 04/20/20 04/21/20 15:00 23:00 07:00 Intake Total 480 ml 480 ml Balance 480 ml 480 ml Current Medications: I have reviewed the current psychotropics carefully including drug interactions. Risk benefit ratio favors no change other than as noted in my dictated progress note. Diagnosis: Problems: (1) Major neurocognitive disorder (2) Mild cognitive impairment (3) Impulse control disorder, unspecified (4) Anxiety disorder, unspecified (5) Dementia, vascular, with depression (6) Dementia, vascular, with delusions (7) Dementia in Alzheimer's disease with depression (8) Dementia in Alzheimer's disease with delusions (9) Dementia in Alzheimer's disease with early onset with behavioral disturbance DIMITRIOS RANDALL MD Apr 21, 2020 11:43
--- NOTE | 2020-04-21 11:50 | PDOC ---
Exam Note: Tyler Note: This note is a late entry for 04/19/2020 covers elements not covered in my initial note. Subjective: The patient was reviewed on telehealth rounds in the evening of 04/19/2020 with Domenica MEDEL due to COVID-19 restrictions on the unit with no admissions and discharges. She slept 7-3/4 hours previous night. She has been anxious, restless. Review of Systems: No CV, , pulmonary, eye, ENT system symptoms on review. Reliability poor. Mental Status Exam: Oriented to herself. She is pleasant, verbal, interactive, confused. 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 Insight and judgment, recent and remote memory, attention and concentration, fund of knowledge is poor consistent with her diagnoses mentioned in my initial note. No suicidal or homicidal ideation. Laboratory Data: Reviewed. Impression: Major neurocognitive disorder Alzheimer vascular with delusion, depression, behavioral disturbance. Mild cognitive impairment. Plan: No change from initial note. Assessment: Vital Signs/I&O: Vital Signs Date Time Temp Pulse Resp B/P (MAP) Pulse Ox O2 Delivery O2 Flow Rate FiO2 04/21/20 09:28 57 126/71 04/21/20 05:49 97.8 16 97 04/20/20 15:38 Room Air I & O 04/20/20 04/20/20 04/21/20 15:00 23:00 07:00 Intake Total 480 ml 480 ml Balance 480 ml 480 ml Current Medications: I have reviewed the current psychotropics carefully including drug interactions. Risk benefit ratio favors no change other than as noted in my dictated progress note. Diagnosis: Problems: (1) Major neurocognitive disorder (2) Mild cognitive impairment (3) Impulse control disorder, unspecified (4) Anxiety disorder, unspecified (5) Dementia, vascular, with depression (6) Dementia, vascular, with delusions (7) Dementia in Alzheimer's disease with depression (8) Dementia in Alzheimer's disease with delusions (9) Dementia in Alzheimer's disease with early onset with behavioral disturbance DIMITRIOS RANDALL MD Apr 21, 2020 11:50
--- NOTE | 2020-04-21 11:59 | PDOC ---
Exam Note: Tyler Note: This note is a late entry for 04/20/2020 covers elements not covered in my initial note. Subjective: The patient was reviewed on telehealth rounds in the evening of 04/20/2020 with Rosalinda MEDEL due to COVID-19 restrictions on the unit with no admissions and discharges. Per Kathryn MEDEL in the evening, she refused Ensure. She is oriented just to herself, more agitated in the evening. Appetite is 50%. Review of Systems: No CV, , pulmonary, eye, ENT system symptoms on review. Mental Status Exam: Oriented to herself. She is very pleasant, verbal, interactive especially if we talk about the [facility] veterans. Insight and judgment, recent and remote memory, attention and concentration, fund of knowledge is poor consistent with her diagnoses mentioned in my initial note. No suicidal or homicidal ideation. Laboratory Data: Reviewed. Impression: Major neurocognitive disorder Alzheimer vascular with delusion, depression, behavioral disturbance. Mild cognitive impairment. Plan: No change from initial note. Assessment: Vital Signs/I&O: Vital Signs Date Time Temp Pulse Resp B/P (MAP) Pulse Ox O2 Delivery O2 Flow Rate FiO2 04/21/20 09:28 57 126/71 04/21/20 05:49 97.8 16 97 04/20/20 15:38 Room Air I & O 04/20/20 04/20/20 04/21/20 15:00 23:00 07:00 Intake Total 480 ml 480 ml Balance 480 ml 480 ml Current Medications: I have reviewed the current psychotropics carefully including drug interactions. Risk benefit ratio favors no change other than as noted in my dictated progress note. Diagnosis: Problems: (1) Major neurocognitive disorder (2) Mild cognitive impairment (3) Impulse control disorder, unspecified (4) Anxiety disorder, unspecified (5) Dementia, vascular, with depression (6) Dementia, vascular, with delusions (7) Dementia in Alzheimer's disease with depression (8) Dementia in Alzheimer's disease with delusions (9) Dementia in Alzheimer's disease with early onset with behavioral disturbance DIMITRIOS RANDALL MD Apr 21, 2020 11:59
[2020-04-21 15:28] VITALS: BP 118/73
[2020-04-21] MEDS: DONEPEZIL HCL 10 MG TABLET PO SCH (20:08)
[2020-04-21] MEDS: traZODone 50 MG TABLET. PO SCH (20:08)
--- NOTE | 2020-04-21 21:54 | PDOC ---
Exam Note: Tyler Note: Please also refer to the separate dictated note~for this date of service dictated separately.~Patient seen individually. Discussed the patient with Nursing staff reviewed the chart.~Reviewed interim history and current functioning. Reviewed vital signs,~Labs/ Radiology~and current medications noted below. Continue current treatment with the changes noted in the dictated addendum note Assessment: Vital Signs/I&O: Vital Signs Date Time Temp Pulse Resp B/P (MAP) Pulse Ox O2 Delivery O2 Flow Rate FiO2 04/21/20 21:02 98.2 99 04/21/20 15:28 59 16 118/73 (88) Room Air I & O 04/20/20 04/20/20 04/21/20 15:00 23:00 07:00 Intake Total 480 ml 480 ml Balance 480 ml 480 ml Current Medications: I have reviewed the current psychotropics carefully including drug interactions. Risk benefit ratio favors no change other than as noted in my dictated progress note. Diagnosis: Problems: (1) Major neurocognitive disorder (2) Mild cognitive impairment (3) Impulse control disorder, unspecified (4) Anxiety disorder, unspecified (5) Dementia, vascular, with depression (6) Dementia, vascular, with delusions (7) Dementia in Alzheimer's disease with depression (8) Dementia in Alzheimer's disease with delusions (9) Dementia in Alzheimer's disease with early onset with behavioral disturbance DIMITRIOS RANDALL MD Apr 21, 2020 21:54
--- NOTE | 2020-04-21 23:11 | NUR ---
Nursing Note Pt pleasant and cooperative. No behaviors. Takes meds whole.
[2020-04-22] MEDS ORDERED: CITA20TA9 PO (01:55)
[2020-04-22] MEDS ORDERED: CHOL10003 PO (01:59)
[2020-04-22] MEDS ORDERED: METH57CR17 TP (02:01)
[2020-04-22] MEDS: CHOLECALCIFEROL (VITAMIN D3) 1,000 UNIT TABLET PO SCH (05:14)
[2020-04-22] MEDS: CALCIUM CARB/VIT D3 500/200 TABLET PO SCH ×2 (05:14→17:00)
[2020-04-22] MEDS: PANTOPRAZOLE 40 MG TABLET. PO SCH (05:14)
[2020-04-22] MEDS: OMEGA-3 FATTY ACIDS/FISH OIL 1,000 MG CAPSULE. PO SCH (05:14)
[2020-04-22] MEDS: LISINOPRIL 5 MG TABLET. PO SCH ×2 (05:14→09:00)
[2020-04-22] MEDS: ASCORBIC ACID 500 MG TABLET PO SCH (05:15)
[2020-04-22] MEDS: MEMANTINE 10 MG TABLET. PO SCH (05:15)
[2020-04-22] MEDS: MULTIVITAMIN with MINERAL TABLET. PO SCH (05:15)
[2020-04-22] MEDS: CITALOPRAM 20 MG TABLET. PO SCH (05:15)
[2020-04-22 05:53] VITALS: BP 95/59
--- NOTE | 2020-04-22 10:11 | TX PLAN ---
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 Problems Active Problems: agitated verbally aggressive, beligerent confused/disoriented UTI Inactive Problems: Medication compliant Sleeping adequately Intakes are adequate Pt Strengths/Limitations Ability for [place]: Poor Cognitive Functioning/Ability: Poor Communication Skills/Ability: Fair Financial Resources: Fair Insight/Judgement: Poor Intellectual Ability: Fair Physical Health: Fair Social Skills: Fair Stability in Family: Fair Verbal Skills: Fair Discharge Criteria Discharge Criteria: Adequate arrangements @DC, Improved behavior, Improved mood/thought Preliminary Discharge Plan Preliminary DC Plan: Memory Care Other Arrangements: Betty will be returning to [facility], but moving to memory care. Special Precautions Special Precautions: Agitation/Assault Fall Risk: High Initial D/C Plan Betty will return to [facility], she will be going to their memory care unit. Identified Discharge Needs: [facility] is determining unit in which Betty would be best suited for readmission. Currently Utilized Resources Currently Utilized Resources/P: PCP 24 hour oversight by [facility] Referrals Community Resources: Psychiatry if available Identified Problems/Hx/Goals Objectives/Short-Term Goals Short Term Goals: Control abnormal behavior, Dec. Anxiety/Panic, Dec. Outbursts, Dec. Symp. Depression, Medication Stabilization, Monitor Med Effects, No Suicidal/Kev. ideation Short Term Goals in Patient's: Medication review Decreased anxiousness peace Interventions/Frequency Staff Interventions/Frequency&: Nursing to provide routine safety checks, medication administration, and adl support. Psychiatry visits 3-5 times weekly. SW visits twice weekly. Recreational therapy activites as Betty will be involved. 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 Social: Betty enjoys country music, reading, and playing cards. 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 Community Follow-up PCP Psychiatry, if available Community Provider/Family Inpu: Ella, Betty's sister in law/POA, particpiated in team meeting via phone on this date. Will proceed with Medication evaluation, treatment of UTI, and CT head. Treatment Plan Explained Patient/Clinical Science Liaison had this treatment plan explained to him/her as indicated by the signature below and has been given the opportunity to ask questions and make suggestions: Date: Patient/Clinical Science Liaison Signature: Status Update Update WEEKLY UPDATE/NOTE: Betty is averaging 75% of meal intakes and 7.5 hours of sleep. She has been compliant with medications and cares. She has had periods where her speech is more sensical but continues with short and retirement memory impairment . She uses humor and enjoys laughter. Betty is tentatively scheduled for d/c on 04/23/20 provided pending staff Covid swabs are negative. MALU will coordinate d/c with family and Padmini Field once Covid swab results are received. CARROLL KAUR Apr 22, 2020 10:11
--- NOTE | 2020-04-22 10:35 | NUR ---
MALU updated Ella (POA) and Tiffanie (rn admissions at [facility]) to provide update and plan for tentative d/c on 04/24/20. [id number] will provide transport at 10am on 04/24/20. Faxed current notes, labs, and medication list to Tiffanie for review.
--- NOTE | 2020-04-22 10:53 | NUR ---
[facility] Social Work Discharge Planning Form Patient Name MADIHA WASHINGTON Admit Date: 03/23/2020 DISCHARGE PLAN Discharge Destination: [facility] Assessment: Previously completed Transportation: Ella, sister in law/POA, will transport on 04/23/2020 at 10am. Special Instructions/Notes: Upon return to [facility], schedule f/u appointment with PCP and facility psychiatrist in 7-10 days. DISCHARGE TO FACILITY Facility: [facility] Care Address: [address] [place] [address] Contact Name: MIKAELA Moreno Contact Name: Corinne Marr, Power Reactor Operator PCP: Dr. Gibbs [phone], (fax) Psychiatrist: Facility Provider
--- NOTE | 2020-04-22 16:00 | NUR ---
Assumed care of patient at 1100. Patient has spent time in her room reading and lying calmly in her bed. Patient is disorganized and oriented only to herself she is pleasant. 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 Patient takes her medications whole and is cooperative. She
[2020-04-22 16:33] VITALS: BP 120/68
[2020-04-22] MEDS: DONEPEZIL HCL 10 MG TABLET PO SCH (20:01)
[2020-04-22] MEDS: traZODone 50 MG TABLET. PO SCH (20:02)
--- NOTE | 2020-04-22 21:50 | NUR ---
Patient sitting in the dark "reading" a book. Nurse turned the light on and patient continued to read the book. Patient cooperative with shower and pleasant, compliant with medications taken whole.
--- NOTE | 2020-04-22 21:54 | PDOC ---
Exam Note: Tyler Note: Please also refer to the separate dictated note~for this date of service dictated separately.~Patient seen individually. Discussed the patient with Nursing staff reviewed the chart.~Reviewed interim history and current functioning. Reviewed vital signs,~Labs/ Radiology~and current medications noted below. Continue current treatment with the changes noted in the dictated addendum note Assessment: Vital Signs/I&O: Vital Signs Date Time Temp Pulse Resp B/P (MAP) Pulse Ox O2 Delivery O2 Flow Rate FiO2 04/22/20 16:33 98.8 71 20 120/68 (85) 99 04/21/20 15:28 Room Air I & O 04/21/20 04/21/20 04/22/20 15:00 23:00 07:00 Intake Total 640 ml 320 ml Balance 640 ml 320 ml Current Medications: I have reviewed the current psychotropics carefully including drug interactions. Risk benefit ratio favors no change other than as noted in my dictated progress note. Diagnosis: Problems: (1) Major neurocognitive disorder (2) Mild cognitive impairment (3) Impulse control disorder, unspecified (4) Anxiety disorder, unspecified (5) Dementia, vascular, with depression (6) Dementia, vascular, with delusions (7) Dementia in Alzheimer's disease with depression (8) Dementia in Alzheimer's disease with delusions (9) Dementia in Alzheimer's disease with early onset with behavioral disturbance DIMITRIOS RANDALL MD Apr 22, 2020 21:54
[2020-04-23 06:21] VITALS: BP 102/66
--- NOTE | 2020-04-23 06:36 | PDOC ---
Exam Note: Tyler Note: This note is a late entry for 04/21/2020 covers elements not covered in my initial note. Subjective: The patient was reviewed on telehealth rounds due to COVID-19 restrictions on the unit in the evening of 04/21/2020 with Kathryn MEDEL. She slept 6 hours previous night. Review of Systems: No CV, , pulmonary, eye, ENT system symptoms on review. Mental Status Exam: Oriented to herself. She is pleasant, cooperative, interactive as I met with her, confused, forgetful, seems to have sense of humor. Insight and judgment, recent and remote memory, attention and concentration, fund of knowledge is poor consistent with her diagnoses mentioned in my initial note. Laboratory Data: Reviewed. Impression: Major neurocognitive disorder Alzheimer vascular with delusion, depression, behavioral disturbance. Mild cognitive impairment. Plan: No change from initial note. Assessment: Vital Signs/I&O: Vital Signs Date Time Temp Pulse Resp B/P (MAP) Pulse Ox O2 Delivery O2 Flow Rate FiO2 04/23/20 06:21 98.1 55 15 102/66 (78) 97 04/21/20 15:28 Room Air I & O 04/22/20 04/22/20 04/23/20 14:59 22:59 06:59 Intake Total 480 ml 360 ml Balance 480 ml 360 ml Current Medications: I have reviewed the current psychotropics carefully including drug interactions. Risk benefit ratio favors no change other than as noted in my dictated progress note. Diagnosis: Problems: (1) Major neurocognitive disorder (2) Mild cognitive impairment (3) Impulse control disorder, unspecified (4) Anxiety disorder, unspecified (5) Dementia, vascular, with depression (6) Dementia, vascular, with delusions (7) Dementia in Alzheimer's disease with depression (8) Dementia in Alzheimer's disease with delusions (9) Dementia in Alzheimer's disease with early onset with behavioral disturbance DIMITRIOS RANDALL MD Apr 23, 2020 06:36
--- NOTE | 2020-04-23 06:46 | PDOC ---
Exam Note: Tyler Note: This note is a late entry for 04/22/2020 covers elements not covered in my initial note. Subjective: The patient was reviewed on telehealth rounds due to COVID-19 restrictions on the unit in the morning of 04/22/2020 with treatment team with Nanette Pace and Ekta (social scientist) and Tarah MEDEL. She spends much time in her room, talking and interacting more with staff. She slept 7-1/2 hours previous night. Appetite is 90%. As per nursing report she appears psychiatrically stable. [facility] Review of Systems: No CV, , pulmonary, eye, ENT system symptoms on review. Mental Status Exam: Oriented to herself. She is very pleasant, verbal, interactive. Insight and judgment, recent and remote memory, attention and concentration, fund of knowledge is poor consistent with her diagnoses mentioned in my initial note. No suicidal or homicidal ideation. Laboratory Data: Reviewed. Impression: Major neurocognitive disorder Alzheimer vascular with delusion, depression, behavioral disturbance. Mild cognitive impairment. Plan: No change from initial note. Assessment: Vital Signs/I&O: Vital Signs Date Time Temp Pulse Resp B/P (MAP) Pulse Ox O2 Delivery O2 Flow Rate FiO2 04/23/20 06:21 98.1 55 15 102/66 (78) 97 04/21/20 15:28 Room Air I & O 04/22/20 04/22/20 04/23/20 15:00 23:00 07:00 Intake Total 480 ml 360 ml Balance 480 ml 360 ml Current Medications: I have reviewed the current psychotropics carefully including drug interactions. Risk benefit ratio favors no change other than as noted in my dictated progress note. 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
[2020-04-23] MEDS: OMEGA-3 FATTY ACIDS/FISH OIL 1,000 MG CAPSULE. PO SCH (08:06)
[2020-04-23 08:07] VITALS: BP 102/66
[2020-04-23] MEDS: MULTIVITAMIN with MINERAL TABLET. PO SCH (08:07)
[2020-04-23] MEDS: CALCIUM CARB/VIT D3 500/200 TABLET PO SCH (08:07)
[2020-04-23] MEDS: LISINOPRIL 5 MG TABLET. PO SCH (08:07)
[2020-04-23] MEDS: PANTOPRAZOLE 40 MG TABLET. PO SCH (08:07)
[2020-04-23] MEDS: ASCORBIC ACID 500 MG TABLET PO SCH (08:07)
[2020-04-23] MEDS: MEMANTINE 10 MG TABLET. PO SCH (08:07)
[2020-04-23] MEDS: CITALOPRAM 20 MG TABLET. PO SCH (08:07)
[2020-04-23] MEDS: CHOLECALCIFEROL (VITAMIN D3) 1,000 UNIT TABLET PO SCH (08:07)
--- NOTE | 2020-04-23 10:12 | NUR ---
Transition Record was faxed to follow-up provider with the following elements: Reason for admission, procedures, tests, principal diagnosis, pending studies, patient instructions, 26/02 contact information for unit, phone number to obtain pending test results, plan for follow-up care, physician follow-up, advanced directive information, and medication list with dose, duration and instructions. This information was included in the following documents: History and physical, lab results, study results, progress notes, social work planning form, DC instruction form, patient visit summary, and medication reconciliation form. Date & time record faxed: 04/23/20 Record faxed to: Padmini Field Record discussed with/ report given to: Tiffanie MEDEL
--- NOTE | 2020-04-23 21:55 | PDOC ---
Exam Note: Tyler Note: Please also refer to the separate dictated note~for this date of service dictated separately.~Patient seen individually. Discussed the patient with Nursing staff reviewed the chart.~Reviewed interim history and current functioning. Reviewed vital signs,~Labs/ Radiology~and current medications noted below. Continue current treatment with the changes noted in the dictated addendum note Assessment: Vital Signs/I&O: Vital Signs Date Time Temp Pulse Resp B/P (MAP) Pulse Ox O2 Delivery O2 Flow Rate FiO2 04/23/20 08:07 55 102/66 04/23/20 06:21 98.1 15 97 04/21/20 15:28 Room Air I & O 04/22/20 04/22/20 04/23/20 15:00 23:00 07:00 Intake Total 480 ml 360 ml Balance 480 ml 360 ml Current Medications: I have reviewed the current psychotropics carefully including drug interactions. Risk benefit ratio favors no change other than as noted in my dictated progress note. Diagnosis: Problems: (1) Major neurocognitive disorder (2) Mild cognitive impairment (3) Impulse control disorder, unspecified (4) Anxiety disorder, unspecified (5) Dementia, vascular, with depression (6) Dementia, vascular, with delusions (7) Dementia in Alzheimer's disease with depression (8) Dementia in Alzheimer's disease with delusions (9) Dementia in Alzheimer's disease with early onset with behavioral disturbance DIMITRIOS RANDALL MD Apr 23, 2020 21:55
--- NOTE | 2020-04-25 21:38 | DS ---
DATE OF DISCHARGE: 04/23/2020 DISCHARGE SUMMARY/PSYCHIATRIC PROGRESS NOTE This late entry 04/23/2020 covers elements not covered in my initial note. REASON FOR ADMISSION: Please refer to the admission history for details. Briefly, the patient is a 69-year-old female referred to us from [facility] by her primary care physician on account of increasing confusion and agitation. She is exit seeking, agitated, forgetful. She is hugging and kissing some peers inappropriately, stating "I just want to kill myself." She is getting into others' personal space, disruptive, unmanageable at the facility, had failed outpatient psychiatric intervention resulting in this referral. SIGNIFICANT FINDINGS AND CLINICAL COURSE: Following admission, the patient was seen daily individually by myself from a psychiatric standpoint, medical followup per Dr. Machado/Dr. Sr. The patient remained initially quite confused and restless, anxious, agitated, somewhat paranoid, labile. Adjustments were made in her psychotropics and she seemed to respond to a combination of Aricept 10 mg at bedtime, Namenda 10 mg a day, trazodone 50 mg at bedtime and may repeat x 1, Celexa 20 mg a day, Zyprexa 2.5 mg q. 2 hours p.r.n. for psychosis and agitation. REVIEW OF SYSTEMS: Prior to discharge on 04/23/2020, no CV, , pulmonary, eye, ENT system symptoms on review. Reliability poor. MENTAL STATUS EXAM: Oriented to herself. Insight, judgment, recent and remote memory, attention, concentration, fund of knowledge poor, consistent with her diagnoses. FINAL DIAGNOSES: Major neurocognitive disorder, Alzheimer, vascular with delusion, depression, behavioral disturbance; anxiety disorder, unspecified; impulse control disorder, unspecified. DISCHARGE MEDICATIONS: Please refer to the MRAD. DISCHARGE INSTRUCTIONS: Outpatient psychiatric and medical followup at the long term. DIMITRIOS RANDALL MD DR: TARYN/uma JOB#: [id number] / [id number]
== END 2020-04-23 10:21 | DRG 57 ==
LOC: GEROPSY 19:55
PROVIDERS: ADMIT Psychiatry & Neurology Psychiatry; ATTEND Psychiatry & Neurology Psychiatry
DX: G30.9 Alzheimer's disease, unspecified (principal); F01.51 Vascular dementia, unspecified severity, with behavioral disturbance; F02.81 Dementia in other diseases classified elsewhere, unspecified severity, with behavioral disturbance; N39.0 Urinary tract infection, site not specified; E03.9 Hypothyroidism, unspecified; F32.9 Major depressive disorder, single episode, unspecified; F41.9 Anxiety disorder, unspecified; Z20.828 Contact with and (suspected) exposure to other viral communicable diseases; F63.9 Impulse disorder, unspecified; I12.9 Hypertensive chronic kidney disease with stage 1 through stage 4 chronic kidney disease, or unspecified chronic kidney disease; N18.3 Chronic kidney disease, stage 3 (moderate); Z79.899 Other long term (current) drug therapy; Z82.0 Family history of epilepsy and other diseases of the nervous system
CPT/HCPCS: 36415; 70450; 80053; 80061; 81001; 82306; 82607; 83036; 83540; 83550; 83735; 84436; 84443; 84480; 85025; 86592; 87086; 87147; 87426; U0003-CS

== ENCOUNTER 2020-12-24 13:59 | Inpatient (IN) | payer MEDICARE, BC ==
[~2020-12-24] VITALS: Ht 165.1 cm; Wt 70.0 kg
[~2020-12-24 13:59] MED LIST: ACET325T21 PO; ACET500T68 PO; ASCO500C PO; CALC-44 PO; CHOL10004 PO; CITA20TA9 PO; DONE10TA7 PO; ESCITALOPRAM OX10 MG PO; LISI-517 PO; MAG355OR12 PO; MAGN24003 PO; MEMA10TA PO; METH57CR17 TP; MULT-238 PO; OLAN5TAB99 PO; OMEG-117 PO; OMEP20CA16 PO; TRAZ-120 PO; Vitamin D3 PO
--- NOTE | 2020-12-24 14:19 | PHYS DOC ---
Past History Past Medical History: Anxiety Adult General Chief Complaint Chief Complaint: MEDICAL CLEARANCE [facility] HPI Patient is a 70-year-old female presenting for medical clearance for admission to geriatric psych facility. Patient a poor historian. Per documentation, patient has history of major neurocognitive dysfunction, Alzheimer's dementia, impulsive control and anxiety disorder. Patient was sent here from a [facility] in [place] as she was reportedly pulling staffs hair, hitting staff, yelling and grabbing peers arm and name-calling. This is not her baseline behavior and has worsened over the past week. She has prior history of [facility] admission at our facility March 23 through April 15, 2020. No sick contacts, no febrile illness, patient is fully vaccinated and received x2 Covid vaccines August 11 and September 01, 2019 respectively. Patient has no acute complaints on arrival. Patient is alert and oriented to person only which is her baseline per her brother and [id number] who are present and assisting with history. Have been in close contact with hospital regarding transfer for admission to [facility] psychiatric floor Review of Systems Review of Systems Fourteen body systems of review of systems have been reviewed. See HPI for pertinent positives and negative responses, other telles all other systems are negative, non-pertinent or non-contributory Allergies Allergies Allergies Coded Allergies Type Severity Reaction Last Updated Verified No Known Drug Allergies 03/23/20 No Physical Exam Physical Exam Constitutional: Well developed, well nourished, no acute distress, non-toxic appearance. HENT: Normocephalic, atraumatic, bilateral external ears normal, oropharynx moist, no oral exudates, nose normal. Eyes: PERRLA, EOMI, conjunctiva normal, no discharge. Neck: Normal range of motion, no tenderness, supple, no stridor. Cardiovascular: Heart rate regular, sinus rhythm, no murmurs rubs or gallops Lungs & Thorax: Bilateral breath sounds clear to auscultation Abdomen: Bowel sounds normal, soft, no tenderness, no masses, no pulsatile masses. Nonsurgical abdomen, no peritoneal signs Skin: Warm, dry, no erythema, no rash. Back: No tenderness, no CVA tenderness. Extremities: No tenderness, no cyanosis, no clubbing, ROM intact, no edema. Neurologic: Alert and oriented to person only, cranial nerves II through XII, normal motor & sensory function, no focal deficits noted. No neurologic deficits appreciated Psychologic: Affect normal, judgement normal, mood normal. Current Patient Data Vital Signs Vital Signs Date Time Temp Pulse Resp B/P (MAP) Pulse Ox O2 Delivery O2 Flow Rate FiO2 12/24/20 14:39 98.3 67 16 122/72 (89) 97 Room Air Vital Signs Date Time Temp Pulse Resp B/P (MAP) Pulse Ox O2 Delivery O2 Flow Rate FiO2 12/24/20 14:39 98.3 67 16 122/72 (89) 97 Room Air Lab Results Laboratory Tests Test 12/24/20 14:17 12/24/20 14:45 Urine Collection Type Unknown Urine Color Yellow Urine Clarity Cloudy Urine pH 6.0 Urine Specific Stow 1.020 Urine Protein Neg Urine Glucose (UA) Neg mg/dL Urine Ketones (Stick) Neg mg/dL Urine Blood Neg Urine Nitrite Neg Urine Bilirubin Neg Urine Urobilinogen Dipstick 0.2 mg/dL Urine Leukocyte Esterase Neg Urine RBC Occ /HPF Urine WBC 5-10 /HPF Urine Squamous Epithelial Cells Many /LPF Urine Bacteria Many /HPF Urine Opiates Screen Neg Urine Methadone Screen Neg Urine Barbiturates Neg Urine Phencyclidine Screen Neg Urine Amphetamine/Methamphetamine Neg Urine Benzodiazepines Screen Neg Urine Cocaine Screen Neg Urine Cannabinoids Screen Neg Urine Ethyl Alcohol Neg White Blood Count 5.9 x10^3/uL Red Blood Count 3.74 x10^6/uL Hemoglobin 11.2 g/dL Hematocrit 33.7 % Mean Corpuscular Volume 90 fL Mean Corpuscular Hemoglobin 30 pg Mean Corpuscular Hemoglobin Concent 33 g/dL Red Cell Distribution Width 13.2 % Platelet Count 230 x10^3/uL Neutrophils (%) (Auto) 70 % Lymphocytes (%) (Auto) 19 % Monocytes (%) (Auto) 9 % Eosinophils (%) (Auto) 1 % Basophils (%) (Auto) 0 % Neutrophils # (Auto) 4.1 x10^3uL Lymphocytes # (Auto) 1.1 x10^3/uL Monocytes # (Auto) 0.5 x10^3/uL Eosinophils # (Auto) 0.1 x10^3/uL Basophils # (Auto) 0.0 x10^3/uL Sodium Level 141 mmol/L Potassium Level 4.0 mmol/L Chloride Level 106 mmol/L Carbon Dioxide Level 27 mmol/L Anion Gap 8 Blood Urea Nitrogen 16 mg/dL Creatinine 1.4 mg/dL Estimated GFR (Cockcroft-Gault) 37.0 BUN/Creatinine Ratio 11 Glucose Level 74 mg/dL Calcium Level 8.6 mg/dL Total Bilirubin 0.9 mg/dL Aspartate Amino Transf (AST/SGOT) 19 U/L Alanine Aminotransferase (ALT/SGPT) 26 U/L Alkaline Phosphatase 83 U/L Troponin I Quantitative < 0.017 ng/mL Total Protein 6.7 g/dL Albumin 3.5 g/dL Albumin/Globulin Ratio 1.1 Ethyl Alcohol Level < 10 mg/dL EKG EKG EKG ordered and interpreted by myself at 1508 hrs. as sinus rhythm at 58 bpm, prolonged LA 210 otherwise unremarkable intervals, no axis deviation, no acute ischemic findings, no STEMI Radiology/Procedures Radiology/Procedures AP chest. HISTORY: Psychiatric clearance AP view was taken of the chest. Lungs are clear. Heart is normal in size. There is no pleural effusion. IMPRESSION: 1. No acute chest disease. Electronically signed by: Abdulkadir Smith MD (12/24/2020 2:46 PM) [id number] Heart Score C/O Chest Pain: No HEART Score for Chest Pain: HEART Score for Chest Pain Response (Comments) Value History Slighlty/Non-Suspicious 0 ECG Normal 0 Age > 65 2 Risk Factors 1 or 2 Risk Factors 1 Troponin < Normal Limit 0 Total 3 Risk Factors: Risk Factors: DM, Current or recent (<one month) smoker, HTN, HLP, family history of CAD, obesity. Risk Scores: Risk Factors: DM, Current or recent (<one month) smoker, HTN, HLP, family history of CAD, obesity. Course & Med Decision Making Course & Med Decision Making Vital signs stable. History and physical exam nonconcerning for emergent or surgical pathology. ER work-up obtained and nonconcerning for any infectious pathology. Patient medically cleared for admission to geriatric psych at [facility] as previously planned This admission was previously set up, accepting physician will be writing all orders for patient Patient, brother and [id number] present all updated on plan of care that included hospital admission and they were amenable. Patient's CODE STATUS reviewed, patient is full code at this time All questions and concerns addressed prior to hospital admission Critical Care Time This patient required critical care. Due to the fact that the patient required a significant amount of one on one physician - patient contact time, ordering and review of studies, arranging urgent treatment with development of a management plan, evaluation of patients response to treatment with frequent reassessments, and discussions with other providers this patient required 40 minutes of critical care time. Critical care time was indicated due to the inherent instability and/or potential for instability in this patient. The critical care time that is allocated to this patient is above and beyond any time spent on any other billable procedures performed on this patient. Dragon Disclaimer Dragon Disclaimer This electronic medical record was generated, in whole or in part, using a voice recognition dictation system. Departure Departure: Impression: Primary Impression: Dementia in Alzheimer's disease with delusions Additional Impression: Major neurocognitive disorder Disposition: ADMITTED INPATIENT ([place]) Condition: STABLE Referrals: MATTHEW MEADOWS MD (PCP) Problem Qualifiers TAMY GROSSMAN DO December 24, 2020 14:19
[2020-12-24 14:45] LABS: BILIRUBIN,URINE NEG (NEG); CLARITY,URINE CLOUDY; COLOR,URINE YELLOW; GLUCOSE,URINE NEG (NEG); NITRITE,URINE NEG (NEG); UROBILINOGEN,URINE 0.2 mg/dL (0.2 mg/dL)
--- NOTE | 2020-12-24 14:48 | RAD ---
AP chest. HISTORY: Psychiatric clearance AP view was taken of the chest. Lungs are clear. Heart is normal in size. There is no pleural effusio n. IMPRESSION: 1. No acute chest disease. Electronically signed by: Abdulkadir Smith MD (12/24/2020 2:46 PM) [id number]
[2020-12-24 14:49] LABS: BARBITURATES NEG (NEG); BENZODIAZEPINES NEG (NEG); CANNABINOIDS NEG (NEG); COCAINE NEG (NEG); METHADONE NEG (NEG); OPIATES NEG (NEG); PHENCYCLIDINE NEG (NEG)
[2020-12-24 14:53] LABS: AMPHETAMINE/METHAMPHETAMINE NEG (NEG)
[2020-12-24 14:56] LABS: BACTERIA,URINE MANY /HPF (0-FEW); RBC,URINE OCC /HPF (0-2); SQUAMOUS EPITHELIAL CELL,UR MANY /LPF
[2020-12-24 15:06] LABS: BASO % 0 % (0-3); EOS # 0.1 x10^3/uL (0.0-0.7); EOS % 1 % (0-3); HEMATOCRIT 33.7 % (36.0-47.0); HEMOGLOBIN 11.2 g/dL (12.0-15.5); LYMPH # 1.1 x10^3/uL (1.0-4.8); LYMPH % 19 % (24-48); MEAN CORPUSCULAR HEMOGLOBIN 30 pg (25-35); MEAN CORPUSCULAR HGB CONC 33 g/dL (31-37); MEAN CORPUSCULAR VOLUME 90 fL (79-100); MONO # 0.5 x10^3/uL (0.0-1.1); MONO % 9 % (0-9); NEUT # 4.1 x10^3uL (1.8-7.7); NEUT % 70 % (31-73); PLATELET COUNT 230 x10^3/uL (140-400); RED BLOOD COUNT 3.74 x10^6/uL (3.50-5.40); RED CELL DISTRIBUTION WIDTH 13.2 % (11.5-14.5); WHITE BLOOD COUNT 5.9 x10^3/uL (4.0-11.0)
[2020-12-24 15:15] LABS: CALCIUM 8.6 mg/dL (8.5-10.1); CREATININE 1.4 mg/dL (0.6-1.0)
--- NOTE | 2020-12-24 15:15 | EKG ---
[address] [address] Test Date: 2020-12-24 Test Time: 15:03:47 Pat Name: MADIHA WASHINGTON Department: Room: Gender: F [employer] Unloader: CEFERINO : 1950 Requested By: TAMY GROSSMAN Order Number: [id number] Reading MD: Measurements Intervals [place] Rate: 58 P: 48 MO: 210 QRS: 11 QRSD: 84 T: 28 QT: 420 QTc: 416 Interpretive Statements SINUS RHYTHM NORMAL ECG RI6.02 No previous ECG available for comparison
[2020-12-24 15:22] LABS: ALBUMIN 3.5 g/dL (3.4-5.0); ALBUMIN/GLOBULIN RATIO 1.1 (1.0-1.7); TOTAL BILIRUBIN 0.9 mg/dL (0.2-1.0); TOTAL PROTEIN 6.7 g/dL (6.4-8.2)
[2020-12-24] MEDS ORDERED: ESCITALOPRAM OX20 MG PO (16:38)
[2020-12-24] MEDS ORDERED: PANT40TA6 PO (16:38)
--- NOTE | 2020-12-24 16:43 | NUR ---
NSG NOTE; Admission Note with Justification for Admission to [facility] Patient admitted to [facility] for protective oversight for emergency stabilization of acute psychiatric crisis. Pt admitted at 1630 through [facility] ER from [facility] in [facility] Mode of arrival: EMS from ED. Pt amb on to floor Accompanied By ED Kb RN. Precipitating behaviors that initiated intake and admission: agitation, pulling hair and hitting staff, yelling, grabbed peer's arm, name calling Description of failure of out patient attempts at stabilization in previous setting list behavior and medication trials: labs, redirection, UA negative, security intervention, reassurance Behaviors and assessment findings upon admission: confused, kept asking why she is here and unable to comprehend the answer, denied existence of son and [id number], kept repeating her name, impatient Plan: Admit for protective oversight for adjustment and stabilization of medications, behaviors and mood. Intense treatment regimen including groups, medication adjustments, therapy, consistent regimen for ADL's, self care, and sleep hygiene. Daily monitoring by Inpatient staff, Psychiatry, and Medical Physician.
[2020-12-24] MEDS ORDERED: ACETAMINOPHEN 325 MG TABLET PO PRN ×2 (16:45→17:00)
[2020-12-24] MEDS ORDERED: traZODone 50 MG TABLET. PO PRN (16:45)
[2020-12-24] MEDS ORDERED: MAG HYDROX/AL HYDROX/SIMETH 30 ML ORAL.SUSP PO PRN ×2 (16:45→17:00)
[2020-12-24] MEDS ORDERED: METHYL SALICYLATE/MENTHOL TOPICAL OINTMENT 57GM TUBE. TP PRN (17:00)
[2020-12-24] MEDS: CALCIUM CARB/VIT D3 500/200 TABLET PO SCH (17:00)
[2020-12-24] MEDS ORDERED: MAGNESIUM HYDROXIDE 2,400 MG/30 ML ORAL.SUSP. PO PRN ×2 (17:00→17:15)
[2020-12-24 18:43] VITALS: BP 145/85
[2020-12-24] MEDS: DONEPEZIL HCL 10 MG TABLET PO SCH (20:54)
[2020-12-24] MEDS: traZODone 50 MG TABLET. PO SCH (20:54)
--- NOTE | 2020-12-24 23:59 | NUR ---
Patient is walking around the unit on assumption of care, door checking. She is irritable, disorganized, oriented to self. She is insistent that she doesn't belong here, and refuses attempts at reorientation. She was compliant with medications whole. No agitation. She denies any pain or discomfort. Patient appears to be sleeping comfortably at present time. Will continue to monitor.
[2020-12-25 06:16] VITALS: BP 122/71
[2020-12-25] MEDS: ASCORBIC ACID 500 MG TABLET PO SCH (09:00)
[2020-12-25] MEDS: CHOLECALCIFEROL (VITAMIN D3) 1,000 UNIT TABLET PO SCH (09:33)
[2020-12-25] MEDS: LISINOPRIL 5 MG TABLET. PO SCH (09:33)
[2020-12-25] MEDS: OMEGA-3 FATTY ACIDS/FISH OIL 1,000 MG CAPSULE. PO SCH (09:33)
[2020-12-25] MEDS: CALCIUM CARB/VIT D3 500/200 TABLET PO SCH ×2 (09:33→16:31)
[2020-12-25] MEDS: MEMANTINE 10 MG TABLET. PO SCH (09:33)
[2020-12-25] MEDS: MULTIVITAMIN with MINERAL TABLET. PO SCH (09:34)
[2020-12-25] MEDS: PANTOPRAZOLE 40 MG TABLET. PO SCH (09:34)
[2020-12-25] MEDS: CITALOPRAM 20 MG TABLET. PO SCH (09:34)
--- NOTE | 2020-12-25 10:33 | NUR ---
Patient is calm and cooperative. patient confused on where she is but is willing to learn and take medication. Patient does not appear to be retaining information well at this time.
[2020-12-25 11:26] LABS: THYROID STIM HORMONE (TSH) 0.599 uIU/mL (0.358-3.740)
[2020-12-25 16:10] VITALS: BP 155/78
[2020-12-25] MEDS: traZODone 50 MG TABLET. PO SCH (20:19)
[2020-12-25] MEDS: busPIRone 10 MG TABLET. PO SCH (20:19)
[2020-12-25] MEDS: DONEPEZIL HCL 10 MG TABLET PO SCH (20:20)
--- NOTE | 2020-12-25 22:44 | PSYEV ---
DATE OF SERVICE: 12/25/2020 PSYCHIATRIC EVALUATION REASON FOR ADMISSION: This 70-year-old female was admitted to the [facility] Unit from [facility]. The patient apparently exhibiting problems including pulling staff members ear, hitting staff, yelling, grabbed a peer, name calling and agitated easily. CHIEF COMPLAINT: "I don't belong here. You asking me all the questions, I do not have any problems." HISTORY OF PRESENT ILLNESS: The patient has a long history of dementia, Alzheimer's vascular type and has been residing at the retirement for quite some time. Her [id number] is the power of intermediate frame tender. The patient has been confused and has gotten worse over the past 8 years. The patient has been diagnosed with Alzheimer disease several years ago. The patient is also having sleep and appetite problems and behavior problems. PAST PSYCHIATRIC HISTORY: The patient was hospitalized to [facility] in March of 2020 and she presented with similar problems, increased confusion, exit-seeking behaviors, also threatening to kill herself. The patient also exhibited at that time inappropriate behaviors including disruptive, intrusive, unmanageable behaviors. PAST MEDICAL HISTORY: History of hypothyroidism, polycystic ovarian disease and urethral strictures. DRUG ALLERGIES: None. CODE STATUS: Full code. ACCU-CHEKS: None. CURRENT MEDICATIONS: Include Celexa 40 mg daily, Namenda 10 mg daily, Aricept 10 mg at night. She is also on lisinopril 5 mg daily and p.r.n. trazodone 50 mg at night for sleep. Also, olanzapine 2.5 mg q.2 hours p.r.n. LABORATORY DATA: Reviewed. Hemoglobin was 11.2. The patient's creatinine level was 1.4. Cholesterol 216, LDL 108, HDL 92. The patient's urinalysis was within normal limits. PSYCHOSOCIAL HISTORY: The patient is unable to get much information from the prior records. The patient had no history of any alcohol or drug abuse. Denies of any physical or sexual abuse in the past. FAMILY HISTORY: Noncontributory. REVIEW OF SYSTEMS: The patient is able to ambulate. The patient is able to make eye contact. The patient has no problems with hearing. Her speech is incoherent. The patient has had no recent falls. MENTAL STATUS EXAMINATION: The patient appeared to be of her stated age, casually dressed, able to make eye contact, but confused, did not know where she was and why she is here. The patient is still delusional that she is acting as a nurse. 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 So on arrival, she is not taking care of another patient and apparently, she was treated by this nurse several years ago. The patient's speech is incoherent, rapid with increased rate and rhythm. Affect and mood showed irritable, rankin, angry, difficult to reason out with her. The patient is confused to the point. She did not know where she was. She is disoriented to time, place and person. Memory is impaired for both past and present. The patient currently not exhibiting any psychotic symptoms except for the confusion. STRENGTHS: Fairly in good health, able to ambulate. WEAKNESSES: The patient has no insight to her problems secondary to her dementia. DIAGNOSES: 1. Major neurocognitive disorder, Alzheimer's, vascular with delusion, depression and behavioral disturbances. 2. Anxiety disorder, unspecified. 3. Impulse control disorder, unspecified. PLAN: Continue with the current treatment plan. The patient will be involved in individual therapy, group therapy and activity therapy. The patient's medication will be monitored. LENGTH OF STAY: 10-12 days. AFTERCARE PLANS: The patient will return to the retirement when she is medically and emotionally stable. NICOLA DR: Clifford TID: [id number]
--- NOTE | 2020-12-25 23:06 | NUR ---
Patient is walking around the unit on assumption of care, door checking. She is irritable, disorganized, oriented to self. Continues to insist that she doesn't belong here, and refuses attempts at reorientation. She was compliant with medications whole. Cooperative with shower and HS care. No agitation. She denies any pain or discomfort. Patient appears to be sleeping comfortably at present time. Will continue to monitor.
--- NOTE | 2020-12-26 02:16 | CONS ---
HISTORY OF PRESENT ILLNESS: The patient is a 70-year-old female patient who [facility] [place] and who was seen in the Emergency Room for medical clearance and was admitted to [facility] for inpatient psychiatric stabilization. Reportedly, the patient pulled staff members' hair, hit staff, yelling, grabbed peer arm, name calling, agitated, all this in a major neurocognitive disorder, impulse control disorder and anxiety. PAST MEDICAL HISTORY: Significant for hypertension, gastroesophageal reflux disease, hyperlipidemia, vitamin D deficiency. PAST SURGICAL HISTORY: Unobtainable. ALLERGIES: She has no known drug allergies. MEDICATIONS: The patient is currently on buspirone 10 mg twice a day, vitamin D 2000 units once a day, fish oil 1000 mg once a day, multivitamin with calcium 1 tablet once a day, citalopram hydrobromide 40 mg once a day, ascorbic acid 500 mg once a day, Protonix 40 mg daily, Namenda 10 mg daily, lisinopril 5 mg once a day, trazodone 50 mg at bedtime, Aricept 10 mg at bedtime, magnesium hydroxide for milk of magnesia 30 mL p.o. daily p.r.n. for constipation, calcium with vitamin D 1 tablet twice a day, olanzapine 2.5 mg every 2 hours, Mylanta 15 mL after meals and as needed, acetaminophen 650 mg every 6 hours. FAMILY HISTORY: Unobtainable. SOCIAL HISTORY: She is actually a resident at [facility] in [place]. PHYSICAL EXAMINATION: GENERAL: On examining her, she looked well and was clearly in no apparent respiratory distress. There is no pallor, jaundice, cyanosis or thyromegaly. No jugular venous distention. No lower limb edema. VITAL SIGNS: Her heart rate was 69, blood pressure was 155/78, temperature was 97.3, respiratory rate was 18 and oxygen saturation was 99%. HEAD, EYES, EARS, NOSE AND THROAT: Normocephalic, atraumatic. NECK: Supple. HEART: Normal first and second heart sounds. No gallop or murmur. CHEST: Clear to auscultation. No crepitations or rhonchi. ABDOMEN: Distended, soft, nontender. NEUROLOGIC: She is demented, but without any obvious lateralizing sign. All her cranial nerves intact. She moves all extremities without difficulty. She ambulates without assistance or assistive devices. LABORATORY DATA: Showed a white cell count of 5900, hemoglobin 11, hematocrit 33, MCV 90 and platelet count of 130,000 with normal manual differential. D-dimer was 0.83 mg/dL. Serum sodium 141, potassium 4, chloride 106, bicarbonate 27, anion gap of 8, BUN 16, creatinine 1.4. Estimated GFR was 37 mL per minute. Her glucose was 74, calcium was 8.6, magnesium was 2.4. Serum iron 37, TIBC was 249, iron saturation was 15. Her total bilirubin, AST, ALT, alkaline phosphatase were normal. Total protein 6.7, albumin 3.5. Serum triglycerides was 81, total cholesterol 216, LDL was 108, VLDL was 16, HDL cholesterol ____ and the ratio was 2. TSH was 0.599. Urinalysis was essentially unremarkable and toxic screen was negative. Her chest x-ray showed that the lungs are clear. Heart size is normal. There is no pleural effusion or pneumothorax. ASSESSMENT: In summary, this is a 70-year-old female patient, resident of [facility] in [place], who was admitted to [facility] Unit on account of pulling staff members' hair, hitting a staff, yelling, grabbing a peer arm, name calling and being agitated, all this in a background of major neurocognitive disorder, impulse control disorder and anxiety. Medically, the patient seems to be all in all stable. Her vital signs are stable. Her lab works are all within acceptable range. PLAN: My plan is obviously to continue with all her current medication, follow all her labs that are still pending at the time of this dictation and make any necessary recommendation. Thank you, Dr. Perry, for allowing me to participate in the care of this patient. TRI/LIZET DR: Curly TID: [id number]
[2020-12-26 03:06] LABS: HEMOGLOBIN A1C 5.7 % (4.8-5.6); THYROXINE 7.5 ug/dL (4.5-12.0)
[2020-12-26 05:59] VITALS: BP 144/84
[2020-12-26] MEDS: MULTIVITAMIN with MINERAL TABLET. PO SCH (08:45)
[2020-12-26] MEDS: PANTOPRAZOLE 40 MG TABLET. PO SCH (08:45)
[2020-12-26] MEDS: MEMANTINE 10 MG TABLET. PO SCH (08:45)
[2020-12-26] MEDS: CITALOPRAM 20 MG TABLET. PO SCH (08:45)
[2020-12-26] MEDS: CHOLECALCIFEROL (VITAMIN D3) 1,000 UNIT TABLET PO SCH (08:45)
[2020-12-26] MEDS: CALCIUM CARB/VIT D3 500/200 TABLET PO SCH ×2 (08:45→16:52)
[2020-12-26] MEDS: busPIRone 10 MG TABLET. PO SCH ×2 (08:45→20:37)
[2020-12-26] MEDS: OMEGA-3 FATTY ACIDS/FISH OIL 1,000 MG CAPSULE. PO SCH (08:45)
[2020-12-26] MEDS: ASCORBIC ACID 500 MG TABLET PO SCH (08:45)
[2020-12-26] MEDS: LISINOPRIL 5 MG TABLET. PO SCH (08:45)
--- NOTE | 2020-12-26 09:07 | NUR ---
Patient is calm but refusing medications at this time. patient will be allowed to rest so more in her bed and will be offer her medication at a later time.
[2020-12-26 15:27] VITALS: BP 145/70
[2020-12-26] MEDS: traZODone 50 MG TABLET. PO SCH (20:37)
[2020-12-26] MEDS: DONEPEZIL HCL 10 MG TABLET PO SCH (20:37)
--- NOTE | 2020-12-27 01:01 | PN ---
DATE: 12/26/2020 SUBJECTIVE: The patient was seen today, met with the staff, chart reviewed. Staff reports increased confusion, repetitive statements, obsessed with a roommate, insists that she does not belong here. She was cooperative with showers. OBSERVATION: VITAL SIGNS: Temperature 97.7, blood pressure 144/84, pulse 71, respirations 18, O2 sat 96 percent. GENERAL: Slept about 7 hours last night. The patient's appetite is fair. CURRENT MEDICATIONS: The patient's medications reviewed. Currently on BuSpar 10 mg twice a day, citalopram 40 mg daily, Namenda 10 mg daily, trazodone 50 mg at night, Aricept 10 mg at night, trazodone 50 mg at night p.r.n. for insomnia, olanzapine 2.5 mg q. 2 hours p.r.n. for anxiety and agitation. The patient is not having any side effects. LABORATORY DATA: The patient's lab reviewed. Hemoglobin 11.2. The patient's hemoglobin A1c was 5.7. Creatinine level 1.4. ASSESSMENT: 1. Major neurocognitive disorder, Alzheimer's, vascular with delusion, depression, and behavioral disturbances. 2. Anxiety disorder, unspecified. 3. Impulse control disorder, unspecified. PLAN: To continue with the current treatment plan. The patient is difficult to interact with. The patient has high level of anxiety, on 1:1. The patient also frustrated because she is not able to hold a reasonable conversation, not able to respond to questions. LENGTH OF STAY: 10-[address]: Clifford TID: [id number]
--- NOTE | 2020-12-27 04:48 | NUR ---
Nursing Note Pt wanders the unit confused, thinks she works here not a patient. Easy to redirect, ambulatory no agitation. Takes po meds willingly.
[2020-12-27 05:38] VITALS: BP 117/68
[2020-12-27] MEDS: PANTOPRAZOLE 40 MG TABLET. PO SCH (08:30)
[2020-12-27] MEDS: MEMANTINE 10 MG TABLET. PO SCH ×2 (08:30→21:04)
[2020-12-27] MEDS: busPIRone 10 MG TABLET. PO SCH ×2 (08:30→21:04)
[2020-12-27] MEDS: CALCIUM CARB/VIT D3 500/200 TABLET PO SCH ×2 (08:30→17:27)
[2020-12-27] MEDS: ASCORBIC ACID 500 MG TABLET PO SCH (08:31)
[2020-12-27] MEDS: LISINOPRIL 5 MG TABLET. PO SCH (08:31)
[2020-12-27] MEDS: MULTIVITAMIN with MINERAL TABLET. PO SCH (08:31)
[2020-12-27] MEDS: OMEGA-3 FATTY ACIDS/FISH OIL 1,000 MG CAPSULE. PO SCH (08:31)
[2020-12-27] MEDS: CITALOPRAM 20 MG TABLET. PO SCH (08:31)
[2020-12-27] MEDS: CHOLECALCIFEROL (VITAMIN D3) 1,000 UNIT TABLET PO SCH (08:32)
--- NOTE | 2020-12-27 13:37 | NUR ---
WEEKLY ACTIVITY THERAPY NOTE Date of Admission:12/24/20 Date of AT Assessment: TBD Precipitating behaviors that initiated intake and admission:agitation, pulling hair and hitting staff, yelling, grabbed peer's arm, name calling Goal aimed:TBD Initial Goal: TBD Weekly progress towards goal: NA Group participation level: NA Weekly highlights: arrived on [facility] Behaviors observed: Plan: meet/assess pt Beneficial adaptations:
--- NOTE | 2020-12-27 14:13 | NUR ---
ACTIVITY THERAPY ASSESSMENT completed based on notes, observation and interview. Pt has had a previous stay on [facility] in 2019. Pt was laying in her bed after lunch. Pt was irritable during time of assessment and unable to answer assessment questions appropriately. AT asked pt what activities she likes to do and pt said "I do everything" in a irritable tone. With prompting from AT pt said that she likes gardening and music. Per notes from Activity Therapy assessment in 2019 pt likes to be with family, take care of veterans, exercise,watch TV, reading and arts and crafts. Pt was unable to recall her birthday when asked her age pt said "I'm young". Pt was unable to recall the current year or that her sister in law brought her here. Pt remained irritable and agitated throughout the entire assessment. Pt repeatedly said that she should not be here and didn't know why she was here. Initial goal aimed to increase stress management and relaxation skills. Pt will participate in at least three individual or group Activity Therapy sessions per week.
[2020-12-27 15:40] VITALS: BP 133/78
--- NOTE | 2020-12-27 16:17 | NUR ---
PSYCHOSOCIAL ASSESSMENT ADMISSION DATE: 12/24/20 CONTACT INFORMATION: DPOA/Guardian Contact Name: Ella Pelaez-sister in law Contact Phone #: [phone] ETHNIC ORIGIN: REASONS FOR ADMISSION: Agitated Angry Confusion/Disoriented Poor impulse control Combative ADDITIONAL ADMISSION COMMENTS: Per intake record, Betty has pulled staff's hair, hit staff, is yelling, grabbed peers arm, name calling, and is agitated. REASON FOR ADMISSION IN PATIENT/FAMILY'S OWN WORDS: Per Betty, "I don't know why they sent me here." PATIENT/FAMILY EXPECTATIONS FOR ADMISSION: Per ZEE, wants Betty's medications reviewed to ensure they are the right ones for her, for Betty to have decreased anxiety, and feel at peace. LIVING SITUATION: Patient lives with: Memory Care Other living arrangements: [facility]- since 04/23/2020, prior at [facility] Contact Name: Luca INMAN Contact Address: [address] [place] [address] Contact Phone #: [phone] Contact Fax #: [phone] FAMILY RELATIONS: Marital Status: Single # of Marriages: 0 # of Children: 0 [facility] Family Support: Concerned Cooperative Additional Comments r/t Family: Betty is single. SIGNIFICANT PSYCHIATRIC/MEDICAL HISTORY: Psychiatric/Treatment History: Betty had gastric bypass surgery 15 years ago and was connected with a psychiatrist at that time. Betty continued to have regular psychiatry appointments until approximately 2 years ago when family felt that they were no longer beneficial. Betty was at [facility] in fall. Pertinent Family History: Betty denies any history of mental illness in her family of origin. Betty's brother Carlitos has been sober for 36 years now. HISTORICAL DATA: Childhood Environment: [place] Childhood Environment Additional Comments: Betty was born in [facility] and raised in [facility] to Abdulkadir and Cortney Pelaez. Her father was a terrazzo worker apprentice and mother was a homemaker. Betty was the oldest of five children. Siblings are Andria, Carlitos, Neelima, and Ainsley. Betty reported her parents to have a good sense of humor and denied trauma or abuse in childhood. It was reported that Betty and her sisters have little contact. Trauma History: None Drug Abuse History last 12 months: None Comment: Betty does not smoke, drink alcohol, and use drugs. 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 service: None Uatsdin background: Betty is of the Hinduism kyle and reports it is important to her. She states, "I want to be a good Hinduism and go to orthodox." She also shared that she prays regularly. Sexual orientation: Unknown Educational Level: Betty graduated high school and obtained her nursing training in the area. Past/Present Interests/Hobbies: Betty has enjoyed country music, reading, movies, playing [employer], volunteering at her orthodox, and doing word puzzles. Financial support/resources: Social Security Monthly income: Unknown-adequate Person handling finances: Ella/Carlitos Do you have a history of legal problems: None reported Cultural considerations: None reported SOCIAL RELATIONSHIPS-CURRENT/PAST: Psychiatrist: None. PCP: Dr. Gibbs- [phone] Counselor/Therapist: None Veterans[employer] Administration: N/A Support Group: N/A Truck Service Technician/Chaser Apprentice: N/A Other relationships: Family support STRENGTHS & WEAKNESSES: Patient's strengths: Good family support Stable living arrange Ambulatory Patient's weaknesses: Impulsive Health problems Other patient weaknesses: Impaired memory due to dementia PRELIMINARY PLAN OF TREATMENT: Preliminary plan: Medication Stabilization Monitor Med Effects Control abnormal behavior Dec. Outbursts Other preliminary treatment comments: Betty will be encouraged to visit with staff, peers, and be involved in groups as offered while she is on the unit. DISCHARGE PLANNING: Discharge planning/disposition: Memory Care Additional discharge needs identified: Padmini Heartrick ADDITIONAL INFORMATION: Other Pertinent Data: Ella, sister in law/POA, was involved in team meeting held on this date.
--- NOTE | 2020-12-27 18:35 | NUR ---
Patient has been confused, disorganized, and compliant throughout this shift. She has occasionally been intrusive with other patients, attempting to provide nursing care to them. She is delusional and believes she works here, patient responds to verbal redirection well. Will continue to monitor and report to oncoming shift.
[2020-12-27] MEDS: DONEPEZIL HCL 10 MG TABLET PO SCH (21:04)
[2020-12-27] MEDS: traZODone 50 MG TABLET. PO SCH (21:04)
--- NOTE | 2020-12-27 21:58 | PDOC ---
Exam Note: Tyler Note: Please also refer to the separate dictated note~for this date of service dictated separately.~Patient seen individually. Discussed the patient with Nursing staff reviewed the chart.~Reviewed interim history and current functioning. Reviewed vital signs,~Labs/ Radiology~and current medications noted below. Continue current treatment with the changes noted in the dictated addendum note Assessment: Vital Signs/I&O: Vital Signs Date Time Temp Pulse Resp B/P (MAP) Pulse Ox O2 Delivery O2 Flow Rate FiO2 12/27/20 15:40 97.6 68 16 133/78 (96) 98 12/26/20 05:59 Room Air I & O 12/26/20 12/26/20 12/27/20 15:00 23:00 07:00 Intake Total 0 ml 480 ml Balance 0 ml 480 ml Current Medications: Meds: Current Medications Medications (Trade) Dose Ordered Sig/Toño Route PRN Reason Start Time Stop Time Status Last Admin Dose Admin Acetaminophen (Tylenol) 650 mg PRN Q6HRS PRN PO MILD PAIN / TEMP > 100.3'F 12/24/20 16:45 Donepezil HCl (Aricept) 10 mg QHS PO 12/24/20 21:00 12/27/20 21:04 Lisinopril (Prinivil) 5 mg DAILY PO 12/25/20 09:00 12/27/20 08:31 Al Hydroxide/Mg Hydroxide (Mylanta Plus Xs) 15 ml PRN AFTMEALHC PRN PO DYSPEPSIA 12/24/20 16:45 Memantine (Namenda) 10 mg DAILY PO 12/25/20 09:00 12/27/20 13:12 DC 12/27/20 08:30 Olanzapine (ZyPREXA ZYDIS) 2.5 mg PRN Q2HR PRN PO ANXIETY / AGITATION 12/24/20 16:45 Pantoprazole Sodium (Protonix) 40 mg DAILY PO 12/25/20 09:00 12/27/20 08:30 Trazodone HCl (Desyrel) 50 mg HS PO 12/24/20 21:00 12/27/20 21:04 Trazodone HCl (Desyrel) 50 mg PRN QHS PRN PO INSOMNIA 12/24/20 16:45 Ascorbic Acid (Vitamin C) 500 mg DAILY PO 12/25/20 09:00 12/27/20 08:31 Calcium/Vitamin D (Oscal D 500mg/ 200uts) 1 tab BIDWMEALS PO 12/24/20 17:00 12/27/20 17:27 Citalopram Hydrobromide (CeleXA) 40 mg DAILY PO 12/25/20 09:00 12/27/20 13:12 DC 12/27/20 08:31 Magnesium Hydroxide (Milk Of Magnesia) 2,400 mg PRN QHS PRN PO CONSTIPATION 12/24/20 17:15 Multivitamins/ Calcium (Thera-M Plus) 1 tab DAILY PO 12/25/20 09:00 12/27/20 08:31 Fish Oil (Fish Oil) 1,000 mg DAILY PO 12/25/20 09:00 12/27/20 08:31 Vitamin D (Vitamin D3) 2,000 unit DAILY PO 12/25/20 09:00 12/27/20 08:32 Acetaminophen (Tylenol) 650 mg PRN Q6HRS PRN PO MILD PAIN / TEMP > 100.3'F 12/24/20 17:00 UNV Multi-Ingredient Ointment (Analgesic Monument) 1 micah PRN QID PRN TP MUSCLE PAIN 12/24/20 17:00 Al Hydroxide/Mg Hydroxide (Mylanta Plus Xs) 15 ml PRN AFTMEALHC PRN PO DYSPEPSIA 12/24/20 17:00 UNV Magnesium Hydroxide (Milk Of Magnesia) 2,400 mg PRN QHS PRN PO CONSTIPATION 12/24/20 17:00 UNV Buspirone HCl (Buspar) 10 mg BID PO 12/25/20 21:00 12/27/20 21:04 Memantine (Namenda) 10 mg BID PO 12/27/20 21:00 12/27/20 21:04 Sertraline HCl (Zoloft) 50 mg DAILY PO 12/28/20 09:00 Current Medications Medications (Trade) Dose Ordered Sig/Toño Route PRN Reason Start Time Stop Time Status Last Admin Dose Admin Memantine (Namenda) 10 mg BID PO 12/27/20 21:00 12/27/20 21:04 I have reviewed the current psychotropics carefully including drug interactions. Risk benefit ratio favors no change other than as noted in my dictated progress note. Diagnosis: Problems: (1) Dementia, vascular, with depression (2) Dementia, vascular, with delusions (3) Dementia in Alzheimer's disease with depression (4) Dementia in Alzheimer's disease with early onset with behavioral disturbance (5) Dementia in Alzheimer's disease with delusions (6) Impulse control disorder, unspecified (7) Anxiety disorder, unspecified (8) Major neurocognitive disorder DIMITRIOS RANDALL MD December 27, 2020 21:58
--- NOTE | 2020-12-27 23:36 | NUR ---
Nursing Note Pt in her room in bed asleep awakens for assessment. Takes po meds states she had a horrible day but will not elaborate. She answers in short staccato responses rather irritable in nature. Once she takes meds rolls back over to sleep with her back to me.
[2020-12-28 05:43] VITALS: BP 132/78
[2020-12-28] MEDS: OMEGA-3 FATTY ACIDS/FISH OIL 1,000 MG CAPSULE. PO SCH (08:35)
[2020-12-28] MEDS: CALCIUM CARB/VIT D3 500/200 TABLET PO SCH ×2 (08:35→17:39)
[2020-12-28] MEDS: MULTIVITAMIN with MINERAL TABLET. PO SCH (08:35)
[2020-12-28] MEDS: MEMANTINE 10 MG TABLET. PO SCH ×2 (08:35→19:50)
[2020-12-28] MEDS: CHOLECALCIFEROL (VITAMIN D3) 1,000 UNIT TABLET PO SCH (08:35)
[2020-12-28] MEDS: PANTOPRAZOLE 40 MG TABLET. PO SCH (08:35)
[2020-12-28] MEDS: busPIRone 10 MG TABLET. PO SCH ×2 (08:35→19:50)
[2020-12-28] MEDS: ASCORBIC ACID 500 MG TABLET PO SCH (08:36)
[2020-12-28] MEDS: LISINOPRIL 5 MG TABLET. PO SCH (08:36)
[2020-12-28] MEDS: SERTRALINE 50 MG TABLET. PO SCH (08:36)
--- NOTE | 2020-12-28 14:13 | TX PLAN ---
Interdisciplinary Tx Plan Admission Information December 24, 2020 at 16:30 Legal Status (on Admission): Voluntary, DPOA DPOA/Guardian Name: Ella Pelaez-sister in law Contact Other Contact Name: Guillermo Other Contact Verified Code Status: DNR Allergies: Coded Allergies: No Known Drug Allergies (Unverified , 03/23/20) Estimated Length of Stay: 14 Diagnoses Primary Diagnosis: Major Neurocognitive disorder alzheimers, vascular with delusions, depression, BD Anxiety d/o unspecified Impulse control d/o, unspecified Reasons for Admission: Aggressive, Agitated, Angry, Combative, Suspicious/paranoid, Confusion/Disoriented, Poor impulse control Problem in Patient's Words: Betty is unaware of where or why she is hospitlaized. Per POA, Betty's behavior is becoming increasingly aggressive towards staff and peers. Additional Admission Comments: Per intake record, pulled staff's hair, hit staf, yelling, grabbed peers arm, name calling, agitated Problems Active Problems: aggressive/combative verbally aggressive confused/disoriented periods of refusing medications Inactive Problems: adequate meal intake, averaging 50% intake averaging seven hours of sleep Pt Strengths/Limitations Ability for [place]: Poor Cognitive Functioning/Ability: Poor Communication Skills/Ability: Fair Financial Resources: Fair Insight/Judgement: Poor Intellectual Ability: Fair Physical Health: Fair Social Skills: Fair Stability in Family: Good Verbal Skills: Fair Discharge Criteria Discharge Criteria: Adequate arrangements @DC, Improved behavior, Improved mood/thought Preliminary Discharge Plan Preliminary DC Plan: Memory Care Other Arrangements: [facility] Special Precautions Special Precautions: Agitation/Assault Fall Risk: High Initial D/C Plan Betty will return to [facility] memory care once stable Identified Discharge Needs: F/U with PCP Identified Problems/Hx/Goals Objectives/Short-Term Goals Short Term Goals: Control abnormal behavior, Dec. Aggression, Dec. Outbursts, Medication Stabilization, Monitor Med Effects, Prevent Deterioration Short Term Goals in Patient's: Per POA, mood and behavior stabilization. Interventions/Frequency Staff Interventions/Frequency&: Nursing to provide routine safety checks, medication administration, and adl support. Psychiatry to see thre times weekly. SW visits twice weekly. Recreational and SW group involvement as Betty is agreeable. 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 Community Follow-up PCP f/u Community Provider/Family Inpu: ZEE Jaramillo, was involved in team meeting held on 12/27/20 via phone. seismic engineer of treatment plan was completed on 12/28/20. 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
--- NOTE | 2020-12-28 14:14 | NUR ---
Observed Betty at noon meal in the dining room. Greeted her and she appeared suspicious of SW and was somewhat irritable with responses to questions SW asked her. Betty did not recall when or why she arrived to the unit. SW attempted to provide reassurance and informed her she had come for an evaluation of her memory. Within a short period of time, Betty asked again why she had come. MALU Cherry at [facility], called this afternoon and was provided an update.
[2020-12-28 15:42] VITALS: BP 137/68
--- NOTE | 2020-12-28 18:30 | NUR ---
Patient has been confused, disorganized, and compliant throughout this shift. She has been repeatedly incontinent preventing collection of UA sample. She occasionally is delusional and believes she works here, patient responds to verbal redirection well. Will continue to monitor and report to oncoming shift.
[2020-12-28] MEDS: traZODone 50 MG TABLET. PO SCH (19:50)
[2020-12-28] MEDS: DONEPEZIL HCL 10 MG TABLET PO SCH (19:50)
--- NOTE | 2020-12-28 21:43 | PDOC ---
Exam Note: Tyler Note: Please also refer to the separate dictated note~for this date of service dictated separately.~Patient seen individually. Discussed the patient with Nursing staff reviewed the chart.~Reviewed interim history and current functioning. Reviewed vital signs,~Labs/ Radiology~and current medications noted below. Continue current treatment with the changes noted in the dictated addendum note Assessment: Vital Signs/I&O: Vital Signs Date Time Temp Pulse Resp B/P (MAP) Pulse Ox O2 Delivery O2 Flow Rate FiO2 12/28/20 15:42 98.2 70 18 137/68 (91) 97 12/26/20 05:59 Room Air I & O 12/27/20 12/27/20 12/28/20 15:00 23:00 07:00 Intake Total 720 ml 360 ml Balance 720 ml 360 ml Current Medications: Meds: Current Medications Medications (Trade) Dose Ordered Sig/Toño Route PRN Reason Start Time Stop Time Status Last Admin Dose Admin Acetaminophen (Tylenol) 650 mg PRN Q6HRS PRN PO MILD PAIN / TEMP > 100.3'F 12/24/20 16:45 Donepezil HCl (Aricept) 10 mg QHS PO 12/24/20 21:00 12/28/20 19:50 Lisinopril (Prinivil) 5 mg DAILY PO 12/25/20 09:00 12/28/20 08:36 Al Hydroxide/Mg Hydroxide (Mylanta Plus Xs) 15 ml PRN AFTMEALHC PRN PO DYSPEPSIA 12/24/20 16:45 Memantine (Namenda) 10 mg DAILY PO 12/25/20 09:00 12/27/20 13:12 DC 12/27/20 08:30 Olanzapine (ZyPREXA ZYDIS) 2.5 mg PRN Q2HR PRN PO ANXIETY / AGITATION 12/24/20 16:45 Pantoprazole Sodium (Protonix) 40 mg DAILY PO 12/25/20 09:00 12/28/20 08:35 Trazodone HCl (Desyrel) 50 mg HS PO 12/24/20 21:00 12/28/20 19:50 Trazodone HCl (Desyrel) 50 mg PRN QHS PRN PO INSOMNIA 12/24/20 16:45 Ascorbic Acid (Vitamin C) 500 mg DAILY PO 12/25/20 09:00 12/28/20 08:36 Calcium/Vitamin D (Oscal D 500mg/ 200uts) 1 tab BIDWMEALS PO 12/24/20 17:00 12/28/20 17:39 Citalopram Hydrobromide (CeleXA) 40 mg DAILY PO 12/25/20 09:00 12/27/20 13:12 DC 12/27/20 08:31 Magnesium Hydroxide (Milk Of Magnesia) 2,400 mg PRN QHS PRN PO CONSTIPATION 12/24/20 17:15 Multivitamins/ Calcium (Thera-M Plus) 1 tab DAILY PO 12/25/20 09:00 12/28/20 08:35 Fish Oil (Fish Oil) 1,000 mg DAILY PO 12/25/20 09:00 12/28/20 08:35 Vitamin D (Vitamin D3) 2,000 unit DAILY PO 12/25/20 09:00 12/28/20 08:35 Acetaminophen (Tylenol) 650 mg PRN Q6HRS PRN PO MILD PAIN / TEMP > 100.3'F 12/24/20 17:00 UNV Multi-Ingredient Ointment (Analgesic [place]) 1 micah PRN QID PRN TP MUSCLE PAIN 12/24/20 17:00 Al Hydroxide/Mg Hydroxide (Mylanta Plus Xs) 15 ml PRN AFTMEALHC PRN PO DYSPEPSIA 12/24/20 17:00 UNV Magnesium Hydroxide (Milk Of Magnesia) 2,400 mg PRN QHS PRN PO CONSTIPATION 12/24/20 17:00 UNV Buspirone HCl (Buspar) 10 mg BID PO 12/25/20 21:00 12/28/20 19:50 Memantine (Namenda) 10 mg BID PO 12/27/20 21:00 12/28/20 19:50 Sertraline HCl (Zoloft) 50 mg DAILY PO 12/28/20 09:00 12/28/20 08:36 Current Medications Medications (Trade) Dose Ordered Sig/Toño Route PRN Reason Start Time Stop Time Status Last Admin Dose Admin Sertraline HCl (Zoloft) 50 mg DAILY PO 12/28/20 09:00 12/28/20 08:36 I have reviewed the current psychotropics carefully including drug interactions. Risk benefit ratio favors no change other than as noted in my dictated progress note. Diagnosis: Problems: (1) Mild cognitive impairment (2) Dementia in Alzheimer's disease with delusions (3) Impulse control disorder, unspecified (4) Anxiety disorder, unspecified (5) Dementia, vascular, with depression (6) Dementia, vascular, with delusions (7) Dementia in Alzheimer's disease with depression (8) Major neurocognitive disorder (9) Dementia in Alzheimer's disease with early onset with behavioral disturbance DIMITRIOS RANDALL MD December 28, 2020 21:43
[2020-12-28 22:18] LABS: CLARITY,URINE CLEAR; COLOR,URINE YELLOW
[2020-12-28 22:19] LABS: BILIRUBIN,URINE NEG (NEG); GLUCOSE,URINE NEG (NEG); NITRITE,URINE NEG (NEG); UROBILINOGEN,URINE 0.2 mg/dL (0.2 mg/dL)
[2020-12-28 22:20] LABS: BACTERIA,URINE 0 /HPF (0-FEW); RBC,URINE 0 /HPF (0-2); SQUAMOUS EPITHELIAL CELL,UR MOD /LPF; WBC,URINE 0 /HPF (0-4)
--- NOTE | 2020-12-29 00:14 | NUR ---
Pt sitting quietly in the day room when approached. Pt calm, pleasantly confused, and disorganized. Pt cooperative with assessment and compliant with medications administered whole. No agitation or aggression noted thus far this shift.
[2020-12-29 05:30] VITALS: BP 112/67
[2020-12-29] MEDS: PANTOPRAZOLE 40 MG TABLET. PO SCH (08:14)
[2020-12-29] MEDS: LISINOPRIL 5 MG TABLET. PO SCH (08:15)
[2020-12-29] MEDS: OMEGA-3 FATTY ACIDS/FISH OIL 1,000 MG CAPSULE. PO SCH (08:15)
[2020-12-29] MEDS: MULTIVITAMIN with MINERAL TABLET. PO SCH (08:15)
[2020-12-29] MEDS: MEMANTINE 10 MG TABLET. PO SCH ×2 (08:15→19:52)
[2020-12-29] MEDS: CHOLECALCIFEROL (VITAMIN D3) 1,000 UNIT TABLET PO SCH (08:15)
[2020-12-29] MEDS: CALCIUM CARB/VIT D3 500/200 TABLET PO SCH ×2 (08:15→17:31)
[2020-12-29] MEDS: ASCORBIC ACID 500 MG TABLET PO SCH (08:16)
[2020-12-29] MEDS: busPIRone 10 MG TABLET. PO SCH ×2 (08:16→19:52)
[2020-12-29] MEDS: SERTRALINE 50 MG TABLET. PO SCH (08:16)
--- NOTE | 2020-12-29 08:23 | PDOC ---
Exam Note: Tyler Note: This note is a late entry for 12/27/2020 covers elements not covered in my initial note. Subjective: The patient was reviewed in the morning of 12/27/2020 for a treatment team meeting with Nanette Pace, Ekta Chang and Pascale (social research assistant), Antoinette, activity therapy and Jus MEDEL, discussed and reviewed the chart. The patient slept 6-3/4 hours previous night. She is sleeping 7 hours average. Appetite is 50%. Her sister Ella attended the treatment team meeting. We had a lengthy discussion about the patients diagnoses. She is pleasant, verbal, smiling as I met with her in the evening, otherwise, oriented to herself. Appetite is poor but Ella indicated the patient prefers fruits and yogurt and the staff will accommodate this. Review of Systems: No CV, , pulmonary, eye, ENT system symptoms on review. Reliability poor. Mental Status Exam: The patient is oriented to herself. Insight and judgment, recent and remote memory, attention and concentration, fund of knowledge is poor consistent with her diagnoses. Laboratory Data: Reviewed. Impression: Major neurocognitive disorder Alzheimer vascular with delusion, depression, behavioral disturbance. Anxiety disorder unspecified. Impulse control disorder unspecified. Plan: I have carefully reviewed the patients current psychotropics and revie wed information with Dr. Roberson who had covered for me for the past 2 weeks. Continue current psychotropics. Change Celexa 40 mg a day to Zoloft 50 mg a day. Increase Namenda from 10 mg daily to 10 mg b.i.d. Maintain Aricept 10 mg a day, trazodone h.s. p.r.n., Zyprexa p.r.n. Assessment: Vital Signs/I&O: Vital Signs Date Time Temp Pulse Resp B/P (MAP) Pulse Ox O2 Delivery O2 Flow Rate FiO2 12/29/20 08:15 70 112/67 12/29/20 05:30 97.4 16 98 Room Air I & O 12/28/20 12/28/20 12/29/20 15:00 23:00 07:00 Intake Total 840 ml 480 ml Balance 840 ml 480 ml Labs: Laboratory Tests Test 12/28/20 22:00 Urine Collection Type Unknown Urine Color Yellow Urine Clarity Clear Urine pH 5.5 Urine Specific [place] >=1.030 Urine Protein Neg (NEG-TRACE) Urine Glucose (UA) Neg mg/dL (NEG) Urine Ketones (Stick) Neg mg/dL (NEG) Urine Blood Mod (NEG) Urine Nitrite Neg (NEG) Urine Bilirubin Neg (NEG) Urine Urobilinogen Dipstick 0.2 mg/dL (0.2 mg/dL) Urine Leukocyte Esterase Neg (NEG) Urine RBC 0 /HPF (0-2) Urine WBC 0 /HPF (0-4) Urine Squamous Epithelial Cells Mod /LPF Urine Renal Epithelial Cells Few /LPF Urine Bacteria 0 /HPF (0-FEW) Current Medications: Meds: Laboratory Tests Test 12/28/20 22:00 Urine Collection Type Unknown Urine Color Yellow Urine Clarity Clear Urine pH 5.5 Urine Specific [place] >=1.030 Urine Protein Neg Urine Glucose (UA) Neg mg/dL Urine Ketones (Stick) Neg mg/dL Urine Blood Mod Urine Nitrite Neg Urine Bilirubin Neg Urine Urobilinogen Dipstick 0.2 mg/dL Urine Leukocyte Esterase Neg Urine RBC 0 /HPF Urine WBC 0 /HPF Urine Squamous Epithelial Cells Mod /LPF Urine Renal Epithelial Cells Few /LPF Urine Bacteria 0 /HPF Current Medications Medications (Trade) Dose Ordered Sig/Toño Route PRN Reason Start Time Stop Time Status Last Admin Dose Admin Acetaminophen (Tylenol) 650 mg PRN Q6HRS PRN PO MILD PAIN / TEMP > 100.3'F 12/24/20 16:45 Donepezil HCl (Aricept) 10 mg QHS PO 12/24/20 21:00 12/28/20 19:50 Lisinopril (Prinivil) 5 mg DAILY PO 12/25/20 09:00 12/29/20 08:15 Al Hydroxide/Mg Hydroxide (Mylanta Plus Xs) 15 ml PRN AFTMEALHC PRN PO DYSPEPSIA 12/24/20 16:45 Memantine (Namenda) 10 mg DAILY PO 12/25/20 09:00 12/27/20 13:12 DC 12/27/20 08:30 Olanzapine (ZyPREXA ZYDIS) 2.5 mg PRN Q2HR PRN PO ANXIETY / AGITATION 12/24/20 16:45 Pantoprazole Sodium (Protonix) 40 mg DAILY PO 12/25/20 09:00 12/29/20 08:14 Trazodone HCl (Desyrel) 50 mg HS PO 12/24/20 21:00 12/28/20 19:50 Trazodone HCl (Desyrel) 50 mg PRN QHS PRN PO INSOMNIA 12/24/20 16:45 Ascorbic Acid (Vitamin C) 500 mg DAILY PO 12/25/20 09:00 12/29/20 08:16 Calcium/Vitamin D (Oscal D 500mg/ 200uts) 1 tab BIDWMEALS PO 12/24/20 17:00 12/29/20 08:15 Citalopram Hydrobromide (CeleXA) 40 mg DAILY PO 12/25/20 09:00 12/27/20 13:12 DC 12/27/20 08:31 Magnesium Hydroxide (Milk Of Magnesia) 2,400 mg PRN QHS PRN PO CONSTIPATION 12/24/20 17:15 Multivitamins/ Calcium (Thera-M Plus) 1 tab DAILY PO 12/25/20 09:00 12/29/20 08:15 Fish Oil (Fish Oil) 1,000 mg DAILY PO 12/25/20 09:00 12/29/20 08:15 Vitamin D (Vitamin D3) 2,000 unit DAILY PO 12/25/20 09:00 12/29/20 08:15 Acetaminophen (Tylenol) 650 mg PRN Q6HRS PRN PO MILD PAIN / TEMP > 100.3'F 12/24/20 17:00 UNV Multi-Ingredient Ointment (Analgesic [place]) 1 micah PRN QID PRN TP MUSCLE PAIN 12/24/20 17:00 Al Hydroxide/Mg Hydroxide (Mylanta Plus Xs) 15 ml PRN AFTMEALHC PRN PO DYSPEPSIA 12/24/20 17:00 UNV Magnesium Hydroxide (Milk Of Magnesia) 2,400 mg PRN QHS PRN PO CONSTIPATION 12/24/20 17:00 UNV Buspirone HCl (Buspar) 10 mg BID PO 12/25/20 21:00 12/29/20 08:16 Memantine (Namenda) 10 mg BID PO 12/27/20 21:00 12/29/20 08:15 Sertraline HCl (Zoloft) 50 mg DAILY PO 12/28/20 09:00 12/29/20 08:16 Current Medications Medications (Trade) Dose Ordered Sig/Toño Route PRN Reason Start Time Stop Time Status Last Admin Dose Admin Sertraline HCl (Zoloft) 50 mg DAILY PO 12/28/20 09:00 12/29/20 08:16 I have reviewed the current psychotropics carefully including drug interactions. Risk benefit ratio favors no change other than as noted in my dictated progress note. Diagnosis: Problems: (1) Dementia in Alzheimer's disease with delusions (2) Impulse control disorder, unspecified (3) Anxiety disorder, unspecified (4) Dementia, vascular, with depression (5) Dementia, vascular, with delusions (6) Dementia in Alzheimer's disease with depression (7) Major neurocognitive disorder (8) Dementia in Alzheimer's disease with early onset with behavioral disturbance (9) Mild cognitive impairment DIMITRIOS RANDALL MD December 29, 2020 08:23
--- NOTE | 2020-12-29 08:50 | PDOC ---
Exam Note: Tyler Note: This note is a late entry for 12/28/2020 covers elements not covered in my initial note. Subjective: The patient was seen individually in the evening of 12/28/2020 with Jus MEDEL, discussed and reviewed the chart. The patient slept 6-3/4 hours previous night. She is somewhat irritable at night, somewhat rude at times, withdrawn during the day into her room today, irritable in the morning, frequently questioning why she is here. 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 She tries to help other patients around the unit but does redirect when staff intervened. Review of Systems: No CV, , pulmonary, eye, ENT system symptoms on review. Reliability poor. Mental Status Exam: The patient is oriented to herself. Insight and judgment, recent and remote memory, attention and concentration, fund of knowledge is poor consistent with her diagnoses. Laboratory Data: Reviewed. Impression: Major neurocognitive disorder Alzheimer vascular with delusion, depression, behavioral disturbance. Anxiety disorder unspecified. Impulse control disorder unspecified. Plan: No change from initial note. Assessment: Vital Signs/I&O: Vital Signs Date Time Temp Pulse Resp B/P (MAP) Pulse Ox O2 Delivery O2 Flow Rate FiO2 12/29/20 08:15 70 112/67 12/29/20 05:30 97.4 16 98 Room Air I & O 12/28/20 12/28/20 12/29/20 15:00 23:00 07:00 Intake Total 840 ml 480 ml Balance 840 ml 480 ml Labs: Laboratory Tests Test 12/28/20 22:00 Urine Collection Type Unknown Urine Color Yellow Urine Clarity Clear Urine pH 5.5 Urine Specific [place] >=1.030 Urine Protein Neg (NEG-TRACE) Urine Glucose (UA) Neg mg/dL (NEG) Urine Ketones (Stick) Neg mg/dL (NEG) Urine Blood Mod (NEG) Urine Nitrite Neg (NEG) Urine Bilirubin Neg (NEG) Urine Urobilinogen Dipstick 0.2 mg/dL (0.2 mg/dL) Urine Leukocyte Esterase Neg (NEG) Urine RBC 0 /HPF (0-2) Urine WBC 0 /HPF (0-4) Urine Squamous Epithelial Cells Mod /LPF Urine Renal Epithelial Cells Few /LPF Urine Bacteria 0 /HPF (0-FEW) Current Medications: Meds: Laboratory Tests Test 12/28/20 22:00 Urine Collection Type Unknown Urine Color Yellow Urine Clarity Clear Urine pH 5.5 Urine Specific [place] >=1.030 Urine Protein Neg Urine Glucose (UA) Neg mg/dL Urine Ketones (Stick) Neg mg/dL Urine Blood Mod Urine Nitrite Neg Urine Bilirubin Neg Urine Urobilinogen Dipstick 0.2 mg/dL Urine Leukocyte Esterase Neg Urine RBC 0 /HPF Urine WBC 0 /HPF Urine Squamous Epithelial Cells Mod /LPF Urine Renal Epithelial Cells Few /LPF Urine Bacteria 0 /HPF Current Medications Medications (Trade) Dose Ordered Sig/Toño Route PRN Reason Start Time Stop Time Status Last Admin Dose Admin Acetaminophen (Tylenol) 650 mg PRN Q6HRS PRN PO MILD PAIN / TEMP > 100.3'F 12/24/20 16:45 Donepezil HCl (Aricept) 10 mg QHS PO 12/24/20 21:00 12/28/20 19:50 Lisinopril (Prinivil) 5 mg DAILY PO 12/25/20 09:00 12/29/20 08:15 Al Hydroxide/Mg Hydroxide (Mylanta Plus Xs) 15 ml PRN AFTMEALHC PRN PO DYSPEPSIA 12/24/20 16:45 Memantine (Namenda) 10 mg DAILY PO 12/25/20 09:00 12/27/20 13:12 DC 12/27/20 08:30 Olanzapine (ZyPREXA ZYDIS) 2.5 mg PRN Q2HR PRN PO ANXIETY / AGITATION 12/24/20 16:45 Pantoprazole Sodium (Protonix) 40 mg DAILY PO 12/25/20 09:00 12/29/20 08:14 Trazodone HCl (Desyrel) 50 mg HS PO 12/24/20 21:00 12/28/20 19:50 Trazodone HCl (Desyrel) 50 mg PRN QHS PRN PO INSOMNIA 12/24/20 16:45 Ascorbic Acid (Vitamin C) 500 mg DAILY PO 12/25/20 09:00 12/29/20 08:16 Calcium/Vitamin D (Oscal D 500mg/ 200uts) 1 tab BIDWMEALS PO 12/24/20 17:00 12/29/20 08:15 Citalopram Hydrobromide (CeleXA) 40 mg DAILY PO 12/25/20 09:00 12/27/20 13:12 DC 12/27/20 08:31 Magnesium Hydroxide (Milk Of Magnesia) 2,400 mg PRN QHS PRN PO CONSTIPATION 12/24/20 17:15 Multivitamins/ Calcium (Thera-M Plus) 1 tab DAILY PO 12/25/20 09:00 12/29/20 08:15 Fish Oil (Fish Oil) 1,000 mg DAILY PO 12/25/20 09:00 12/29/20 08:15 Vitamin D (Vitamin D3) 2,000 unit DAILY PO 12/25/20 09:00 12/29/20 08:15 Acetaminophen (Tylenol) 650 mg PRN Q6HRS PRN PO MILD PAIN / TEMP > 100.3'F 12/24/20 17:00 UNV Multi-Ingredient Ointment (Analgesic [place]) 1 micah PRN QID PRN TP MUSCLE PAIN 12/24/20 17:00 Al Hydroxide/Mg Hydroxide (Mylanta Plus Xs) 15 ml PRN AFTMEALHC PRN PO DYSPEPSIA 12/24/20 17:00 UNV Magnesium Hydroxide (Milk Of Magnesia) 2,400 mg PRN QHS PRN PO CONSTIPATION 12/24/20 17:00 UNV Buspirone HCl (Buspar) 10 mg BID PO 12/25/20 21:00 12/29/20 08:16 Memantine (Namenda) 10 mg BID PO 12/27/20 21:00 12/29/20 08:15 Sertraline HCl (Zoloft) 50 mg DAILY PO 12/28/20 09:00 12/29/20 08:16 Current Medications Medications (Trade) Dose Ordered Sig/Toño Route PRN Reason Start Time Stop Time Status Last Admin Dose Admin Sertraline HCl (Zoloft) 50 mg DAILY PO 12/28/20 09:00 12/29/20 08:16 I have reviewed the current psychotropics carefully including drug interactions. Risk benefit ratio favors no change other than as noted in my dictated progress note. Diagnosis: Problems: (1) Dementia in Alzheimer's disease with delusions (2) Impulse control disorder, unspecified (3) Anxiety disorder, unspecified (4) Dementia, vascular, with depression (5) Dementia, vascular, with delusions (6) Dementia in Alzheimer's disease with depression (7) Major neurocognitive disorder (8) Dementia in Alzheimer's disease with early onset with behavioral disturbance (9) Mild cognitive impairment DIMITRIOS RANDALL MD December 29, 2020 08:50
[2020-12-29 15:59] VITALS: BP 136/66
--- NOTE | 2020-12-29 18:30 | NUR ---
Patient has been confused, disorganized, and compliant throughout this shift. Will continue to monitor and report to oncoming shift.
[2020-12-29] MEDS: traZODone 50 MG TABLET. PO SCH (19:52)
[2020-12-29] MEDS: DONEPEZIL HCL 10 MG TABLET PO SCH (19:52)
--- NOTE | 2020-12-29 22:07 | PDOC ---
Exam Note: Tyler Note: Please also refer to the separate dictated note~for this date of service dictated separately.~Patient seen individually. Discussed the patient with Nursing staff reviewed the chart.~Reviewed interim history and current functioning. Reviewed vital signs,~Labs/ Radiology~and current medications noted below. Continue current treatment with the changes noted in the dictated addendum note Assessment: Vital Signs/I&O: Vital Signs Date Time Temp Pulse Resp B/P (MAP) Pulse Ox O2 Delivery O2 Flow Rate FiO2 12/29/20 15:59 97.8 77 16 136/66 (89) 95 12/29/20 05:30 Room Air I & O 12/28/20 12/28/20 12/29/20 15:00 23:00 07:00 Intake Total 840 ml 480 ml Balance 840 ml 480 ml Current Medications: Meds: Current Medications Medications (Trade) Dose Ordered Sig/Toño Route PRN Reason Start Time Stop Time Status Last Admin Dose Admin Acetaminophen (Tylenol) 650 mg PRN Q6HRS PRN PO MILD PAIN / TEMP > 100.3'F 12/24/20 16:45 Donepezil HCl (Aricept) 10 mg QHS PO 12/24/20 21:00 12/29/20 19:52 Lisinopril (Prinivil) 5 mg DAILY PO 12/25/20 09:00 12/29/20 08:15 Al Hydroxide/Mg Hydroxide (Mylanta Plus Xs) 15 ml PRN AFTMEALHC PRN PO DYSPEPSIA 12/24/20 16:45 Memantine (Namenda) 10 mg DAILY PO 12/25/20 09:00 12/27/20 13:12 DC 12/27/20 08:30 Olanzapine (ZyPREXA ZYDIS) 2.5 mg PRN Q2HR PRN PO ANXIETY / AGITATION 12/24/20 16:45 Pantoprazole Sodium (Protonix) 40 mg DAILY PO 12/25/20 09:00 12/29/20 08:14 Trazodone HCl (Desyrel) 50 mg HS PO 12/24/20 21:00 12/29/20 19:52 Trazodone HCl (Desyrel) 50 mg PRN QHS PRN PO INSOMNIA 12/24/20 16:45 Ascorbic Acid (Vitamin C) 500 mg DAILY PO 12/25/20 09:00 12/29/20 08:16 Calcium/Vitamin D (Oscal D 500mg/ 200uts) 1 tab BIDWMEALS PO 12/24/20 17:00 12/29/20 17:31 Citalopram Hydrobromide (CeleXA) 40 mg DAILY PO 12/25/20 09:00 12/27/20 13:12 DC 12/27/20 08:31 Magnesium Hydroxide (Milk Of Magnesia) 2,400 mg PRN QHS PRN PO CONSTIPATION 12/24/20 17:15 Multivitamins/ Calcium (Thera-M Plus) 1 tab DAILY PO 12/25/20 09:00 12/29/20 08:15 Fish Oil (Fish Oil) 1,000 mg DAILY PO 12/25/20 09:00 12/29/20 08:15 Vitamin D (Vitamin D3) 2,000 unit DAILY PO 12/25/20 09:00 12/29/20 08:15 Acetaminophen (Tylenol) 650 mg PRN Q6HRS PRN PO MILD PAIN / TEMP > 100.3'F 12/24/20 17:00 UNV Multi-Ingredient Ointment (Analgesic [place]) 1 micah PRN QID PRN TP MUSCLE PAIN 12/24/20 17:00 Al Hydroxide/Mg Hydroxide (Mylanta Plus Xs) 15 ml PRN AFTMEALHC PRN PO DYSPEPSIA 12/24/20 17:00 UNV Magnesium Hydroxide (Milk Of Magnesia) 2,400 mg PRN QHS PRN PO CONSTIPATION 12/24/20 17:00 UNV Buspirone HCl (Buspar) 10 mg BID PO 12/25/20 21:00 12/29/20 19:52 Memantine (Namenda) 10 mg BID PO 12/27/20 21:00 12/29/20 19:52 Sertraline HCl (Zoloft) 50 mg DAILY PO 12/28/20 09:00 12/29/20 18:49 DC 12/29/20 08:16 Sertraline HCl (Zoloft) 75 mg DAILY PO 12/30/20 09:00 I have reviewed the current psychotropics carefully including drug interactions. Risk benefit ratio favors no change other than as noted in my dictated progress note. Diagnosis: Problems: (1) Dementia in Alzheimer's disease with delusions (2) Impulse control disorder, unspecified (3) Anxiety disorder, unspecified (4) Dementia, vascular, with depression (5) Dementia, vascular, with delusions (6) Dementia in Alzheimer's disease with depression (7) Major neurocognitive disorder (8) Dementia in Alzheimer's disease with early onset with behavioral disturbance (9) Mild cognitive impairment DIMITRIOS RANDALL MD December 29, 2020 22:07
--- NOTE | 2020-12-30 03:02 | NUR ---
Pt withdrawn to her room when approached. Pt calm, pleasantly confused, and disorganized. Pt cooperative with assessment and compliant with medications administered whole.
[2020-12-30 06:16] VITALS: BP 151/83
--- NOTE | 2020-12-30 06:49 | PDOC ---
Exam Note: Tyler Note: This note is a late entry for 12/29/2020 covers elements not covered in my initial note. Subjective: The patient was seen individually in the evening of 12/29/2020 with Jus MEDEL, discussed and reviewed the chart. The patient slept 6-1/4 hours previous night. She is confused, otherwise, calm, irritable at times. Review of Systems: No CV, , pulmonary, eye, ENT system symptoms on review. Mental Status Exam: The patient is oriented to herself. Insight and judgment, recent and remote memory, attention and concentration, fund of knowledge is poor consistent with her diagnoses. Laboratory Data: Reviewed. Impression: Major neurocognitive disorder Alzheimer vascular with delusion, d epression, behavioral disturbance. Anxiety disorder unspecified. Impulse control disorder unspecified. Plan: No change from initial note. Increase Zoloft to 75 mg a day. Maintain rest of the psychotropics unchanged. Assessment: Vital Signs/I&O: Vital Signs Date Time Temp Pulse Resp B/P (MAP) Pulse Ox O2 Delivery O2 Flow Rate FiO2 12/30/20 06:16 98.4 67 18 151/83 (105) 98 Room Air I & O 12/29/20 12/29/20 12/30/20 15:00 23:00 07:00 Intake Total 480 ml 600 ml Balance 480 ml 600 ml Current Medications: Meds: Current Medications Medications (Trade) Dose Ordered Sig/Toño Route PRN Reason Start Time Stop Time Status Last Admin Dose Admin Acetaminophen (Tylenol) 650 mg PRN Q6HRS PRN PO MILD PAIN / TEMP > 100.3'F 12/24/20 16:45 Donepezil HCl (Aricept) 10 mg QHS PO 12/24/20 21:00 12/29/20 19:52 Lisinopril (Prinivil) 5 mg DAILY PO 12/25/20 09:00 12/29/20 08:15 Al Hydroxide/Mg Hydroxide (Mylanta Plus Xs) 15 ml PRN AFTMEALHC PRN PO DYSPEPSIA 12/24/20 16:45 Memantine (Namenda) 10 mg DAILY PO 12/25/20 09:00 12/27/20 13:12 DC 12/27/20 08:30 Olanzapine (ZyPREXA ZYDIS) 2.5 mg PRN Q2HR PRN PO ANXIETY / AGITATION 12/24/20 16:45 Pantoprazole Sodium (Protonix) 40 mg DAILY PO 12/25/20 09:00 12/29/20 08:14 Trazodone HCl (Desyrel) 50 mg HS PO 12/24/20 21:00 12/29/20 19:52 Trazodone HCl (Desyrel) 50 mg PRN QHS PRN PO INSOMNIA 12/24/20 16:45 Ascorbic Acid (Vitamin C) 500 mg DAILY PO 12/25/20 09:00 12/29/20 08:16 Calcium/Vitamin D (Oscal D 500mg/ 200uts) 1 tab BIDWMEALS PO 12/24/20 17:00 12/29/20 17:31 Citalopram Hydrobromide (CeleXA) 40 mg DAILY PO 12/25/20 09:00 12/27/20 13:12 DC 12/27/20 08:31 Magnesium Hydroxide (Milk Of Magnesia) 2,400 mg PRN QHS PRN PO CONSTIPATION 12/24/20 17:15 Multivitamins/ Calcium (Thera-M Plus) 1 tab DAILY PO 12/25/20 09:00 12/29/20 08:15 Fish Oil (Fish Oil) 1,000 mg DAILY PO 12/25/20 09:00 12/29/20 08:15 Vitamin D (Vitamin D3) 2,000 unit DAILY PO 12/25/20 09:00 12/29/20 08:15 Acetaminophen (Tylenol) 650 mg PRN Q6HRS PRN PO MILD PAIN / TEMP > 100.3'F 12/24/20 17:00 UNV Multi-Ingredient Ointment (Analgesic [place]) 1 micah PRN QID PRN TP MUSCLE PAIN 12/24/20 17:00 Al Hydroxide/Mg Hydroxide (Mylanta Plus Xs) 15 ml PRN AFTMEALHC PRN PO DYSPEPSIA 12/24/20 17:00 UNV Magnesium Hydroxide (Milk Of Magnesia) 2,400 mg PRN QHS PRN PO CONSTIPATION 12/24/20 17:00 UNV Buspirone HCl (Buspar) 10 mg BID PO 12/25/20 21:00 12/29/20 19:52 Memantine (Namenda) 10 mg BID PO 12/27/20 21:00 12/29/20 19:52 Sertraline HCl (Zoloft) 50 mg DAILY PO 12/28/20 09:00 12/29/20 18:49 DC 12/29/20 08:16 Sertraline HCl (Zoloft) 75 mg DAILY PO 12/30/20 09:00 I have reviewed the current psychotropics carefully including drug interactions. Risk benefit ratio favors no change other than as noted in my dictated progress note. Diagnosis: Problems: (1) Dementia in Alzheimer's disease with delusions (2) Impulse control disorder, unspecified (3) Anxiety disorder, unspecified (4) Dementia, vascular, with depression (5) Dementia, vascular, with delusions (6) Dementia in Alzheimer's disease with depression (7) Major neurocognitive disorder (8) Dementia in Alzheimer's disease with early onset with behavioral disturbance (9) Mild cognitive impairment DIMITRIOS RANDALL MD December 30, 2020 06:49
[2020-12-30] MEDS: MULTIVITAMIN with MINERAL TABLET. PO SCH (08:05)
[2020-12-30] MEDS: ASCORBIC ACID 500 MG TABLET PO SCH (08:05)
[2020-12-30] MEDS: CALCIUM CARB/VIT D3 500/200 TABLET PO SCH ×2 (08:05→16:01)
[2020-12-30] MEDS: LISINOPRIL 5 MG TABLET. PO SCH (08:05)
[2020-12-30] MEDS: MEMANTINE 10 MG TABLET. PO SCH ×2 (08:05→20:00)
[2020-12-30] MEDS: PANTOPRAZOLE 40 MG TABLET. PO SCH (08:06)
[2020-12-30] MEDS: OMEGA-3 FATTY ACIDS/FISH OIL 1,000 MG CAPSULE. PO SCH (08:06)
[2020-12-30] MEDS: busPIRone 10 MG TABLET. PO SCH ×2 (08:06→20:00)
[2020-12-30] MEDS: CHOLECALCIFEROL (VITAMIN D3) 1,000 UNIT TABLET PO SCH (08:06)
[2020-12-30] MEDS: SERTRALINE 50 MG TABLET. PO SCH (08:06)
[2020-12-30 15:52] VITALS: BP 130/61
--- NOTE | 2020-12-30 17:37 | NUR ---
Patient med compliant and cooperative with staff and following directions. Patient has two friends she gets along well with from her facility; Ena and Leann. Patient social and helpful with other patients on the unit, she eats meals at the dining room table with the other two friends however her appetite is not very good, she picks over her food and takes a few bites then she says she is done and has had enough to eat. Patient did have a prior bariatric surgery which does not allow her to eat much which does have to be taken into account. Patient has no complaints of pain or discomfort to report alert and oriented to self and others that she recognizes. Patient vitals stable and wnl of baseline ambulates throughout the unit independently. Will continue to monitor patient.
[2020-12-30] MEDS: DONEPEZIL HCL 10 MG TABLET PO SCH (20:00)
[2020-12-30] MEDS: traZODone 50 MG TABLET. PO SCH (20:00)
--- NOTE | 2020-12-30 22:01 | PDOC ---
Exam Note: Tyler Note: Please also refer to the separate dictated note~for this date of service dictated separately.~Patient seen individually. Discussed the patient with Nursing staff reviewed the chart.~Reviewed interim history and current functioning. Reviewed vital signs,~Labs/ Radiology~and current medications noted below. Continue current treatment with the changes noted in the dictated addendum note Assessment: Vital Signs/I&O: Vital Signs Date Time Temp Pulse Resp B/P (MAP) Pulse Ox O2 Delivery O2 Flow Rate FiO2 12/30/20 15:52 97.4 73 16 130/61 (84) 98 12/30/20 06:16 Room Air I & O 12/29/20 12/29/20 12/30/20 15:00 23:00 07:00 Intake Total 480 ml 600 ml Balance 480 ml 600 ml Current Medications: Meds: Current Medications Medications (Trade) Dose Ordered Sig/Toño Route PRN Reason Start Time Stop Time Status Last Admin Dose Admin Acetaminophen (Tylenol) 650 mg PRN Q6HRS PRN PO MILD PAIN / TEMP > 100.3'F 12/24/20 16:45 Donepezil HCl (Aricept) 10 mg QHS PO 12/24/20 21:00 12/30/20 20:00 Lisinopril (Prinivil) 5 mg DAILY PO 12/25/20 09:00 12/30/20 08:05 Al Hydroxide/Mg Hydroxide (Mylanta Plus Xs) 15 ml PRN AFTMEALHC PRN PO DYSPEPSIA 12/24/20 16:45 Memantine (Namenda) 10 mg DAILY PO 12/25/20 09:00 12/27/20 13:12 DC 12/27/20 08:30 Olanzapine (ZyPREXA ZYDIS) 2.5 mg PRN Q2HR PRN PO ANXIETY / AGITATION 12/24/20 16:45 Pantoprazole Sodium (Protonix) 40 mg DAILY PO 12/25/20 09:00 12/30/20 08:06 Trazodone HCl (Desyrel) 50 mg HS PO 12/24/20 21:00 12/30/20 20:00 Trazodone HCl (Desyrel) 50 mg PRN QHS PRN PO INSOMNIA 12/24/20 16:45 Ascorbic Acid (Vitamin C) 500 mg DAILY PO 12/25/20 09:00 12/30/20 08:05 Calcium/Vitamin D (Oscal D 500mg/ 200uts) 1 tab BIDWMEALS PO 12/24/20 17:00 12/30/20 16:01 Citalopram Hydrobromide (CeleXA) 40 mg DAILY PO 12/25/20 09:00 12/27/20 13:12 DC 12/27/20 08:31 Magnesium Hydroxide (Milk Of Magnesia) 2,400 mg PRN QHS PRN PO CONSTIPATION 12/24/20 17:15 Multivitamins/ Calcium (Thera-M Plus) 1 tab DAILY PO 12/25/20 09:00 12/30/20 08:05 Fish Oil (Fish Oil) 1,000 mg DAILY PO 12/25/20 09:00 12/30/20 08:06 Vitamin D (Vitamin D3) 2,000 unit DAILY PO 12/25/20 09:00 12/30/20 08:06 Acetaminophen (Tylenol) 650 mg PRN Q6HRS PRN PO MILD PAIN / TEMP > 100.3'F 12/24/20 17:00 UNV Multi-Ingredient Ointment (Analgesic [place]) 1 micah PRN QID PRN TP MUSCLE PAIN 12/24/20 17:00 Al Hydroxide/Mg Hydroxide (Mylanta Plus Xs) 15 ml PRN AFTMEALHC PRN PO DYSPEPSIA 12/24/20 17:00 UNV Magnesium Hydroxide (Milk Of Magnesia) 2,400 mg PRN QHS PRN PO CONSTIPATION 12/24/20 17:00 UNV Buspirone HCl (Buspar) 10 mg BID PO 12/25/20 21:00 12/30/20 20:00 Memantine (Namenda) 10 mg BID PO 12/27/20 21:00 12/30/20 20:00 Sertraline HCl (Zoloft) 50 mg DAILY PO 12/28/20 09:00 12/29/20 18:49 DC 12/29/20 08:16 Sertraline HCl (Zoloft) 75 mg DAILY PO 12/30/20 09:00 12/30/20 08:06 Current Medications Medications (Trade) Dose Ordered Sig/Toño Route PRN Reason Start Time Stop Time Status Last Admin Dose Admin Sertraline HCl (Zoloft) 75 mg DAILY PO 12/30/20 09:00 12/30/20 08:06 I have reviewed the current psychotropics carefully including drug interactions. Risk benefit ratio favors no change other than as noted in my dictated progress note. Diagnosis: Problems: (1) Dementia in Alzheimer's disease with delusions (2) Impulse control disorder, unspecified (3) Anxiety disorder, unspecified (4) Dementia, vascular, with depression (5) Dementia, vascular, with delusions (6) Dementia in Alzheimer's disease with depression (7) Major neurocognitive disorder (8) Dementia in Alzheimer's disease with early onset with behavioral disturbance (9) Mild cognitive impairment DIMITRIOS RANDALL MD December 30, 2020 22:01
--- NOTE | 2020-12-30 22:40 | NUR ---
Pt sitting in day room, socializing with peers when approached. Pt calm, pleasantly confused, and interactive. Pt cooperative with assessment and compliant with medications administered whole. No agitation or aggression noted thus far this shift.
[2020-12-31 06:12] VITALS: BP 136/77
[2020-12-31] MEDS: CALCIUM CARB/VIT D3 500/200 TABLET PO SCH ×2 (08:27→17:20)
[2020-12-31] MEDS: MULTIVITAMIN with MINERAL TABLET. PO SCH (08:27)
[2020-12-31] MEDS: ASCORBIC ACID 500 MG TABLET PO SCH (08:27)
[2020-12-31] MEDS: CHOLECALCIFEROL (VITAMIN D3) 1,000 UNIT TABLET PO SCH (08:28)
[2020-12-31] MEDS: MEMANTINE 10 MG TABLET. PO SCH ×2 (08:28→20:40)
[2020-12-31] MEDS: PANTOPRAZOLE 40 MG TABLET. PO SCH (08:28)
[2020-12-31] MEDS: busPIRone 10 MG TABLET. PO SCH ×2 (08:28→20:40)
[2020-12-31] MEDS: LISINOPRIL 5 MG TABLET. PO SCH (08:28)
[2020-12-31] MEDS: SERTRALINE 50 MG TABLET. PO SCH (08:29)
[2020-12-31] MEDS: OMEGA-3 FATTY ACIDS/FISH OIL 1,000 MG CAPSULE. PO SCH (08:30)
--- NOTE | 2020-12-31 10:23 | PDOC ---
Exam Note: Tyler Note: This note is a late entry for 12/30/2020 covers elements not covered in my initial note. Subjective: The patient was seen individually in the evening of 12/30/2020 with Pete MEDEL, discussed and reviewed the chart. The patient slept 7 hours previous night. She remains disorganized, takes medications whole. She is pleasant, verbal, smiling, oblivious of her surroundings. Review of Systems: No CV, , pulmonary, eye, ENT system symptoms on review. Mental Status Exam: The patient is oriented to herself. Insight and judgment, recent and remote memory, attention and concentration, fund of knowledge is poor consistent with her diagnoses. Laboratory Data: Reviewed. Impression: Major neurocognitive disorder Alzheimer vascular with delusion, depression, behavioral disturbance. Anxiety disorder unspecified. Impulse control disorder unspecified. Plan: No change from initial note. Assessment: Vital Signs/I&O: Vital Signs Date Time Temp Pulse Resp B/P (MAP) Pulse Ox O2 Delivery O2 Flow Rate FiO2 12/31/20 08:28 63 136/77 12/31/20 06:12 97.2 16 100 12/30/20 06:16 Room Air I & O 12/30/20 12/30/20 12/31/20 15:00 23:00 07:00 Intake Total 360 ml 480 ml Balance 360 ml 480 ml Current Medications: Meds: Current Medications Medications (Trade) Dose Ordered Sig/Toño Route PRN Reason Start Time Stop Time Status Last Admin Dose Admin Acetaminophen (Tylenol) 650 mg PRN Q6HRS PRN PO MILD PAIN / TEMP > 100.3'F 12/24/20 16:45 Donepezil HCl (Aricept) 10 mg QHS PO 12/24/20 21:00 12/30/20 20:00 Lisinopril (Prinivil) 5 mg DAILY PO 12/25/20 09:00 12/31/20 08:28 Al Hydroxide/Mg Hydroxide (Mylanta Plus Xs) 15 ml PRN AFTMEALHC PRN PO DYSPEPSIA 12/24/20 16:45 Memantine (Namenda) 10 mg DAILY PO 12/25/20 09:00 12/27/20 13:12 DC 12/27/20 08:30 Olanzapine (ZyPREXA ZYDIS) 2.5 mg PRN Q2HR PRN PO ANXIETY / AGITATION 12/24/20 16:45 Pantoprazole Sodium (Protonix) 40 mg DAILY PO 12/25/20 09:00 12/31/20 08:28 Trazodone HCl (Desyrel) 50 mg HS PO 12/24/20 21:00 12/30/20 20:00 Trazodone HCl (Desyrel) 50 mg PRN QHS PRN PO INSOMNIA 12/24/20 16:45 Ascorbic Acid (Vitamin C) 500 mg DAILY PO 12/25/20 09:00 12/31/20 08:27 Calcium/Vitamin D (Oscal D 500mg/ 200uts) 1 tab BIDWMEALS PO 12/24/20 17:00 12/31/20 08:27 Citalopram Hydrobromide (CeleXA) 40 mg DAILY PO 12/25/20 09:00 12/27/20 13:12 DC 12/27/20 08:31 Magnesium Hydroxide (Milk Of Magnesia) 2,400 mg PRN QHS PRN PO CONSTIPATION 12/24/20 17:15 Multivitamins/ Calcium (Thera-M Plus) 1 tab DAILY PO 12/25/20 09:00 12/31/20 08:27 Fish Oil (Fish Oil) 1,000 mg DAILY PO 12/25/20 09:00 12/31/20 08:30 Vitamin D (Vitamin D3) 2,000 unit DAILY PO 12/25/20 09:00 12/31/20 08:28 Acetaminophen (Tylenol) 650 mg PRN Q6HRS PRN PO MILD PAIN / TEMP > 100.3'F 12/24/20 17:00 UNV Multi-Ingredient Ointment (Analgesic [place]) 1 micah PRN QID PRN TP MUSCLE PAIN 12/24/20 17:00 Al Hydroxide/Mg Hydroxide (Mylanta Plus Xs) 15 ml PRN AFTMEALHC PRN PO DYSPEPSIA 12/24/20 17:00 UNV Magnesium Hydroxide (Milk Of Magnesia) 2,400 mg PRN QHS PRN PO CONSTIPATION 12/24/20 17:00 UNV Buspirone HCl (Buspar) 10 mg BID PO 12/25/20 21:00 12/31/20 08:28 Memantine (Namenda) 10 mg BID PO 12/27/20 21:00 12/31/20 08:28 Sertraline HCl (Zoloft) 50 mg DAILY PO 12/28/20 09:00 12/29/20 18:49 DC 12/29/20 08:16 Sertraline HCl (Zoloft) 75 mg DAILY PO 12/30/20 09:00 12/31/20 08:29 I have reviewed the current psychotropics carefully including drug interactions. Risk benefit ratio favors no change other than as noted in my dictated progress note. 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
[2020-12-31 16:01] VITALS: BP 145/59
--- NOTE | 2020-12-31 16:07 | NUR ---
Nsg note; Betty has been much happier and content today, smiling and talking with staff and peers. Two other pts are from her facility and she is enjoying seeing and talking to them. she has been med compliant and staying mostly in the dayroom between meals
[2020-12-31] MEDS: traZODone 50 MG TABLET. PO SCH (20:40)
[2020-12-31] MEDS: DONEPEZIL HCL 10 MG TABLET PO SCH (20:40)
--- NOTE | 2020-12-31 21:52 | PDOC ---
Exam Note: Tyler Note: Please also refer to the separate dictated note~for this date of service dictated separately.~Patient seen individually. Discussed the patient with Nursing staff reviewed the chart.~Reviewed interim history and current functioning. Reviewed vital signs,~Labs/ Radiology~and current medications noted below. Continue current treatment with the changes noted in the dictated addendum note Assessment: Vital Signs/I&O: Vital Signs Date Time Temp Pulse Resp B/P (MAP) Pulse Ox O2 Delivery O2 Flow Rate FiO2 12/31/20 16:01 98.4 75 20 145/59 (87) 98 Room Air I & O 12/30/20 12/30/20 12/31/20 15:00 23:00 07:00 Intake Total 360 ml 480 ml Balance 360 ml 480 ml Current Medications: Meds: Current Medications Medications (Trade) Dose Ordered Sig/Toño Route PRN Reason Start Time Stop Time Status Last Admin Dose Admin Acetaminophen (Tylenol) 650 mg PRN Q6HRS PRN PO MILD PAIN / TEMP > 100.3'F 12/24/20 16:45 Donepezil HCl (Aricept) 10 mg QHS PO 12/24/20 21:00 12/31/20 20:40 Lisinopril (Prinivil) 5 mg DAILY PO 12/25/20 09:00 12/31/20 08:28 Al Hydroxide/Mg Hydroxide (Mylanta Plus Xs) 15 ml PRN AFTMEALHC PRN PO DYSPEPSIA 12/24/20 16:45 Memantine (Namenda) 10 mg DAILY PO 12/25/20 09:00 12/27/20 13:12 DC 12/27/20 08:30 Olanzapine (ZyPREXA ZYDIS) 2.5 mg PRN Q2HR PRN PO ANXIETY / AGITATION 12/24/20 16:45 Pantoprazole Sodium (Protonix) 40 mg DAILY PO 12/25/20 09:00 12/31/20 08:28 Trazodone HCl (Desyrel) 50 mg HS PO 12/24/20 21:00 12/31/20 20:40 Trazodone HCl (Desyrel) 50 mg PRN QHS PRN PO INSOMNIA 12/24/20 16:45 Ascorbic Acid (Vitamin C) 500 mg DAILY PO 12/25/20 09:00 12/31/20 08:27 Calcium/Vitamin D (Oscal D 500mg/ 200uts) 1 tab BIDWMEALS PO 12/24/20 17:00 12/31/20 17:20 Citalopram Hydrobromide (CeleXA) 40 mg DAILY PO 12/25/20 09:00 12/27/20 13:12 DC 12/27/20 08:31 Magnesium Hydroxide (Milk Of Magnesia) 2,400 mg PRN QHS PRN PO CONSTIPATION 12/24/20 17:15 Multivitamins/ Calcium (Thera-M Plus) 1 tab DAILY PO 12/25/20 09:00 12/31/20 08:27 Fish Oil (Fish Oil) 1,000 mg DAILY PO 12/25/20 09:00 12/31/20 08:30 Vitamin D (Vitamin D3) 2,000 unit DAILY PO 12/25/20 09:00 12/31/20 08:28 Acetaminophen (Tylenol) 650 mg PRN Q6HRS PRN PO MILD PAIN / TEMP > 100.3'F 12/24/20 17:00 UNV Multi-Ingredient Ointment (Analgesic [place]) 1 micah PRN QID PRN TP MUSCLE PAIN 12/24/20 17:00 Al Hydroxide/Mg Hydroxide (Mylanta Plus Xs) 15 ml PRN AFTMEALHC PRN PO DYSPEPSIA 12/24/20 17:00 UNV Magnesium Hydroxide (Milk Of Magnesia) 2,400 mg PRN QHS PRN PO CONSTIPATION 12/24/20 17:00 UNV Buspirone HCl (Buspar) 10 mg BID PO 12/25/20 21:00 12/31/20 20:40 Memantine (Namenda) 10 mg BID PO 12/27/20 21:00 12/31/20 20:40 Sertraline HCl (Zoloft) 50 mg DAILY PO 12/28/20 09:00 12/29/20 18:49 DC 12/29/20 08:16 Sertraline HCl (Zoloft) 75 mg DAILY PO 12/30/20 09:00 12/31/20 08:29 I have reviewed the current psychotropics carefully including drug interactions. Risk benefit ratio favors no change other than as noted in my dictated progress note. Diagnosis: Problems: (1) Dementia in Alzheimer's disease with delusions (2) Impulse control disorder, unspecified (3) Anxiety disorder, unspecified (4) Dementia, vascular, with depression (5) Dementia, vascular, with delusions (6) Dementia in Alzheimer's disease with depression (7) Major neurocognitive disorder (8) Dementia in Alzheimer's disease with early onset with behavioral disturbance (9) Mild cognitive impairment DIMITRIOS RANDALL MD December 31, 2020 21:52
--- NOTE | 2021-01-01 00:55 | NUR ---
Last evening pt sat in day room watching TV and visiting with peers. She took meds whole without difficulty and has been cooperative with cares. She has had no behaviors tonight.
[2021-01-01 06:11] VITALS: BP 132/79
[2021-01-01] MEDS: ASCORBIC ACID 500 MG TABLET PO SCH (08:16)
[2021-01-01] MEDS: busPIRone 10 MG TABLET. PO SCH ×2 (08:16→20:32)
[2021-01-01] MEDS: CALCIUM CARB/VIT D3 500/200 TABLET PO SCH ×2 (08:16→17:22)
[2021-01-01] MEDS: OMEGA-3 FATTY ACIDS/FISH OIL 1,000 MG CAPSULE. PO SCH (08:17)
[2021-01-01] MEDS: SERTRALINE 50 MG TABLET. PO SCH (08:17)
[2021-01-01] MEDS: PANTOPRAZOLE 40 MG TABLET. PO SCH (08:17)
[2021-01-01] MEDS: LISINOPRIL 5 MG TABLET. PO SCH (08:17)
[2021-01-01] MEDS: MEMANTINE 10 MG TABLET. PO SCH ×2 (08:17→20:32)
[2021-01-01] MEDS: MULTIVITAMIN with MINERAL TABLET. PO SCH (08:17)
[2021-01-01] MEDS: CHOLECALCIFEROL (VITAMIN D3) 1,000 UNIT TABLET PO SCH (08:18)
[2021-01-01 15:50] VITALS: BP 105/68
--- NOTE | 2021-01-01 18:28 | NUR ---
Pt up ad radha independently no complaints of pain or discomfort very social and pleasant with others. No behaviors to report, patient does not have a bid appetite she eats what she wants on her plate and leave the rest which most time it is a small amount. Patient med compliant and cooperative with cares, patient vitals wnl of baseline and stable. Will continue to monitor patient.
[2021-01-01] MEDS: traZODone 50 MG TABLET. PO SCH (20:32)
[2021-01-01] MEDS: DONEPEZIL HCL 10 MG TABLET PO SCH (20:32)
--- NOTE | 2021-01-01 22:17 | PDOC ---
Exam Note: Tyler Note: Please also refer to the separate dictated note~for this date of service dictated separately.~Patient seen individually. Discussed the patient with Nursing staff reviewed the chart.~Reviewed interim history and current functioning. Reviewed vital signs,~Labs/ Radiology~and current medications noted below. Continue current treatment with the changes noted in the dictated addendum note Assessment: Vital Signs/I&O: Vital Signs Date Time Temp Pulse Resp B/P (MAP) Pulse Ox O2 Delivery O2 Flow Rate FiO2 01/01/21 15:50 97.8 75 20 105/68 (80) 97 01/01/21 06:11 Room Air I & O 12/31/20 12/31/20 01/01/21 15:00 23:00 07:00 Intake Total 480 ml 360 ml Balance 480 ml 360 ml Current Medications: Meds: Current Medications Medications (Trade) Dose Ordered Sig/Toño Route PRN Reason Start Time Stop Time Status Last Admin Dose Admin Acetaminophen (Tylenol) 650 mg PRN Q6HRS PRN PO MILD PAIN / TEMP > 100.3'F 12/24/20 16:45 Donepezil HCl (Aricept) 10 mg QHS PO 12/24/20 21:00 01/01/21 20:32 Lisinopril (Prinivil) 5 mg DAILY PO 12/25/20 09:00 01/01/21 08:17 Al Hydroxide/Mg Hydroxide (Mylanta Plus Xs) 15 ml PRN AFTMEALHC PRN PO DYSPEPSIA 12/24/20 16:45 Memantine (Namenda) 10 mg DAILY PO 12/25/20 09:00 12/27/20 13:12 DC 12/27/20 08:30 Olanzapine (ZyPREXA ZYDIS) 2.5 mg PRN Q2HR PRN PO ANXIETY / AGITATION 12/24/20 16:45 Pantoprazole Sodium (Protonix) 40 mg DAILY PO 12/25/20 09:00 01/01/21 08:17 Trazodone HCl (Desyrel) 50 mg HS PO 12/24/20 21:00 01/01/21 20:32 Trazodone HCl (Desyrel) 50 mg PRN QHS PRN PO INSOMNIA 12/24/20 16:45 Ascorbic Acid (Vitamin C) 500 mg DAILY PO 12/25/20 09:00 01/01/21 08:16 Calcium/Vitamin D (Oscal D 500mg/ 200uts) 1 tab BIDWMEALS PO 12/24/20 17:00 01/01/21 17:22 Citalopram Hydrobromide (CeleXA) 40 mg DAILY PO 12/25/20 09:00 12/27/20 13:12 DC 12/27/20 08:31 Magnesium Hydroxide (Milk Of Magnesia) 2,400 mg PRN QHS PRN PO CONSTIPATION 12/24/20 17:15 Multivitamins/ Calcium (Thera-M Plus) 1 tab DAILY PO 12/25/20 09:00 01/01/21 08:17 Fish Oil (Fish Oil) 1,000 mg DAILY PO 12/25/20 09:00 01/01/21 08:17 Vitamin D (Vitamin D3) 2,000 unit DAILY PO 12/25/20 09:00 01/01/21 08:18 Acetaminophen (Tylenol) 650 mg PRN Q6HRS PRN PO MILD PAIN / TEMP > 100.3'F 12/24/20 17:00 UNV Multi-Ingredient Ointment (Analgesic [place]) 1 micah PRN QID PRN TP MUSCLE PAIN 12/24/20 17:00 Al Hydroxide/Mg Hydroxide (Mylanta Plus Xs) 15 ml PRN AFTMEALHC PRN PO DYSPEPSIA 12/24/20 17:00 UNV Magnesium Hydroxide (Milk Of Magnesia) 2,400 mg PRN QHS PRN PO CONSTIPATION 12/24/20 17:00 UNV Buspirone HCl (Buspar) 10 mg BID PO 12/25/20 21:00 01/01/21 20:32 Memantine (Namenda) 10 mg BID PO 12/27/20 21:00 01/01/21 20:32 Sertraline HCl (Zoloft) 50 mg DAILY PO 12/28/20 09:00 12/29/20 18:49 DC 12/29/20 08:16 Sertraline HCl (Zoloft) 75 mg DAILY PO 12/30/20 09:00 01/01/21 08:17 I have reviewed the current psychotropics carefully including drug interactions. Risk benefit ratio favors no change other than as noted in my dictated progress note. Diagnosis: Problems: (1) Dementia in Alzheimer's disease with delusions (2) Impulse control disorder, unspecified (3) Anxiety disorder, unspecified (4) Dementia, vascular, with depression (5) Dementia, vascular, with delusions (6) Dementia in Alzheimer's disease with depression (7) Major neurocognitive disorder (8) Dementia in Alzheimer's disease with early onset with behavioral disturbance (9) Mild cognitive impairment DIMITRIOS RANDALL MD January 01, 2021 22:17
[2021-01-02 05:34] VITALS: BP 148/79
[2021-01-02] MEDS: MULTIVITAMIN with MINERAL TABLET. PO SCH (08:14)
[2021-01-02] MEDS: OMEGA-3 FATTY ACIDS/FISH OIL 1,000 MG CAPSULE. PO SCH (08:14)
[2021-01-02] MEDS: CALCIUM CARB/VIT D3 500/200 TABLET PO SCH ×2 (08:14→16:14)
[2021-01-02] MEDS: PANTOPRAZOLE 40 MG TABLET. PO SCH (08:14)
[2021-01-02] MEDS: busPIRone 10 MG TABLET. PO SCH ×2 (08:14→20:11)
[2021-01-02] MEDS: ASCORBIC ACID 500 MG TABLET PO SCH (08:15)
[2021-01-02] MEDS: CHOLECALCIFEROL (VITAMIN D3) 1,000 UNIT TABLET PO SCH (08:15)
[2021-01-02] MEDS: MEMANTINE 10 MG TABLET. PO SCH ×2 (08:15→20:11)
[2021-01-02] MEDS: SERTRALINE 50 MG TABLET. PO SCH (08:15)
[2021-01-02] MEDS: LISINOPRIL 5 MG TABLET. PO SCH (08:16)
--- NOTE | 2021-01-02 09:00 | PDOC ---
Exam Note: Tyler Note: This note is a late entry for 12/31/2020 covers elements not covered in my initial note. Subjective: The patient was seen individually in the evening of 12/31/2020 with Jessi MEDEL, discussed and reviewed the chart. The patient slept 7 hours previous night. She has been confused, otherwise, pleasant. She has been trying to feed other patients. 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 Review of Systems: No CV, , pulmonary, eye, ENT system symptoms on review. Reliability poor. Mental Status Exam: The patient is oriented to herself. Insight and judgment, recent and remote memory, attention and concentration, fund of knowledge is poor consistent with her diagnoses. Laboratory Data: Reviewed. Impression: Major neurocognitive disorder Alzheimer vascular with delusion, depression, behavioral disturbance. Anxiety disorder unspecified. Impulse control disorder unspecified. Plan: No change from initial note. Assessment: Vital Signs/I&O: Vital Signs Date Time Temp Pulse Resp B/P (MAP) Pulse Ox O2 Delivery O2 Flow Rate FiO2 01/02/21 08:16 77 148/79 01/02/21 05:34 98.4 18 95 01/01/21 06:11 Room Air I & O 01/01/21 01/01/21 01/02/21 15:00 23:00 07:00 Intake Total 680 ml 480 ml Balance 680 ml 480 ml Current Medications: Meds: Current Medications Medications (Trade) Dose Ordered Sig/Toño Route PRN Reason Start Time Stop Time Status Last Admin Dose Admin Acetaminophen (Tylenol) 650 mg PRN Q6HRS PRN PO MILD PAIN / TEMP > 100.3'F 12/24/20 16:45 Donepezil HCl (Aricept) 10 mg QHS PO 12/24/20 21:00 01/01/21 20:32 Lisinopril (Prinivil) 5 mg DAILY PO 12/25/20 09:00 01/02/21 08:16 Al Hydroxide/Mg Hydroxide (Mylanta Plus Xs) 15 ml PRN AFTMEALHC PRN PO DYSPEPSIA 12/24/20 16:45 Memantine (Namenda) 10 mg DAILY PO 12/25/20 09:00 12/27/20 13:12 DC 12/27/20 08:30 Olanzapine (ZyPREXA ZYDIS) 2.5 mg PRN Q2HR PRN PO ANXIETY / AGITATION 12/24/20 16:45 Pantoprazole Sodium (Protonix) 40 mg DAILY PO 12/25/20 09:00 01/02/21 08:14 Trazodone HCl (Desyrel) 50 mg HS PO 12/24/20 21:00 01/01/21 20:32 Trazodone HCl (Desyrel) 50 mg PRN QHS PRN PO INSOMNIA 12/24/20 16:45 Ascorbic Acid (Vitamin C) 500 mg DAILY PO 12/25/20 09:00 01/02/21 08:15 Calcium/Vitamin D (Oscal D 500mg/ 200uts) 1 tab BIDWMEALS PO 12/24/20 17:00 01/02/21 08:14 Citalopram Hydrobromide (CeleXA) 40 mg DAILY PO 12/25/20 09:00 12/27/20 13:12 DC 12/27/20 08:31 Magnesium Hydroxide (Milk Of Magnesia) 2,400 mg PRN QHS PRN PO CONSTIPATION 12/24/20 17:15 Multivitamins/ Calcium (Thera-M Plus) 1 tab DAILY PO 12/25/20 09:00 01/02/21 08:14 Fish Oil (Fish Oil) 1,000 mg DAILY PO 12/25/20 09:00 01/02/21 08:14 Vitamin D (Vitamin D3) 2,000 unit DAILY PO 12/25/20 09:00 01/02/21 08:15 Acetaminophen (Tylenol) 650 mg PRN Q6HRS PRN PO MILD PAIN / TEMP > 100.3'F 12/24/20 17:00 UNV Multi-Ingredient Ointment (Analgesic [place]) 1 micah PRN QID PRN TP MUSCLE PAIN 12/24/20 17:00 Al Hydroxide/Mg Hydroxide (Mylanta Plus Xs) 15 ml PRN AFTMEALHC PRN PO DYSPEPSIA 12/24/20 17:00 UNV Magnesium Hydroxide (Milk Of Magnesia) 2,400 mg PRN QHS PRN PO CONSTIPATION 12/24/20 17:00 UNV Buspirone HCl (Buspar) 10 mg BID PO 12/25/20 21:00 01/02/21 08:14 Memantine (Namenda) 10 mg BID PO 12/27/20 21:00 01/02/21 08:15 Sertraline HCl (Zoloft) 50 mg DAILY PO 12/28/20 09:00 12/29/20 18:49 DC 12/29/20 08:16 Sertraline HCl (Zoloft) 75 mg DAILY PO 12/30/20 09:00 01/02/21 08:15 I have reviewed the current psychotropics carefully including drug interactions. Risk benefit ratio favors no change other than as noted in my dictated progress note. Diagnosis: Problems: (1) Dementia in Alzheimer's disease with delusions (2) Impulse control disorder, unspecified (3) Anxiety disorder, unspecified (4) Dementia, vascular, with depression (5) Dementia, vascular, with delusions (6) Dementia in Alzheimer's disease with depression (7) Major neurocognitive disorder (8) Dementia in Alzheimer's disease with early onset with behavioral disturbance (9) Mild cognitive impairment DIMITRIOS RANDALL MD January 02, 2021 09:00
--- NOTE | 2021-01-02 09:22 | PDOC ---
Exam Note: Tyler Note: This note is a late entry for 01/01/2021 covers elements not covered in my initial note. Subjective: The patient was seen individually in the evening of 01/01/2021 with Pete MEDEL, discussed and reviewed the chart. The patient slept 7 hours previous night. She is alert and oriented to herself. She is pleasant, verbal, interactive, confused. Review of Systems: No CV, , pulmonary, eye, ENT system symptoms on review. Mental Status Exam: The patient is oriented to herself. Insight and judgment, recent and remote memory, attention and concentration, fund of knowledge is poor consistent with her diagnoses. Laboratory Data: Reviewed. Impression: Major neurocognitive disorder Alzheimer vascular with delusion, depression, behavioral disturbance. Anxiety disorder unspecified. Impulse control disorder unspecified. Plan: No change from initial note. Assessment: Vital Signs/I&O: Vital Signs Date Time Temp Pulse Resp B/P (MAP) Pulse Ox O2 Delivery O2 Flow Rate FiO2 01/02/21 08:16 77 148/79 01/02/21 05:34 98.4 18 95 01/01/21 06:11 Room Air I & O 01/01/21 01/01/21 01/02/21 15:00 23:00 07:00 Intake Total 680 ml 480 ml Balance 680 ml 480 ml Current Medications: Meds: Current Medications Medications (Trade) Dose Ordered Sig/Toño Route PRN Reason Start Time Stop Time Status Last Admin Dose Admin Acetaminophen (Tylenol) 650 mg PRN Q6HRS PRN PO MILD PAIN / TEMP > 100.3'F 12/24/20 16:45 Donepezil HCl (Aricept) 10 mg QHS PO 12/24/20 21:00 01/01/21 20:32 Lisinopril (Prinivil) 5 mg DAILY PO 12/25/20 09:00 01/02/21 08:16 Al Hydroxide/Mg Hydroxide (Mylanta Plus Xs) 15 ml PRN AFTMEALHC PRN PO DYSPEPSIA 12/24/20 16:45 Memantine (Namenda) 10 mg DAILY PO 12/25/20 09:00 12/27/20 13:12 DC 12/27/20 08:30 Olanzapine (ZyPREXA ZYDIS) 2.5 mg PRN Q2HR PRN PO ANXIETY / AGITATION 12/24/20 16:45 Pantoprazole Sodium (Protonix) 40 mg DAILY PO 12/25/20 09:00 01/02/21 08:14 Trazodone HCl (Desyrel) 50 mg HS PO 12/24/20 21:00 01/01/21 20:32 Trazodone HCl (Desyrel) 50 mg PRN QHS PRN PO INSOMNIA 12/24/20 16:45 Ascorbic Acid (Vitamin C) 500 mg DAILY PO 12/25/20 09:00 01/02/21 08:15 Calcium/Vitamin D (Oscal D 500mg/ 200uts) 1 tab BIDWMEALS PO 12/24/20 17:00 01/02/21 08:14 Citalopram Hydrobromide (CeleXA) 40 mg DAILY PO 12/25/20 09:00 12/27/20 13:12 DC 12/27/20 08:31 Magnesium Hydroxide (Milk Of Magnesia) 2,400 mg PRN QHS PRN PO CONSTIPATION 12/24/20 17:15 Multivitamins/ Calcium (Thera-M Plus) 1 tab DAILY PO 12/25/20 09:00 01/02/21 08:14 Fish Oil (Fish Oil) 1,000 mg DAILY PO 12/25/20 09:00 01/02/21 08:14 Vitamin D (Vitamin D3) 2,000 unit DAILY PO 12/25/20 09:00 01/02/21 08:15 Acetaminophen (Tylenol) 650 mg PRN Q6HRS PRN PO MILD PAIN / TEMP > 100.3'F 12/24/20 17:00 UNV Multi-Ingredient Ointment (Analgesic [place]) 1 micah PRN QID PRN TP MUSCLE PAIN 12/24/20 17:00 Al Hydroxide/Mg Hydroxide (Mylanta Plus Xs) 15 ml PRN AFTMEALHC PRN PO DYSPEPSIA 12/24/20 17:00 UNV Magnesium Hydroxide (Milk Of Magnesia) 2,400 mg PRN QHS PRN PO CONSTIPATION 12/24/20 17:00 UNV Buspirone HCl (Buspar) 10 mg BID PO 12/25/20 21:00 01/02/21 08:14 Memantine (Namenda) 10 mg BID PO 12/27/20 21:00 01/02/21 08:15 Sertraline HCl (Zoloft) 50 mg DAILY PO 12/28/20 09:00 12/29/20 18:49 DC 12/29/20 08:16 Sertraline HCl (Zoloft) 75 mg DAILY PO 12/30/20 09:00 01/02/21 08:15 I have reviewed the current psychotropics carefully including drug interactions. Risk benefit ratio favors no change other than as noted in my dictated progress note. Diagnosis: Problems: (1) Dementia in Alzheimer's disease with delusions (2) Impulse control disorder, unspecified (3) Anxiety disorder, unspecified (4) Dementia, vascular, with depression (5) Dementia, vascular, with delusions (6) Dementia in Alzheimer's disease with depression (7) Major neurocognitive disorder (8) Dementia in Alzheimer's disease with early onset with behavioral disturbance (9) Mild cognitive impairment DIMITRIOS RANDALL MD January 02, 2021 09:22
[2021-01-02 15:43] VITALS: BP 103/70
--- NOTE | 2021-01-02 17:21 | NUR ---
Pt had no behaviors today, very disorganized pleasant and cooperative. Med compliant very social with others. Patient wanders unit at [facility] independently, vitals wnl of baseline and stable, no complaints of pain or discomfort to report patient alert to self very confused. Will continue to monitor patient. Addendum: 01/02/21 at 1905 by CORNELIA KIM RN Pt has an intermittent wet cough lungs are clear patient denies chest pain or shortness of breath O2 sats above 95%
[2021-01-02] MEDS: traZODone 50 MG TABLET. PO SCH (20:11)
[2021-01-02] MEDS: DONEPEZIL HCL 10 MG TABLET PO SCH (20:12)
--- NOTE | 2021-01-02 22:14 | PDOC ---
Exam Note: Tyler Note: Please also refer to the separate dictated note~for this date of service dictated separately.~Patient seen individually. Discussed the patient with Nursing staff reviewed the chart.~Reviewed interim history and current functioning. Reviewed vital signs,~Labs/ Radiology~and current medications noted below. Continue current treatment with the changes noted in the dictated addendum note Assessment: Vital Signs/I&O: Vital Signs Date Time Temp Pulse Resp B/P (MAP) Pulse Ox O2 Delivery O2 Flow Rate FiO2 01/02/21 15:43 98.2 84 16 103/70 (81) 96 01/01/21 06:11 Room Air I & O 01/01/21 01/01/21 01/02/21 14:59 22:59 06:59 Intake Total 680 ml 480 ml Balance 680 ml 480 ml Current Medications: Meds: Current Medications Medications (Trade) Dose Ordered Sig/Toño Route PRN Reason Start Time Stop Time Status Last Admin Dose Admin Acetaminophen (Tylenol) 650 mg PRN Q6HRS PRN PO MILD PAIN / TEMP > 100.3'F 12/24/20 16:45 Donepezil HCl (Aricept) 10 mg QHS PO 12/24/20 21:00 01/02/21 20:12 Lisinopril (Prinivil) 5 mg DAILY PO 12/25/20 09:00 01/02/21 08:16 Al Hydroxide/Mg Hydroxide (Mylanta Plus Xs) 15 ml PRN AFTMEALHC PRN PO DYSPEPSIA 12/24/20 16:45 Memantine (Namenda) 10 mg DAILY PO 12/25/20 09:00 12/27/20 13:12 DC 12/27/20 08:30 Olanzapine (ZyPREXA ZYDIS) 2.5 mg PRN Q2HR PRN PO ANXIETY / AGITATION 12/24/20 16:45 Pantoprazole Sodium (Protonix) 40 mg DAILY PO 12/25/20 09:00 01/02/21 08:14 Trazodone HCl (Desyrel) 50 mg HS PO 12/24/20 21:00 01/02/21 20:11 Trazodone HCl (Desyrel) 50 mg PRN QHS PRN PO INSOMNIA 12/24/20 16:45 Ascorbic Acid (Vitamin C) 500 mg DAILY PO 12/25/20 09:00 01/02/21 08:15 Calcium/Vitamin D (Oscal D 500mg/ 200uts) 1 tab BIDWMEALS PO 12/24/20 17:00 01/02/21 16:14 Citalopram Hydrobromide (CeleXA) 40 mg DAILY PO 12/25/20 09:00 12/27/20 13:12 DC 12/27/20 08:31 Magnesium Hydroxide (Milk Of Magnesia) 2,400 mg PRN QHS PRN PO CONSTIPATION 12/24/20 17:15 Multivitamins/ Calcium (Thera-M Plus) 1 tab DAILY PO 12/25/20 09:00 01/02/21 08:14 Fish Oil (Fish Oil) 1,000 mg DAILY PO 12/25/20 09:00 01/02/21 08:14 Vitamin D (Vitamin D3) 2,000 unit DAILY PO 12/25/20 09:00 01/02/21 08:15 Acetaminophen (Tylenol) 650 mg PRN Q6HRS PRN PO MILD PAIN / TEMP > 100.3'F 12/24/20 17:00 UNV Multi-Ingredient Ointment (Analgesic [place]) 1 micah PRN QID PRN TP MUSCLE PAIN 12/24/20 17:00 Al Hydroxide/Mg Hydroxide (Mylanta Plus Xs) 15 ml PRN AFTMEALHC PRN PO DYSPEPSIA 12/24/20 17:00 UNV Magnesium Hydroxide (Milk Of Magnesia) 2,400 mg PRN QHS PRN PO CONSTIPATION 12/24/20 17:00 UNV Buspirone HCl (Buspar) 10 mg BID PO 12/25/20 21:00 01/02/21 20:11 Memantine (Namenda) 10 mg BID PO 12/27/20 21:00 01/02/21 20:11 Sertraline HCl (Zoloft) 50 mg DAILY PO 12/28/20 09:00 12/29/20 18:49 DC 12/29/20 08:16 Sertraline HCl (Zoloft) 75 mg DAILY PO 12/30/20 09:00 01/02/21 08:15 I have reviewed the current psychotropics carefully including drug interactions. Risk benefit ratio favors no change other than as noted in my dictated progress note. Diagnosis: Problems: (1) Dementia in Alzheimer's disease with delusions (2) Impulse control disorder, unspecified (3) Anxiety disorder, unspecified (4) Dementia, vascular, with depression (5) Dementia, vascular, with delusions (6) Dementia in Alzheimer's disease with depression (7) Major neurocognitive disorder (8) Dementia in Alzheimer's disease with early onset with behavioral disturbance (9) Mild cognitive impairment DIMITRIOS RANDALL MD January 02, 2021 22:14
[2021-01-03 06:27] VITALS: BP 112/72
--- NOTE | 2021-01-03 07:14 | PDOC ---
Exam Note: Tyler Note: This note is a late entry for 01/02/2021 covers elements not covered in my initial note. Subjective: The patient was seen individually in the evening of 01/02/2021 with Pete MEDEL, discussed and reviewed the chart. The patient slept 7 hours previous night. She remains disorganized, pleasant, and oriented to herself, compliant with medications. She tends to spend time with the couple of demented patients since there [facility] all [facility]. Review of Systems: No CV, , pulmonary, eye, ENT system symptoms on review. Mental Status Exam: The patient is oriented to herself. Insight and judgment, recent and remote memory, attention and concentration, fund of knowledge is poor consistent with her diagnoses. Laboratory Data: Reviewed. Impression: Major neurocognitive disorder Alzheimer vascular with delusion, depression, behavioral disturbance. Anxiety disorder unspecified. Impulse control disorder unspecified. Plan: No change from initial note. Assessment: Vital Signs/I&O: Vital Signs Date Time Temp Pulse Resp B/P (MAP) Pulse Ox O2 Delivery O2 Flow Rate FiO2 01/03/21 06:27 98.1 72 20 112/72 (85) 95 01/01/21 06:11 Room Air I & O 01/02/21 01/02/21 01/03/21 15:00 23:00 07:00 Intake Total 480 ml 360 ml Balance 480 ml 360 ml Current Medications: Meds: Current Medications Medications (Trade) Dose Ordered Sig/Toño Route PRN Reason Start Time Stop Time Status Last Admin Dose Admin Acetaminophen (Tylenol) 650 mg PRN Q6HRS PRN PO MILD PAIN / TEMP > 100.3'F 12/24/20 16:45 Donepezil HCl (Aricept) 10 mg QHS PO 12/24/20 21:00 01/02/21 20:12 Lisinopril (Prinivil) 5 mg DAILY PO 12/25/20 09:00 01/02/21 08:16 Al Hydroxide/Mg Hydroxide (Mylanta Plus Xs) 15 ml PRN AFTMEALHC PRN PO DYSPEPSIA 12/24/20 16:45 Memantine (Namenda) 10 mg DAILY PO 12/25/20 09:00 12/27/20 13:12 DC 12/27/20 08:30 Olanzapine (ZyPREXA ZYDIS) 2.5 mg PRN Q2HR PRN PO ANXIETY / AGITATION 12/24/20 16:45 Pantoprazole Sodium (Protonix) 40 mg DAILY PO 12/25/20 09:00 01/02/21 08:14 Trazodone HCl (Desyrel) 50 mg HS PO 12/24/20 21:00 01/02/21 20:11 Trazodone HCl (Desyrel) 50 mg PRN QHS PRN PO INSOMNIA 12/24/20 16:45 Ascorbic Acid (Vitamin C) 500 mg DAILY PO 12/25/20 09:00 01/02/21 08:15 Calcium/Vitamin D (Oscal D 500mg/ 200uts) 1 tab BIDWMEALS PO 12/24/20 17:00 01/02/21 16:14 Citalopram Hydrobromide (CeleXA) 40 mg DAILY PO 12/25/20 09:00 12/27/20 13:12 DC 12/27/20 08:31 Magnesium Hydroxide (Milk Of Magnesia) 2,400 mg PRN QHS PRN PO CONSTIPATION 12/24/20 17:15 Multivitamins/ Calcium (Thera-M Plus) 1 tab DAILY PO 12/25/20 09:00 01/02/21 08:14 Fish Oil (Fish Oil) 1,000 mg DAILY PO 12/25/20 09:00 01/02/21 08:14 Vitamin D (Vitamin D3) 2,000 unit DAILY PO 12/25/20 09:00 01/02/21 08:15 Acetaminophen (Tylenol) 650 mg PRN Q6HRS PRN PO MILD PAIN / TEMP > 100.3'F 12/24/20 17:00 UNV Multi-Ingredient Ointment (Analgesic [place]) 1 micah PRN QID PRN TP MUSCLE PAIN 12/24/20 17:00 Al Hydroxide/Mg Hydroxide (Mylanta Plus Xs) 15 ml PRN AFTMEALHC PRN PO DYSPEPSIA 12/24/20 17:00 UNV Magnesium Hydroxide (Milk Of Magnesia) 2,400 mg PRN QHS PRN PO CONSTIPATION 12/24/20 17:00 UNV Buspirone HCl (Buspar) 10 mg BID PO 12/25/20 21:00 01/02/21 20:11 Memantine (Namenda) 10 mg BID PO 12/27/20 21:00 01/02/21 20:11 Sertraline HCl (Zoloft) 50 mg DAILY PO 12/28/20 09:00 12/29/20 18:49 DC 12/29/20 08:16 Sertraline HCl (Zoloft) 75 mg DAILY PO 12/30/20 09:00 01/02/21 08:15 I have reviewed the current psychotropics carefully including drug interactions. Risk benefit ratio favors no change other than as noted in my dictated progress note. 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
[2021-01-03] MEDS: CALCIUM CARB/VIT D3 500/200 TABLET PO SCH ×2 (08:18→17:24)
[2021-01-03] MEDS: busPIRone 10 MG TABLET. PO SCH ×2 (08:18→20:26)
[2021-01-03] MEDS: LISINOPRIL 5 MG TABLET. PO SCH (08:18)
[2021-01-03] MEDS: MULTIVITAMIN with MINERAL TABLET. PO SCH (08:18)
[2021-01-03] MEDS: CHOLECALCIFEROL (VITAMIN D3) 1,000 UNIT TABLET PO SCH (08:18)
[2021-01-03] MEDS: MEMANTINE 10 MG TABLET. PO SCH ×2 (08:18→20:26)
[2021-01-03] MEDS: ASCORBIC ACID 500 MG TABLET PO SCH (08:18)
[2021-01-03] MEDS: PANTOPRAZOLE 40 MG TABLET. PO SCH (08:18)
[2021-01-03] MEDS: OMEGA-3 FATTY ACIDS/FISH OIL 1,000 MG CAPSULE. PO SCH (08:18)
[2021-01-03] MEDS: SERTRALINE 50 MG TABLET. PO SCH (08:19)
[2021-01-03 16:07] VITALS: BP 114/73
--- NOTE | 2021-01-03 17:42 | NUR ---
NSG NOTE; SHIFT SUMMARY Betty has been more positive and content now that two other residents of her facility are here. She helps show them the dining room and dayroom. She is less negative and smiling often.
[2021-01-03] MEDS: traZODone 50 MG TABLET. PO SCH (20:26)
[2021-01-03] MEDS: DONEPEZIL HCL 10 MG TABLET PO SCH (20:26)
--- NOTE | 2021-01-03 22:16 | PDOC ---
Exam Note: Tyler Note: Please also refer to the separate dictated note~for this date of service dictated separately.~Patient seen individually. Discussed the patient with Nursing staff reviewed the chart.~Reviewed interim history and current functioning. Reviewed vital signs,~Labs/ Radiology~and current medications noted below. Continue current treatment with the changes noted in the dictated addendum note Assessment: Vital Signs/I&O: Vital Signs Date Time Temp Pulse Resp B/P (MAP) Pulse Ox O2 Delivery O2 Flow Rate FiO2 01/03/21 16:07 98.0 72 18 114/73 (87) 98 01/01/21 06:11 Room Air I & O 01/02/21 01/02/21 01/03/21 15:00 23:00 07:00 Intake Total 480 ml 360 ml Balance 480 ml 360 ml Current Medications: Meds: Current Medications Medications (Trade) Dose Ordered Sig/Tñoo Route PRN Reason Start Time Stop Time Status Last Admin Dose Admin Acetaminophen (Tylenol) 650 mg PRN Q6HRS PRN PO MILD PAIN / TEMP > 100.3'F 12/24/20 16:45 Donepezil HCl (Aricept) 10 mg QHS PO 12/24/20 21:00 01/03/21 20:26 Lisinopril (Prinivil) 5 mg DAILY PO 12/25/20 09:00 01/03/21 08:18 Al Hydroxide/Mg Hydroxide (Mylanta Plus Xs) 15 ml PRN AFTMEALHC PRN PO DYSPEPSIA 12/24/20 16:45 Memantine (Namenda) 10 mg DAILY PO 12/25/20 09:00 12/27/20 13:12 DC 12/27/20 08:30 Olanzapine (ZyPREXA ZYDIS) 2.5 mg PRN Q2HR PRN PO ANXIETY / AGITATION 12/24/20 16:45 Pantoprazole Sodium (Protonix) 40 mg DAILY PO 12/25/20 09:00 01/03/21 08:18 Trazodone HCl (Desyrel) 50 mg HS PO 12/24/20 21:00 01/03/21 20:26 Trazodone HCl (Desyrel) 50 mg PRN QHS PRN PO INSOMNIA 12/24/20 16:45 Ascorbic Acid (Vitamin C) 500 mg DAILY PO 12/25/20 09:00 01/03/21 08:18 Calcium/Vitamin D (Oscal D 500mg/ 200uts) 1 tab BIDWMEALS PO 12/24/20 17:00 01/03/21 17:24 Citalopram Hydrobromide (CeleXA) 40 mg DAILY PO 12/25/20 09:00 12/27/20 13:12 DC 12/27/20 08:31 Magnesium Hydroxide (Milk Of Magnesia) 2,400 mg PRN QHS PRN PO CONSTIPATION 12/24/20 17:15 Multivitamins/ Calcium (Thera-M Plus) 1 tab DAILY PO 12/25/20 09:00 01/03/21 08:18 Fish Oil (Fish Oil) 1,000 mg DAILY PO 12/25/20 09:00 01/03/21 08:18 Vitamin D (Vitamin D3) 2,000 unit DAILY PO 12/25/20 09:00 01/03/21 08:18 Acetaminophen (Tylenol) 650 mg PRN Q6HRS PRN PO MILD PAIN / TEMP > 100.3'F 12/24/20 17:00 UNV Multi-Ingredient Ointment (Analgesic [place]) 1 micah PRN QID PRN TP MUSCLE PAIN 12/24/20 17:00 Al Hydroxide/Mg Hydroxide (Mylanta Plus Xs) 15 ml PRN AFTMEALHC PRN PO DYSPEPSIA 12/24/20 17:00 UNV Magnesium Hydroxide (Milk Of Magnesia) 2,400 mg PRN QHS PRN PO CONSTIPATION 12/24/20 17:00 UNV Buspirone HCl (Buspar) 10 mg BID PO 12/25/20 21:00 01/03/21 20:26 Memantine (Namenda) 10 mg BID PO 12/27/20 21:00 01/03/21 20:26 Sertraline HCl (Zoloft) 50 mg DAILY PO 12/28/20 09:00 12/29/20 18:49 DC 12/29/20 08:16 Sertraline HCl (Zoloft) 75 mg DAILY PO 12/30/20 09:00 01/03/21 08:19 Cetirizine HCl (ZyrTEC) 10 mg DAILY PO 01/04/21 09:00 01/06/21 10:00 Cetirizine HCl (ZyrTEC) 10 mg PRN DAILY PRN PO ALLERGIES 01/07/21 09:00 Pseudoephedrine HCl (Sudafed 12-Hour) 240 mg DAILY PO 01/04/21 09:00 01/06/21 10:00 Pseudoephedrine HCl (Sudafed 12-Hour) 240 mg PRN DAILY PRN PO NASAL CONGESTION 01/07/21 16:30 I have reviewed the current psychotropics carefully including drug interactions. Risk benefit ratio favors no change other than as noted in my dictated progress note. Diagnosis: Problems: (1) Dementia in Alzheimer's disease with delusions (2) Impulse control disorder, unspecified (3) Anxiety disorder, unspecified (4) Dementia, vascular, with depression (5) Dementia, vascular, with delusions (6) Dementia in Alzheimer's disease with depression (7) Major neurocognitive disorder (8) Dementia in Alzheimer's disease with early onset with behavioral disturbance (9) Mild cognitive impairment DIMITRIOS RANDALL MD January 03, 2021 22:16
--- NOTE | 2021-01-03 23:43 | NUR ---
Pt withdrawn to her room, lying in bed asleep when approached. Pt calm, pleasantly confused, and disorganized. Pt cooperative with assessment and compliant with medications administered whole.
[2021-01-04 06:16] VITALS: BP 142/84
[2021-01-04 06:40] LABS: BASO % 0 % (0-3); EOS # 0.2 x10^3/uL (0.0-0.7); EOS % 3 % (0-3); HEMATOCRIT 33.7 % (36.0-47.0); HEMOGLOBIN 11.1 g/dL (12.0-15.5); LYMPH # 0.9 x10^3/uL (1.0-4.8); LYMPH % 14 % (24-48); MEAN CORPUSCULAR HEMOGLOBIN 30 pg (25-35); MEAN CORPUSCULAR HGB CONC 33 g/dL (31-37); MEAN CORPUSCULAR VOLUME 90 fL (79-100); MONO # 0.8 x10^3/uL (0.0-1.1); MONO % 13 % (0-9); NEUT # 4.3 x10^3uL (1.8-7.7); NEUT % 69 % (31-73); PLATELET COUNT 176 x10^3/uL (140-400); RED BLOOD COUNT 3.75 x10^6/uL (3.50-5.40); RED CELL DISTRIBUTION WIDTH 13.3 % (11.5-14.5); WHITE BLOOD COUNT 6.3 x10^3/uL (4.0-11.0)
[2021-01-04 06:57] LABS: ALBUMIN 3.3 g/dL (3.4-5.0); CALCIUM 8.3 mg/dL (8.5-10.1); CREATININE 1.6 mg/dL (0.6-1.0); GFR 31.7; MAGNESIUM 2.5 mg/dL (1.8-2.4); POTASSIUM 5.3 mmol/L (3.5-5.1); TOTAL BILIRUBIN 0.9 mg/dL (0.2-1.0); TOTAL PROTEIN 6.5 g/dL (6.4-8.2)
[2021-01-04] MEDS: PSEUDOEPHEDRINE ER 120 MG TABLET.ER. PO SCH (08:21)
[2021-01-04] MEDS: CHOLECALCIFEROL (VITAMIN D3) 1,000 UNIT TABLET PO SCH (08:21)
[2021-01-04] MEDS: OMEGA-3 FATTY ACIDS/FISH OIL 1,000 MG CAPSULE. PO SCH (08:21)
[2021-01-04] MEDS: CALCIUM CARB/VIT D3 500/200 TABLET PO SCH ×2 (08:22→17:06)
[2021-01-04] MEDS: PANTOPRAZOLE 40 MG TABLET. PO SCH (08:22)
[2021-01-04] MEDS: LISINOPRIL 5 MG TABLET. PO SCH (08:22)
[2021-01-04] MEDS: busPIRone 10 MG TABLET. PO SCH ×2 (08:22→20:39)
[2021-01-04] MEDS: CETIRIZINE HCL 10 MG TABLET PO SCH (08:22)
[2021-01-04] MEDS: SERTRALINE 50 MG TABLET. PO SCH (08:22)
[2021-01-04] MEDS: MEMANTINE 10 MG TABLET. PO SCH ×2 (08:22→20:39)
[2021-01-04] MEDS: ASCORBIC ACID 500 MG TABLET PO SCH (08:23)
[2021-01-04] MEDS: MULTIVITAMIN with MINERAL TABLET. PO SCH (08:23)
--- NOTE | 2021-01-04 13:10 | NUR ---
WEEKLY ACTIVITY THERAPY NOTE Date of Admission:12/24/20 Date of AT Assessment: 12/27 Precipitating behaviors that initiated intake and admission:agitation, pulling hair and hitting staff, yelling, grabbed peer's arm, name calling Goal aimed:increase stress management and relaxation skills Initial Goal: Pt will participate in at least three individual or group Activity Therapy sessions per week. Weekly progress towards goal: exceeded, 12/06 Group participation level: 1 min, 2 mod, 2 full Weekly highlights: scientology yarsani service Sunday, danced and chatted with peers during music group, followed exercises Sunday, clapped while peers danced Sunday Behaviors observed: pleasant and chatty with peers, needs prompting or assistance when answering questions Plan: no change to goal-pending discharge(change goal if no discharge)- Pt will participate in all Activity Therapy sessions offered. Beneficial adaptations:
--- NOTE | 2021-01-04 15:04 | TX PLAN ---
Interdisciplinary Tx Plan Admission Information December 24, 2020 at 16:30 Legal Status (on Admission): Voluntary, DPOA DPOA/Guardian Name: Ella Pelaez-sister in law Contact Other Contact Name: Guillermo Other Contact Verified Code Status: DNR Allergies: Coded Allergies: No Known Drug Allergies (Unverified , 03/23/20) Estimated Length of Stay: 14 Diagnoses Primary Diagnosis: Major Neurocognitive disorder alzheimers, vascular with delusions, depression, BD Anxiety d/o unspecified Impulse control d/o, unspecified Reasons for Admission: Aggressive, Agitated, Angry, Combative, Suspicious/paranoid, Confusion/Disoriented, Poor impulse control Problem in Patient's Words: Betty is unaware of where or why she is hospitlaized. Per POA, Betty's behavior is becoming increasingly aggressive towards staff and peers. Additional Admission Comments: Per intake record, pulled staff's hair, hit staf, yelling, grabbed peers arm, name calling, agitated Problems Active Problems: aggressive/combative verbally aggressive confused/disoriented periods of refusing medications Inactive Problems: adequate meal intake, averaging 50% intake averaging seven hours of sleep Pt Strengths/Limitations Ability for [place]: Poor Cognitive Functioning/Ability: Poor Communication Skills/Ability: Fair Financial Resources: Fair Insight/Judgement: Poor Intellectual Ability: Fair Physical Health: Fair Social Skills: Fair Stability in Family: Good Verbal Skills: Fair Discharge Criteria Discharge Criteria: Adequate arrangements @DC, Improved behavior, Improved mood/thought Preliminary Discharge Plan Preliminary DC Plan: Memory Care Other Arrangements: [facility] Special Precautions Special Precautions: Agitation/Assault Fall Risk: High Initial D/C Plan Betty will return to [facility] memory care once stable Identified Discharge Needs: F/U with PCP Identified Problems/Hx/Goals Objectives/Short-Term Goals Short Term Goals: Control abnormal behavior, Dec. Aggression, Dec. Outbursts, Medication Stabilization, Monitor Med Effects, Prevent Deterioration Short Term Goals in Patient's: Per POA, mood and behavior stabilization. Interventions/Frequency Staff Interventions/Frequency&: Nursing to provide routine safety checks, medication administration, and adl support. Psychiatry to see thre times weekly. SW visits twice weekly. Recreational and SW group involvement as Betty is agreeable. 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 Community Follow-up PCP f/u Community Provider/Family Inpu: ZEE Jaramillo, was involved in team meeting held on 12/27/20 via phone. entry analyst of treatment plan was completed on 12/28/20. Treatment Plan Explained Patient/Case Coordinator had this treatment plan explained to him/her as indicated by the signature below and has been given the opportunity to ask questions and make suggestions: Date: Patient/Case Coordinator Signature: Status Update Update WEEKLY UPDATE/NOTE: Betty is averaging seven ours of sleep at nigh and 50% of meal intakes. She has been medication and care compliant. Her mood has improved with group involvement and she is observed socializing with peers that are also here from her longterm community. Betty is attending meals in the dining room and participated in five group activities this past week. will coordinate d/c planning with [facility] and Ella/ZEE for this week. CARROLL KAUR Jan 04, 2021 15:04
--- NOTE | 2021-01-04 15:25 | NUR ---
MALU spoke to Zion at [facility] to provide progress report and update. Faxed current notes, medication list, and labs for review. Call placed to ZEE Jaramillo, who will be able to provide transport on 01/06/21 at 1-2pm. MALU will proceed with d/c planning and scheduling follow up appointments with PCP and attempt to get her in for out patient psychiatry with [facility].
[2021-01-04 15:56] VITALS: BP 117/77
--- NOTE | 2021-01-04 17:51 | NUR ---
NSG NOTE; SHIFT SUMMARY Betty has been calm, cooperative and compliant today. she spent the day in the dayroom, mostly in the company of two peers who live in her same facility, talking, laughing and playing cards. she is med compliant but was confused with the sequence, drinking the water first then putting the med in her mouth. she can follow simple directions
[2021-01-04] MEDS: DONEPEZIL HCL 10 MG TABLET PO SCH (20:39)
[2021-01-04] MEDS: traZODone 50 MG TABLET. PO SCH (20:39)
--- NOTE | 2021-01-04 21:56 | PDOC ---
Exam Note: Tyler Note: Please also refer to the separate dictated note~for this date of service dictated separately.~Patient seen individually. Discussed the patient with Nursing staff reviewed the chart.~Reviewed interim history and current functioning. Reviewed vital signs,~Labs/ Radiology~and current medications noted below. Continue current treatment with the changes noted in the dictated addendum note Assessment: Vital Signs/I&O: Vital Signs Date Time Temp Pulse Resp B/P (MAP) Pulse Ox O2 Delivery O2 Flow Rate FiO2 01/04/21 15:56 98.0 92 18 117/77 (90) 97 01/01/21 06:11 Room Air I & O 01/03/21 01/03/21 01/04/21 15:00 23:00 07:00 Intake Total 480 ml 240 ml Balance 480 ml 240 ml Labs: Laboratory Tests Test 01/04/21 06:28 White Blood Count 6.3 x10^3/uL (4.0-11.0) Red Blood Count 3.75 x10^6/uL (3.50-5.40) Hemoglobin 11.1 g/dL (12.0-15.5) L Hematocrit 33.7 % (36.0-47.0) L Mean Corpuscular Volume 90 fL (79-100) Mean Corpuscular Hemoglobin 30 pg (25-35) Mean Corpuscular Hemoglobin Concent 33 g/dL (31-37) Red Cell Distribution Width 13.3 % (11.5-14.5) Platelet Count 176 x10^3/uL (140-400) Neutrophils (%) (Auto) 69 % (31-73) Lymphocytes (%) (Auto) 14 % (24-48) L Monocytes (%) (Auto) 13 % (0-9) H Eosinophils (%) (Auto) 3 % (0-3) Basophils (%) (Auto) 0 % (0-3) Neutrophils # (Auto) 4.3 x10^3uL (1.8-7.7) Lymphocytes # (Auto) 0.9 x10^3/uL (1.0-4.8) L Monocytes # (Auto) 0.8 x10^3/uL (0.0-1.1) Eosinophils # (Auto) 0.2 x10^3/uL (0.0-0.7) Basophils # (Auto) 0.0 x10^3/uL (0.0-0.2) Sodium Level 141 mmol/L (136-145) Potassium Level 5.3 mmol/L (3.5-5.1) H Chloride Level 107 mmol/L (98-107) Carbon Dioxide Level 28 mmol/L (21-32) Anion Gap 6 (6-14) Blood Urea Nitrogen 22 mg/dL (7-20) H Creatinine 1.6 mg/dL (0.6-1.0) H Estimated GFR (Cockcroft-Gault) 31.7 BUN/Creatinine Ratio 14 (6-20) Glucose Level 118 mg/dL (70-99) H Calcium Level 8.3 mg/dL (8.5-10.1) L Magnesium Level 2.5 mg/dL (1.8-2.4) H Total Bilirubin 0.9 mg/dL (0.2-1.0) Aspartate Amino Transferase (AST) 28 U/L (15-37) Alanine Aminotransferase (ALT) 31 U/L (14-59) Alkaline Phosphatase 88 U/L (46-116) Total Protein 6.5 g/dL (6.4-8.2) Albumin 3.3 g/dL (3.4-5.0) L Albumin/Globulin Ratio 1.0 (1.0-1.7) Current Medications: Meds: Laboratory Tests Test 01/04/21 06:28 White Blood Count 6.3 x10^3/uL Red Blood Count 3.75 x10^6/uL Hemoglobin 11.1 g/dL Hematocrit 33.7 % Mean Corpuscular Volume 90 fL Mean Corpuscular Hemoglobin 30 pg Mean Corpuscular Hemoglobin Concent 33 g/dL Red Cell Distribution Width 13.3 % Platelet Count 176 x10^3/uL Neutrophils (%) (Auto) 69 % Lymphocytes (%) (Auto) 14 % Monocytes (%) (Auto) 13 % Eosinophils (%) (Auto) 3 % Basophils (%) (Auto) 0 % Neutrophils # (Auto) 4.3 x10^3uL Lymphocytes # (Auto) 0.9 x10^3/uL Monocytes # (Auto) 0.8 x10^3/uL Eosinophils # (Auto) 0.2 x10^3/uL Basophils # (Auto) 0.0 x10^3/uL Sodium Level 141 mmol/L Potassium Level 5.3 mmol/L Chloride Level 107 mmol/L Carbon Dioxide Level 28 mmol/L Anion Gap 6 Blood Urea Nitrogen 22 mg/dL Creatinine 1.6 mg/dL Estimated GFR (Cockcroft-Gault) 31.7 BUN/Creatinine Ratio 14 Glucose Level 118 mg/dL Calcium Level 8.3 mg/dL Magnesium Level 2.5 mg/dL Total Bilirubin 0.9 mg/dL Aspartate Amino Transf (AST/SGOT) 28 U/L Alanine Aminotransferase (ALT/SGPT) 31 U/L Alkaline Phosphatase 88 U/L Total Protein 6.5 g/dL Albumin 3.3 g/dL Albumin/Globulin Ratio 1.0 Current Medications Medications (Trade) Dose Ordered Sig/Toño Route PRN Reason Start Time Stop Time Status Last Admin Dose Admin Acetaminophen (Tylenol) 650 mg PRN Q6HRS PRN PO MILD PAIN / TEMP > 100.3'F 12/24/20 16:45 Donepezil HCl (Aricept) 10 mg QHS PO 12/24/20 21:00 01/04/21 20:39 Lisinopril (Prinivil) 5 mg DAILY PO 12/25/20 09:00 01/04/21 08:22 Al Hydroxide/Mg Hydroxide (Mylanta Plus Xs) 15 ml PRN AFTMEALHC PRN PO DYSPEPSIA 12/24/20 16:45 Memantine (Namenda) 10 mg DAILY PO 12/25/20 09:00 12/27/20 13:12 DC 12/27/20 08:30 Olanzapine (ZyPREXA ZYDIS) 2.5 mg PRN Q2HR PRN PO ANXIETY / AGITATION 12/24/20 16:45 Pantoprazole Sodium (Protonix) 40 mg DAILY PO 12/25/20 09:00 01/04/21 08:22 Trazodone HCl (Desyrel) 50 mg HS PO 12/24/20 21:00 01/04/21 20:39 Trazodone HCl (Desyrel) 50 mg PRN QHS PRN PO INSOMNIA 12/24/20 16:45 Ascorbic Acid (Vitamin C) 500 mg DAILY PO 12/25/20 09:00 01/04/21 08:23 Calcium/Vitamin D (Oscal D 500mg/ 200uts) 1 tab BIDWMEALS PO 12/24/20 17:00 01/04/21 17:06 Citalopram Hydrobromide (CeleXA) 40 mg DAILY PO 12/25/20 09:00 12/27/20 13:12 DC 12/27/20 08:31 Magnesium Hydroxide (Milk Of Magnesia) 2,400 mg PRN QHS PRN PO CONSTIPATION 12/24/20 17:15 Multivitamins/ Calcium (Thera-M Plus) 1 tab DAILY PO 12/25/20 09:00 01/04/21 08:23 Fish Oil (Fish Oil) 1,000 mg DAILY PO 12/25/20 09:00 01/04/21 08:21 Vitamin D (Vitamin D3) 2,000 unit DAILY PO 12/25/20 09:00 01/04/21 08:21 Acetaminophen (Tylenol) 650 mg PRN Q6HRS PRN PO MILD PAIN / TEMP > 100.3'F 12/24/20 17:00 UNV Multi-Ingredient Ointment (Analgesic [place]) 1 micah PRN QID PRN TP MUSCLE PAIN 12/24/20 17:00 Al Hydroxide/Mg Hydroxide (Mylanta Plus Xs) 15 ml PRN AFTMEALHC PRN PO DYSPEPSIA 12/24/20 17:00 UNV Magnesium Hydroxide (Milk Of Magnesia) 2,400 mg PRN QHS PRN PO CONSTIPATION 12/24/20 17:00 UNV Buspirone HCl (Buspar) 10 mg BID PO 12/25/20 21:00 01/04/21 20:39 Memantine (Namenda) 10 mg BID PO 12/27/20 21:00 01/04/21 20:39 Sertraline HCl (Zoloft) 50 mg DAILY PO 12/28/20 09:00 12/29/20 18:49 DC 12/29/20 08:16 Sertraline HCl (Zoloft) 75 mg DAILY PO 12/30/20 09:00 01/04/21 08:22 Cetirizine HCl (ZyrTEC) 10 mg DAILY PO 01/04/21 09:00 01/06/21 10:00 01/04/21 08:22 Cetirizine HCl (ZyrTEC) 10 mg PRN DAILY PRN PO ALLERGIES 01/07/21 09:00 Pseudoephedrine HCl (Sudafed 12-Hour) 240 mg DAILY PO 01/04/21 09:00 01/06/21 10:00 01/04/21 08:21 Pseudoephedrine HCl (Sudafed 12-Hour) 240 mg PRN DAILY PRN PO NASAL CONGESTION 01/07/21 16:30 Current Medications Medications (Trade) Dose Ordered Sig/Toño Route PRN Reason Start Time Stop Time Status Last Admin Dose Admin Cetirizine HCl (ZyrTEC) 10 mg DAILY PO 01/04/21 09:00 01/06/21 10:00 01/04/21 08:22 Pseudoephedrine HCl (Sudafed 12-Hour) 240 mg DAILY PO 01/04/21 09:00 01/06/21 10:00 01/04/21 08:21 I have reviewed the current psychotropics carefully including drug interactions. Risk benefit ratio favors no change other than as noted in my dictated progress note. Diagnosis: Problems: (1) Dementia in Alzheimer's disease with delusions (2) Impulse control disorder, unspecified (3) Anxiety disorder, unspecified (4) Dementia, vascular, with depression (5) Dementia, vascular, with delusions (6) Dementia in Alzheimer's disease with depression (7) Major neurocognitive disorder (8) Dementia in Alzheimer's disease with early onset with behavioral disturbance (9) Mild cognitive impairment DIMITRIOS RANDALL MD Jan 04, 2021 21:56
--- NOTE | 2021-01-05 00:45 | NUR ---
Pt sitting in day room watching television and interacting with peers when approached. Pt calm, pleasantly confused, and social. Pt cooperative with assessment and compliant with medications administered whole.
[2021-01-05 06:12] VITALS: BP 130/59
--- NOTE | 2021-01-05 06:55 | PDOC ---
Exam Note: Tyler Note: This note is a late entry for 01/03/2021 covers elements not covered in my initial note. Subjective: The patient was seen individually in the evening of 01/03/2021 with Jessi MEDEL, discussed and reviewed the chart. The patient slept 7 hours previous night. She remains confused. Mood is improved, little more verbal, pleasant. Review of Systems: No CV, , pulmonary, eye, ENT system symptoms on review. Mental Status Exam: The patient is oriented to herself. Insight and judgment, recent and remote memory, attention and concentration, fund of knowledge is poor consistent with her diagnoses. Laboratory Data: Reviewed. Impression: Major neurocognitive disorder Alzheimer vascular with delusion, depression, behavioral disturbance. Anxiety disorder unspecified. Impulse control disorder unspecified. Plan: No change from initial note. Assessment: Vital Signs/I&O: Vital Signs Date Time Temp Pulse Resp B/P (MAP) Pulse Ox O2 Delivery O2 Flow Rate FiO2 01/05/21 06:12 98.4 70 18 130/59 (82) 96 Room Air I & O 01/04/21 01/04/21 01/05/21 15:00 23:00 07:00 Intake Total 840 ml 240 ml 120 ml Balance 840 ml 240 ml 120 ml Current Medications: Meds: Current Medications Medications (Trade) Dose Ordered Sig/Toño Route PRN Reason Start Time Stop Time Status Last Admin Dose Admin Acetaminophen (Tylenol) 650 mg PRN Q6HRS PRN PO MILD PAIN / TEMP > 100.3'F 12/24/20 16:45 Donepezil HCl (Aricept) 10 mg QHS PO 12/24/20 21:00 01/04/21 20:39 Lisinopril (Prinivil) 5 mg DAILY PO 12/25/20 09:00 01/04/21 08:22 Al Hydroxide/Mg Hydroxide (Mylanta Plus Xs) 15 ml PRN AFTMEALHC PRN PO DYSPEPSIA 12/24/20 16:45 Memantine (Namenda) 10 mg DAILY PO 12/25/20 09:00 12/27/20 13:12 DC 12/27/20 08:30 Olanzapine (ZyPREXA ZYDIS) 2.5 mg PRN Q2HR PRN PO ANXIETY / AGITATION 12/24/20 16:45 Pantoprazole Sodium (Protonix) 40 mg DAILY PO 12/25/20 09:00 01/04/21 08:22 Trazodone HCl (Desyrel) 50 mg HS PO 12/24/20 21:00 01/04/21 20:39 Trazodone HCl (Desyrel) 50 mg PRN QHS PRN PO INSOMNIA 12/24/20 16:45 Ascorbic Acid (Vitamin C) 500 mg DAILY PO 12/25/20 09:00 01/04/21 08:23 Calcium/Vitamin D (Oscal D 500mg/ 200uts) 1 tab BIDWMEALS PO 12/24/20 17:00 01/04/21 17:06 Citalopram Hydrobromide (CeleXA) 40 mg DAILY PO 12/25/20 09:00 12/27/20 13:12 DC 12/27/20 08:31 Magnesium Hydroxide (Milk Of Magnesia) 2,400 mg PRN QHS PRN PO CONSTIPATION 12/24/20 17:15 Multivitamins/ Calcium (Thera-M Plus) 1 tab DAILY PO 12/25/20 09:00 01/04/21 08:23 Fish Oil (Fish Oil) 1,000 mg DAILY PO 12/25/20 09:00 01/04/21 08:21 Vitamin D (Vitamin D3) 2,000 unit DAILY PO 12/25/20 09:00 01/04/21 08:21 Acetaminophen (Tylenol) 650 mg PRN Q6HRS PRN PO MILD PAIN / TEMP > 100.3'F 12/24/20 17:00 UNV Multi-Ingredient Ointment (Analgesic [place]) 1 micah PRN QID PRN TP MUSCLE PAIN 12/24/20 17:00 Al Hydroxide/Mg Hydroxide (Mylanta Plus Xs) 15 ml PRN AFTMEALHC PRN PO DYSPEPSIA 12/24/20 17:00 UNV Magnesium Hydroxide (Milk Of Magnesia) 2,400 mg PRN QHS PRN PO CONSTIPATION 12/24/20 17:00 UNV Buspirone HCl (Buspar) 10 mg BID PO 12/25/20 21:00 01/04/21 20:39 Memantine (Namenda) 10 mg BID PO 12/27/20 21:00 01/04/21 20:39 Sertraline HCl (Zoloft) 50 mg DAILY PO 12/28/20 09:00 12/29/20 18:49 DC 12/29/20 08:16 Sertraline HCl (Zoloft) 75 mg DAILY PO 12/30/20 09:00 01/04/21 08:22 Cetirizine HCl (ZyrTEC) 10 mg DAILY PO 01/04/21 09:00 01/06/21 10:00 01/04/21 08:22 Cetirizine HCl (ZyrTEC) 10 mg PRN DAILY PRN PO ALLERGIES 01/07/21 09:00 Pseudoephedrine HCl (Sudafed 12-Hour) 240 mg DAILY PO 01/04/21 09:00 01/06/21 10:00 01/04/21 08:21 Pseudoephedrine HCl (Sudafed 12-Hour) 240 mg PRN DAILY PRN PO NASAL CONGESTION 01/07/21 16:30 Current Medications Medications (Trade) Dose Ordered Sig/Toño Route PRN Reason Start Time Stop Time Status Last Admin Dose Admin Cetirizine HCl (ZyrTEC) 10 mg DAILY PO 01/04/21 09:00 01/06/21 10:00 01/04/21 08:22 Pseudoephedrine HCl (Sudafed 12-Hour) 240 mg DAILY PO 01/04/21 09:00 01/06/21 10:00 01/04/21 08:21 I have reviewed the current psychotropics carefully including drug interactions. Risk benefit ratio favors no change other than as noted in my dictated progress note. Diagnosis: Problems: (1) Dementia in Alzheimer's disease with delusions (2) Impulse control disorder, unspecified (3) Anxiety disorder, unspecified (4) Dementia, vascular, with depression (5) Dementia, vascular, with delusions (6) Dementia in Alzheimer's disease with depression (7) Major neurocognitive disorder (8) Dementia in Alzheimer's disease with early onset with behavioral disturbance (9) Mild cognitive impairment DIMITRIOS RANDALL MD Jan 05, 2021 06:54
--- NOTE | 2021-01-05 07:30 | PDOC ---
Exam Note: Tyler Note: This note is a late entry for 01/04/2021 covers elements not covered in my initial note. Subjective: The patient was reviewed in the morning of 01/04/2021 for a treatment team meeting with Nanette Pace, Ekta Chang and Pascale (social work assistant), Antoinette, activity therapy and Jessi MEDEL, discussed and reviewed the chart. The patient slept 9 hours previous night. 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 Review of Systems: No CV, , pulmonary, eye, ENT system symptoms on review. Mental Status Exam: The patient is oriented to herself. Insight and judgment, recent and remote memory, attention and concentration, fund of knowledge is poor consistent with her diagnoses. Laboratory Data: Reviewed. Impression: Major neurocognitive disorder Alzheimer vascular with delusion, depression, behavioral disturbance. Anxiety disorder unspecified. Impulse control disorder unspecified. Plan: No change from initial note. Assessment: Vital Signs/I&O: Vital Signs Date Time Temp Pulse Resp B/P (MAP) Pulse Ox O2 Delivery O2 Flow Rate FiO2 01/05/21 06:12 98.4 70 18 130/59 (82) 96 Room Air I & O 01/04/21 01/04/21 01/05/21 15:00 23:00 07:00 Intake Total 840 ml 240 ml 120 ml Balance 840 ml 240 ml 120 ml Current Medications: Meds: Current Medications Medications (Trade) Dose Ordered Sig/Toño Route PRN Reason Start Time Stop Time Status Last Admin Dose Admin Acetaminophen (Tylenol) 650 mg PRN Q6HRS PRN PO MILD PAIN / TEMP > 100.3'F 12/24/20 16:45 Donepezil HCl (Aricept) 10 mg QHS PO 12/24/20 21:00 01/04/21 20:39 Lisinopril (Prinivil) 5 mg DAILY PO 12/25/20 09:00 01/04/21 08:22 Al Hydroxide/Mg Hydroxide (Mylanta Plus Xs) 15 ml PRN AFTMEALHC PRN PO DYSPEPSIA 12/24/20 16:45 Memantine (Namenda) 10 mg DAILY PO 12/25/20 09:00 12/27/20 13:12 DC 12/27/20 08:30 Olanzapine (ZyPREXA ZYDIS) 2.5 mg PRN Q2HR PRN PO ANXIETY / AGITATION 12/24/20 16:45 Pantoprazole Sodium (Protonix) 40 mg DAILY PO 12/25/20 09:00 01/04/21 08:22 Trazodone HCl (Desyrel) 50 mg HS PO 12/24/20 21:00 01/04/21 20:39 Trazodone HCl (Desyrel) 50 mg PRN QHS PRN PO INSOMNIA 12/24/20 16:45 Ascorbic Acid (Vitamin C) 500 mg DAILY PO 12/25/20 09:00 01/04/21 08:23 Calcium/Vitamin D (Oscal D 500mg/ 200uts) 1 tab BIDWMEALS PO 12/24/20 17:00 01/04/21 17:06 Citalopram Hydrobromide (CeleXA) 40 mg DAILY PO 12/25/20 09:00 12/27/20 13:12 DC 12/27/20 08:31 Magnesium Hydroxide (Milk Of Magnesia) 2,400 mg PRN QHS PRN PO CONSTIPATION 12/24/20 17:15 Multivitamins/ Calcium (Thera-M Plus) 1 tab DAILY PO 12/25/20 09:00 01/04/21 08:23 Fish Oil (Fish Oil) 1,000 mg DAILY PO 12/25/20 09:00 01/04/21 08:21 Vitamin D (Vitamin D3) 2,000 unit DAILY PO 12/25/20 09:00 01/04/21 08:21 Acetaminophen (Tylenol) 650 mg PRN Q6HRS PRN PO MILD PAIN / TEMP > 100.3'F 12/24/20 17:00 UNV Multi-Ingredient Ointment (Analgesic [place]) 1 micah PRN QID PRN TP MUSCLE PAIN 12/24/20 17:00 Al Hydroxide/Mg Hydroxide (Mylanta Plus Xs) 15 ml PRN AFTMEALHC PRN PO DYSPEPSIA 12/24/20 17:00 UNV Magnesium Hydroxide (Milk Of Magnesia) 2,400 mg PRN QHS PRN PO CONSTIPATION 12/24/20 17:00 UNV Buspirone HCl (Buspar) 10 mg BID PO 12/25/20 21:00 01/04/21 20:39 Memantine (Namenda) 10 mg BID PO 12/27/20 21:00 01/04/21 20:39 Sertraline HCl (Zoloft) 50 mg DAILY PO 12/28/20 09:00 12/29/20 18:49 DC 12/29/20 08:16 Sertraline HCl (Zoloft) 75 mg DAILY PO 12/30/20 09:00 01/04/21 08:22 Cetirizine HCl (ZyrTEC) 10 mg DAILY PO 01/04/21 09:00 01/06/21 10:00 01/04/21 08:22 Cetirizine HCl (ZyrTEC) 10 mg PRN DAILY PRN PO ALLERGIES 01/07/21 09:00 Pseudoephedrine HCl (Sudafed 12-Hour) 240 mg DAILY PO 01/04/21 09:00 01/06/21 10:00 01/04/21 08:21 Pseudoephedrine HCl (Sudafed 12-Hour) 240 mg PRN DAILY PRN PO NASAL CONGESTION 01/07/21 16:30 Current Medications Medications (Trade) Dose Ordered Sig/Toño Route PRN Reason Start Time Stop Time Status Last Admin Dose Admin Cetirizine HCl (ZyrTEC) 10 mg DAILY PO 01/04/21 09:00 01/06/21 10:00 01/04/21 08:22 Pseudoephedrine HCl (Sudafed 12-Hour) 240 mg DAILY PO 01/04/21 09:00 01/06/21 10:00 01/04/21 08:21 I have reviewed the current psychotropics carefully including drug interactions. Risk benefit ratio favors no change other than as noted in my dictated progress note. Diagnosis: Problems: (1) Dementia in Alzheimer's disease with delusions (2) Impulse control disorder, unspecified (3) Anxiety disorder, unspecified (4) Dementia, vascular, with depression (5) Dementia, vascular, with delusions (6) Dementia in Alzheimer's disease with depression (7) Major neurocognitive disorder (8) Dementia in Alzheimer's disease with early onset with behavioral disturbance (9) Mild cognitive impairment DIMITRIOS RANDALL MD Jan 05, 2021 07:30
[2021-01-05] MEDS: PANTOPRAZOLE 40 MG TABLET. PO SCH (08:17)
[2021-01-05] MEDS: MEMANTINE 10 MG TABLET. PO SCH ×2 (08:17→20:54)
[2021-01-05] MEDS: CALCIUM CARB/VIT D3 500/200 TABLET PO SCH ×2 (08:17→17:05)
[2021-01-05] MEDS: MULTIVITAMIN with MINERAL TABLET. PO SCH (08:17)
[2021-01-05] MEDS: ASCORBIC ACID 500 MG TABLET PO SCH (08:17)
[2021-01-05] MEDS: CETIRIZINE HCL 10 MG TABLET PO SCH (08:17)
[2021-01-05] MEDS: OMEGA-3 FATTY ACIDS/FISH OIL 1,000 MG CAPSULE. PO SCH (08:18)
[2021-01-05] MEDS: busPIRone 10 MG TABLET. PO SCH ×2 (08:18→20:54)
[2021-01-05] MEDS: PSEUDOEPHEDRINE ER 120 MG TABLET.ER. PO SCH (08:18)
[2021-01-05] MEDS: SERTRALINE 50 MG TABLET. PO SCH (08:18)
[2021-01-05] MEDS: LISINOPRIL 5 MG TABLET. PO SCH (08:19)
[2021-01-05] MEDS: CHOLECALCIFEROL (VITAMIN D3) 1,000 UNIT TABLET PO SCH (08:19)
--- NOTE | 2021-01-05 09:15 | NUR ---
[facility] Social Work Discharge Planning Form Patient Name BETTY WASHINGTON Admit Date: 12/24/20 DISCHARGE PLAN Discharge Destination: [facility] Assessment: Previously completed Transportation: Family will transport on 01/06/21, pear picker 1-2pm. Special Instructions/Notes: Betty has an appointment with Della Kumar, psychiatrist, on 02/10/21 at 3pm. Della Kumar's office is located in the [facility] located at [address] [address]. Betty has an appointment with Dr. Gibbs, PCP, on 01/17/21 at 1pm. DISCHARGE TO FACILITY Facility: [facility] Address: [address] [address] Contact Name: Janell Miranda, Life Director Digital Marketing PCP: Dr. Gibbs [phone], (fax) Psychiatrist: Della Kumar [phone], (fax)
[2021-01-05 15:34] VITALS: BP 138/85
--- NOTE | 2021-01-05 18:15 | NUR ---
Patient social med compliant and pleasant. Patient is disorganized alert to self and familiar patients from her current facility, [facility] unit independently has some confusion, patient does not have a large appetite but could be due to her prior gastric bypass surgery that may prevent large intake of food. Patient potassium increasing which may have been due to the lisinopril Dr Machado rounded on patient and D/C the lisinopril Dr Perry rounded as well no new orders. No complaints of pain or discomfort to report vitals wnl of baseline and stable will continue to monitor patient.
[2021-01-05] MEDS: DONEPEZIL HCL 10 MG TABLET PO SCH (20:54)
[2021-01-05] MEDS: traZODone 50 MG TABLET. PO SCH (20:54)
--- NOTE | 2021-01-05 22:05 | PDOC ---
Exam Note: Tyler Note: Please also refer to the separate dictated note~for this date of service dictated separately.~Patient seen individually. Discussed the patient with Nursing staff reviewed the chart.~Reviewed interim history and current functioning. Reviewed vital signs,~Labs/ Radiology~and current medications noted below. Continue current treatment with the changes noted in the dictated addendum note Assessment: Vital Signs/I&O: Vital Signs Date Time Temp Pulse Resp B/P (MAP) Pulse Ox O2 Delivery O2 Flow Rate FiO2 01/05/21 15:34 98.0 91 20 138/85 (102) 97 01/05/21 06:12 Room Air I & O 01/04/21 01/04/21 01/05/21 15:00 23:00 07:00 Intake Total 840 ml 240 ml 120 ml Balance 840 ml 240 ml 120 ml Current Medications: Meds: Current Medications Medications (Trade) Dose Ordered Sig/Toño Route PRN Reason Start Time Stop Time Status Last Admin Dose Admin Acetaminophen (Tylenol) 650 mg PRN Q6HRS PRN PO MILD PAIN / TEMP > 100.3'F 12/24/20 16:45 Donepezil HCl (Aricept) 10 mg QHS PO 12/24/20 21:00 01/05/21 20:54 Lisinopril (Prinivil) 5 mg DAILY PO 12/25/20 09:00 01/05/21 17:38 DC 01/05/21 08:19 Al Hydroxide/Mg Hydroxide (Mylanta Plus Xs) 15 ml PRN AFTMEALHC PRN PO DYSPEPSIA 12/24/20 16:45 Memantine (Namenda) 10 mg DAILY PO 12/25/20 09:00 12/27/20 13:12 DC 12/27/20 08:30 Olanzapine (ZyPREXA ZYDIS) 2.5 mg PRN Q2HR PRN PO ANXIETY / AGITATION 12/24/20 16:45 Pantoprazole Sodium (Protonix) 40 mg DAILY PO 12/25/20 09:00 01/05/21 08:17 Trazodone HCl (Desyrel) 50 mg HS PO 12/24/20 21:00 01/05/21 20:54 Trazodone HCl (Desyrel) 50 mg PRN QHS PRN PO INSOMNIA 12/24/20 16:45 Ascorbic Acid (Vitamin C) 500 mg DAILY PO 12/25/20 09:00 01/05/21 08:17 Calcium/Vitamin D (Oscal D 500mg/ 200uts) 1 tab BIDWMEALS PO 12/24/20 17:00 01/05/21 17:05 Citalopram Hydrobromide (CeleXA) 40 mg DAILY PO 12/25/20 09:00 12/27/20 13:12 DC 12/27/20 08:31 Magnesium Hydroxide (Milk Of Magnesia) 2,400 mg PRN QHS PRN PO CONSTIPATION 12/24/20 17:15 Multivitamins/ Calcium (Thera-M Plus) 1 tab DAILY PO 12/25/20 09:00 01/05/21 08:17 Fish Oil (Fish Oil) 1,000 mg DAILY PO 12/25/20 09:00 01/05/21 08:18 Vitamin D (Vitamin D3) 2,000 unit DAILY PO 12/25/20 09:00 01/05/21 08:19 Acetaminophen (Tylenol) 650 mg PRN Q6HRS PRN PO MILD PAIN / TEMP > 100.3'F 12/24/20 17:00 UNV Multi-Ingredient Ointment (Analgesic [place]) 1 micah PRN QID PRN TP MUSCLE PAIN 12/24/20 17:00 Al Hydroxide/Mg Hydroxide (Mylanta Plus Xs) 15 ml PRN AFTMEALHC PRN PO DYSPEPSIA 12/24/20 17:00 UNV Magnesium Hydroxide (Milk Of Magnesia) 2,400 mg PRN QHS PRN PO CONSTIPATION 12/24/20 17:00 UNV Buspirone HCl (Buspar) 10 mg BID PO 12/25/20 21:00 01/05/21 20:54 Memantine (Namenda) 10 mg BID PO 12/27/20 21:00 01/05/21 20:54 Sertraline HCl (Zoloft) 50 mg DAILY PO 12/28/20 09:00 12/29/20 18:49 DC 12/29/20 08:16 Sertraline HCl (Zoloft) 75 mg DAILY PO 12/30/20 09:00 01/05/21 08:18 Cetirizine HCl (ZyrTEC) 10 mg DAILY PO 01/04/21 09:00 01/06/21 10:00 01/05/21 08:17 Cetirizine HCl (ZyrTEC) 10 mg PRN DAILY PRN PO ALLERGIES 01/07/21 09:00 Pseudoephedrine HCl (Sudafed 12-Hour) 240 mg DAILY PO 01/04/21 09:00 01/06/21 10:00 01/05/21 08:18 Pseudoephedrine HCl (Sudafed 12-Hour) 240 mg PRN DAILY PRN PO NASAL CONGESTION 01/07/21 16:30 I have reviewed the current psychotropics carefully including drug interactions. Risk benefit ratio favors no change other than as noted in my dictated progress note. Diagnosis: Problems: (1) Dementia in Alzheimer's disease with delusions (2) Impulse control disorder, unspecified (3) Anxiety disorder, unspecified (4) Dementia, vascular, with depression (5) Dementia, vascular, with delusions (6) Dementia in Alzheimer's disease with depression (7) Major neurocognitive disorder (8) Dementia in Alzheimer's disease with early onset with behavioral disturbance (9) Mild cognitive impairment DIMITRIOS RANDALL MD Jan 05, 2021 22:05
[2021-01-06] MEDS ORDERED: CETI10TA16 PO ×2 (02:13→02:14)
[2021-01-06] MEDS ORDERED: PSEU120T58 PO ×2 (02:15→02:25)
[2021-01-06] MEDS ORDERED: SERT50TA PO (02:28)
[2021-01-06] MEDS ORDERED: BUSP10TA PO (02:30)
[2021-01-06] MEDS ORDERED: CHOL10004 PO (02:33)
[2021-01-06] MEDS ORDERED: METH57CR17 TP (02:44)
--- NOTE | 2021-01-06 03:38 | NUR ---
Nursing Note Pt pleasant and cooperative, compliant with meds. No behaviors this pm, was in bed during assessment.
[2021-01-06 06:13] VITALS: BP 141/79
[2021-01-06] MEDS: OMEGA-3 FATTY ACIDS/FISH OIL 1,000 MG CAPSULE. PO SCH (08:40)
[2021-01-06] MEDS: PANTOPRAZOLE 40 MG TABLET. PO SCH (08:40)
[2021-01-06] MEDS: PSEUDOEPHEDRINE ER 120 MG TABLET.ER. PO SCH (08:40)
[2021-01-06] MEDS: ASCORBIC ACID 500 MG TABLET PO SCH (08:40)
[2021-01-06] MEDS: MEMANTINE 10 MG TABLET. PO SCH (08:40)
[2021-01-06] MEDS: MULTIVITAMIN with MINERAL TABLET. PO SCH (08:40)
[2021-01-06] MEDS: CHOLECALCIFEROL (VITAMIN D3) 1,000 UNIT TABLET PO SCH (08:40)
[2021-01-06] MEDS: SERTRALINE 50 MG TABLET. PO SCH (08:41)
[2021-01-06] MEDS: CALCIUM CARB/VIT D3 500/200 TABLET PO SCH (08:41)
[2021-01-06] MEDS: busPIRone 10 MG TABLET. PO SCH (08:41)
[2021-01-06] MEDS: CETIRIZINE HCL 10 MG TABLET PO SCH (08:41)
--- NOTE | 2021-01-06 11:50 | NUR ---
Transition Record was faxed to follow-up provider with the following elements: Padmini Field Reason for admission, procedures, tests, principal diagnosis, pending studies, patient instructions, 26/02 contact information for unit, phone number to obtain pending test results, plan for follow-up care, physician follow-up, advanced directive information, and medication list with dose, duration and instructions. This information was included in the following documents: History and physical, lab results, study results, progress notes, social work planning form, DC instruction form, patient visit summary, and medication reconciliation form. Date & time record faxed: 01/06/21@0359; 01/06/21@0356 Record faxed to: Della Kumar [phone] & Padmini Field [phone] Record discussed with/ report given to: Anat [phone]
[2021-01-06 13:33] LABS: CALCIUM 9.2 mg/dL (8.5-10.1); CREATININE 1.4 mg/dL (0.6-1.0); POTASSIUM 4.7 mmol/L (3.5-5.1)
--- NOTE | 2021-01-06 22:09 | PDOC ---
Exam Note: Tyler Note: Please also refer to the separate dictated note~for this date of service dictated separately.~Patient seen individually. Discussed the patient with Nursing staff reviewed the chart.~Reviewed interim history and current functioning. Reviewed vital signs,~Labs/ Radiology~and current medications noted below. Continue current treatment with the changes noted in the dictated addendum note Assessment: Vital Signs/I&O: Vital Signs Date Time Temp Pulse Resp B/P (MAP) Pulse Ox O2 Delivery O2 Flow Rate FiO2 01/06/21 06:13 96.8 71 20 141/79 (99) 99 Room Air I & O 01/05/21 01/05/21 01/06/21 15:00 23:00 07:00 Intake Total 720 ml 360 ml Balance 720 ml 360 ml Labs: Laboratory Tests Test 01/06/21 11:38 Sodium Level 140 mmol/L (136-145) Potassium Level 4.7 mmol/L (3.5-5.1) Chloride Level 104 mmol/L (98-107) Carbon Dioxide Level 26 mmol/L (21-32) Anion Gap 10 (6-14) Blood Urea Nitrogen 21 mg/dL (7-20) H Creatinine 1.4 mg/dL (0.6-1.0) H Estimated GFR (Cockcroft-Gault) 37.0 Glucose Level 81 mg/dL (70-99) Calcium Level 9.2 mg/dL (8.5-10.1) Current Medications: Meds: Laboratory Tests Test 01/06/21 11:38 Sodium Level 140 mmol/L Potassium Level 4.7 mmol/L Chloride Level 104 mmol/L Carbon Dioxide Level 26 mmol/L Anion Gap 10 Blood Urea Nitrogen 21 mg/dL Creatinine 1.4 mg/dL Estimated GFR (Cockcroft-Gault) 37.0 Glucose Level 81 mg/dL Calcium Level 9.2 mg/dL Current Medications Medications (Trade) Dose Ordered Sig/Toño Route PRN Reason Start Time Stop Time Status Last Admin Dose Admin Acetaminophen (Tylenol) 650 mg PRN Q6HRS PRN PO MILD PAIN / TEMP > 100.3'F 12/24/20 16:45 01/06/21 13:45 DC Donepezil HCl (Aricept) 10 mg QHS PO 12/24/20 21:00 01/06/21 13:45 DC 01/05/21 20:54 Lisinopril (Prinivil) 5 mg DAILY PO 12/25/20 09:00 01/05/21 17:38 DC 01/05/21 08:19 Al Hydroxide/Mg Hydroxide (Mylanta Plus Xs) 15 ml PRN AFTMEALHC PRN PO DYSPEPSIA 12/24/20 16:45 01/06/21 13:45 DC Memantine (Namenda) 10 mg DAILY PO 12/25/20 09:00 12/27/20 13:12 DC 12/27/20 08:30 Olanzapine (ZyPREXA ZYDIS) 2.5 mg PRN Q2HR PRN PO ANXIETY / AGITATION 12/24/20 16:45 01/06/21 13:45 DC Pantoprazole Sodium (Protonix) 40 mg DAILY PO 12/25/20 09:00 01/06/21 13:45 DC 01/06/21 08:40 Trazodone HCl (Desyrel) 50 mg HS PO 12/24/20 21:00 01/06/21 13:45 DC 01/05/21 20:54 Trazodone HCl (Desyrel) 50 mg PRN QHS PRN PO INSOMNIA 12/24/20 16:45 01/06/21 13:45 DC Ascorbic Acid (Vitamin C) 500 mg DAILY PO 12/25/20 09:00 01/06/21 13:45 DC 01/06/21 08:40 Calcium/Vitamin D (Oscal D 500mg/ 200uts) 1 tab BIDWMEALS PO 12/24/20 17:00 01/06/21 13:45 DC 01/06/21 08:41 Citalopram Hydrobromide (CeleXA) 40 mg DAILY PO 12/25/20 09:00 12/27/20 13:12 DC 12/27/20 08:31 Magnesium Hydroxide (Milk Of Magnesia) 2,400 mg PRN QHS PRN PO CONSTIPATION 12/24/20 17:15 01/06/21 13:45 DC Multivitamins/ Calcium (Thera-M Plus) 1 tab DAILY PO 12/25/20 09:00 01/06/21 13:45 DC 01/06/21 08:40 Fish Oil (Fish Oil) 1,000 mg DAILY PO 12/25/20 09:00 01/06/21 13:45 DC 01/06/21 08:40 Vitamin D (Vitamin D3) 2,000 unit DAILY PO 12/25/20 09:00 01/06/21 13:45 DC 01/06/21 08:40 Acetaminophen (Tylenol) 650 mg PRN Q6HRS PRN PO MILD PAIN / TEMP > 100.3'F 12/24/20 17:00 UNV Multi-Ingredient Ointment (Analgesic [place]) 1 micah PRN QID PRN TP MUSCLE PAIN 12/24/20 17:00 01/06/21 13:45 DC Al Hydroxide/Mg Hydroxide (Mylanta Plus Xs) 15 ml PRN AFTMEALHC PRN PO DYSPEPSIA 12/24/20 17:00 UNV Magnesium Hydroxide (Milk Of Magnesia) 2,400 mg PRN QHS PRN PO CONSTIPATION 12/24/20 17:00 UNV Buspirone HCl (Buspar) 10 mg BID PO 12/25/20 21:00 01/06/21 13:45 DC 01/06/21 08:41 Memantine (Namenda) 10 mg BID PO 12/27/20 21:00 01/06/21 13:45 DC 01/06/21 08:40 Sertraline HCl (Zoloft) 50 mg DAILY PO 12/28/20 09:00 12/29/20 18:49 DC 12/29/20 08:16 Sertraline HCl (Zoloft) 75 mg DAILY PO 12/30/20 09:00 01/06/21 13:45 DC 01/06/21 08:41 Cetirizine HCl (ZyrTEC) 10 mg DAILY PO 01/04/21 09:00 01/06/21 10:00 DC 01/06/21 08:41 Cetirizine HCl (ZyrTEC) 10 mg PRN DAILY PRN PO ALLERGIES 01/07/21 09:00 01/06/21 13:45 DC Pseudoephedrine HCl (Sudafed 12-Hour) 240 mg DAILY PO 01/04/21 09:00 01/06/21 10:00 DC 01/06/21 08:40 Pseudoephedrine HCl (Sudafed 12-Hour) 240 mg PRN DAILY PRN PO NASAL CONGESTION 01/07/21 16:30 01/06/21 13:45 DC I have reviewed the current psychotropics carefully including drug interactions. Risk benefit ratio favors no change other than as noted in my dictated progress note. Diagnosis: Problems: (1) Dementia in Alzheimer's disease with delusions (2) Impulse control disorder, unspecified (3) Anxiety disorder, unspecified (4) Dementia, vascular, with depression (5) Dementia, vascular, with delusions (6) Dementia in Alzheimer's disease with depression (7) Major neurocognitive disorder (8) Dementia in Alzheimer's disease with early onset with behavioral disturbance (9) Mild cognitive impairment DIMITRIOS RANDALL MD Jan 06, 2021 22:09
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
[2021-01-07] MEDS ORDERED: CETIRIZINE HCL 10 MG TABLET PO PRN (09:00)
--- NOTE | 2021-01-07 09:27 | PDOC ---
Exam Note: Tyler Note: This note is a late entry for 01/05/2021 covers elements not covered in my initial note. Subjective: The patient was seen individually in the evening of 01/05/2021 with Pete MEDEL, discussed and reviewed the chart. The patient slept 6-3/4 hours previous night. 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 Review of Systems: No CV, , pulmonary, eye, ENT system symptoms on review. Mental Status Exam: The patient is oriented to herself. She is verbal, interactive as I met with her, smiling. Insight and judgment, recent and remote memory, attention and concentration, fund of knowledge is poor consistent with her diagnoses. Laboratory Data: Reviewed. Impression: Major neurocognitive disorder Alzheimer vascular with delusion, depression, behavioral disturbance. Anxiety disorder unspecified. Impulse control disorder unspecified. Plan: No change from initial note. Assessment: Vital Signs/I&O: Vital Signs Date Time Temp Pulse Resp B/P (MAP) Pulse Ox O2 Delivery O2 Flow Rate FiO2 01/06/21 06:13 96.8 71 20 141/79 (99) 99 Room Air I & O 01/06/21 01/06/21 01/07/21 15:00 23:00 07:00 Intake Total 480 ml Balance 480 ml Labs: Laboratory Tests Test 01/06/21 11:38 Sodium Level 140 mmol/L (136-145) Potassium Level 4.7 mmol/L (3.5-5.1) Chloride Level 104 mmol/L (98-107) Carbon Dioxide Level 26 mmol/L (21-32) Anion Gap 10 (6-14) Blood Urea Nitrogen 21 mg/dL (7-20) H Creatinine 1.4 mg/dL (0.6-1.0) H Estimated GFR (Cockcroft-Gault) 37.0 Glucose Level 81 mg/dL (70-99) Calcium Level 9.2 mg/dL (8.5-10.1) Current Medications: Meds: Laboratory Tests Test 01/06/21 11:38 Sodium Level 140 mmol/L Potassium Level 4.7 mmol/L Chloride Level 104 mmol/L Carbon Dioxide Level 26 mmol/L Anion Gap 10 Blood Urea Nitrogen 21 mg/dL Creatinine 1.4 mg/dL Estimated GFR (Cockcroft-Gault) 37.0 Glucose Level 81 mg/dL Calcium Level 9.2 mg/dL Current Medications Medications (Trade) Dose Ordered Sig/Toño Route PRN Reason Start Time Stop Time Status Last Admin Dose Admin Acetaminophen (Tylenol) 650 mg PRN Q6HRS PRN PO MILD PAIN / TEMP > 100.3'F 12/24/20 16:45 01/06/21 13:45 DC Donepezil HCl (Aricept) 10 mg QHS PO 12/24/20 21:00 01/06/21 13:45 DC 01/05/21 20:54 Lisinopril (Prinivil) 5 mg DAILY PO 12/25/20 09:00 01/05/21 17:38 DC 01/05/21 08:19 Al Hydroxide/Mg Hydroxide (Mylanta Plus Xs) 15 ml PRN AFTMEALHC PRN PO DYSPEPSIA 12/24/20 16:45 01/06/21 13:45 DC Memantine (Namenda) 10 mg DAILY PO 12/25/20 09:00 12/27/20 13:12 DC 12/27/20 08:30 Olanzapine (ZyPREXA ZYDIS) 2.5 mg PRN Q2HR PRN PO ANXIETY / AGITATION 12/24/20 16:45 01/06/21 13:45 DC Pantoprazole Sodium (Protonix) 40 mg DAILY PO 12/25/20 09:00 01/06/21 13:45 DC 01/06/21 08:40 Trazodone HCl (Desyrel) 50 mg HS PO 12/24/20 21:00 01/06/21 13:45 DC 01/05/21 20:54 Trazodone HCl (Desyrel) 50 mg PRN QHS PRN PO INSOMNIA 12/24/20 16:45 01/06/21 13:45 DC Ascorbic Acid (Vitamin C) 500 mg DAILY PO 12/25/20 09:00 01/06/21 13:45 DC 01/06/21 08:40 Calcium/Vitamin D (Oscal D 500mg/ 200uts) 1 tab BIDWMEALS PO 12/24/20 17:00 01/06/21 13:45 DC 01/06/21 08:41 Citalopram Hydrobromide (CeleXA) 40 mg DAILY PO 12/25/20 09:00 12/27/20 13:12 DC 12/27/20 08:31 Magnesium Hydroxide (Milk Of Magnesia) 2,400 mg PRN QHS PRN PO CONSTIPATION 12/24/20 17:15 01/06/21 13:45 DC Multivitamins/ Calcium (Thera-M Plus) 1 tab DAILY PO 12/25/20 09:00 01/06/21 13:45 DC 01/06/21 08:40 Fish Oil (Fish Oil) 1,000 mg DAILY PO 12/25/20 09:00 01/06/21 13:45 DC 01/06/21 08:40 Vitamin D (Vitamin D3) 2,000 unit DAILY PO 12/25/20 09:00 01/06/21 13:45 DC 01/06/21 08:40 Acetaminophen (Tylenol) 650 mg PRN Q6HRS PRN PO MILD PAIN / TEMP > 100.3'F 12/24/20 17:00 UNV Multi-Ingredient Ointment (Analgesic [place]) 1 micah PRN QID PRN TP MUSCLE PAIN 12/24/20 17:00 01/06/21 13:45 DC Al Hydroxide/Mg Hydroxide (Mylanta Plus Xs) 15 ml PRN AFTMEALHC PRN PO DYSPEPSIA 12/24/20 17:00 UNV Magnesium Hydroxide (Milk Of Magnesia) 2,400 mg PRN QHS PRN PO CONSTIPATION 12/24/20 17:00 UNV Buspirone HCl (Buspar) 10 mg BID PO 12/25/20 21:00 01/06/21 13:45 DC 01/06/21 08:41 Memantine (Namenda) 10 mg BID PO 12/27/20 21:00 01/06/21 13:45 DC 01/06/21 08:40 Sertraline HCl (Zoloft) 50 mg DAILY PO 12/28/20 09:00 12/29/20 18:49 DC 12/29/20 08:16 Sertraline HCl (Zoloft) 75 mg DAILY PO 12/30/20 09:00 01/06/21 13:45 DC 01/06/21 08:41 Cetirizine HCl (ZyrTEC) 10 mg DAILY PO 01/04/21 09:00 01/06/21 10:00 DC 01/06/21 08:41 Cetirizine HCl (ZyrTEC) 10 mg PRN DAILY PRN PO ALLERGIES 01/07/21 09:00 01/06/21 13:45 DC Pseudoephedrine HCl (Sudafed 12-Hour) 240 mg DAILY PO 01/04/21 09:00 01/06/21 10:00 DC 01/06/21 08:40 Pseudoephedrine HCl (Sudafed 12-Hour) 240 mg PRN DAILY PRN PO NASAL CONGESTION 01/07/21 16:30 01/06/21 13:45 DC I have reviewed the current psychotropics carefully including drug interactions. Risk benefit ratio favors no change other than as noted in my dictated progress note. Diagnosis: Problems: (1) Dementia in Alzheimer's disease with delusions (2) Impulse control disorder, unspecified (3) Anxiety disorder, unspecified (4) Dementia, vascular, with depression (5) Dementia, vascular, with delusions (6) Dementia in Alzheimer's disease with depression (7) Major neurocognitive disorder (8) Dementia in Alzheimer's disease with early onset with behavioral disturbance (9) Mild cognitive impairment DIMITRIOS RANDALL MD Jan 07, 2021 09:27
[2021-01-07] MEDS ORDERED: PSEUDOEPHEDRINE ER 120 MG TABLET.ER. PO PRN (16:30)
== END 2021-01-06 13:44 | DRG 57 ==
LOC: ER 13:59 → GEROPSY 16:30
PROVIDERS: ADMIT Psychiatry & Neurology Psychiatry; ATTEND Psychiatry & Neurology Psychiatry
DX: G30.9 Alzheimer's disease, unspecified (principal); F01.50 Vascular dementia, unspecified severity, without behavioral disturbance, psychotic disturbance, mood disturbance, and anxiety; R45.851 Suicidal ideations; F02.80 Dementia in other diseases classified elsewhere, unspecified severity, without behavioral disturbance, psychotic disturbance, mood disturbance, and anxiety; F32.9 Major depressive disorder, single episode, unspecified; E78.5 Hyperlipidemia, unspecified; E03.9 Hypothyroidism, unspecified; F41.9 Anxiety disorder, unspecified; F63.9 Impulse disorder, unspecified; I10 Essential (primary) hypertension; Z79.899 Other long term (current) drug therapy; E55.9 Vitamin D deficiency, unspecified; K21.9 Gastro-esophageal reflux disease without esophagitis
CPT/HCPCS: 36415; 71045; 80048; 80053; 80061; 80307; 81001; 82306; 82607; 83036; 83540; 83550; 83735; 84436; 84443; 84480; 84484; 85025; 85379; 86592; 87086; 93005; G0480; 99291-25

== ENCOUNTER 2021-01-20 13:25 | Inpatient (IN) | payer MEDICARE, BC ==
[~2021-01-20] VITALS: Ht 165.1 cm; Wt 75.6 kg
[~2021-01-20 13:25] MED LIST changes: +BUSP10TA PO; +CETI10TA16 PO; +ESCITALOPRAM OX20 MG PO; +PANT40TA6 PO; +PSEU120T58 PO; +SERT50TA PO
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
[2021-01-20 14:08] LABS: CLARITY,URINE CLEAR; COLOR,URINE YELLOW
[2021-01-20 14:09] LABS: BILIRUBIN,URINE NEG (NEG); GLUCOSE,URINE NEG (NEG); NITRITE,URINE NEG (NEG); UROBILINOGEN,URINE 0.2 mg/dL (0.2 mg/dL)
[2021-01-20 14:12] LABS: BACTERIA,URINE FEW /HPF (0-FEW); RBC,URINE 0 /HPF (0-2); SQUAMOUS EPITHELIAL CELL,UR OCC /LPF
[2021-01-20 14:19] LABS: BASO % 0 % (0-3); EOS # 0.1 x10^3/uL (0.0-0.7); EOS % 2 % (0-3); HEMATOCRIT 34.2 % (36.0-47.0); HEMOGLOBIN 11.2 g/dL (12.0-15.5); LYMPH # 1.3 x10^3/uL (1.0-4.8); LYMPH % 17 % (24-48); MEAN CORPUSCULAR HEMOGLOBIN 30 pg (25-35); MEAN CORPUSCULAR HGB CONC 33 g/dL (31-37); MEAN CORPUSCULAR VOLUME 90 fL (79-100); MONO # 0.6 x10^3/uL (0.0-1.1); MONO % 8 % (0-9); NEUT # 5.5 x10^3uL (1.8-7.7); NEUT % 73 % (31-73); PLATELET COUNT 242 x10^3/uL (140-400); RED BLOOD COUNT 3.81 x10^6/uL (3.50-5.40); RED CELL DISTRIBUTION WIDTH 13.2 % (11.5-14.5); WHITE BLOOD COUNT 7.6 x10^3/uL (4.0-11.0)
[2021-01-20 15:13] LABS: CALCIUM 8.5 mg/dL (8.5-10.1); CREATININE 1.4 mg/dL (0.6-1.0); POTASSIUM 4.7 mmol/L (3.5-5.1)
[2021-01-20 15:22] LABS: ALBUMIN 3.2 g/dL (3.4-5.0); MAGNESIUM 2.3 mg/dL (1.8-2.4); TOTAL BILIRUBIN 0.4 mg/dL (0.2-1.0); TOTAL PROTEIN 6.3 g/dL (6.4-8.2)
[2021-01-20] MEDS ORDERED: BENZ-8 PO (16:34)
[2021-01-20] MEDS ORDERED: LISI-517 PO (16:34)
[2021-01-20 17:00] VITALS: BP 167/70
[2021-01-20] MEDS ORDERED: CETIRIZINE HCL 10 MG TABLET PO PRN (18:00)
[2021-01-20] MEDS ORDERED: PSEUDOEPHEDRINE ER 120 MG TABLET.ER. PO PRN (18:00)
[2021-01-20] MEDS ORDERED: BENZONATATE 100 MG CAPSULE. PO PRN (18:00)
[2021-01-20] MEDS ORDERED: METHYL SALICYLATE/MENTHOL TOPICAL OINTMENT 57GM TUBE. TP PRN (18:00)
[2021-01-20] MEDS ORDERED: MAG HYDROX/AL HYDROX/SIMETH 30 ML ORAL.SUSP PO PRN (18:00)
[2021-01-20] MEDS ORDERED: traZODone 50 MG TABLET. PO PRN (18:00)
[2021-01-20] MEDS ORDERED: MAGNESIUM HYDROXIDE 2,400 MG/30 ML ORAL.SUSP. PO PRN (18:30)
[2021-01-20] MEDS: DONEPEZIL HCL 10 MG TABLET PO SCH (20:13)
[2021-01-20] MEDS: busPIRone 10 MG TABLET. PO SCH (20:13)
[2021-01-20] MEDS: MEMANTINE 10 MG TABLET. PO SCH (20:13)
[2021-01-20] MEDS: traZODone 50 MG TABLET. PO SCH (20:14)
--- NOTE | 2021-01-20 22:04 | PDOC ---
Exam Note: Tyler Note: Please also refer to the separate dictated note~for this date of service dictated separately.~Patient seen individually. Discussed the patient with Nursing staff reviewed the chart.~Reviewed interim history and current functioning. Reviewed vital signs,~Labs/ Radiology~and current medications noted below. Continue current treatment with the changes noted in the dictated addendum note Assessment: Vital Signs/I&O: Vital Signs Date Time Temp Pulse Resp B/P (MAP) Pulse Ox O2 Delivery O2 Flow Rate FiO2 01/20/21 17:00 97.4 89 14 167/70 (102) 97 Room Air Labs: Laboratory Tests Test 01/20/21 13:40 01/20/21 13:53 Urine Collection Type Unknown Urine Color Yellow Urine Clarity Clear Urine pH 6.5 Urine Specific [place] 1.010 Urine Protein Neg (NEG-TRACE) Urine Glucose (UA) Neg mg/dL (NEG) Urine Ketones (Stick) Neg mg/dL (NEG) Urine Blood Neg (NEG) Urine Nitrite Neg (NEG) Urine Bilirubin Neg (NEG) Urine Urobilinogen Dipstick 0.2 mg/dL (0.2 mg/dL) Urine Leukocyte Esterase Trace (NEG) Urine RBC 0 /HPF (0-2) Urine WBC 1-4 /HPF (0-4) Urine Squamous Epithelial Cells Occ /LPF Urine Bacteria Few /HPF (0-FEW) White Blood Count 7.6 x10^3/uL (4.0-11.0) Red Blood Count 3.81 x10^6/uL (3.50-5.40) Hemoglobin 11.2 g/dL (12.0-15.5) L Hematocrit 34.2 % (36.0-47.0) L Mean Corpuscular Volume 90 fL (79-100) Mean Corpuscular Hemoglobin 30 pg (25-35) Mean Corpuscular Hemoglobin Concent 33 g/dL (31-37) Red Cell Distribution Width 13.2 % (11.5-14.5) Platelet Count 242 x10^3/uL (140-400) Neutrophils (%) (Auto) 73 % (31-73) Lymphocytes (%) (Auto) 17 % (24-48) L Monocytes (%) (Auto) 8 % (0-9) Eosinophils (%) (Auto) 2 % (0-3) Basophils (%) (Auto) 0 % (0-3) Neutrophils # (Auto) 5.5 x10^3uL (1.8-7.7) Lymphocytes # (Auto) 1.3 x10^3/uL (1.0-4.8) Monocytes # (Auto) 0.6 x10^3/uL (0.0-1.1) Eosinophils # (Auto) 0.1 x10^3/uL (0.0-0.7) Basophils # (Auto) 0.0 x10^3/uL (0.0-0.2) Sodium Level 137 mmol/L (136-145) Potassium Level 4.7 mmol/L (3.5-5.1) Chloride Level 101 mmol/L (98-107) Carbon Dioxide Level 28 mmol/L (21-32) Anion Gap 8 (6-14) Blood Urea Nitrogen 16 mg/dL (7-20) Creatinine 1.4 mg/dL (0.6-1.0) H Estimated GFR (Cockcroft-Gault) 37.0 BUN/Creatinine Ratio 11 (6-20) Glucose Level 106 mg/dL (70-99) H Calcium Level 8.5 mg/dL (8.5-10.1) Magnesium Level 2.3 mg/dL (1.8-2.4) Total Bilirubin 0.4 mg/dL (0.2-1.0) Aspartate Amino Transferase (AST) 24 U/L (15-37) Alanine Aminotransferase (ALT) 31 U/L (14-59) Alkaline Phosphatase 84 U/L (46-116) Total Protein 6.3 g/dL (6.4-8.2) L Albumin 3.2 g/dL (3.4-5.0) L Albumin/Globulin Ratio 1.0 (1.0-1.7) Current Medications: Meds: Current Medications Medications (Trade) Dose Ordered Sig/Toño Route PRN Reason Start Time Stop Time Status Last Admin Dose Admin Buspirone HCl (Buspar) 10 mg BID PO 01/20/21 21:00 01/20/21 20:13 Donepezil HCl (Aricept) 10 mg QHS PO 01/20/21 21:00 01/20/21 20:13 Memantine (Namenda) 10 mg BID PO 01/20/21 21:00 01/20/21 20:13 Trazodone HCl (Desyrel) 50 mg HS PO 01/20/21 21:00 01/20/21 20:14 I have reviewed the current psychotropics carefully including drug interactions. Risk benefit ratio favors no change other than as noted in my dictated progress note. Diagnosis: Problems: (1) Major neurocognitive disorder (2) Dementia in Alzheimer's disease with delusions (3) Impulse control disorder, unspecified (4) Anxiety disorder, unspecified (5) Dementia, vascular, with depression (6) Dementia, vascular, with delusions (7) Dementia in Alzheimer's disease with depression (8) Dementia in Alzheimer's disease with early onset with behavioral disturbance (9) Mild cognitive impairment DIMITRIOS RANDALL MD Jan 20, 2021 22:04
--- NOTE | 2021-01-20 22:43 | HP ---
ADMIT DATE: 01/20/2021 PSYCHIATRIC ADMISSION HISTORY/EVALUATION REPORT IDENTIFYING DATA: The patient is a 70-year-old female referred back to us from [facility] of [facility] on account of worsening confusion, verbally being aggressive to staff and residents at the [facility]. She was reportedly having bouts of anger, aggressive toward staff, threw a drink in the face of a CLASSIFYING MACHINE OPERATOR. She was delusional thinking that others were trying to kill her, extremely paranoid, psychotic. She had failed outpatient psychiatric interventions resulting in this referral. She was previously an inpatient with us in 12/2020 with a diagnosis of major neurocognitive disorder, Alzheimer, vascular with delusion, depression, behavioral disturbance, had responded well to treatment during the stay, returned to the [facility] only to have an acute exacerbation of symptoms prompting this readmission. Discussed the patient with Nanette Curry, freight coordinator and nursing staff, reviewed current and past records. CHIEF COMPLAINT: "No, I don't know when I came here." The patient responded as I questioned her when she had arrived here even though she did come in earlier today, she was totally unaware of this. HISTORY OF PRESENT ILLNESS: The patient has a history of dementia, Alzheimer's, vascular type. Recently, she has been aggressive, once again paranoid, having sleep and appetite changes, aggressive, disruptive. She does have a history of some mood swings. PAST PSYCHIATRIC HISTORY: As noted above. PAST MEDICAL HISTORY: Positive for hypothyroidism, polycystic ovarian disease, urethral stricture, hypertension, GERD, hyperlipidemia, vitamin D deficiency. CODE STATUS: DNR. ALLERGIES: Negative. Accu-Cheks None. DIET: Regular. Takes medications whole. Ambulates independently. CURRENT PSYCHOTROPICS: Zoloft 75 mg a day, trazodone 50 mg at bedtime, BuSpar 10 mg b.i.d., Aricept 10 mg at bedtime, Namenda 10 mg b.i.d., Zyprexa p.r.n. FAMILY HISTORY: Noncontributory. SOCIAL HISTORY: No history of alcohol abuse, physical, sexual or elder abuse. She is not known to be a perpetrator. Reaction to hospitalization - the patient oblivious of this. ASSETS: Supportive family, stable, living at the fci. REVIEW OF SYSTEMS: No CV, , pulmonary, eye, ENT system symptoms. MENTAL STATUS EXAM: Oriented to herself. Insight, judgment, recent and remote memory, attention, concentration, fund of knowledge - poor consistent with her diagnosis. IMPRESSION: Major neurocognitive disorder, Alzheimer, vascular with delusion, depression, behavioral disturbance, anxiety disorder, unspecified; impulse control disorder, unspecified. Rest as above. PLAN: Admit to Geropsychiatry unit at [facility]. I will see the patient daily individually from a psychiatric standpoint. Medical followup with Dr. Machado/Dr. Sr. Continue patient on her current psychotropics, observe baseline, then make further adjustments as clinically indicated. For now, continue Zoloft 75 mg a day, BuSpar 10 b.i.d., trazodone 50 mg at bedtime, Aricept 10 mg at bedtime, Namenda 10 b.i.d. Consider adding Depakote as a mood stabilizer. Estimated length of stay 10-12 days. DISPOSITION PLAN: Back to fci when stable. ENZO DR: Zoe TID: [id number]
[2021-01-21 05:58] VITALS: BP 156/71
--- NOTE | 2021-01-21 06:27 | EKG ---
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
[2021-01-21] MEDS ORDERED: SERTRALINE 50 MG TABLET. PO SCH (09:00)
[2021-01-21] MEDS: PANTOPRAZOLE 40 MG TABLET. PO SCH (09:40)
[2021-01-21] MEDS: CALCIUM CARB/VIT D3 500/200 TABLET PO SCH ×2 (09:41→17:18)
[2021-01-21] MEDS: MEMANTINE 10 MG TABLET. PO SCH ×2 (09:41→20:00)
[2021-01-21] MEDS: LISINOPRIL 5 MG TABLET. PO SCH (09:41)
[2021-01-21] MEDS: busPIRone 10 MG TABLET. PO SCH ×2 (09:41→20:00)
[2021-01-21] MEDS: MULTIVITAMIN with MINERAL TABLET. PO SCH (09:41)
[2021-01-21] MEDS: CHOLECALCIFEROL (VITAMIN D3) 1,000 UNIT TABLET PO SCH (09:41)
[2021-01-21] MEDS: OMEGA-3 FATTY ACIDS/FISH OIL 1,000 MG CAPSULE. PO SCH (09:42)
[2021-01-21] MEDS: ASCORBIC ACID 500 MG TABLET PO SCH (09:42)
--- NOTE | 2021-01-21 12:16 | TX PLAN ---
Interdisciplinary Tx Plan Admission Information Jan 20, 2021 at 17:49 Legal Status (on Admission): Voluntary DPOA/Guardian Name: Ella Pelaez-sister in law Contact Other Contact Name: Tatyana Coelho-nurse at [facility] Other Contact Verified Code Status: DNR Allergies: Coded Allergies: No Known Drug Allergies (Unverified , 03/23/20) Estimated Length of Stay: 14 Diagnoses Primary Diagnosis: Major neurocognitive d/o alzheimers vascular with delusions, depression BD; Anxiety d/o unspecified; Impulse control d/o Reasons for Admission: Aggressive, Delusions, Agitated, Angry, Anxiety/Panic, Combative, Suspicious/paranoid, Confusion/Disoriented, Poor impulse control Problem in Patient's Words: Per POA, Betty has continued to have aggressive behaviors after d/c prompting a re-admisson to [facility]. Problems Active Problems: Delusional Paranoid Aggressive Confused Inactive Problems: Medication complaint Adequate intake of meals Pt Strengths/Limitations Ability for Swift: Poor Cognitive Functioning/Ability: Poor Communication Skills/Ability: Fair Financial Resources: Fair Insight/Judgement: Poor Intellectual Ability: Fair Physical Health: Fair Social Skills: Fair Stability in Family: Good Verbal Skills: Fair Discharge Criteria Discharge Criteria: Adequate arrangements @DC, Improved behavior, Improved mood/thought Preliminary Discharge Plan Preliminary DC Plan: Placement Needed Special Precautions Special Precautions: Agitation/Assault Fall Risk: High Initial D/C Plan POA is requesting placement/level of care recommendations for Betty. Identified Discharge Needs: F/U with PCP Currently Utilized Resources Currently Utilized Resources/P: PCP Out patient psychiatry Identified Problems/Hx/Goals Objectives/Short-Term Goals Short Term Goals: Control abnormal behavior, Dec. Aggression, Dec. Anxiety/Panic, Dec. Hallucination/Delus, Dec. Outbursts, Dec. Symp. Depression, Medication Stabilization, Monitor Med Effects, Prevent Deterioration Short Term Goals in Patient's: Per POA, mood and behavior stabilization. Placement will be needed. Interventions/Frequency Staff Interventions/Frequency&: Nursing to provide routine safety checks, medication adminstration, assessments, and adl support. Psychiatry to se three times weekly. SW to see twice weekly. Recreational and SW groups as Betty will join. 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 Social: Betty has enjoyed music, reading, and movies. 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
[2021-01-21 15:31] VITALS: BP 128/68
[2021-01-21] MEDS: traZODone 50 MG TABLET. PO SCH (20:00)
[2021-01-21] MEDS: DONEPEZIL HCL 10 MG TABLET PO SCH (20:00)
--- NOTE | 2021-01-21 22:01 | PDOC ---
Exam Note: Tyler Note: Please also refer to the separate dictated note~for this date of service dictated separately.~Patient seen individually. Discussed the patient with Nursing staff reviewed the chart.~Reviewed interim history and current functioning. Reviewed vital signs,~Labs/ Radiology~and current medications noted below. Continue current treatment with the changes noted in the dictated addendum note Assessment: Vital Signs/I&O: Vital Signs Date Time Temp Pulse Resp B/P (MAP) Pulse Ox O2 Delivery O2 Flow Rate FiO2 01/21/21 15:31 97.2 79 18 128/68 (88) 98 Room Air I & O 01/20/21 01/20/21 01/21/21 15:00 23:00 07:00 Intake Total 360 ml Balance 360 ml Current Medications: Meds: Current Medications Medications (Trade) Dose Ordered Sig/Toño Route PRN Reason Start Time Stop Time Status Last Admin Dose Admin Vitamin D (Vitamin D3) 2,000 unit DAILY PO 01/21/21 09:00 01/21/21 09:41 Lisinopril (Prinivil) 5 mg DAILY PO 01/21/21 09:00 01/21/21 09:41 Pantoprazole Sodium (Protonix) 40 mg DAILY PO 01/21/21 09:00 01/21/21 09:40 Sertraline HCl (Zoloft) 75 mg DAILY PO 01/21/21 09:00 01/21/21 17:45 DC 01/21/21 09:41 Ascorbic Acid (Vitamin C) 500 mg DAILY PO 01/21/21 09:00 01/21/21 09:42 Calcium/Vitamin D (Oscal D 500mg/ 200uts) 1 tab BIDWMEALS PO 01/21/21 08:00 01/21/21 17:18 Multivitamins/ Calcium (Thera-M Plus) 1 tab DAILY PO 01/21/21 09:00 01/21/21 09:41 Fish Oil (Fish Oil) 1,000 mg DAILY PO 01/21/21 09:00 01/21/21 09:42 I have reviewed the current psychotropics carefully including drug interactions. Risk benefit ratio favors no change other than as noted in my dictated progress note. Diagnosis: Problems: (1) Impulse control disorder, unspecified (2) Anxiety disorder, unspecified (3) Dementia, vascular, with depression (4) Dementia, vascular, with delusions (5) Dementia in Alzheimer's disease with depression (6) Dementia in Alzheimer's disease with delusions (7) Major neurocognitive disorder (8) Dementia in Alzheimer's disease with early onset with behavioral disturbance DIMITRIOS RANDALL MD Jan 21, 2021 22:01
--- NOTE | 2021-01-22 00:45 | CONS ---
DATE OF CONSULTATION: 01/21/2021 CONSULTATION FOR MEDICAL MANAGEMENT HISTORY OF PRESENT ILLNESS: The patient is a 70-year-old female patient, is a resident at [facility], was referred back to this facility on account of worsening confusion, verbally being aggressive to staff and resident at the senior care. She was reportedly having bouts of anger, aggressive towards staff, threw a drink in the face of a CONSULTING SALES EXECUTIVE. She was delusional thinking that others are trying to kill her, extremely paranoid, psychotic. She had failed outpatient psychiatric intervention, resulting in this referral. She was previously an inpatient in this facility in 12/2020 with the diagnoses of major neurocognitive disorder, Alzheimer, vascular with delusion, depression, and behavioral disturbances. Apparently she had responded well to treatment during that stay and return to the senior care. PAST MEDICAL HISTORY: Significant of hypothyroidism, polycystic ovary disease, urethral stricture, hypertension, gastroesophageal reflux disease, hyperlipidemia, vitamin D deficiency. She apparently has no known drug allergies. MEDICATIONS: She is currently on the following medication: She is on fish oil 1000 mg once a day, multivitamin one tablet once a day, ascorbic acid 500 mg daily, sertraline 75 mg once a day, Protonix 40 mg once a day, lisinopril 5 mg once a day, vitamin D 2000 international units once a day, calcium with vitamin D one tablet twice a day with meals, trazodone 50 mg at bedtime, Namenda 10 mg twice a day, Aricept 10 mg at bedtime, buspirone 10 mg twice a day, milk of magnesia 30 mL p.o. daily p.r.n. for constipation, trazodone 50 mg at bedtime, pseudoephedrine 120 mg twice a day, olanzapine 2.5 mg as needed every 2 hours and Mylanta 15 mL after meals and as needed, Tessalon Perles 100 mg 3 times a day and acetaminophen 650 mg every 6 hours as needed. FAMILY HISTORY: Noncontributory. SOCIAL HISTORY: She is a resident at [facility]. She does not smoke, drink alcohol or recreational drugs. REVIEW OF SYSTEMS: As per history of present illness. PHYSICAL EXAMINATION: GENERAL: On examining her, she looked well and was clearly in no apparent respiratory distress. She was pale, no jaundice, cyanosis or thyromegaly. No jugular distention. No limb edema. VITAL SIGNS: Heart rate was 79, blood pressure is 128/68, temperature was 97.2, respiratory rate was 18 and oxygen saturation was 98%. HEENT: Examination of the head, eyes, ears, nose, and throat: Normocephalic, atraumatic. NECK: Supple. HEART: Showed normal first and second heart sounds, no gallop, murmur. CHEST: Clear to auscultation rhonchi. ABDOMEN: Distended, soft, nontender. NEUROLOGIC: She was demented, but without any obvious lateralizing sign. All cranial nerves intact. She moves extremities without difficulty. LABORATORY DATA: Showed a white cell count 7600, hemoglobin 11, hematocrit 34, MCV 90 and platelet count 242,000 with normal manual differential. Her chemistry showed a serum sodium 137, potassium 4.7, chloride 101, bicarbonate 28, anion gap of 8, BUN 16, creatinine 1.4. Estimated GFR was 37 mL per minute. Her glucose 106, calcium was 8.5, magnesium 2.3, total bilirubin, AST, ALT, alkaline phosphatase were normal. Total protein was 6.3, albumin 3.2. Her D-dimer was slightly high at 1.64. Urinalysis essentially unremarkable. ASSESSMENT: In summary, this is a 70-year-old female patient who was referred back to this facility from [facility] on account of worsening confusion, verbally being aggressive to staff and resident at the senior care. She was reportedly having bouts of anger, aggressive towards staff, threw the drink in the face of a CONSULTING SALES EXECUTIVE. Medically, she has multiple medical problems including hypothyroidism, polycystic ovary syndrome, hypertension, gastroesophageal reflux disease, hyperlipidemia, and vitamin D deficiency. All in all, the patient seems to be medically stable. PLAN: I will follow all the lab works are still pending at the time of this dictation and decide the further management accordingly. Thank you, Dr. Perry, for allowing me to participate in the care of this patient. ANAHI/SG BOND: Curly TID: [id number]
[2021-01-22 05:27] VITALS: BP 122/76
[2021-01-22] MEDS: OMEGA-3 FATTY ACIDS/FISH OIL 1,000 MG CAPSULE. PO SCH (08:14)
[2021-01-22] MEDS: SERTRALINE 100 MG TABLET. PO SCH (08:14)
[2021-01-22] MEDS: CHOLECALCIFEROL (VITAMIN D3) 1,000 UNIT TABLET PO SCH (08:14)
[2021-01-22] MEDS: busPIRone 10 MG TABLET. PO SCH ×2 (08:14→19:58)
[2021-01-22] MEDS: CALCIUM CARB/VIT D3 500/200 TABLET PO SCH ×2 (08:14→17:16)
[2021-01-22] MEDS: ASCORBIC ACID 500 MG TABLET PO SCH (08:15)
[2021-01-22] MEDS: MEMANTINE 10 MG TABLET. PO SCH ×2 (08:15→19:59)
[2021-01-22] MEDS: PANTOPRAZOLE 40 MG TABLET. PO SCH (08:15)
[2021-01-22] MEDS: DIVALPROEX 125 MG CAP.SPRINK PO SCH ×2 (08:15→17:16)
[2021-01-22] MEDS: LISINOPRIL 5 MG TABLET. PO SCH (08:15)
[2021-01-22] MEDS: MULTIVITAMIN with MINERAL TABLET. PO SCH (08:16)
--- NOTE | 2021-01-22 10:33 | RAD ---
EXAM: CT Head without IV contrast CLINICAL HISTORY: Reason: fall / Spl. Instructions: / History: COMPARISON: None. TECHNIQUE: Routine CT of the head without contrast. PQRS compliance statement - One or more of the following individualized dose reduction techniques wer e utilized for this study: 1. Automated exposure control 2. Adjustment of the mA and/or kV according to patient size 3. Use of iterative reconstruction technique FINDINGS: There is no evidence of hemorrhage, mass or extra-axial fluid collection. Jiménez-white differentiation is maintained with no evidence of edema. Subcortical, periventricular as w ell as deep white matter foci of hypoattenuation likely changes of chronic small vessel disease. There is no mass effect or shift of the intracranial structures. The ventricles and cerebral sulci are prominent consistent with generalized cerebral volume loss. The cerebellum and brainstem are unremarkable. The calvarium demonstrates no evidence of fracture or focal lesion. There is normal aeration of the visualized paranasal sinuses and mastoid air cells. The visualized portions of the orbits are normal. Atherosclerotic calcifications of the intracranial internal carotid and vertebral arteries is seen. IMPRESSION: No evidence for acute intracranial process. White matter changes likely chronic small vessel disease. Electronically signed by: Carlos Robledo MD (01/22/2021 10:30 AM) ROBERTH
--- NOTE | 2021-01-22 10:34 | RAD ---
EXAM: XR BILATERAL HIP (WITH OR WITHOUT PELVIS) LEFT 2 VIEWS 01/22/2021 10:00 AM CLINICAL INDICATION: Fall, severe left hip pain, can't bear weight COMPARISON: None TECHNIQUE: AP view of the pelvis. AP and frog-leg lateral view of the left hip FINDINGS: There is a revised left total hip prosthesis. The distal tip of the femoral stem component is just barely included on the [id number] on one of the images only. No definite periprosthetic f racture There is lucency around the acetabular component suggesting osteolysis. There is mild deformity at the right superior pubic body, which could be an age-indeterminate fractur e. Bony detail in this region is slightly obscured by superimposed bowel. There is mild degenerative joint disease of the right hip. Sacroiliac joints are normal. Mild lower lumbar degenerative changes. IMPRESSION: 1. Revised left total hip prosthesis. No visualized periprosthetic fracture. The distal tip of the fe moral stem component is just barely included in the [id number] on one of the images only. There is lucency around the acetabular component suggesting osteolysis. 2. Mild deformity of the right superior pubic body, possible age-indeterminate fracture. Electronically signed by: Yulisa Real MD (01/22/2021 10:32 AM) [id number]
[2021-01-22] MEDS: ACETAMINOPHEN 325 MG TABLET PO PRN (10:55)
[2021-01-22 15:51] VITALS: BP 117/69
[2021-01-22] MEDS: DONEPEZIL HCL 10 MG TABLET PO SCH (19:58)
[2021-01-22] MEDS: traZODone 50 MG TABLET. PO SCH (19:59)
--- NOTE | 2021-01-22 22:07 | PDOC ---
Exam Note: Tyler Note: Please also refer to the separate dictated note~for this date of service dictated separately.~Patient seen individually. Discussed the patient with Nursing staff reviewed the chart.~Reviewed interim history and current functioning. Reviewed vital signs,~Labs/ Radiology~and current medications noted below. Continue current treatment with the changes noted in the dictated addendum note Assessment: Vital Signs/I&O: Vital Signs Date Time Temp Pulse Resp B/P (MAP) Pulse Ox O2 Delivery O2 Flow Rate FiO2 01/22/21 15:51 97.3 74 18 117/69 (85) 100 Room Air I & O 01/21/21 01/21/21 01/22/21 14:59 22:59 06:59 Intake Total 360 ml 600 ml Balance 360 ml 600 ml Current Medications: Meds: Current Medications Medications (Trade) Dose Ordered Sig/Toño Route PRN Reason Start Time Stop Time Status Last Admin Dose Admin Acetaminophen (Tylenol) 650 mg PRN Q6HRS PRN PO MILD PAIN / TEMP > 100.3'F 01/20/21 18:00 01/22/21 10:55 Benzonatate (Tessalon Perle) 100 mg PRN TID PRN PO COUGH 01/20/21 18:00 Buspirone HCl (Buspar) 10 mg BID PO 01/20/21 21:00 01/22/21 19:58 Cetirizine HCl (ZyrTEC) 10 mg PRN DAILY PRN PO ALLERGIES 01/20/21 18:00 Vitamin D (Vitamin D3) 2,000 unit DAILY PO 01/21/21 09:00 01/22/21 08:14 Donepezil HCl (Aricept) 10 mg QHS PO 01/20/21 21:00 01/22/21 19:58 Lisinopril (Prinivil) 5 mg DAILY PO 01/21/21 09:00 01/22/21 08:15 Al Hydroxide/Mg Hydroxide (Mylanta Plus Xs) 15 ml PRN AFTMEALHC PRN PO DYSPEPSIA 01/20/21 18:00 Memantine (Namenda) 10 mg BID PO 01/20/21 21:00 01/22/21 19:59 Multi-Ingredient Ointment (Analgesic [place]) 1 micah PRN QID PRN TP PAIN 01/20/21 18:00 Olanzapine (ZyPREXA ZYDIS) 2.5 mg PRN Q2HR PRN PO ANXIETY / AGITATION 01/20/21 18:00 Pantoprazole Sodium (Protonix) 40 mg DAILY PO 01/21/21 09:00 01/22/21 08:15 Pseudoephedrine HCl (Sudafed 12-Hour) 120 mg PRN BID PRN PO CONGESTION 01/20/21 18:00 Sertraline HCl (Zoloft) 75 mg DAILY PO 01/21/21 09:00 01/21/21 17:45 DC 01/21/21 09:41 Trazodone HCl (Desyrel) 50 mg HS PO 01/20/21 21:00 01/22/21 19:59 Trazodone HCl (Desyrel) 50 mg PRN QHS PRN PO INSOMNIA 01/20/21 18:00 Ascorbic Acid (Vitamin C) 500 mg DAILY PO 01/21/21 09:00 01/22/21 08:15 Calcium/Vitamin D (Oscal D 500mg/ 200uts) 1 tab BIDWMEALS PO 01/21/21 08:00 01/22/21 17:16 Magnesium Hydroxide (Milk Of Magnesia) 2,400 mg PRN QHS PRN PO CONSTIPATION 01/20/21 18:30 Multivitamins/ Calcium (Thera-M Plus) 1 tab DAILY PO 01/21/21 09:00 01/22/21 08:16 Fish Oil (Fish Oil) 1,000 mg DAILY PO 01/21/21 09:00 01/22/21 08:14 Sertraline HCl (Zoloft) 100 mg DAILY PO 01/22/21 09:00 01/22/21 08:14 Divalproex Sodium (Depakote Sprinkles) 125 mg 0900,1700 PO 01/22/21 09:00 01/22/21 17:16 Current Medications Medications (Trade) Dose Ordered Sig/Toño Route PRN Reason Start Time Stop Time Status Last Admin Dose Admin Sertraline HCl (Zoloft) 100 mg DAILY PO 01/22/21 09:00 01/22/21 08:14 Divalproex Sodium (Depakote Sprinkles) 125 mg 0900,1700 PO 01/22/21 09:00 01/22/21 17:16 I have reviewed the current psychotropics carefully including drug interactions. Risk benefit ratio favors no change other than as noted in my dictated progress note. Diagnosis: Problems: (1) Impulse control disorder, unspecified (2) Mild cognitive impairment (3) Anxiety disorder, unspecified (4) Dementia, vascular, with depression (5) Dementia, vascular, with delusions (6) Dementia in Alzheimer's disease with depression (7) Dementia in Alzheimer's disease with delusions (8) Major neurocognitive disorder (9) Dementia in Alzheimer's disease with early onset with behavioral disturbance DIMITRIOS RANDALL MD Jan 22, 2021 22:07
[2021-01-23 05:49] VITALS: BP 156/76
[2021-01-23 05:51] VITALS: BP 155/81
[2021-01-23 05:52] VITALS: BP 144/87
--- NOTE | 2021-01-23 08:03 | PDOC ---
Exam Note: Tyler Note: This note is a late entry for 01/21/2021 covers elements not covered in my initial note. Subjective: The patient was reviewed in the morning of 01/21/2021 for a treatment team meeting with Nanette Pace, Ekta Chang (social services specialist), Antoinette, activity therapy and Jus MEDEL, discussed and reviewed the chart. She slept 7 hours previous night. The patients UA has reflex to culture. She remains confused, paranoid, suspicious that they were killing people at the detention, does appear depressed. Review of Systems: She is hard of hearing. No CV, , pulmonary, eye system symptoms on review. Reliability poor. Mental Status Exam: The patient is oriented to herself. Insight and judgment, recent and remote memory, attention and concentration, fund of knowledge is poor consistent with her diagnoses. Laboratory Data: Reviewed. Impression: Major depressive disorder with psychotic features. Major neurocognitive disorder Alzheimer vascular with delusion, depression, behavioral disturbance. Anxiety disorder unspecified. Impulse control disorder unspecifie d. Plan: Continue current psychotropics from initial note. Increase Zoloft from 75 mg a day to 100 mg a day. Initiate Depakote Sprinkle 125 mg 9 a.m., 5 p.m. Check CBC, CMP, valproic acid level in 3 days. Maintain BuSpar, Aricept, Namenda, and trazodone unchanged for now. Assessment: Vital Signs/I&O: Vital Signs Date Time Temp Pulse Resp B/P (MAP) Pulse Ox O2 Delivery O2 Flow Rate FiO2 01/23/21 05:52 144/87 (106) 01/23/21 05:49 96.8 70 16 95 Room Air I & O 01/22/21 01/22/21 01/23/21 14:59 22:59 06:59 Intake Total 600 ml 480 ml Balance 600 ml 480 ml Current Medications: Meds: Current Medications Medications (Trade) Dose Ordered Sig/Toño Route PRN Reason Start Time Stop Time Status Last Admin Dose Admin Acetaminophen (Tylenol) 650 mg PRN Q6HRS PRN PO MILD PAIN / TEMP > 100.3'F 01/20/21 18:00 01/22/21 10:55 Benzonatate (Tessalon Perle) 100 mg PRN TID PRN PO COUGH 01/20/21 18:00 Buspirone HCl (Buspar) 10 mg BID PO 01/20/21 21:00 01/22/21 19:58 Cetirizine HCl (ZyrTEC) 10 mg PRN DAILY PRN PO ALLERGIES 01/20/21 18:00 Vitamin D (Vitamin D3) 2,000 unit DAILY PO 01/21/21 09:00 01/22/21 08:14 Donepezil HCl (Aricept) 10 mg QHS PO 01/20/21 21:00 01/22/21 19:58 Lisinopril (Prinivil) 5 mg DAILY PO 01/21/21 09:00 01/22/21 08:15 Al Hydroxide/Mg Hydroxide (Mylanta Plus Xs) 15 ml PRN AFTMEALHC PRN PO DYSPEPSIA 01/20/21 18:00 Memantine (Namenda) 10 mg BID PO 01/20/21 21:00 01/22/21 19:59 Multi-Ingredient Ointment (Analgesic [place]) 1 micah PRN QID PRN TP PAIN 01/20/21 18:00 Olanzapine (ZyPREXA ZYDIS) 2.5 mg PRN Q2HR PRN PO ANXIETY / AGITATION 01/20/21 18:00 Pantoprazole Sodium (Protonix) 40 mg DAILY PO 01/21/21 09:00 01/22/21 08:15 Pseudoephedrine HCl (Sudafed 12-Hour) 120 mg PRN BID PRN PO CONGESTION 01/20/21 18:00 Sertraline HCl (Zoloft) 75 mg DAILY PO 01/21/21 09:00 01/21/21 17:45 DC 01/21/21 09:41 Trazodone HCl (Desyrel) 50 mg HS PO 01/20/21 21:00 01/22/21 19:59 Trazodone HCl (Desyrel) 50 mg PRN QHS PRN PO INSOMNIA 01/20/21 18:00 Ascorbic Acid (Vitamin C) 500 mg DAILY PO 01/21/21 09:00 01/22/21 08:15 Calcium/Vitamin D (Oscal D 500mg/ 200uts) 1 tab BIDWMEALS PO 01/21/21 08:00 01/22/21 17:16 Magnesium Hydroxide (Milk Of Magnesia) 2,400 mg PRN QHS PRN PO CONSTIPATION 01/20/21 18:30 Multivitamins/ Calcium (Thera-M Plus) 1 tab DAILY PO 01/21/21 09:00 01/22/21 08:16 Fish Oil (Fish Oil) 1,000 mg DAILY PO 01/21/21 09:00 01/22/21 08:14 Sertraline HCl (Zoloft) 100 mg DAILY PO 01/22/21 09:00 01/22/21 08:14 Divalproex Sodium (Depakote Sprinkles) 125 mg 0900,1700 PO 01/22/21 09:00 01/22/21 17:16 Current Medications Medications (Trade) Dose Ordered Sig/Toño Route PRN Reason Start Time Stop Time Status Last Admin Dose Admin Sertraline HCl (Zoloft) 100 mg DAILY PO 01/22/21 09:00 01/22/21 08:14 Divalproex Sodium (Depakote Sprinkles) 125 mg 0900,1700 PO 01/22/21 09:00 01/22/21 17:16 I have reviewed the current psychotropics carefully including drug interactions. Risk benefit ratio favors no change other than as noted in my dictated progress note. Diagnosis: Problems: (1) Impulse control disorder, unspecified (2) Mild cognitive impairment (3) Anxiety disorder, unspecified (4) Dementia, vascular, with depression (5) Dementia, vascular, with delusions (6) Dementia in Alzheimer's disease with depression (7) Dementia in Alzheimer's disease with delusions (8) Major neurocognitive disorder (9) Dementia in Alzheimer's disease with early onset with behavioral disturbance DIMITRIOS RANDALL MD Jan 23, 2021 08:03
[2021-01-23] MEDS: MULTIVITAMIN with MINERAL TABLET. PO SCH (08:07)
[2021-01-23] MEDS: CHOLECALCIFEROL (VITAMIN D3) 1,000 UNIT TABLET PO SCH (08:07)
[2021-01-23] MEDS: PANTOPRAZOLE 40 MG TABLET. PO SCH (08:08)
[2021-01-23] MEDS: busPIRone 10 MG TABLET. PO SCH ×2 (08:08→20:32)
[2021-01-23] MEDS: DIVALPROEX 125 MG CAP.SPRINK PO SCH ×2 (08:08→17:44)
[2021-01-23] MEDS: SERTRALINE 100 MG TABLET. PO SCH (08:08)
[2021-01-23] MEDS: LISINOPRIL 5 MG TABLET. PO SCH (08:08)
[2021-01-23] MEDS: OMEGA-3 FATTY ACIDS/FISH OIL 1,000 MG CAPSULE. PO SCH (08:08)
[2021-01-23] MEDS: CALCIUM CARB/VIT D3 500/200 TABLET PO SCH ×2 (08:08→17:00)
[2021-01-23] MEDS: MEMANTINE 10 MG TABLET. PO SCH ×2 (08:09→20:32)
[2021-01-23] MEDS: ASCORBIC ACID 500 MG TABLET PO SCH (08:09)
--- NOTE | 2021-01-23 09:00 | PDOC ---
Exam Note: Tyler Note: This note is a late entry for 01/22/2021 covers elements not covered in my initial note. Subjective: The patient was seen individually in the evening of 01/22/2021 with Jus MEDEL, discussed and reviewed the chart. She slept 8-1/2 hours previous night. The patient had a fall this morning and was found having fallen backwards sitting on her bottom hit her head on the chair. CT head and hip x- ray per Dr. Machado are negative. The left groin pain she had earlier she was not complaining to me as I met with her this evening. At one point she was yelling at another patient earlier today but this has not been repeated. We are going to be checking her labs, valproic acid level on 01/25 and adjust Depakote thereafter. Nursing staff wonder whether she was slightly hypotensive contributing to the fall. We will defer to Dr. Machado. Review of Systems: She is hard of hearing. No CV, , pulmonary, eye system symptoms on review. Reliability poor. Mental Status Exam: The patient is oriented to herself. Insight and judgment, recent and remote memory, attention and concentration, fund of knowledge is poor consistent with her diagnoses. Laboratory Data: Reviewed. Impression: Major depressive disorder with psychotic features. Major neurocognitive disorder Alzheimer vascular with delusion, depression, behavioral disturbance. Anxiety disorder unspecified. Impulse control disorder unspecified. Plan: Continue current psychotropics from initial note. Repeat valproic acid level on 01/25 and adjust Depakote to reach therapeutic level. Rest psychotropics unchanged. Assessment: Vital Signs/I&O: Vital Signs Date Time Temp Pulse Resp B/P (MAP) Pulse Ox O2 Delivery O2 Flow Rate FiO2 01/23/21 08:08 70 144/87 01/23/21 05:49 96.8 16 95 Room Air I & O 01/22/21 01/22/21 01/23/21 15:00 23:00 07:00 Intake Total 600 ml 480 ml Balance 600 ml 480 ml Current Medications: Meds: Current Medications Medications (Trade) Dose Ordered Sig/Toño Route PRN Reason Start Time Stop Time Status Last Admin Dose Admin Acetaminophen (Tylenol) 650 mg PRN Q6HRS PRN PO MILD PAIN / TEMP > 100.3'F 01/20/21 18:00 01/22/21 10:55 Benzonatate (Tessalon Perle) 100 mg PRN TID PRN PO COUGH 01/20/21 18:00 Buspirone HCl (Buspar) 10 mg BID PO 01/20/21 21:00 01/23/21 08:08 Cetirizine HCl (ZyrTEC) 10 mg PRN DAILY PRN PO ALLERGIES 01/20/21 18:00 Vitamin D (Vitamin D3) 2,000 unit DAILY PO 01/21/21 09:00 01/23/21 08:07 Donepezil HCl (Aricept) 10 mg QHS PO 01/20/21 21:00 01/22/21 19:58 Lisinopril (Prinivil) 5 mg DAILY PO 01/21/21 09:00 01/23/21 08:08 Al Hydroxide/Mg Hydroxide (Mylanta Plus Xs) 15 ml PRN AFTMEALHC PRN PO DYSPEPSIA 01/20/21 18:00 Memantine (Namenda) 10 mg BID PO 01/20/21 21:00 01/23/21 08:09 Multi-Ingredient Ointment (Analgesic [place]) 1 micah PRN QID PRN TP PAIN 01/20/21 18:00 Olanzapine (ZyPREXA ZYDIS) 2.5 mg PRN Q2HR PRN PO ANXIETY / AGITATION 01/20/21 18:00 Pantoprazole Sodium (Protonix) 40 mg DAILY PO 01/21/21 09:00 01/23/21 08:08 Pseudoephedrine HCl (Sudafed 12-Hour) 120 mg PRN BID PRN PO CONGESTION 01/20/21 18:00 Sertraline HCl (Zoloft) 75 mg DAILY PO 01/21/21 09:00 01/21/21 17:45 DC 01/21/21 09:41 Trazodone HCl (Desyrel) 50 mg HS PO 01/20/21 21:00 01/22/21 19:59 Trazodone HCl (Desyrel) 50 mg PRN QHS PRN PO INSOMNIA 01/20/21 18:00 Ascorbic Acid (Vitamin C) 500 mg DAILY PO 01/21/21 09:00 01/23/21 08:09 Calcium/Vitamin D (Oscal D 500mg/ 200uts) 1 tab BIDWMEALS PO 01/21/21 08:00 01/23/21 08:08 Magnesium Hydroxide (Milk Of Magnesia) 2,400 mg PRN QHS PRN PO CONSTIPATION 01/20/21 18:30 Multivitamins/ Calcium (Thera-M Plus) 1 tab DAILY PO 01/21/21 09:00 01/23/21 08:07 Fish Oil (Fish Oil) 1,000 mg DAILY PO 01/21/21 09:00 01/23/21 08:08 Sertraline HCl (Zoloft) 100 mg DAILY PO 01/22/21 09:00 01/23/21 08:08 Divalproex Sodium (Depakote Sprinkles) 125 mg 0900,1700 PO 01/22/21 09:00 01/23/21 08:08 Current Medications Medications (Trade) Dose Ordered Sig/Toño Route PRN Reason Start Time Stop Time Status Last Admin Dose Admin Sertraline HCl (Zoloft) 100 mg DAILY PO 01/22/21 09:00 01/23/21 08:08 Divalproex Sodium (Depakote Sprinkles) 125 mg 0900,1700 PO 01/22/21 09:00 01/23/21 08:08 I have reviewed the current psychotropics carefully including drug interactions. Risk benefit ratio favors no change other than as noted in my dictated progress note. Diagnosis: Problems: (1) Impulse control disorder, unspecified (2) Mild cognitive impairment (3) Anxiety disorder, unspecified (4) Dementia, vascular, with depression (5) Dementia, vascular, with delusions (6) Dementia in Alzheimer's disease with depression (7) Dementia in Alzheimer's disease with delusions (8) Major neurocognitive disorder (9) Dementia in Alzheimer's disease with early onset with behavioral disturbance DIMITRIOS RANDALL MD Jan 23, 2021 09:00
[2021-01-23 15:22] VITALS: BP 150/73
[2021-01-23] MEDS: traZODone 50 MG TABLET. PO SCH (20:31)
[2021-01-23] MEDS: DONEPEZIL HCL 10 MG TABLET PO SCH (20:31)
--- NOTE | 2021-01-23 22:07 | PDOC ---
Exam Note: Tyler Note: Please also refer to the separate dictated note~for this date of service dictated separately.~Patient seen individually. Discussed the patient with Nursing staff reviewed the chart.~Reviewed interim history and current functioning. Reviewed vital signs,~Labs/ Radiology~and current medications noted below. Continue current treatment with the changes noted in the dictated addendum note Assessment: Vital Signs/I&O: Vital Signs Date Time Temp Pulse Resp B/P (MAP) Pulse Ox O2 Delivery O2 Flow Rate FiO2 01/23/21 15:22 97.8 74 20 150/73 (98) 98 01/23/21 05:49 Room Air I & O 01/22/21 01/22/21 01/23/21 14:59 22:59 06:59 Intake Total 600 ml 480 ml Balance 600 ml 480 ml Current Medications: Meds: Current Medications Medications (Trade) Dose Ordered Sig/Toño Route PRN Reason Start Time Stop Time Status Last Admin Dose Admin Acetaminophen (Tylenol) 650 mg PRN Q6HRS PRN PO MILD PAIN / TEMP > 100.3'F 01/20/21 18:00 01/22/21 10:55 Benzonatate (Tessalon Perle) 100 mg PRN TID PRN PO COUGH 01/20/21 18:00 Buspirone HCl (Buspar) 10 mg BID PO 01/20/21 21:00 01/23/21 20:32 Cetirizine HCl (ZyrTEC) 10 mg PRN DAILY PRN PO ALLERGIES 01/20/21 18:00 Vitamin D (Vitamin D3) 2,000 unit DAILY PO 01/21/21 09:00 01/23/21 08:07 Donepezil HCl (Aricept) 10 mg QHS PO 01/20/21 21:00 01/23/21 20:31 Lisinopril (Prinivil) 5 mg DAILY PO 01/21/21 09:00 01/23/21 08:08 Al Hydroxide/Mg Hydroxide (Mylanta Plus Xs) 15 ml PRN AFTMEALHC PRN PO DYSPEPSIA 01/20/21 18:00 Memantine (Namenda) 10 mg BID PO 01/20/21 21:00 01/23/21 20:32 Multi-Ingredient Ointment (Analgesic [place]) 1 micah PRN QID PRN TP PAIN 01/20/21 18:00 Olanzapine (ZyPREXA ZYDIS) 2.5 mg PRN Q2HR PRN PO ANXIETY / AGITATION 01/20/21 18:00 Pantoprazole Sodium (Protonix) 40 mg DAILY PO 01/21/21 09:00 01/23/21 08:08 Pseudoephedrine HCl (Sudafed 12-Hour) 120 mg PRN BID PRN PO CONGESTION 01/20/21 18:00 Sertraline HCl (Zoloft) 75 mg DAILY PO 01/21/21 09:00 01/21/21 17:45 DC 01/21/21 09:41 Trazodone HCl (Desyrel) 50 mg HS PO 01/20/21 21:00 01/23/21 20:31 Trazodone HCl (Desyrel) 50 mg PRN QHS PRN PO INSOMNIA 01/20/21 18:00 Ascorbic Acid (Vitamin C) 500 mg DAILY PO 01/21/21 09:00 01/23/21 08:09 Calcium/Vitamin D (Oscal D 500mg/ 200uts) 1 tab BIDWMEALS PO 01/21/21 08:00 01/23/21 17:00 Magnesium Hydroxide (Milk Of Magnesia) 2,400 mg PRN QHS PRN PO CONSTIPATION 01/20/21 18:30 Multivitamins/ Calcium (Thera-M Plus) 1 tab DAILY PO 01/21/21 09:00 01/23/21 08:07 Fish Oil (Fish Oil) 1,000 mg DAILY PO 01/21/21 09:00 01/23/21 08:08 Sertraline HCl (Zoloft) 100 mg DAILY PO 01/22/21 09:00 01/23/21 08:08 Divalproex Sodium (Depakote Sprinkles) 125 mg 0900,1700 PO 01/22/21 09:00 01/23/21 17:44 Quetiapine Fumarate (SEROquel) 12.5 mg 0900,1700 PO 01/24/21 09:00 I have reviewed the current psychotropics carefully including drug interactions. Risk benefit ratio favors no change other than as noted in my dictated progress note. Diagnosis: Problems: (1) Impulse control disorder, unspecified (2) Mild cognitive impairment (3) Anxiety disorder, unspecified (4) Dementia, vascular, with depression (5) Dementia, vascular, with delusions (6) Dementia in Alzheimer's disease with depression (7) Dementia in Alzheimer's disease with delusions (8) Major neurocognitive disorder (9) Dementia in Alzheimer's disease with early onset with behavioral disturbance DIMITRIOS RANDALL MD Jan 23, 2021 22:07
[2021-01-24 05:55] VITALS: BP 139/73
[2021-01-24] MEDS: busPIRone 10 MG TABLET. PO SCH ×2 (08:03→20:36)
[2021-01-24] MEDS: MEMANTINE 10 MG TABLET. PO SCH ×2 (08:03→20:36)
[2021-01-24] MEDS: MULTIVITAMIN with MINERAL TABLET. PO SCH (08:03)
[2021-01-24] MEDS: DIVALPROEX 125 MG CAP.SPRINK PO SCH ×2 (08:03→17:00)
[2021-01-24] MEDS: ASCORBIC ACID 500 MG TABLET PO SCH (08:03)
[2021-01-24] MEDS: CALCIUM CARB/VIT D3 500/200 TABLET PO SCH ×2 (08:03→17:00)
[2021-01-24] MEDS: OMEGA-3 FATTY ACIDS/FISH OIL 1,000 MG CAPSULE. PO SCH (08:04)
[2021-01-24] MEDS: CHOLECALCIFEROL (VITAMIN D3) 1,000 UNIT TABLET PO SCH (08:04)
[2021-01-24] MEDS: SERTRALINE 100 MG TABLET. PO SCH (08:04)
[2021-01-24] MEDS: PANTOPRAZOLE 40 MG TABLET. PO SCH (08:04)
[2021-01-24] MEDS: LISINOPRIL 5 MG TABLET. PO SCH (08:04)
--- NOTE | 2021-01-24 08:30 | PDOC ---
Exam Note: Tyler Note: This note is a late entry for 01/23/2021 covers elements not covered in my initial note. Subjective: The patient was seen individually in the evening of 01/23/2021 with Jus MEDEL, discussed and reviewed the chart. She slept 8 hours previous night. The patient has done reasonably well today but previous night she was getting agitated at another demented patient and then making rather derogatory nasty comments to the nursing staff stating that she felt that nursing staff are trying to kill people. Review of Systems: She is hard of hearing. No CV, , pulmonary, eye system symptoms on review. Reliability poor. Mental Status Exam: The patient is oriented to herself. Insight and judgment, recent and remote memory, attention and concentration, fund of knowledge is poor consistent with her diagnoses. Laboratory Data: Reviewed. Impression: Major neurocognitive disorder Alzheimer vascular with delusion, depression, behavioral disturbance. Anxiety disorder unspecified. Impulse control disorder unspecified. Plan: Continue current psychotropics from initial note. Start Seroquel 12.5 mg 9 a.m., 5 p.m. as a mood stabilizer. Stop the patients BuSpar. Continue Aricept, Zoloft, trazodone, Namenda and Depakote at current dosage. Make further adjustments as clinically indicated. Assessment: Vital Signs/I&O: Vital Signs Date Time Temp Pulse Resp B/P (MAP) Pulse Ox O2 Delivery O2 Flow Rate FiO2 01/24/21 08:04 66 139/73 01/24/21 05:55 98.3 16 96 01/23/21 05:49 Room Air I & O 01/23/21 01/23/21 01/24/21 14:59 22:59 06:59 Intake Total 600 ml 480 ml Balance 600 ml 480 ml Current Medications: Meds: Current Medications Medications (Trade) Dose Ordered Sig/Toño Route PRN Reason Start Time Stop Time Status Last Admin Dose Admin Acetaminophen (Tylenol) 650 mg PRN Q6HRS PRN PO MILD PAIN / TEMP > 100.3'F 01/20/21 18:00 01/22/21 10:55 Benzonatate (Tessalon Perle) 100 mg PRN TID PRN PO COUGH 01/20/21 18:00 Buspirone HCl (Buspar) 10 mg BID PO 01/20/21 21:00 01/24/21 08:03 Cetirizine HCl (ZyrTEC) 10 mg PRN DAILY PRN PO ALLERGIES 01/20/21 18:00 Vitamin D (Vitamin D3) 2,000 unit DAILY PO 01/21/21 09:00 01/24/21 08:04 Donepezil HCl (Aricept) 10 mg QHS PO 01/20/21 21:00 01/23/21 20:31 Lisinopril (Prinivil) 5 mg DAILY PO 01/21/21 09:00 01/24/21 08:04 Al Hydroxide/Mg Hydroxide (Mylanta Plus Xs) 15 ml PRN AFTMEALHC PRN PO DYSPEPSIA 01/20/21 18:00 Memantine (Namenda) 10 mg BID PO 01/20/21 21:00 01/24/21 08:03 Multi-Ingredient Ointment (Analgesic [place]) 1 micah PRN QID PRN TP PAIN 01/20/21 18:00 Olanzapine (ZyPREXA ZYDIS) 2.5 mg PRN Q2HR PRN PO ANXIETY / AGITATION 01/20/21 18:00 Pantoprazole Sodium (Protonix) 40 mg DAILY PO 01/21/21 09:00 01/24/21 08:04 Pseudoephedrine HCl (Sudafed 12-Hour) 120 mg PRN BID PRN PO CONGESTION 01/20/21 18:00 Sertraline HCl (Zoloft) 75 mg DAILY PO 01/21/21 09:00 01/21/21 17:45 DC 01/21/21 09:41 Trazodone HCl (Desyrel) 50 mg HS PO 01/20/21 21:00 01/23/21 20:31 Trazodone HCl (Desyrel) 50 mg PRN QHS PRN PO INSOMNIA 01/20/21 18:00 Ascorbic Acid (Vitamin C) 500 mg DAILY PO 01/21/21 09:00 01/24/21 08:03 Calcium/Vitamin D (Oscal D 500mg/ 200uts) 1 tab BIDWMEALS PO 01/21/21 08:00 01/24/21 08:03 Magnesium Hydroxide (Milk Of Magnesia) 2,400 mg PRN QHS PRN PO CONSTIPATION 01/20/21 18:30 Multivitamins/ Calcium (Thera-M Plus) 1 tab DAILY PO 01/21/21 09:00 01/24/21 08:03 Fish Oil (Fish Oil) 1,000 mg DAILY PO 01/21/21 09:00 01/24/21 08:04 Sertraline HCl (Zoloft) 100 mg DAILY PO 01/22/21 09:00 01/24/21 08:04 Divalproex Sodium (Depakote Sprinkles) 125 mg 0900,1700 PO 01/22/21 09:00 01/24/21 08:03 Quetiapine Fumarate (SEROquel) 12.5 mg 0900,1700 PO 01/24/21 09:00 I have reviewed the current psychotropics carefully including drug interactions. Risk benefit ratio favors no change other than as noted in my dictated progress note. Diagnosis: Problems: (1) Impulse control disorder, unspecified (2) Mild cognitive impairment (3) Anxiety disorder, unspecified (4) Dementia, vascular, with depression (5) Dementia, vascular, with delusions (6) Dementia in Alzheimer's disease with depression (7) Dementia in Alzheimer's disease with delusions (8) Major neurocognitive disorder (9) Dementia in Alzheimer's disease with early onset with behavioral disturbance DIMITRIOS RANDALL MD Jan 24, 2021 08:30
[2021-01-24] MEDS: QUEtiapine 25 MG TABLET. PO SCH ×2 (09:11→17:00)
[2021-01-24 15:33] VITALS: BP 152/78
[2021-01-24] MEDS: DONEPEZIL HCL 10 MG TABLET PO SCH (20:36)
[2021-01-24] MEDS: traZODone 50 MG TABLET. PO SCH (20:36)
--- NOTE | 2021-01-24 21:54 | PDOC ---
Exam Note: Tyler Note: Please also refer to the separate dictated note~for this date of service dictated separately.~Patient seen individually. Discussed the patient with Nursing staff reviewed the chart.~Reviewed interim history and current functioning. Reviewed vital signs,~Labs/ Radiology~and current medications noted below. Continue current treatment with the changes noted in the dictated addendum note Assessment: Vital Signs/I&O: Vital Signs Date Time Temp Pulse Resp B/P (MAP) Pulse Ox O2 Delivery O2 Flow Rate FiO2 01/24/21 15:33 97.6 73 18 152/78 (102) 98 01/23/21 05:49 Room Air I & O 01/23/21 01/23/21 01/24/21 15:00 23:00 07:00 Intake Total 600 ml 480 ml Balance 600 ml 480 ml Current Medications: Meds: Current Medications Medications (Trade) Dose Ordered Sig/Toño Route PRN Reason Start Time Stop Time Status Last Admin Dose Admin Acetaminophen (Tylenol) 650 mg PRN Q6HRS PRN PO MILD PAIN / TEMP > 100.3'F 01/20/21 18:00 01/22/21 10:55 Benzonatate (Tessalon Perle) 100 mg PRN TID PRN PO COUGH 01/20/21 18:00 Buspirone HCl (Buspar) 10 mg BID PO 01/20/21 21:00 01/24/21 20:36 Cetirizine HCl (ZyrTEC) 10 mg PRN DAILY PRN PO ALLERGIES 01/20/21 18:00 Vitamin D (Vitamin D3) 2,000 unit DAILY PO 01/21/21 09:00 01/24/21 08:04 Donepezil HCl (Aricept) 10 mg QHS PO 01/20/21 21:00 01/24/21 20:36 Lisinopril (Prinivil) 5 mg DAILY PO 01/21/21 09:00 01/24/21 08:04 Al Hydroxide/Mg Hydroxide (Mylanta Plus Xs) 15 ml PRN AFTMEALHC PRN PO DYSPEPSIA 01/20/21 18:00 Memantine (Namenda) 10 mg BID PO 01/20/21 21:00 01/24/21 20:36 Multi-Ingredient Ointment (Analgesic [place]) 1 micah PRN QID PRN TP PAIN 01/20/21 18:00 Olanzapine (ZyPREXA ZYDIS) 2.5 mg PRN Q2HR PRN PO ANXIETY / AGITATION 01/20/21 18:00 Pantoprazole Sodium (Protonix) 40 mg DAILY PO 01/21/21 09:00 01/24/21 08:04 Pseudoephedrine HCl (Sudafed 12-Hour) 120 mg PRN BID PRN PO CONGESTION 01/20/21 18:00 Sertraline HCl (Zoloft) 75 mg DAILY PO 01/21/21 09:00 01/21/21 17:45 DC 01/21/21 09:41 Trazodone HCl (Desyrel) 50 mg HS PO 01/20/21 21:00 01/24/21 20:36 Trazodone HCl (Desyrel) 50 mg PRN QHS PRN PO INSOMNIA 01/20/21 18:00 Ascorbic Acid (Vitamin C) 500 mg DAILY PO 01/21/21 09:00 01/24/21 08:03 Calcium/Vitamin D (Oscal D 500mg/ 200uts) 1 tab BIDWMEALS PO 01/21/21 08:00 01/24/21 17:00 Magnesium Hydroxide (Milk Of Magnesia) 2,400 mg PRN QHS PRN PO CONSTIPATION 01/20/21 18:30 Multivitamins/ Calcium (Thera-M Plus) 1 tab DAILY PO 01/21/21 09:00 01/24/21 08:03 Fish Oil (Fish Oil) 1,000 mg DAILY PO 01/21/21 09:00 01/24/21 08:04 Sertraline HCl (Zoloft) 100 mg DAILY PO 01/22/21 09:00 01/24/21 08:04 Divalproex Sodium (Depakote Sprinkles) 125 mg 0900,1700 PO 01/22/21 09:00 01/24/21 17:00 Quetiapine Fumarate (SEROquel) 12.5 mg 0900,1700 PO 01/24/21 09:00 01/24/21 17:58 DC 01/24/21 17:00 Quetiapine Fumarate (SEROquel) 12.5 mg 0900,1200,1500,1900 PO 01/25/21 09:00 Current Medications Medications (Trade) Dose Ordered Sig/Toño Route PRN Reason Start Time Stop Time Status Last Admin Dose Admin Quetiapine Fumarate (SEROquel) 12.5 mg 0900,1700 PO 01/24/21 09:00 01/24/21 17:58 DC 01/24/21 17:00 I have reviewed the current psychotropics carefully including drug interactions. Risk benefit ratio favors no change other than as noted in my dictated progress note. Diagnosis: Problems: (1) Impulse control disorder, unspecified (2) Mild cognitive impairment (3) Anxiety disorder, unspecified (4) Dementia, vascular, with depression (5) Dementia, vascular, with delusions (6) Dementia in Alzheimer's disease with depression (7) Dementia in Alzheimer's disease with delusions (8) Major neurocognitive disorder (9) Dementia in Alzheimer's disease with early onset with behavioral disturbance DIMITRIOS RANDALL MD Jan 24, 2021 21:54
[2021-01-25 06:17] VITALS: BP 115/69
[2021-01-25] MEDS: MULTIVITAMIN with MINERAL TABLET. PO SCH (08:24)
[2021-01-25] MEDS: OMEGA-3 FATTY ACIDS/FISH OIL 1,000 MG CAPSULE. PO SCH (08:25)
[2021-01-25] MEDS: SERTRALINE 100 MG TABLET. PO SCH (08:25)
[2021-01-25] MEDS: CALCIUM CARB/VIT D3 500/200 TABLET PO SCH ×2 (08:25→17:22)
[2021-01-25] MEDS: DIVALPROEX 125 MG CAP.SPRINK PO SCH ×2 (08:25→17:22)
[2021-01-25] MEDS: PANTOPRAZOLE 40 MG TABLET. PO SCH (08:25)
[2021-01-25] MEDS: ACETAMINOPHEN 325 MG TABLET PO PRN (08:25)
[2021-01-25] MEDS: MEMANTINE 10 MG TABLET. PO SCH ×2 (08:25→19:59)
[2021-01-25] MEDS: busPIRone 10 MG TABLET. PO SCH ×2 (08:25→19:59)
[2021-01-25] MEDS: QUEtiapine 25 MG TABLET. PO SCH ×4 (08:25→20:05)
[2021-01-25] MEDS: CHOLECALCIFEROL (VITAMIN D3) 1,000 UNIT TABLET PO SCH (08:25)
[2021-01-25] MEDS: ASCORBIC ACID 500 MG TABLET PO SCH (08:26)
[2021-01-25] MEDS: LISINOPRIL 5 MG TABLET. PO SCH (08:26)
[2021-01-25 08:36] LABS: BASO % 0 % (0-3); EOS # 0.2 x10^3/uL (0.0-0.7); EOS % 4 % (0-3); HEMATOCRIT 30.6 % (36.0-47.0); HEMOGLOBIN 10.3 g/dL (12.0-15.5); LYMPH # 1.1 x10^3/uL (1.0-4.8); LYMPH % 19 % (24-48); MEAN CORPUSCULAR HEMOGLOBIN 30 pg (25-35); MEAN CORPUSCULAR HGB CONC 34 g/dL (31-37); MEAN CORPUSCULAR VOLUME 90 fL (79-100); MONO # 0.5 x10^3/uL (0.0-1.1); MONO % 9 % (0-9); NEUT # 3.9 x10^3uL (1.8-7.7); NEUT % 69 % (31-73); PLATELET COUNT 198 x10^3/uL (140-400); RED CELL DISTRIBUTION WIDTH 13.3 % (11.5-14.5); WHITE BLOOD COUNT 5.7 x10^3/uL (4.0-11.0)
[2021-01-25 15:53] VITALS: BP 116/75
[2021-01-25 17:00] LABS: ALBUMIN 3.1 g/dL (3.4-5.0); ALBUMIN/GLOBULIN RATIO 1.1 (1.0-1.7); ALK PHOS 72 U/L (46-116); ALT (SGPT) 33 U/L (14-59); AST (SGOT) 22 U/L (15-37); BLOOD UREA NITROGEN 20 mg/dL (7-20); BUN/CREATININE RATIO 15 (6-20); CALCIUM 8.3 mg/dL (8.5-10.1); CREATININE 1.3 mg/dL (0.6-1.0); GFR 40.3; GLUCOSE 92 mg/dL (70-99); TOTAL BILIRUBIN 0.7 mg/dL (0.2-1.0); TOTAL PROTEIN 5.9 g/dL (6.4-8.2); VAL ACID 14 mcg/mL (50-100)
[2021-01-25 17:01] LABS: ANION GAP 7 (6-14); CARBON DIOXIDE 26 mmol/L (21-32); CHLORIDE 106 mmol/L (98-107); POTASSIUM 5.2 mmol/L (3.5-5.1); SODIUM 139 mmol/L (136-145)
[2021-01-25] MEDS: traZODone 50 MG TABLET. PO SCH (19:59)
[2021-01-25] MEDS: DONEPEZIL HCL 10 MG TABLET PO SCH (19:59)
--- NOTE | 2021-01-25 22:01 | PDOC ---
Exam Note: Tyler Note: Please also refer to the separate dictated note~for this date of service dictated separately.~Patient seen individually. Discussed the patient with Nursing staff reviewed the chart.~Reviewed interim history and current functioning. Reviewed vital signs,~Labs/ Radiology~and current medications noted below. Continue current treatment with the changes noted in the dictated addendum note Assessment: Vital Signs/I&O: Vital Signs Date Time Temp Pulse Resp B/P (MAP) Pulse Ox O2 Delivery O2 Flow Rate FiO2 01/25/21 15:53 97.5 78 16 116/75 (89) 95 01/23/21 05:49 Room Air I & O 01/24/21 01/24/21 01/25/21 15:00 23:00 07:00 Intake Total 720 ml 240 ml 240 ml Balance 720 ml 240 ml 240 ml Labs: Laboratory Tests Test 01/25/21 07:10 White Blood Count 5.7 x10^3/uL (4.0-11.0) Red Blood Count 3.40 x10^6/uL (3.50-5.40) L Hemoglobin 10.3 g/dL (12.0-15.5) L Hematocrit 30.6 % (36.0-47.0) L Mean Corpuscular Volume 90 fL (79-100) Mean Corpuscular Hemoglobin 30 pg (25-35) Mean Corpuscular Hemoglobin Concent 34 g/dL (31-37) Red Cell Distribution Width 13.3 % (11.5-14.5) Platelet Count 198 x10^3/uL (140-400) Neutrophils (%) (Auto) 69 % (31-73) Lymphocytes (%) (Auto) 19 % (24-48) L Monocytes (%) (Auto) 9 % (0-9) Eosinophils (%) (Auto) 4 % (0-3) H Basophils (%) (Auto) 0 % (0-3) Neutrophils # (Auto) 3.9 x10^3uL (1.8-7.7) Lymphocytes # (Auto) 1.1 x10^3/uL (1.0-4.8) Monocytes # (Auto) 0.5 x10^3/uL (0.0-1.1) Eosinophils # (Auto) 0.2 x10^3/uL (0.0-0.7) Basophils # (Auto) 0.0 x10^3/uL (0.0-0.2) Sodium Level 139 mmol/L (136-145) Potassium Level 5.2 mmol/L (3.5-5.1) H Chloride Level 106 mmol/L (98-107) Carbon Dioxide Level 26 mmol/L (21-32) Anion Gap 7 (6-14) Blood Urea Nitrogen 20 mg/dL (7-20) Creatinine 1.3 mg/dL (0.6-1.0) H Estimated GFR (Cockcroft-Gault) 40.3 BUN/Creatinine Ratio 15 (6-20) Glucose Level 92 mg/dL (70-99) Calcium Level 8.3 mg/dL (8.5-10.1) L Total Bilirubin 0.7 mg/dL (0.2-1.0) Aspartate Amino Transferase (AST) 22 U/L (15-37) Alanine Aminotransferase (ALT) 33 U/L (14-59) Alkaline Phosphatase 72 U/L (46-116) Total Protein 5.9 g/dL (6.4-8.2) L Albumin 3.1 g/dL (3.4-5.0) L Albumin/Globulin Ratio 1.1 (1.0-1.7) Valproic Acid Level 14 mcg/mL (50-100) L Valproic Acid Last Dose Date 01/24/21 Valproic Acid Last Dose Time 1700 Current Medications: Meds: Laboratory Tests Test 01/25/21 07:10 White Blood Count 5.7 x10^3/uL Red Blood Count 3.40 x10^6/uL Hemoglobin 10.3 g/dL Hematocrit 30.6 % Mean Corpuscular Volume 90 fL Mean Corpuscular Hemoglobin 30 pg Mean Corpuscular Hemoglobin Concent 34 g/dL Red Cell Distribution Width 13.3 % Platelet Count 198 x10^3/uL Neutrophils (%) (Auto) 69 % Lymphocytes (%) (Auto) 19 % Monocytes (%) (Auto) 9 % Eosinophils (%) (Auto) 4 % Basophils (%) (Auto) 0 % Neutrophils # (Auto) 3.9 x10^3uL Lymphocytes # (Auto) 1.1 x10^3/uL Monocytes # (Auto) 0.5 x10^3/uL Eosinophils # (Auto) 0.2 x10^3/uL Basophils # (Auto) 0.0 x10^3/uL Sodium Level 139 mmol/L Potassium Level 5.2 mmol/L Chloride Level 106 mmol/L Carbon Dioxide Level 26 mmol/L Anion Gap 7 Blood Urea Nitrogen 20 mg/dL Creatinine 1.3 mg/dL Estimated GFR (Cockcroft-Gault) 40.3 BUN/Creatinine Ratio 15 Glucose Level 92 mg/dL Calcium Level 8.3 mg/dL Total Bilirubin 0.7 mg/dL Aspartate Amino Transf (AST/SGOT) 22 U/L Alanine Aminotransferase (ALT/SGPT) 33 U/L Alkaline Phosphatase 72 U/L Total Protein 5.9 g/dL Albumin 3.1 g/dL Albumin/Globulin Ratio 1.1 Valproic Acid (Depakene) Level 14 mcg/mL Valproic Acid Last Dose Date 01/24/21 Valproic Acid Last Dose Time 1700 Current Medications Medications (Trade) Dose Ordered Sig/Toño Route PRN Reason Start Time Stop Time Status Last Admin Dose Admin Acetaminophen (Tylenol) 650 mg PRN Q6HRS PRN PO MILD PAIN / TEMP > 100.3'F 01/20/21 18:00 01/25/21 08:25 Benzonatate (Tessalon Perle) 100 mg PRN TID PRN PO COUGH 01/20/21 18:00 Buspirone HCl (Buspar) 10 mg BID PO 01/20/21 21:00 01/25/21 19:59 Cetirizine HCl (ZyrTEC) 10 mg PRN DAILY PRN PO ALLERGIES 01/20/21 18:00 Vitamin D (Vitamin D3) 2,000 unit DAILY PO 01/21/21 09:00 01/25/21 08:25 Donepezil HCl (Aricept) 10 mg QHS PO 01/20/21 21:00 01/25/21 19:59 Lisinopril (Prinivil) 5 mg DAILY PO 01/21/21 09:00 01/25/21 08:26 Al Hydroxide/Mg Hydroxide (Mylanta Plus Xs) 15 ml PRN AFTMEALHC PRN PO DYSPEPSIA 01/20/21 18:00 Memantine (Namenda) 10 mg BID PO 01/20/21 21:00 01/25/21 19:59 Multi-Ingredient Ointment (Analgesic [place]) 1 micah PRN QID PRN TP PAIN 01/20/21 18:00 Olanzapine (ZyPREXA ZYDIS) 2.5 mg PRN Q2HR PRN PO ANXIETY / AGITATION 01/20/21 18:00 Pantoprazole Sodium (Protonix) 40 mg DAILY PO 01/21/21 09:00 01/25/21 08:25 Pseudoephedrine HCl (Sudafed 12-Hour) 120 mg PRN BID PRN PO CONGESTION 01/20/21 18:00 Sertraline HCl (Zoloft) 75 mg DAILY PO 01/21/21 09:00 01/21/21 17:45 DC 01/21/21 09:41 Trazodone HCl (Desyrel) 50 mg HS PO 01/20/21 21:00 01/25/21 19:59 Trazodone HCl (Desyrel) 50 mg PRN QHS PRN PO INSOMNIA 01/20/21 18:00 Ascorbic Acid (Vitamin C) 500 mg DAILY PO 01/21/21 09:00 01/25/21 08:26 Calcium/Vitamin D (Oscal D 500mg/ 200uts) 1 tab BIDWMEALS PO 01/21/21 08:00 01/25/21 17:22 Magnesium Hydroxide (Milk Of Magnesia) 2,400 mg PRN QHS PRN PO CONSTIPATION 01/20/21 18:30 Multivitamins/ Calcium (Thera-M Plus) 1 tab DAILY PO 01/21/21 09:00 01/25/21 08:24 Fish Oil (Fish Oil) 1,000 mg DAILY PO 01/21/21 09:00 01/25/21 08:25 Sertraline HCl (Zoloft) 100 mg DAILY PO 01/22/21 09:00 01/25/21 08:25 Divalproex Sodium (Depakote Sprinkles) 125 mg 0900,1700 PO 01/22/21 09:00 01/25/21 17:22 Quetiapine Fumarate (SEROquel) 12.5 mg 0900,1700 PO 01/24/21 09:00 01/24/21 17:58 DC 01/24/21 17:00 Quetiapine Fumarate (SEROquel) 12.5 mg 0900,1200,1500,1900 PO 01/25/21 09:00 01/25/21 20:05 Current Medications Medications (Trade) Dose Ordered Sig/Toño Route PRN Reason Start Time Stop Time Status Last Admin Dose Admin Quetiapine Fumarate (SEROquel) 12.5 mg 0900,1200,1500,1900 PO 01/25/21 09:00 01/25/21 20:05 I have reviewed the current psychotropics carefully including drug interactions. Risk benefit ratio favors no change other than as noted in my dictated progress note. Diagnosis: Problems: (1) Impulse control disorder, unspecified (2) Mild cognitive impairment (3) Anxiety disorder, unspecified (4) Dementia, vascular, with depression (5) Dementia, vascular, with delusions (6) Dementia in Alzheimer's disease with depression (7) Dementia in Alzheimer's disease with delusions (8) Major neurocognitive disorder (9) Dementia in Alzheimer's disease with early onset with behavioral disturbance DIMITRIOS RANDALL MD Jan 25, 2021 22:01
[2021-01-26 05:48] VITALS: BP 146/81
[2021-01-26 06:46] LABS: VAL ACID 16 mcg/mL (50-100)
--- NOTE | 2021-01-26 08:05 | PDOC ---
Exam Note: Tyler Note: This note is a late entry for 01/24/2021 covers elements not covered in my initial note. Subjective: The patient was seen individually in the evening of 01/24/2021 with [facility], discussed and reviewed the chart. She slept 7-1/4 hours previous night. She refused her dinner, wandering, anxious, somewhat withdrawn, compliant with medications. Earlier she was cursing at another demented patient. I met with her in her room at some length. Review of Systems: She is hard of hearing. No CV, , pulmonary, eye system symptoms on review. Reliability poor. Mental Status Exam: The patient is oriented to herself. Insight and judgment, recent and remote memory, attention and concentration, fund of knowledge is poor consistent with her diagnoses. Laboratory Data: Reviewed. Impression: Major neurocognitive disorder Alzheimer vascular with delusion, depression, behavioral disturbance. Anxiety disorder unspecified. Impulse control disorder unspecified. Plan: Continue current psychotropics from initial note. She is currently on Seroquel 12.5 mg 0900 and 1700 hours. We will increase to 12.5 mg 0900 noon, 3 p.m, and 7 p.m. Make further adjustments as clinically indicated. Assessment: Vital Signs/I&O: Vital Signs Date Time Temp Pulse Resp B/P (MAP) Pulse Ox O2 Delivery O2 Flow Rate FiO2 01/26/21 05:48 97.5 65 16 146/81 (102) 97 01/23/21 05:49 Room Air I & O 01/25/21 01/25/21 01/26/21 14:59 22:59 06:59 Intake Total 600 ml 360 ml 240 ml Balance 600 ml 360 ml 240 ml Labs: Laboratory Tests Test 01/26/21 06:00 Valproic Acid Level 16 mcg/mL (50-100) L Valproic Acid Last Dose Date 01/25/21 Valproic Acid Last Dose Time 1700 Current Medications: Meds: Laboratory Tests Test 01/26/21 06:00 Valproic Acid (Depakene) Level 16 mcg/mL Valproic Acid Last Dose Date 01/25/21 Valproic Acid Last Dose Time 1700 Current Medications Medications (Trade) Dose Ordered Sig/Toño Route PRN Reason Start Time Stop Time Status Last Admin Dose Admin Acetaminophen (Tylenol) 650 mg PRN Q6HRS PRN PO MILD PAIN / TEMP > 100.3'F 01/20/21 18:00 01/25/21 08:25 Benzonatate (Tessalon Perle) 100 mg PRN TID PRN PO COUGH 01/20/21 18:00 Buspirone HCl (Buspar) 10 mg BID PO 01/20/21 21:00 01/25/21 19:59 Cetirizine HCl (ZyrTEC) 10 mg PRN DAILY PRN PO ALLERGIES 01/20/21 18:00 Vitamin D (Vitamin D3) 2,000 unit DAILY PO 01/21/21 09:00 01/25/21 08:25 Donepezil HCl (Aricept) 10 mg QHS PO 01/20/21 21:00 01/25/21 19:59 Lisinopril (Prinivil) 5 mg DAILY PO 01/21/21 09:00 01/25/21 08:26 Al Hydroxide/Mg Hydroxide (Mylanta Plus Xs) 15 ml PRN AFTMEALHC PRN PO DYSPEPSIA 01/20/21 18:00 Memantine (Namenda) 10 mg BID PO 01/20/21 21:00 01/25/21 19:59 Multi-Ingredient Ointment (Analgesic [place]) 1 micah PRN QID PRN TP PAIN 01/20/21 18:00 Olanzapine (ZyPREXA ZYDIS) 2.5 mg PRN Q2HR PRN PO ANXIETY / AGITATION 01/20/21 18:00 Pantoprazole Sodium (Protonix) 40 mg DAILY PO 01/21/21 09:00 01/25/21 08:25 Pseudoephedrine HCl (Sudafed 12-Hour) 120 mg PRN BID PRN PO CONGESTION 01/20/21 18:00 Sertraline HCl (Zoloft) 75 mg DAILY PO 01/21/21 09:00 01/21/21 17:45 DC 01/21/21 09:41 Trazodone HCl (Desyrel) 50 mg HS PO 01/20/21 21:00 01/25/21 19:59 Trazodone HCl (Desyrel) 50 mg PRN QHS PRN PO INSOMNIA 01/20/21 18:00 Ascorbic Acid (Vitamin C) 500 mg DAILY PO 01/21/21 09:00 01/25/21 08:26 Calcium/Vitamin D (Oscal D 500mg/ 200uts) 1 tab BIDWMEALS PO 01/21/21 08:00 01/25/21 17:22 Magnesium Hydroxide (Milk Of Magnesia) 2,400 mg PRN QHS PRN PO CONSTIPATION 01/20/21 18:30 Multivitamins/ Calcium (Thera-M Plus) 1 tab DAILY PO 01/21/21 09:00 01/25/21 08:24 Fish Oil (Fish Oil) 1,000 mg DAILY PO 01/21/21 09:00 01/25/21 08:25 Sertraline HCl (Zoloft) 100 mg DAILY PO 01/22/21 09:00 01/25/21 08:25 Divalproex Sodium (Depakote Sprinkles) 125 mg 0900,1700 PO 01/22/21 09:00 01/26/21 03:28 DC 01/25/21 17:22 Quetiapine Fumarate (SEROquel) 12.5 mg 0900,1700 PO 01/24/21 09:00 01/24/21 17:58 DC 01/24/21 17:00 Quetiapine Fumarate (SEROquel) 12.5 mg 0900,1200,1500,1900 PO 01/25/21 09:00 01/25/21 20:05 Divalproex Sodium (Depakote Sprinkles) 250 mg 0900,1700 PO 01/26/21 09:00 Current Medications Medications (Trade) Dose Ordered Sig/Toño Route PRN Reason Start Time Stop Time Status Last Admin Dose Admin Quetiapine Fumarate (SEROquel) 12.5 mg 0900,1200,1500,1900 PO 01/25/21 09:00 01/25/21 20:05 I have reviewed the current psychotropics carefully including drug interactions. Risk benefit ratio favors no change other than as noted in my dictated progress note. Diagnosis: Problems: (1) Impulse control disorder, unspecified (2) Mild cognitive impairment (3) Anxiety disorder, unspecified (4) Dementia, vascular, with depression (5) Dementia, vascular, with delusions (6) Dementia in Alzheimer's disease with depression (7) Dementia in Alzheimer's disease with delusions (8) Major neurocognitive disorder (9) Dementia in Alzheimer's disease with early onset with behavioral disturbance DIMITRIOS RANDALL MD Jan 26, 2021 08:05
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
[2021-01-26] MEDS: SERTRALINE 100 MG TABLET. PO SCH (09:58)
[2021-01-26] MEDS: OMEGA-3 FATTY ACIDS/FISH OIL 1,000 MG CAPSULE. PO SCH (09:58)
[2021-01-26] MEDS: PANTOPRAZOLE 40 MG TABLET. PO SCH (09:58)
[2021-01-26] MEDS: MULTIVITAMIN with MINERAL TABLET. PO SCH (09:58)
[2021-01-26] MEDS: ASCORBIC ACID 500 MG TABLET PO SCH (09:58)
[2021-01-26] MEDS: LISINOPRIL 5 MG TABLET. PO SCH (09:58)
[2021-01-26] MEDS: busPIRone 10 MG TABLET. PO SCH ×2 (09:58→21:12)
[2021-01-26] MEDS: CALCIUM CARB/VIT D3 500/200 TABLET PO SCH ×2 (09:58→17:02)
[2021-01-26] MEDS: MEMANTINE 10 MG TABLET. PO SCH ×2 (09:59→21:12)
[2021-01-26] MEDS: DIVALPROEX 125 MG CAP.SPRINK PO SCH ×2 (09:59→17:02)
[2021-01-26] MEDS: CHOLECALCIFEROL (VITAMIN D3) 1,000 UNIT TABLET PO SCH (09:59)
[2021-01-26] MEDS: QUEtiapine 25 MG TABLET. PO SCH ×4 (09:59→18:15)
[2021-01-26 15:57] VITALS: BP 126/70
[2021-01-26] MEDS: traZODone 50 MG TABLET. PO SCH (21:12)
[2021-01-26] MEDS: DONEPEZIL HCL 10 MG TABLET PO SCH (21:12)
--- NOTE | 2021-01-26 21:54 | PDOC ---
Exam Note: Tyler Note: Please also refer to the separate dictated note~for this date of service dictated separately.~Patient seen individually. Discussed the patient with Nursing staff reviewed the chart.~Reviewed interim history and current functioning. Reviewed vital signs,~Labs/ Radiology~and current medications noted below. Continue current treatment with the changes noted in the dictated addendum note Assessment: Vital Signs/I&O: Vital Signs Date Time Temp Pulse Resp B/P (MAP) Pulse Ox O2 Delivery O2 Flow Rate FiO2 01/26/21 15:57 97.5 71 18 126/70 (88) 97 01/23/21 05:49 Room Air I & O 01/25/21 01/25/21 01/26/21 15:00 23:00 07:00 Intake Total 600 ml 360 ml 240 ml Balance 600 ml 360 ml 240 ml Labs: Laboratory Tests Test 01/26/21 06:00 Valproic Acid Level 16 mcg/mL (50-100) L Valproic Acid Last Dose Date 01/25/21 Valproic Acid Last Dose Time 1700 Current Medications: Meds: Laboratory Tests Test 01/26/21 06:00 Valproic Acid (Depakene) Level 16 mcg/mL Valproic Acid Last Dose Date 01/25/21 Valproic Acid Last Dose Time 1700 Current Medications Medications (Trade) Dose Ordered Sig/Toño Route PRN Reason Start Time Stop Time Status Last Admin Dose Admin Acetaminophen (Tylenol) 650 mg PRN Q6HRS PRN PO MILD PAIN / TEMP > 100.3'F 01/20/21 18:00 01/25/21 08:25 Benzonatate (Tessalon Perle) 100 mg PRN TID PRN PO COUGH 01/20/21 18:00 Buspirone HCl (Buspar) 10 mg BID PO 01/20/21 21:00 01/26/21 21:12 Cetirizine HCl (ZyrTEC) 10 mg PRN DAILY PRN PO ALLERGIES 01/20/21 18:00 Vitamin D (Vitamin D3) 2,000 unit DAILY PO 01/21/21 09:00 01/26/21 09:59 Donepezil HCl (Aricept) 10 mg QHS PO 01/20/21 21:00 01/26/21 21:12 Lisinopril (Prinivil) 5 mg DAILY PO 01/21/21 09:00 01/26/21 09:58 Al Hydroxide/Mg Hydroxide (Mylanta Plus Xs) 15 ml PRN AFTMEALHC PRN PO DYSPEPSIA 01/20/21 18:00 Memantine (Namenda) 10 mg BID PO 01/20/21 21:00 01/26/21 21:12 Multi-Ingredient Ointment (Analgesic [place]) 1 micah PRN QID PRN TP PAIN 01/20/21 18:00 Olanzapine (ZyPREXA ZYDIS) 2.5 mg PRN Q2HR PRN PO ANXIETY / AGITATION 01/20/21 18:00 Pantoprazole Sodium (Protonix) 40 mg DAILY PO 01/21/21 09:00 01/26/21 09:58 Pseudoephedrine HCl (Sudafed 12-Hour) 120 mg PRN BID PRN PO CONGESTION 01/20/21 18:00 Sertraline HCl (Zoloft) 75 mg DAILY PO 01/21/21 09:00 01/21/21 17:45 DC 01/21/21 09:41 Trazodone HCl (Desyrel) 50 mg HS PO 01/20/21 21:00 01/26/21 21:12 Trazodone HCl (Desyrel) 50 mg PRN QHS PRN PO INSOMNIA 01/20/21 18:00 Ascorbic Acid (Vitamin C) 500 mg DAILY PO 01/21/21 09:00 01/26/21 09:58 Calcium/Vitamin D (Oscal D 500mg/ 200uts) 1 tab BIDWMEALS PO 01/21/21 08:00 01/26/21 17:02 Magnesium Hydroxide (Milk Of Magnesia) 2,400 mg PRN QHS PRN PO CONSTIPATION 01/20/21 18:30 Multivitamins/ Calcium (Thera-M Plus) 1 tab DAILY PO 01/21/21 09:00 01/26/21 09:58 Fish Oil (Fish Oil) 1,000 mg DAILY PO 01/21/21 09:00 01/26/21 09:58 Sertraline HCl (Zoloft) 100 mg DAILY PO 01/22/21 09:00 01/26/21 09:58 Divalproex Sodium (Depakote Sprinkles) 125 mg 0900,1700 PO 01/22/21 09:00 01/26/21 03:28 DC 01/25/21 17:22 Quetiapine Fumarate (SEROquel) 12.5 mg 0900,1700 PO 01/24/21 09:00 01/24/21 17:58 DC 01/24/21 17:00 Quetiapine Fumarate (SEROquel) 12.5 mg 0900,1200,1500,1900 PO 01/25/21 09:00 01/26/21 18:15 Divalproex Sodium (Depakote Sprinkles) 250 mg 0900,1700 PO 01/26/21 09:00 01/26/21 17:02 Current Medications Medications (Trade) Dose Ordered Sig/Toño Route PRN Reason Start Time Stop Time Status Last Admin Dose Admin Divalproex Sodium (Depakote Sprinkles) 250 mg 0900,1700 PO 01/26/21 09:00 01/26/21 17:02 I have reviewed the current psychotropics carefully including drug interactions. Risk benefit ratio favors no change other than as noted in my dictated progress note. Diagnosis: Problems: (1) Impulse control disorder, unspecified (2) Mild cognitive impairment (3) Anxiety disorder, unspecified (4) Dementia, vascular, with depression (5) Dementia, vascular, with delusions (6) Dementia in Alzheimer's disease with depression (7) Dementia in Alzheimer's disease with delusions (8) Major neurocognitive disorder (9) Dementia in Alzheimer's disease with early onset with behavioral disturbance DIMITRIOS RANDALL MD Jan 26, 2021 21:54
[2021-01-27 05:51] VITALS: BP 139/75
--- NOTE | 2021-01-27 06:56 | PDOC ---
Exam Note: Tyler Note: This note is a late entry for 01/26/2021 covers elements not covered in my initial note. Subjective: The patient was seen individually in the evening of 01/26/2021 with Barbara MEDEL, discussed and reviewed the chart. She slept 8 hours previous night. She had an outburst in the morning. Valproic acid level is 16 subtherapeutic and Depakote is since being increased with repeat level on the . Review of Systems: She is hard of hearing. No CV, , pulmonary, eye system symptoms on review. Mental Status Exam: The patient is oriented to herself. Insight and judgment, recent and remote memory, attention and concentration, fund of knowledge is poor consistent with her diagnoses. Laboratory Data: Reviewed. Impression: Major neurocognitive disorder Alzheimer vascular with delusion, depression, behavioral disturbance. Anxiety disorder unspecified. Impulse control disorder unspecified. Plan: Continue current psychotropics from initial note. Assessment: Vital Signs/I&O: Vital Signs Date Time Temp Pulse Resp B/P (MAP) Pulse Ox O2 Delivery O2 Flow Rate FiO2 01/27/21 05:51 97.8 73 16 139/75 (96) 98 01/23/21 05:49 Room Air I & O 01/26/21 01/26/21 01/27/21 15:00 23:00 07:00 Intake Total 960 ml 240 ml 240 ml Balance 960 ml 240 ml 240 ml Current Medications: Meds: Current Medications Medications (Trade) Dose Ordered Sig/Toño Route PRN Reason Start Time Stop Time Status Last Admin Dose Admin Acetaminophen (Tylenol) 650 mg PRN Q6HRS PRN PO MILD PAIN / TEMP > 100.3'F 01/20/21 18:00 01/25/21 08:25 Benzonatate (Tessalon Perle) 100 mg PRN TID PRN PO COUGH 01/20/21 18:00 Buspirone HCl (Buspar) 10 mg BID PO 01/20/21 21:00 01/26/21 21:12 Cetirizine HCl (ZyrTEC) 10 mg PRN DAILY PRN PO ALLERGIES 01/20/21 18:00 Vitamin D (Vitamin D3) 2,000 unit DAILY PO 01/21/21 09:00 01/26/21 09:59 Donepezil HCl (Aricept) 10 mg QHS PO 01/20/21 21:00 01/26/21 21:12 Lisinopril (Prinivil) 5 mg DAILY PO 01/21/21 09:00 01/26/21 09:58 Al Hydroxide/Mg Hydroxide (Mylanta Plus Xs) 15 ml PRN AFTMEALHC PRN PO DYSPEPSIA 01/20/21 18:00 Memantine (Namenda) 10 mg BID PO 01/20/21 21:00 01/26/21 21:12 Multi-Ingredient Ointment (Analgesic [place]) 1 micah PRN QID PRN TP PAIN 01/20/21 18:00 Olanzapine (ZyPREXA ZYDIS) 2.5 mg PRN Q2HR PRN PO ANXIETY / AGITATION 01/20/21 18:00 Pantoprazole Sodium (Protonix) 40 mg DAILY PO 01/21/21 09:00 01/26/21 09:58 Pseudoephedrine HCl (Sudafed 12-Hour) 120 mg PRN BID PRN PO CONGESTION 01/20/21 18:00 Sertraline HCl (Zoloft) 75 mg DAILY PO 01/21/21 09:00 01/21/21 17:45 DC 01/21/21 09:41 Trazodone HCl (Desyrel) 50 mg HS PO 01/20/21 21:00 01/26/21 21:12 Trazodone HCl (Desyrel) 50 mg PRN QHS PRN PO INSOMNIA 01/20/21 18:00 Ascorbic Acid (Vitamin C) 500 mg DAILY PO 01/21/21 09:00 01/26/21 09:58 Calcium/Vitamin D (Oscal D 500mg/ 200uts) 1 tab BIDWMEALS PO 01/21/21 08:00 01/26/21 17:02 Magnesium Hydroxide (Milk Of Magnesia) 2,400 mg PRN QHS PRN PO CONSTIPATION 01/20/21 18:30 Multivitamins/ Calcium (Thera-M Plus) 1 tab DAILY PO 01/21/21 09:00 01/26/21 09:58 Fish Oil (Fish Oil) 1,000 mg DAILY PO 01/21/21 09:00 01/26/21 09:58 Sertraline HCl (Zoloft) 100 mg DAILY PO 01/22/21 09:00 01/26/21 09:58 Divalproex Sodium (Depakote Sprinkles) 125 mg 0900,1700 PO 01/22/21 09:00 01/26/21 03:28 DC 01/25/21 17:22 Quetiapine Fumarate (SEROquel) 12.5 mg 0900,1700 PO 01/24/21 09:00 01/24/21 17:58 DC 01/24/21 17:00 Quetiapine Fumarate (SEROquel) 12.5 mg 0900,1200,1500,1900 PO 01/25/21 09:00 01/26/21 18:15 Divalproex Sodium (Depakote Sprinkles) 250 mg 0900,1700 PO 01/26/21 09:00 01/26/21 17:02 Current Medications Medications (Trade) Dose Ordered Sig/Toño Route PRN Reason Start Time Stop Time Status Last Admin Dose Admin Divalproex Sodium (Depakote Sprinkles) 250 mg 0900,1700 PO 01/26/21 09:00 01/26/21 17:02 I have reviewed the current psychotropics carefully including drug interactions. Risk benefit ratio favors no change other than as noted in my dictated progress note. Diagnosis: Problems: (1) Impulse control disorder, unspecified (2) Mild cognitive impairment (3) Anxiety disorder, unspecified (4) Dementia, vascular, with depression (5) Dementia, vascular, with delusions (6) Dementia in Alzheimer's disease with depression (7) Dementia in Alzheimer's disease with delusions (8) Major neurocognitive disorder (9) Dementia in Alzheimer's disease with early onset with behavioral disturbance DIMITRIOS RANDALL MD Jan 27, 2021 06:56
[2021-01-27] MEDS: CALCIUM CARB/VIT D3 500/200 TABLET PO SCH ×2 (09:14→17:09)
[2021-01-27] MEDS: DIVALPROEX 125 MG CAP.SPRINK PO SCH ×2 (09:14→17:09)
[2021-01-27] MEDS: MEMANTINE 10 MG TABLET. PO SCH ×2 (09:15→20:24)
[2021-01-27] MEDS: LISINOPRIL 5 MG TABLET. PO SCH (09:15)
[2021-01-27] MEDS: OMEGA-3 FATTY ACIDS/FISH OIL 1,000 MG CAPSULE. PO SCH (09:15)
[2021-01-27] MEDS: CHOLECALCIFEROL (VITAMIN D3) 1,000 UNIT TABLET PO SCH (09:15)
[2021-01-27] MEDS: QUEtiapine 25 MG TABLET. PO SCH ×4 (09:15→17:09)
[2021-01-27] MEDS: ASCORBIC ACID 500 MG TABLET PO SCH (09:16)
[2021-01-27] MEDS: SERTRALINE 100 MG TABLET. PO SCH (09:16)
[2021-01-27] MEDS: busPIRone 10 MG TABLET. PO SCH ×2 (09:16→20:24)
[2021-01-27] MEDS: PANTOPRAZOLE 40 MG TABLET. PO SCH (09:16)
[2021-01-27] MEDS: MULTIVITAMIN with MINERAL TABLET. PO SCH (09:16)
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
[2021-01-27 16:04] VITALS: BP 132/76
[2021-01-27] MEDS: traZODone 50 MG TABLET. PO SCH (20:24)
[2021-01-27] MEDS: DONEPEZIL HCL 10 MG TABLET PO SCH (20:24)
--- NOTE | 2021-01-27 22:03 | PDOC ---
Exam Note: Tyler Note: Please also refer to the separate dictated note~for this date of service dictated separately.~Patient seen individually. Discussed the patient with Nursing staff reviewed the chart.~Reviewed interim history and current functioning. Reviewed vital signs,~Labs/ Radiology~and current medications noted below. Continue current treatment with the changes noted in the dictated addendum note Assessment: Vital Signs/I&O: Vital Signs Date Time Temp Pulse Resp B/P (MAP) Pulse Ox O2 Delivery O2 Flow Rate FiO2 01/27/21 16:04 98.0 60 60 132/76 (94) 98 Room Air I & O 01/26/21 01/26/21 01/27/21 15:00 23:00 07:00 Intake Total 960 ml 240 ml 240 ml Balance 960 ml 240 ml 240 ml Current Medications: Meds: Current Medications Medications (Trade) Dose Ordered Sig/Toño Route PRN Reason Start Time Stop Time Status Last Admin Dose Admin Acetaminophen (Tylenol) 650 mg PRN Q6HRS PRN PO MILD PAIN / TEMP > 100.3'F 01/20/21 18:00 01/25/21 08:25 Benzonatate (Tessalon Perle) 100 mg PRN TID PRN PO COUGH 01/20/21 18:00 Buspirone HCl (Buspar) 10 mg BID PO 01/20/21 21:00 01/27/21 20:24 Cetirizine HCl (ZyrTEC) 10 mg PRN DAILY PRN PO ALLERGIES 01/20/21 18:00 Vitamin D (Vitamin D3) 2,000 unit DAILY PO 01/21/21 09:00 01/27/21 09:15 Donepezil HCl (Aricept) 10 mg QHS PO 01/20/21 21:00 01/27/21 20:24 Lisinopril (Prinivil) 5 mg DAILY PO 01/21/21 09:00 01/27/21 09:15 Al Hydroxide/Mg Hydroxide (Mylanta Plus Xs) 15 ml PRN AFTMEALHC PRN PO DYSPEPSIA 01/20/21 18:00 Memantine (Namenda) 10 mg BID PO 01/20/21 21:00 01/27/21 20:24 Multi-Ingredient Ointment (Analgesic [place]) 1 micah PRN QID PRN TP PAIN 01/20/21 18:00 Olanzapine (ZyPREXA ZYDIS) 2.5 mg PRN Q2HR PRN PO ANXIETY / AGITATION 01/20/21 18:00 Pantoprazole Sodium (Protonix) 40 mg DAILY PO 01/21/21 09:00 01/27/21 09:16 Pseudoephedrine HCl (Sudafed 12-Hour) 120 mg PRN BID PRN PO CONGESTION 01/20/21 18:00 Sertraline HCl (Zoloft) 75 mg DAILY PO 01/21/21 09:00 01/21/21 17:45 DC 01/21/21 09:41 Trazodone HCl (Desyrel) 50 mg HS PO 01/20/21 21:00 01/27/21 20:24 Trazodone HCl (Desyrel) 50 mg PRN QHS PRN PO INSOMNIA 01/20/21 18:00 Ascorbic Acid (Vitamin C) 500 mg DAILY PO 01/21/21 09:00 01/27/21 09:16 Calcium/Vitamin D (Oscal D 500mg/ 200uts) 1 tab BIDWMEALS PO 01/21/21 08:00 01/27/21 17:09 Magnesium Hydroxide (Milk Of Magnesia) 2,400 mg PRN QHS PRN PO CONSTIPATION 01/20/21 18:30 Multivitamins/ Calcium (Thera-M Plus) 1 tab DAILY PO 01/21/21 09:00 01/27/21 09:16 Fish Oil (Fish Oil) 1,000 mg DAILY PO 01/21/21 09:00 01/27/21 09:15 Sertraline HCl (Zoloft) 100 mg DAILY PO 01/22/21 09:00 01/27/21 09:16 Divalproex Sodium (Depakote Sprinkles) 125 mg 0900,1700 PO 01/22/21 09:00 01/26/21 03:28 DC 01/25/21 17:22 Quetiapine Fumarate (SEROquel) 12.5 mg 0900,1700 PO 01/24/21 09:00 01/24/21 17:58 DC 01/24/21 17:00 Quetiapine Fumarate (SEROquel) 12.5 mg 0900,1200,1500,1900 PO 01/25/21 09:00 01/27/21 17:09 Divalproex Sodium (Depakote Sprinkles) 250 mg 0900,1700 PO 01/26/21 09:00 01/27/21 17:09 I have reviewed the current psychotropics carefully including drug interactions. Risk benefit ratio favors no change other than as noted in my dictated progress note. Diagnosis: Problems: (1) Impulse control disorder, unspecified (2) Mild cognitive impairment (3) Anxiety disorder, unspecified (4) Dementia, vascular, with depression (5) Dementia, vascular, with delusions (6) Dementia in Alzheimer's disease with depression (7) Dementia in Alzheimer's disease with delusions (8) Major neurocognitive disorder (9) Dementia in Alzheimer's disease with early onset with behavioral disturbance DIMITRIOS RANDALL MD Jan 27, 2021 22:03
[2021-01-28 05:44] VITALS: BP 132/71
[2021-01-28] MEDS: CALCIUM CARB/VIT D3 500/200 TABLET PO SCH ×2 (08:15→17:25)
[2021-01-28] MEDS: LISINOPRIL 5 MG TABLET. PO SCH (08:15)
[2021-01-28] MEDS: CHOLECALCIFEROL (VITAMIN D3) 1,000 UNIT TABLET PO SCH (08:16)
[2021-01-28] MEDS: QUEtiapine 25 MG TABLET. PO SCH ×4 (08:16→19:53)
[2021-01-28] MEDS: busPIRone 10 MG TABLET. PO SCH ×2 (08:16→19:52)
[2021-01-28] MEDS: ASCORBIC ACID 500 MG TABLET PO SCH (08:16)
[2021-01-28] MEDS: MEMANTINE 10 MG TABLET. PO SCH ×2 (08:17→19:53)
[2021-01-28] MEDS: DIVALPROEX 125 MG CAP.SPRINK PO SCH ×2 (08:17→17:25)
[2021-01-28] MEDS: SERTRALINE 100 MG TABLET. PO SCH (08:17)
[2021-01-28] MEDS: MULTIVITAMIN with MINERAL TABLET. PO SCH (08:17)
[2021-01-28] MEDS: OMEGA-3 FATTY ACIDS/FISH OIL 1,000 MG CAPSULE. PO SCH (08:17)
[2021-01-28] MEDS: PANTOPRAZOLE 40 MG TABLET. PO SCH (08:18)
[2021-01-28 16:21] VITALS: BP 104/65
[2021-01-28] MEDS: traZODone 50 MG TABLET. PO SCH (19:53)
[2021-01-28] MEDS: DONEPEZIL HCL 10 MG TABLET PO SCH (19:53)
--- NOTE | 2021-01-28 21:59 | PDOC ---
Exam Note: Tyler Note: Please also refer to the separate dictated note~for this date of service dictated separately.~Patient seen individually. Discussed the patient with Nursing staff reviewed the chart.~Reviewed interim history and current functioning. Reviewed vital signs,~Labs/ Radiology~and current medications noted below. Continue current treatment with the changes noted in the dictated addendum note Assessment: Vital Signs/I&O: Vital Signs Date Time Temp Pulse Resp B/P (MAP) Pulse Ox O2 Delivery O2 Flow Rate FiO2 01/28/21 16:21 97.6 69 16 104/65 (78) 96 Room Air I & O 01/27/21 01/27/21 01/28/21 15:00 23:00 07:00 Intake Total 600 ml 480 ml Balance 600 ml 480 ml Current Medications: Meds: Current Medications Medications (Trade) Dose Ordered Sig/Otño Route PRN Reason Start Time Stop Time Status Last Admin Dose Admin Acetaminophen (Tylenol) 650 mg PRN Q6HRS PRN PO MILD PAIN / TEMP > 100.3'F 01/20/21 18:00 01/25/21 08:25 Benzonatate (Tessalon Perle) 100 mg PRN TID PRN PO COUGH 01/20/21 18:00 Buspirone HCl (Buspar) 10 mg BID PO 01/20/21 21:00 01/28/21 19:52 Cetirizine HCl (ZyrTEC) 10 mg PRN DAILY PRN PO ALLERGIES 01/20/21 18:00 Vitamin D (Vitamin D3) 2,000 unit DAILY PO 01/21/21 09:00 01/28/21 08:16 Donepezil HCl (Aricept) 10 mg QHS PO 01/20/21 21:00 01/28/21 19:53 Lisinopril (Prinivil) 5 mg DAILY PO 01/21/21 09:00 01/28/21 08:15 Al Hydroxide/Mg Hydroxide (Mylanta Plus Xs) 15 ml PRN AFTMEALHC PRN PO DYSPEPSIA 01/20/21 18:00 Memantine (Namenda) 10 mg BID PO 01/20/21 21:00 01/28/21 19:53 Multi-Ingredient Ointment (Analgesic [place]) 1 micah PRN QID PRN TP PAIN 01/20/21 18:00 Olanzapine (ZyPREXA ZYDIS) 2.5 mg PRN Q2HR PRN PO ANXIETY / AGITATION 01/20/21 18:00 Pantoprazole Sodium (Protonix) 40 mg DAILY PO 01/21/21 09:00 01/28/21 08:18 Pseudoephedrine HCl (Sudafed 12-Hour) 120 mg PRN BID PRN PO CONGESTION 01/20/21 18:00 Sertraline HCl (Zoloft) 75 mg DAILY PO 01/21/21 09:00 01/21/21 17:45 DC 01/21/21 09:41 Trazodone HCl (Desyrel) 50 mg HS PO 01/20/21 21:00 01/28/21 19:53 Trazodone HCl (Desyrel) 50 mg PRN QHS PRN PO INSOMNIA 01/20/21 18:00 Ascorbic Acid (Vitamin C) 500 mg DAILY PO 01/21/21 09:00 01/28/21 08:16 Calcium/Vitamin D (Oscal D 500mg/ 200uts) 1 tab BIDWMEALS PO 01/21/21 08:00 01/28/21 17:25 Magnesium Hydroxide (Milk Of Magnesia) 2,400 mg PRN QHS PRN PO CONSTIPATION 01/20/21 18:30 Multivitamins/ Calcium (Thera-M Plus) 1 tab DAILY PO 01/21/21 09:00 01/28/21 08:17 Fish Oil (Fish Oil) 1,000 mg DAILY PO 01/21/21 09:00 01/28/21 08:17 Sertraline HCl (Zoloft) 100 mg DAILY PO 01/22/21 09:00 01/28/21 08:17 Divalproex Sodium (Depakote Sprinkles) 125 mg 0900,1700 PO 01/22/21 09:00 01/26/21 03:28 DC 01/25/21 17:22 Quetiapine Fumarate (SEROquel) 12.5 mg 0900,1700 PO 01/24/21 09:00 01/24/21 17:58 DC 01/24/21 17:00 Quetiapine Fumarate (SEROquel) 12.5 mg 0900,1200,1500,1900 PO 01/25/21 09:00 01/28/21 19:53 Divalproex Sodium (Depakote Sprinkles) 250 mg 0900,1700 PO 01/26/21 09:00 01/28/21 17:25 I have reviewed the current psychotropics carefully including drug interactions. Risk benefit ratio favors no change other than as noted in my dictated progress note. Diagnosis: Problems: (1) Impulse control disorder, unspecified (2) Mild cognitive impairment (3) Anxiety disorder, unspecified (4) Dementia, vascular, with depression (5) Dementia, vascular, with delusions (6) Dementia in Alzheimer's disease with depression (7) Dementia in Alzheimer's disease with delusions (8) Major neurocognitive disorder (9) Dementia in Alzheimer's disease with early onset with behavioral disturbance DIMITRIOS RANDALL MD Jan 28, 2021 21:59
[2021-01-29 06:00] VITALS: BP 120/62
[2021-01-29 07:13] LABS: BASO % 0 % (0-3); EOS # 0.2 x10^3/uL (0.0-0.7); EOS % 4 % (0-3); HEMATOCRIT 30.7 % (36.0-47.0); HEMOGLOBIN 10.2 g/dL (12.0-15.5); LYMPH # 1.3 x10^3/uL (1.0-4.8); LYMPH % 26 % (24-48); MEAN CORPUSCULAR HEMOGLOBIN 30 pg (25-35); MEAN CORPUSCULAR HGB CONC 33 g/dL (31-37); MEAN CORPUSCULAR VOLUME 90 fL (79-100); MONO # 0.4 x10^3/uL (0.0-1.1); MONO % 8 % (0-9); NEUT # 3.1 x10^3uL (1.8-7.7); NEUT % 62 % (31-73); PLATELET COUNT 184 x10^3/uL (140-400); RED BLOOD COUNT 3.42 x10^6/uL (3.50-5.40); RED CELL DISTRIBUTION WIDTH 13.6 % (11.5-14.5)
--- NOTE | 2021-01-29 07:17 | PDOC ---
Exam Note: Tyler Note: This note is a late entry for 01/27/2021 covers elements not covered in my initial note. Subjective: The patient was reviewed in the morning of 01/27/2021 for a treatment team meeting with Nanette Pace, Pascale Colvin (social media marketing manager), Antoinette, activity therapy and Jus MEDEL discussed and reviewed the chart. She slept 7-1/2 hours previous night. Patients [id number] Ella attended the conference. Appetite is 70%. She slept 7-1/2 hours. She is compliant with medications, somewhat sarcastic yesterday and was tracking out at a nursing aid, was screaming at another demented patients, agitated that shoes were causing blisters and these are being removed and she is just wearing the non-skid socks. She attended 7 groups, remains confused. We had a lengthy discussion with the [id number] about the diagnoses and answered all her questions, placement options, discharge plans. Review of Systems: She is hard of hearing. No CV, , pulmonary, eye system symptoms on review. Mental Status Exam: The patient is oriented to herself. Insight and judgment, recent and remote memory, attention and concentration, fund of knowledge is poor consistent with her diagnoses. Laboratory Data: Reviewed. Impression: Major neurocognitive disorder Alzheimer vascular with delusion, depression, behavioral disturbance. Anxiety disorder unspecified. Impulse control disorder unspecified. Plan: Continue current psychotropics from initial note. Assessment: Vital Signs/I&O: Vital Signs Date Time Temp Pulse Resp B/P (MAP) Pulse Ox O2 Delivery O2 Flow Rate FiO2 01/29/21 06:00 97.0 64 16 120/62 (81) 95 Room Air I & O 01/28/21 01/28/21 01/29/21 14:59 22:59 06:59 Intake Total 360 ml 960 ml Balance 360 ml 960 ml Labs: Laboratory Tests Test 01/29/21 06:38 White Blood Count 5.0 x10^3/uL (4.0-11.0) Red Blood Count 3.42 x10^6/uL (3.50-5.40) L Hemoglobin 10.2 g/dL (12.0-15.5) L Hematocrit 30.7 % (36.0-47.0) L Mean Corpuscular Volume 90 fL (79-100) Mean Corpuscular Hemoglobin 30 pg (25-35) Mean Corpuscular Hemoglobin Concent 33 g/dL (31-37) Red Cell Distribution Width 13.6 % (11.5-14.5) Platelet Count 184 x10^3/uL (140-400) Neutrophils (%) (Auto) 62 % (31-73) Lymphocytes (%) (Auto) 26 % (24-48) Monocytes (%) (Auto) 8 % (0-9) Eosinophils (%) (Auto) 4 % (0-3) H Basophils (%) (Auto) 0 % (0-3) Neutrophils # (Auto) 3.1 x10^3uL (1.8-7.7) Lymphocytes # (Auto) 1.3 x10^3/uL (1.0-4.8) Monocytes # (Auto) 0.4 x10^3/uL (0.0-1.1) Eosinophils # (Auto) 0.2 x10^3/uL (0.0-0.7) Basophils # (Auto) 0.0 x10^3/uL (0.0-0.2) Current Medications: Meds: Laboratory Tests Test 01/29/21 06:38 White Blood Count 5.0 x10^3/uL Red Blood Count 3.42 x10^6/uL Hemoglobin 10.2 g/dL Hematocrit 30.7 % Mean Corpuscular Volume 90 fL Mean Corpuscular Hemoglobin 30 pg Mean Corpuscular Hemoglobin Concent 33 g/dL Red Cell Distribution Width 13.6 % Platelet Count 184 x10^3/uL Neutrophils (%) (Auto) 62 % Lymphocytes (%) (Auto) 26 % Monocytes (%) (Auto) 8 % Eosinophils (%) (Auto) 4 % Basophils (%) (Auto) 0 % Neutrophils # (Auto) 3.1 x10^3uL Lymphocytes # (Auto) 1.3 x10^3/uL Monocytes # (Auto) 0.4 x10^3/uL Eosinophils # (Auto) 0.2 x10^3/uL Basophils # (Auto) 0.0 x10^3/uL Current Medications Medications (Trade) Dose Ordered Sig/Toño Route PRN Reason Start Time Stop Time Status Last Admin Dose Admin Acetaminophen (Tylenol) 650 mg PRN Q6HRS PRN PO MILD PAIN / TEMP > 100.3'F 01/20/21 18:00 01/25/21 08:25 Benzonatate (Tessalon Perle) 100 mg PRN TID PRN PO COUGH 01/20/21 18:00 Buspirone HCl (Buspar) 10 mg BID PO 01/20/21 21:00 01/28/21 19:52 Cetirizine HCl (ZyrTEC) 10 mg PRN DAILY PRN PO ALLERGIES 01/20/21 18:00 Vitamin D (Vitamin D3) 2,000 unit DAILY PO 01/21/21 09:00 01/28/21 08:16 Donepezil HCl (Aricept) 10 mg QHS PO 01/20/21 21:00 01/28/21 19:53 Lisinopril (Prinivil) 5 mg DAILY PO 01/21/21 09:00 01/28/21 08:15 Al Hydroxide/Mg Hydroxide (Mylanta Plus Xs) 15 ml PRN AFTMEALHC PRN PO DYSPEPSIA 01/20/21 18:00 Memantine (Namenda) 10 mg BID PO 01/20/21 21:00 01/28/21 19:53 Multi-Ingredient Ointment (Analgesic [place]) 1 micah PRN QID PRN TP PAIN 01/20/21 18:00 Olanzapine (ZyPREXA ZYDIS) 2.5 mg PRN Q2HR PRN PO ANXIETY / AGITATION 01/20/21 18:00 Pantoprazole Sodium (Protonix) 40 mg DAILY PO 01/21/21 09:00 01/28/21 08:18 Pseudoephedrine HCl (Sudafed 12-Hour) 120 mg PRN BID PRN PO CONGESTION 01/20/21 18:00 Sertraline HCl (Zoloft) 75 mg DAILY PO 01/21/21 09:00 01/21/21 17:45 DC 01/21/21 09:41 Trazodone HCl (Desyrel) 50 mg HS PO 01/20/21 21:00 01/28/21 19:53 Trazodone HCl (Desyrel) 50 mg PRN QHS PRN PO INSOMNIA 01/20/21 18:00 Ascorbic Acid (Vitamin C) 500 mg DAILY PO 01/21/21 09:00 01/28/21 08:16 Calcium/Vitamin D (Oscal D 500mg/ 200uts) 1 tab BIDWMEALS PO 01/21/21 08:00 01/28/21 17:25 Magnesium Hydroxide (Milk Of Magnesia) 2,400 mg PRN QHS PRN PO CONSTIPATION 01/20/21 18:30 Multivitamins/ Calcium (Thera-M Plus) 1 tab DAILY PO 01/21/21 09:00 01/28/21 08:17 Fish Oil (Fish Oil) 1,000 mg DAILY PO 01/21/21 09:00 01/28/21 08:17 Sertraline HCl (Zoloft) 100 mg DAILY PO 01/22/21 09:00 01/28/21 08:17 Divalproex Sodium (Depakote Sprinkles) 125 mg 0900,1700 PO 01/22/21 09:00 01/26/21 03:28 DC 01/25/21 17:22 Quetiapine Fumarate (SEROquel) 12.5 mg 0900,1700 PO 01/24/21 09:00 01/24/21 17:58 DC 01/24/21 17:00 Quetiapine Fumarate (SEROquel) 12.5 mg 0900,1200,1500,1900 PO 01/25/21 09:00 01/28/21 19:53 Divalproex Sodium (Depakote Sprinkles) 250 mg 0900,1700 PO 01/26/21 09:00 01/28/21 17:25 I have reviewed the current psychotropics carefully including drug interactions. Risk benefit ratio favors no change other than as noted in my dictated progress note. Diagnosis: Problems: (1) Impulse control disorder, unspecified (2) Mild cognitive impairment (3) Anxiety disorder, unspecified (4) Dementia, vascular, with depression (5) Dementia, vascular, with delusions (6) Dementia in Alzheimer's disease with depression (7) Dementia in Alzheimer's disease with delusions (8) Major neurocognitive disorder (9) Dementia in Alzheimer's disease with early onset with behavioral disturbance DIMITRIOS RANDALL MD Jan 29, 2021 07:17
[2021-01-29 07:20] LABS: ALBUMIN 3.1 g/dL (3.4-5.0); ALBUMIN/GLOBULIN RATIO 1.2 (1.0-1.7); CALCIUM 8.1 mg/dL (8.5-10.1); CREATININE 1.4 mg/dL (0.6-1.0); POTASSIUM 4.9 mmol/L (3.5-5.1); TOTAL BILIRUBIN 0.6 mg/dL (0.2-1.0); TOTAL PROTEIN 5.7 g/dL (6.4-8.2)
--- NOTE | 2021-01-29 07:33 | PDOC ---
Exam Note: Tyler Note: This note is a late entry for 01/28/2021 covers elements not covered in my initial note. Subjective: The patient was seen individually in the evening of 01/28/2021 with Jus MEDEL, discussed and reviewed the chart. She slept 8-1/4 hours previous night. She remains confused, resistive to cares. She took her h.s. medications. She has not been yelling or screaming like before. Review of Systems: She is hard of hearing. No CV, , pulmonary, eye system symptoms on review. Mental Status Exam: The patient is oriented to herself. Insight and judgment, recent and remote memory, attention and concentration, fund of knowledge is poor consistent with her diagnoses. Laboratory Data: Reviewed. Impression: Major neurocognitive disorder Alzheimer vascular with delusion, depression, behavioral disturbance. Anxiety disorder unspecified. Impulse control disorder unspecified. Plan: Continue current psychotropics from initial note. We have adjusted the patients Seroquel. Assessment: Vital Signs/I&O: Vital Signs Date Time Temp Pulse Resp B/P (MAP) Pulse Ox O2 Delivery O2 Flow Rate FiO2 01/29/21 06:00 97.0 64 16 120/62 (81) 95 Room Air I & O 01/28/21 01/28/21 01/29/21 15:00 23:00 07:00 Intake Total 360 ml 960 ml Balance 360 ml 960 ml Labs: Laboratory Tests Test 01/29/21 06:38 White Blood Count 5.0 x10^3/uL (4.0-11.0) Red Blood Count 3.42 x10^6/uL (3.50-5.40) L Hemoglobin 10.2 g/dL (12.0-15.5) L Hematocrit 30.7 % (36.0-47.0) L Mean Corpuscular Volume 90 fL (79-100) Mean Corpuscular Hemoglobin 30 pg (25-35) Mean Corpuscular Hemoglobin Concent 33 g/dL (31-37) Red Cell Distribution Width 13.6 % (11.5-14.5) Platelet Count 184 x10^3/uL (140-400) Neutrophils (%) (Auto) 62 % (31-73) Lymphocytes (%) (Auto) 26 % (24-48) Monocytes (%) (Auto) 8 % (0-9) Eosinophils (%) (Auto) 4 % (0-3) H Basophils (%) (Auto) 0 % (0-3) Neutrophils # (Auto) 3.1 x10^3uL (1.8-7.7) Lymphocytes # (Auto) 1.3 x10^3/uL (1.0-4.8) Monocytes # (Auto) 0.4 x10^3/uL (0.0-1.1) Eosinophils # (Auto) 0.2 x10^3/uL (0.0-0.7) Basophils # (Auto) 0.0 x10^3/uL (0.0-0.2) Sodium Level 140 mmol/L (136-145) Potassium Level 4.9 mmol/L (3.5-5.1) Chloride Level 107 mmol/L (98-107) Carbon Dioxide Level 26 mmol/L (21-32) Anion Gap 7 (6-14) Blood Urea Nitrogen 22 mg/dL (7-20) H Creatinine 1.4 mg/dL (0.6-1.0) H Estimated GFR (Cockcroft-Gault) 37.0 BUN/Creatinine Ratio 16 (6-20) Glucose Level 91 mg/dL (70-99) Calcium Level 8.1 mg/dL (8.5-10.1) L Total Bilirubin 0.6 mg/dL (0.2-1.0) Aspartate Amino Transferase (AST) 17 U/L (15-37) Alanine Aminotransferase (ALT) 20 U/L (14-59) Alkaline Phosphatase 72 U/L (46-116) Total Protein 5.7 g/dL (6.4-8.2) L Albumin 3.1 g/dL (3.4-5.0) L Albumin/Globulin Ratio 1.2 (1.0-1.7) Current Medications: Meds: Laboratory Tests Test 01/29/21 06:38 White Blood Count 5.0 x10^3/uL Red Blood Count 3.42 x10^6/uL Hemoglobin 10.2 g/dL Hematocrit 30.7 % Mean Corpuscular Volume 90 fL Mean Corpuscular Hemoglobin 30 pg Mean Corpuscular Hemoglobin Concent 33 g/dL Red Cell Distribution Width 13.6 % Platelet Count 184 x10^3/uL Neutrophils (%) (Auto) 62 % Lymphocytes (%) (Auto) 26 % Monocytes (%) (Auto) 8 % Eosinophils (%) (Auto) 4 % Basophils (%) (Auto) 0 % Neutrophils # (Auto) 3.1 x10^3uL Lymphocytes # (Auto) 1.3 x10^3/uL Monocytes # (Auto) 0.4 x10^3/uL Eosinophils # (Auto) 0.2 x10^3/uL Basophils # (Auto) 0.0 x10^3/uL Sodium Level 140 mmol/L Potassium Level 4.9 mmol/L Chloride Level 107 mmol/L Carbon Dioxide Level 26 mmol/L Anion Gap 7 Blood Urea Nitrogen 22 mg/dL Creatinine 1.4 mg/dL Estimated GFR (Cockcroft-Gault) 37.0 BUN/Creatinine Ratio 16 Glucose Level 91 mg/dL Calcium Level 8.1 mg/dL Total Bilirubin 0.6 mg/dL Aspartate Amino Transf (AST/SGOT) 17 U/L Alanine Aminotransferase (ALT/SGPT) 20 U/L Alkaline Phosphatase 72 U/L Total Protein 5.7 g/dL Albumin 3.1 g/dL Albumin/Globulin Ratio 1.2 Current Medications Medications (Trade) Dose Ordered Sig/Toño Route PRN Reason Start Time Stop Time Status Last Admin Dose Admin Acetaminophen (Tylenol) 650 mg PRN Q6HRS PRN PO MILD PAIN / TEMP > 100.3'F 01/20/21 18:00 01/25/21 08:25 Benzonatate (Tessalon Perle) 100 mg PRN TID PRN PO COUGH 01/20/21 18:00 Buspirone HCl (Buspar) 10 mg BID PO 01/20/21 21:00 01/28/21 19:52 Cetirizine HCl (ZyrTEC) 10 mg PRN DAILY PRN PO ALLERGIES 01/20/21 18:00 Vitamin D (Vitamin D3) 2,000 unit DAILY PO 01/21/21 09:00 01/28/21 08:16 Donepezil HCl (Aricept) 10 mg QHS PO 01/20/21 21:00 01/28/21 19:53 Lisinopril (Prinivil) 5 mg DAILY PO 01/21/21 09:00 01/28/21 08:15 Al Hydroxide/Mg Hydroxide (Mylanta Plus Xs) 15 ml PRN AFTMEALHC PRN PO DYSPEPSIA 01/20/21 18:00 Memantine (Namenda) 10 mg BID PO 01/20/21 21:00 01/28/21 19:53 Multi-Ingredient Ointment (Analgesic [place]) 1 micah PRN QID PRN TP PAIN 01/20/21 18:00 Olanzapine (ZyPREXA ZYDIS) 2.5 mg PRN Q2HR PRN PO ANXIETY / AGITATION 01/20/21 18:00 Pantoprazole Sodium (Protonix) 40 mg DAILY PO 01/21/21 09:00 01/28/21 08:18 Pseudoephedrine HCl (Sudafed 12-Hour) 120 mg PRN BID PRN PO CONGESTION 01/20/21 18:00 Sertraline HCl (Zoloft) 75 mg DAILY PO 01/21/21 09:00 01/21/21 17:45 DC 01/21/21 09:41 Trazodone HCl (Desyrel) 50 mg HS PO 01/20/21 21:00 01/28/21 19:53 Trazodone HCl (Desyrel) 50 mg PRN QHS PRN PO INSOMNIA 01/20/21 18:00 Ascorbic Acid (Vitamin C) 500 mg DAILY PO 01/21/21 09:00 01/28/21 08:16 Calcium/Vitamin D (Oscal D 500mg/ 200uts) 1 tab BIDWMEALS PO 01/21/21 08:00 01/28/21 17:25 Magnesium Hydroxide (Milk Of Magnesia) 2,400 mg PRN QHS PRN PO CONSTIPATION 01/20/21 18:30 Multivitamins/ Calcium (Thera-M Plus) 1 tab DAILY PO 01/21/21 09:00 01/28/21 08:17 Fish Oil (Fish Oil) 1,000 mg DAILY PO 01/21/21 09:00 01/28/21 08:17 Sertraline HCl (Zoloft) 100 mg DAILY PO 01/22/21 09:00 01/28/21 08:17 Divalproex Sodium (Depakote Sprinkles) 125 mg 0900,1700 PO 01/22/21 09:00 01/26/21 03:28 DC 01/25/21 17:22 Quetiapine Fumarate (SEROquel) 12.5 mg 0900,1700 PO 01/24/21 09:00 01/24/21 17:58 DC 01/24/21 17:00 Quetiapine Fumarate (SEROquel) 12.5 mg 0900,1200,1500,1900 PO 01/25/21 09:00 01/28/21 19:53 Divalproex Sodium (Depakote Sprinkles) 250 mg 0900,1700 PO 01/26/21 09:00 01/28/21 17:25 I have reviewed the current psychotropics carefully including drug interactions. Risk benefit ratio favors no change other than as noted in my dictated progress note. Diagnosis: Problems: (1) Impulse control disorder, unspecified (2) Mild cognitive impairment (3) Anxiety disorder, unspecified (4) Dementia, vascular, with depression (5) Dementia, vascular, with delusions (6) Dementia in Alzheimer's disease with depression (7) Dementia in Alzheimer's disease with delusions (8) Major neurocognitive disorder (9) Dementia in Alzheimer's disease with early onset with behavioral disturbance DIMITRIOS RANDALL MD Jan 29, 2021 07:33
[2021-01-29] MEDS: CALCIUM CARB/VIT D3 500/200 TABLET PO SCH ×2 (08:06→17:26)
[2021-01-29] MEDS: busPIRone 10 MG TABLET. PO SCH ×2 (08:06→20:08)
[2021-01-29] MEDS: MEMANTINE 10 MG TABLET. PO SCH ×2 (08:06→20:08)
[2021-01-29] MEDS: CHOLECALCIFEROL (VITAMIN D3) 1,000 UNIT TABLET PO SCH (08:07)
[2021-01-29] MEDS: DIVALPROEX 125 MG CAP.SPRINK PO SCH ×2 (08:07→17:26)
[2021-01-29] MEDS: QUEtiapine 25 MG TABLET. PO SCH ×4 (08:07→17:27)
[2021-01-29] MEDS: LISINOPRIL 5 MG TABLET. PO SCH (08:08)
[2021-01-29] MEDS: ASCORBIC ACID 500 MG TABLET PO SCH (08:08)
[2021-01-29] MEDS: OMEGA-3 FATTY ACIDS/FISH OIL 1,000 MG CAPSULE. PO SCH (08:08)
[2021-01-29] MEDS: MULTIVITAMIN with MINERAL TABLET. PO SCH (08:08)
[2021-01-29] MEDS: PANTOPRAZOLE 40 MG TABLET. PO SCH (08:08)
[2021-01-29] MEDS: SERTRALINE 100 MG TABLET. PO SCH (08:08)
[2021-01-29 16:18] VITALS: BP 107/75
[2021-01-29] MEDS: DONEPEZIL HCL 10 MG TABLET PO SCH (20:08)
[2021-01-29] MEDS: traZODone 50 MG TABLET. PO SCH (20:08)
--- NOTE | 2021-01-29 23:20 | PDOC ---
Exam Note: Tyler Note: Please also refer to the separate dictated note~for this date of service dictated separately.~Patient seen individually. Discussed the patient with Nursing staff reviewed the chart.~Reviewed interim history and current functioning. Reviewed vital signs,~Labs/ Radiology~and current medications noted below. Continue current treatment with the changes noted in the dictated addendum note Assessment: Vital Signs/I&O: Vital Signs Date Time Temp Pulse Resp B/P (MAP) Pulse Ox O2 Delivery O2 Flow Rate FiO2 01/29/21 16:18 97.9 102 20 107/75 (86) 99 01/29/21 06:00 Room Air I & O 01/28/21 01/28/21 01/29/21 14:59 22:59 06:59 Intake Total 360 ml 960 ml Balance 360 ml 960 ml Labs: Laboratory Tests Test 01/29/21 06:38 White Blood Count 5.0 x10^3/uL (4.0-11.0) Red Blood Count 3.42 x10^6/uL (3.50-5.40) L Hemoglobin 10.2 g/dL (12.0-15.5) L Hematocrit 30.7 % (36.0-47.0) L Mean Corpuscular Volume 90 fL (79-100) Mean Corpuscular Hemoglobin 30 pg (25-35) Mean Corpuscular Hemoglobin Concent 33 g/dL (31-37) Red Cell Distribution Width 13.6 % (11.5-14.5) Platelet Count 184 x10^3/uL (140-400) Neutrophils (%) (Auto) 62 % (31-73) Lymphocytes (%) (Auto) 26 % (24-48) Monocytes (%) (Auto) 8 % (0-9) Eosinophils (%) (Auto) 4 % (0-3) H Basophils (%) (Auto) 0 % (0-3) Neutrophils # (Auto) 3.1 x10^3uL (1.8-7.7) Lymphocytes # (Auto) 1.3 x10^3/uL (1.0-4.8) Monocytes # (Auto) 0.4 x10^3/uL (0.0-1.1) Eosinophils # (Auto) 0.2 x10^3/uL (0.0-0.7) Basophils # (Auto) 0.0 x10^3/uL (0.0-0.2) Sodium Level 140 mmol/L (136-145) Potassium Level 4.9 mmol/L (3.5-5.1) Chloride Level 107 mmol/L (98-107) Carbon Dioxide Level 26 mmol/L (21-32) Anion Gap 7 (6-14) Blood Urea Nitrogen 22 mg/dL (7-20) H Creatinine 1.4 mg/dL (0.6-1.0) H Estimated GFR (Cockcroft-Gault) 37.0 BUN/Creatinine Ratio 16 (6-20) Glucose Level 91 mg/dL (70-99) Calcium Level 8.1 mg/dL (8.5-10.1) L Total Bilirubin 0.6 mg/dL (0.2-1.0) Aspartate Amino Transferase (AST) 17 U/L (15-37) Alanine Aminotransferase (ALT) 20 U/L (14-59) Alkaline Phosphatase 72 U/L (46-116) Total Protein 5.7 g/dL (6.4-8.2) L Albumin 3.1 g/dL (3.4-5.0) L Albumin/Globulin Ratio 1.2 (1.0-1.7) Current Medications: Meds: Laboratory Tests Test 01/29/21 06:38 White Blood Count 5.0 x10^3/uL Red Blood Count 3.42 x10^6/uL Hemoglobin 10.2 g/dL Hematocrit 30.7 % Mean Corpuscular Volume 90 fL Mean Corpuscular Hemoglobin 30 pg Mean Corpuscular Hemoglobin Concent 33 g/dL Red Cell Distribution Width 13.6 % Platelet Count 184 x10^3/uL Neutrophils (%) (Auto) 62 % Lymphocytes (%) (Auto) 26 % Monocytes (%) (Auto) 8 % Eosinophils (%) (Auto) 4 % Basophils (%) (Auto) 0 % Neutrophils # (Auto) 3.1 x10^3uL Lymphocytes # (Auto) 1.3 x10^3/uL Monocytes # (Auto) 0.4 x10^3/uL Eosinophils # (Auto) 0.2 x10^3/uL Basophils # (Auto) 0.0 x10^3/uL Sodium Level 140 mmol/L Potassium Level 4.9 mmol/L Chloride Level 107 mmol/L Carbon Dioxide Level 26 mmol/L Anion Gap 7 Blood Urea Nitrogen 22 mg/dL Creatinine 1.4 mg/dL Estimated GFR (Cockcroft-Gault) 37.0 BUN/Creatinine Ratio 16 Glucose Level 91 mg/dL Calcium Level 8.1 mg/dL Total Bilirubin 0.6 mg/dL Aspartate Amino Transf (AST/SGOT) 17 U/L Alanine Aminotransferase (ALT/SGPT) 20 U/L Alkaline Phosphatase 72 U/L Total Protein 5.7 g/dL Albumin 3.1 g/dL Albumin/Globulin Ratio 1.2 Current Medications Medications (Trade) Dose Ordered Sig/Toño Route PRN Reason Start Time Stop Time Status Last Admin Dose Admin Acetaminophen (Tylenol) 650 mg PRN Q6HRS PRN PO MILD PAIN / TEMP > 100.3'F 01/20/21 18:00 01/25/21 08:25 Benzonatate (Tessalon Perle) 100 mg PRN TID PRN PO COUGH 01/20/21 18:00 Buspirone HCl (Buspar) 10 mg BID PO 01/20/21 21:00 01/29/21 20:08 Cetirizine HCl (ZyrTEC) 10 mg PRN DAILY PRN PO ALLERGIES 01/20/21 18:00 Vitamin D (Vitamin D3) 2,000 unit DAILY PO 01/21/21 09:00 01/29/21 08:07 Donepezil HCl (Aricept) 10 mg QHS PO 01/20/21 21:00 01/29/21 20:08 Lisinopril (Prinivil) 5 mg DAILY PO 01/21/21 09:00 01/29/21 08:08 Al Hydroxide/Mg Hydroxide (Mylanta Plus Xs) 15 ml PRN AFTMEALHC PRN PO DYSPEPSIA 01/20/21 18:00 Memantine (Namenda) 10 mg BID PO 01/20/21 21:00 01/29/21 20:08 Multi-Ingredient Ointment (Analgesic [place]) 1 micah PRN QID PRN TP MUSCLE PAIN 01/20/21 18:00 Olanzapine (ZyPREXA ZYDIS) 2.5 mg PRN Q2HR PRN PO ANXIETY / AGITATION 01/20/21 18:00 Pantoprazole Sodium (Protonix) 40 mg DAILY PO 01/21/21 09:00 01/29/21 08:08 Pseudoephedrine HCl (Sudafed 12-Hour) 120 mg PRN BID PRN PO CONGESTION 01/20/21 18:00 Sertraline HCl (Zoloft) 75 mg DAILY PO 01/21/21 09:00 01/21/21 17:45 DC 01/21/21 09:41 Trazodone HCl (Desyrel) 50 mg HS PO 01/20/21 21:00 01/29/21 20:08 Trazodone HCl (Desyrel) 50 mg PRN QHS PRN PO INSOMNIA 01/20/21 18:00 Ascorbic Acid (Vitamin C) 500 mg DAILY PO 01/21/21 09:00 01/29/21 08:08 Calcium/Vitamin D (Oscal D 500mg/ 200uts) 1 tab BIDWMEALS PO 01/21/21 08:00 01/29/21 17:26 Magnesium Hydroxide (Milk Of Magnesia) 2,400 mg PRN QHS PRN PO CONSTIPATION 01/20/21 18:30 Multivitamins/ Calcium (Thera-M Plus) 1 tab DAILY PO 01/21/21 09:00 01/29/21 08:08 Fish Oil (Fish Oil) 1,000 mg DAILY PO 01/21/21 09:00 01/29/21 08:08 Sertraline HCl (Zoloft) 100 mg DAILY PO 01/22/21 09:00 01/29/21 08:08 Divalproex Sodium (Depakote Sprinkles) 125 mg 0900,1700 PO 01/22/21 09:00 01/26/21 03:28 DC 01/25/21 17:22 Quetiapine Fumarate (SEROquel) 12.5 mg 0900,1700 PO 01/24/21 09:00 01/24/21 17:58 DC 01/24/21 17:00 Quetiapine Fumarate (SEROquel) 12.5 mg 0900,1200,1500,1900 PO 01/25/21 09:00 01/29/21 17:27 Divalproex Sodium (Depakote Sprinkles) 250 mg 0900,1700 PO 01/26/21 09:00 01/29/21 17:26 I have reviewed the current psychotropics carefully including drug interactions. Risk benefit ratio favors no change other than as noted in my dictated progress note. Diagnosis: Problems: (1) Impulse control disorder, unspecified (2) Mild cognitive impairment (3) Anxiety disorder, unspecified (4) Dementia, vascular, with depression (5) Dementia, vascular, with delusions (6) Dementia in Alzheimer's disease with depression (7) Dementia in Alzheimer's disease with delusions (8) Major neurocognitive disorder (9) Dementia in Alzheimer's disease with early onset with behavioral disturbance DIMITRIOS RANDALL MD Jan 29, 2021 23:20
[2021-01-30 06:39] VITALS: BP 131/79
[2021-01-30] MEDS: MEMANTINE 10 MG TABLET. PO SCH ×2 (08:51→19:55)
[2021-01-30] MEDS: CALCIUM CARB/VIT D3 500/200 TABLET PO SCH ×2 (08:51→17:43)
[2021-01-30] MEDS: PANTOPRAZOLE 40 MG TABLET. PO SCH (08:51)
[2021-01-30] MEDS: SERTRALINE 100 MG TABLET. PO SCH (08:51)
[2021-01-30] MEDS: ASCORBIC ACID 500 MG TABLET PO SCH (08:51)
[2021-01-30] MEDS: CHOLECALCIFEROL (VITAMIN D3) 1,000 UNIT TABLET PO SCH (08:51)
[2021-01-30] MEDS: DIVALPROEX 125 MG CAP.SPRINK PO SCH ×2 (08:51→17:43)
[2021-01-30] MEDS: MULTIVITAMIN with MINERAL TABLET. PO SCH (08:51)
[2021-01-30] MEDS: QUEtiapine 25 MG TABLET. PO SCH ×4 (08:52→17:43)
[2021-01-30] MEDS: LISINOPRIL 5 MG TABLET. PO SCH (08:52)
[2021-01-30] MEDS: busPIRone 10 MG TABLET. PO SCH ×2 (08:52→19:54)
[2021-01-30] MEDS: OMEGA-3 FATTY ACIDS/FISH OIL 1,000 MG CAPSULE. PO SCH (08:52)
[2021-01-30 15:48] VITALS: BP 142/72
[2021-01-30] MEDS: traZODone 50 MG TABLET. PO SCH (19:54)
[2021-01-30] MEDS: DONEPEZIL HCL 10 MG TABLET PO SCH (19:55)
[2021-01-31 05:59] VITALS: BP 145/77
[2021-01-31 07:04] LABS: VAL ACID 38 mcg/mL (50-100)
[2021-01-31] MEDS: CALCIUM CARB/VIT D3 500/200 TABLET PO SCH ×2 (08:08→17:38)
[2021-01-31] MEDS: SERTRALINE 100 MG TABLET. PO SCH (08:08)
[2021-01-31] MEDS: PANTOPRAZOLE 40 MG TABLET. PO SCH (08:09)
[2021-01-31] MEDS: MEMANTINE 10 MG TABLET. PO SCH ×2 (08:09→19:41)
[2021-01-31] MEDS: ASCORBIC ACID 500 MG TABLET PO SCH (08:09)
[2021-01-31] MEDS: MULTIVITAMIN with MINERAL TABLET. PO SCH (08:09)
[2021-01-31] MEDS: busPIRone 10 MG TABLET. PO SCH ×2 (08:09→19:41)
[2021-01-31] MEDS: DIVALPROEX 125 MG CAP.SPRINK PO SCH ×2 (08:09→17:38)
[2021-01-31] MEDS: CHOLECALCIFEROL (VITAMIN D3) 1,000 UNIT TABLET PO SCH (08:09)
[2021-01-31] MEDS: OMEGA-3 FATTY ACIDS/FISH OIL 1,000 MG CAPSULE. PO SCH (08:09)
[2021-01-31] MEDS: QUEtiapine 25 MG TABLET. PO SCH ×4 (08:10→17:40)
[2021-01-31] MEDS: LISINOPRIL 5 MG TABLET. PO SCH (08:10)
--- NOTE | 2021-01-31 09:21 | PDOC ---
Exam Note: Tyler Note: This note is a late entry for 01/29/2021 covers elements not covered in my initial note. Subjective: The patient was seen on telehealth rounds in the evening of 01/29/2021 with the nursing staff taking the telehealth camera to each patient, which was on a secure portal, discussed and reviewed the chart with Jus MEDEL. She slept 9-1/4 hours previous night. During the day she has been irritable with one of the other demented patients and was questioning her medications previous evening. She remains confused, pleasant, smiling as I met with her. Review of Systems: She is hard of hearing. No CV, , pulmonary, eye system symptoms on review. Mental Status Exam: The patient is oriented to herself. Insight and judgment, recent and remote memory, attention and concentration, fund of knowledge is poor consistent with her diagnoses. Laboratory Data: Reviewed. Impression: Major neurocognitive disorder Alzheimer vascular with delusion, depression, behavioral disturbance. Anxiety disorder unspecified. Impulse control disorder unspecified. Plan: Continue current psychotropics from initial note. Assessment: Vital Signs/I&O: Vital Signs Date Time Temp Pulse Resp B/P (MAP) Pulse Ox O2 Delivery O2 Flow Rate FiO2 01/31/21 08:10 67 145/77 01/31/21 05:59 97.1 16 96 01/30/21 15:48 Room Air I & O 01/30/21 01/30/21 01/31/21 15:00 23:00 07:00 Intake Total 240 ml 360 ml Balance 240 ml 360 ml Labs: Laboratory Tests Test 01/31/21 05:41 Valproic Acid Level 38 mcg/mL (50-100) L Valproic Acid Last Dose Date 01/30/2021 Valproic Acid Last Dose Time 2099 Current Medications: Meds: Laboratory Tests Test 01/31/21 05:41 Valproic Acid (Depakene) Level 38 mcg/mL Valproic Acid Last Dose Date 01/30/2021 Valproic Acid Last Dose Time 2099 Current Medications Medications (Trade) Dose Ordered Sig/Toño Route PRN Reason Start Time Stop Time Status Last Admin Dose Admin Acetaminophen (Tylenol) 650 mg PRN Q6HRS PRN PO MILD PAIN / TEMP > 100.3'F 01/20/21 18:00 01/25/21 08:25 Benzonatate (Tessalon Perle) 100 mg PRN TID PRN PO COUGH 01/20/21 18:00 Buspirone HCl (Buspar) 10 mg BID PO 01/20/21 21:00 01/31/21 08:09 Cetirizine HCl (ZyrTEC) 10 mg PRN DAILY PRN PO ALLERGIES 01/20/21 18:00 Vitamin D (Vitamin D3) 2,000 unit DAILY PO 01/21/21 09:00 01/31/21 08:09 Donepezil HCl (Aricept) 10 mg QHS PO 01/20/21 21:00 01/30/21 19:55 Lisinopril (Prinivil) 5 mg DAILY PO 01/21/21 09:00 01/31/21 08:10 Al Hydroxide/Mg Hydroxide (Mylanta Plus Xs) 15 ml PRN AFTMEALHC PRN PO DYSPEPSIA 01/20/21 18:00 Memantine (Namenda) 10 mg BID PO 01/20/21 21:00 01/31/21 08:09 Multi-Ingredient Ointment (Analgesic [place]) 1 micah PRN QID PRN TP MUSCLE PAIN 01/20/21 18:00 Olanzapine (ZyPREXA ZYDIS) 2.5 mg PRN Q2HR PRN PO ANXIETY / AGITATION 01/20/21 18:00 Pantoprazole Sodium (Protonix) 40 mg DAILY PO 01/21/21 09:00 01/31/21 08:09 Pseudoephedrine HCl (Sudafed 12-Hour) 120 mg PRN BID PRN PO CONGESTION 01/20/21 18:00 Sertraline HCl (Zoloft) 75 mg DAILY PO 01/21/21 09:00 01/21/21 17:45 DC 01/21/21 09:41 Trazodone HCl (Desyrel) 50 mg HS PO 01/20/21 21:00 01/30/21 19:54 Trazodone HCl (Desyrel) 50 mg PRN QHS PRN PO INSOMNIA 01/20/21 18:00 Ascorbic Acid (Vitamin C) 500 mg DAILY PO 01/21/21 09:00 01/31/21 08:09 Calcium/Vitamin D (Oscal D 500mg/ 200uts) 1 tab BIDWMEALS PO 01/21/21 08:00 01/31/21 08:08 Magnesium Hydroxide (Milk Of Magnesia) 2,400 mg PRN QHS PRN PO CONSTIPATION 01/20/21 18:30 Multivitamins/ Calcium (Thera-M Plus) 1 tab DAILY PO 01/21/21 09:00 01/31/21 08:09 Fish Oil (Fish Oil) 1,000 mg DAILY PO 01/21/21 09:00 01/31/21 08:09 Sertraline HCl (Zoloft) 100 mg DAILY PO 01/22/21 09:00 01/31/21 08:08 Divalproex Sodium (Depakote Sprinkles) 125 mg 0900,1700 PO 01/22/21 09:00 01/26/21 03:28 DC 01/25/21 17:22 Quetiapine Fumarate (SEROquel) 12.5 mg 0900,1700 PO 01/24/21 09:00 01/24/21 17:58 DC 01/24/21 17:00 Quetiapine Fumarate (SEROquel) 12.5 mg 0900,1200,1500,1900 PO 01/25/21 09:00 01/31/21 08:10 Divalproex Sodium (Depakote Sprinkles) 250 mg 0900,1700 PO 01/26/21 09:00 01/31/21 08:09 I have reviewed the current psychotropics carefully including drug interactions. Risk benefit ratio favors no change other than as noted in my dictated progress note. Diagnosis: Problems: (1) Impulse control disorder, unspecified (2) Mild cognitive impairment (3) Anxiety disorder, unspecified (4) Dementia, vascular, with depression (5) Dementia, vascular, with delusions (6) Dementia in Alzheimer's disease with depression (7) Dementia in Alzheimer's disease with delusions (8) Major neurocognitive disorder (9) Dementia in Alzheimer's disease with early onset with behavioral disturbance DIMITRIOS RANDALL MD Jan 31, 2021 09:21
[2021-01-31 15:41] VITALS: BP 117/72
[2021-01-31] MEDS: traZODone 50 MG TABLET. PO SCH (19:41)
[2021-01-31] MEDS: DONEPEZIL HCL 10 MG TABLET PO SCH (19:41)
--- NOTE | 2021-01-31 22:09 | PDOC ---
Exam Note: Tyler Note: Please also refer to the separate dictated note~for this date of service dictated separately.~Patient seen individually. Discussed the patient with Nursing staff reviewed the chart.~Reviewed interim history and current functioning. Reviewed vital signs,~Labs/ Radiology~and current medications noted below. Continue current treatment with the changes noted in the dictated addendum note Assessment: Vital Signs/I&O: Vital Signs Date Time Temp Pulse Resp B/P (MAP) Pulse Ox O2 Delivery O2 Flow Rate FiO2 01/31/21 15:41 97.6 72 16 117/72 (87) 98 01/30/21 15:48 Room Air I & O 01/30/21 01/30/21 01/31/21 15:00 23:00 07:00 Intake Total 240 ml 360 ml Balance 240 ml 360 ml Labs: Laboratory Tests Test 01/31/21 05:41 Valproic Acid Level 38 mcg/mL (50-100) L Valproic Acid Last Dose Date 01/30/2021 Valproic Acid Last Dose Time 2100 Current Medications: Meds: Laboratory Tests Test 01/31/21 05:41 Valproic Acid (Depakene) Level 38 mcg/mL Valproic Acid Last Dose Date 01/30/2021 Valproic Acid Last Dose Time 2100 Current Medications Medications (Trade) Dose Ordered Sig/Toño Route PRN Reason Start Time Stop Time Status Last Admin Dose Admin Acetaminophen (Tylenol) 650 mg PRN Q6HRS PRN PO MILD PAIN / TEMP > 100.3'F 01/20/21 18:00 01/25/21 08:25 Benzonatate (Tessalon Perle) 100 mg PRN TID PRN PO COUGH 01/20/21 18:00 Buspirone HCl (Buspar) 10 mg BID PO 01/20/21 21:00 01/31/21 19:41 Cetirizine HCl (ZyrTEC) 10 mg PRN DAILY PRN PO ALLERGIES 01/20/21 18:00 Vitamin D (Vitamin D3) 2,000 unit DAILY PO 01/21/21 09:00 01/31/21 08:09 Donepezil HCl (Aricept) 10 mg QHS PO 01/20/21 21:00 01/31/21 19:41 Lisinopril (Prinivil) 5 mg DAILY PO 01/21/21 09:00 01/31/21 08:10 Al Hydroxide/Mg Hydroxide (Mylanta Plus Xs) 15 ml PRN AFTMEALHC PRN PO DYSPEPSIA 01/20/21 18:00 Memantine (Namenda) 10 mg BID PO 01/20/21 21:00 01/31/21 19:41 Multi-Ingredient Ointment (Analgesic [place]) 1 micah PRN QID PRN TP MUSCLE PAIN 01/20/21 18:00 Olanzapine (ZyPREXA ZYDIS) 2.5 mg PRN Q2HR PRN PO ANXIETY / AGITATION 01/20/21 18:00 Pantoprazole Sodium (Protonix) 40 mg DAILY PO 01/21/21 09:00 01/31/21 08:09 Pseudoephedrine HCl (Sudafed 12-Hour) 120 mg PRN BID PRN PO CONGESTION 01/20/21 18:00 Sertraline HCl (Zoloft) 75 mg DAILY PO 01/21/21 09:00 01/21/21 17:45 DC 01/21/21 09:41 Trazodone HCl (Desyrel) 50 mg HS PO 01/20/21 21:00 01/31/21 19:41 Trazodone HCl (Desyrel) 50 mg PRN QHS PRN PO INSOMNIA 01/20/21 18:00 Ascorbic Acid (Vitamin C) 500 mg DAILY PO 01/21/21 09:00 01/31/21 08:09 Calcium/Vitamin D (Oscal D 500mg/ 200uts) 1 tab BIDWMEALS PO 01/21/21 08:00 01/31/21 17:38 Magnesium Hydroxide (Milk Of Magnesia) 2,400 mg PRN QHS PRN PO CONSTIPATION 01/20/21 18:30 Multivitamins/ Calcium (Thera-M Plus) 1 tab DAILY PO 01/21/21 09:00 01/31/21 08:09 Fish Oil (Fish Oil) 1,000 mg DAILY PO 01/21/21 09:00 01/31/21 08:09 Sertraline HCl (Zoloft) 100 mg DAILY PO 01/22/21 09:00 01/31/21 08:08 Divalproex Sodium (Depakote Sprinkles) 125 mg 0900,1700 PO 01/22/21 09:00 01/26/21 03:28 DC 01/25/21 17:22 Quetiapine Fumarate (SEROquel) 12.5 mg 0900,1700 PO 01/24/21 09:00 01/24/21 17:58 DC 01/24/21 17:00 Quetiapine Fumarate (SEROquel) 12.5 mg 0900,1200,1500,1900 PO 01/25/21 09:00 01/31/21 17:40 Divalproex Sodium (Depakote Sprinkles) 250 mg 0900,1700 PO 01/26/21 09:00 01/31/21 17:38 I have reviewed the current psychotropics carefully including drug interactions. Risk benefit ratio favors no change other than as noted in my dictated progress note. Diagnosis: Problems: (1) Impulse control disorder, unspecified (2) Mild cognitive impairment (3) Anxiety disorder, unspecified (4) Dementia, vascular, with depression (5) Dementia, vascular, with delusions (6) Dementia in Alzheimer's disease with depression (7) Dementia in Alzheimer's disease with delusions (8) Major neurocognitive disorder (9) Dementia in Alzheimer's disease with early onset with behavioral disturbance DIMITRIOS RANDALL MD Jan 31, 2021 22:09
[2021-02-01 05:51] VITALS: BP 106/48
[2021-02-01] MEDS: CALCIUM CARB/VIT D3 500/200 TABLET PO SCH ×3 (08:00→17:18)
[2021-02-01] MEDS: OMEGA-3 FATTY ACIDS/FISH OIL 1,000 MG CAPSULE. PO SCH ×2 (09:00→09:26)
[2021-02-01] MEDS: MULTIVITAMIN with MINERAL TABLET. PO SCH ×2 (09:00→09:26)
[2021-02-01] MEDS: PANTOPRAZOLE 40 MG TABLET. PO SCH (09:26)
[2021-02-01] MEDS: ASCORBIC ACID 500 MG TABLET PO SCH (09:26)
[2021-02-01] MEDS: CHOLECALCIFEROL (VITAMIN D3) 1,000 UNIT TABLET PO SCH (09:26)
[2021-02-01] MEDS: MEMANTINE 10 MG TABLET. PO SCH ×2 (09:26→20:42)
[2021-02-01] MEDS: QUEtiapine 25 MG TABLET. PO SCH ×4 (09:26→17:18)
[2021-02-01] MEDS: DIVALPROEX 125 MG CAP.SPRINK PO SCH ×2 (09:26→17:18)
[2021-02-01] MEDS: busPIRone 10 MG TABLET. PO SCH ×2 (09:27→20:43)
[2021-02-01] MEDS: LISINOPRIL 5 MG TABLET. PO SCH (09:27)
[2021-02-01] MEDS: SERTRALINE 100 MG TABLET. PO SCH (09:27)
--- NOTE | 2021-02-01 09:41 | PDOC ---
Exam Note: Tyler Note: This note is a late entry for 01/30/2021 covers elements not covered in my initial note. Subjective: The patient was seen on telehealth rounds in the afternoon of 01/30/2021 with the nursing staff taking the telehealth camera to each patient, which was on a secure portal, discussed and reviewed the chart with Barbara MEDEL. She slept 8-1/2 hours previous night. Per nursing report, the patient seems to have a sour personality. She takes her medications with much encouragement. We will check valproic acid level morning of 01/31 and adjust Depakote if behaviors persist. Review of Systems: No CV, , pulmonary, eye system symptoms on review. Mental Status Exam: The patient is oriented to herself. Insight and judgment, recent and remote memory, attention and concentration, fund of knowledge is poor consistent with her diagnoses. Laboratory Data: Reviewed. Impression: Major neurocognitive disorder Alzheimer vascular with delusion, de pression, behavioral disturbance. Anxiety disorder unspecified. Impulse control disorder unspecified. Plan: Continue current psychotropics from initial note. Assessment: Vital Signs/I&O: Vital Signs Date Time Temp Pulse Resp B/P (MAP) Pulse Ox O2 Delivery O2 Flow Rate FiO2 02/01/21 09:27 64 106/48 02/01/21 05:51 97.4 18 96 01/30/21 15:48 Room Air I & O 01/31/21 01/31/21 02/01/21 15:00 23:00 07:00 Intake Total 480 ml 720 ml Balance 480 ml 720 ml Current Medications: Meds: Current Medications Medications (Trade) Dose Ordered Sig/Toño Route PRN Reason Start Time Stop Time Status Last Admin Dose Admin Acetaminophen (Tylenol) 650 mg PRN Q6HRS PRN PO MILD PAIN / TEMP > 100.3'F 01/20/21 18:00 01/25/21 08:25 Benzonatate (Tessalon Perle) 100 mg PRN TID PRN PO COUGH 01/20/21 18:00 Buspirone HCl (Buspar) 10 mg BID PO 01/20/21 21:00 02/01/21 09:27 Cetirizine HCl (ZyrTEC) 10 mg PRN DAILY PRN PO ALLERGIES 01/20/21 18:00 Vitamin D (Vitamin D3) 2,000 unit DAILY PO 01/21/21 09:00 02/01/21 09:26 Donepezil HCl (Aricept) 10 mg QHS PO 01/20/21 21:00 01/31/21 19:41 Lisinopril (Prinivil) 5 mg DAILY PO 01/21/21 09:00 02/01/21 09:27 Al Hydroxide/Mg Hydroxide (Mylanta Plus Xs) 15 ml PRN AFTMEALHC PRN PO DYSPEPSIA 01/20/21 18:00 Memantine (Namenda) 10 mg BID PO 01/20/21 21:00 02/01/21 09:26 Multi-Ingredient Ointment (Analgesic [place]) 1 micah PRN QID PRN TP MUSCLE PAIN 01/20/21 18:00 Olanzapine (ZyPREXA ZYDIS) 2.5 mg PRN Q2HR PRN PO ANXIETY / AGITATION 01/20/21 18:00 Pantoprazole Sodium (Protonix) 40 mg DAILY PO 01/21/21 09:00 02/01/21 09:26 Pseudoephedrine HCl (Sudafed 12-Hour) 120 mg PRN BID PRN PO CONGESTION 01/20/21 18:00 Sertraline HCl (Zoloft) 75 mg DAILY PO 01/21/21 09:00 01/21/21 17:45 DC 01/21/21 09:41 Trazodone HCl (Desyrel) 50 mg HS PO 01/20/21 21:00 01/31/21 19:41 Trazodone HCl (Desyrel) 50 mg PRN QHS PRN PO INSOMNIA 01/20/21 18:00 Ascorbic Acid (Vitamin C) 500 mg DAILY PO 01/21/21 09:00 02/01/21 09:26 Calcium/Vitamin D (Oscal D 500mg/ 200uts) 1 tab BIDWMEALS PO 01/21/21 08:00 01/31/21 17:38 Magnesium Hydroxide (Milk Of Magnesia) 2,400 mg PRN QHS PRN PO CONSTIPATION 01/20/21 18:30 Multivitamins/ Calcium (Thera-M Plus) 1 tab DAILY PO 01/21/21 09:00 01/31/21 08:09 Fish Oil (Fish Oil) 1,000 mg DAILY PO 01/21/21 09:00 01/31/21 08:09 Sertraline HCl (Zoloft) 100 mg DAILY PO 01/22/21 09:00 02/01/21 09:27 Divalproex Sodium (Depakote Sprinkles) 125 mg 0900,1700 PO 01/22/21 09:00 01/26/21 03:28 DC 01/25/21 17:22 Quetiapine Fumarate (SEROquel) 12.5 mg 0900,1700 PO 01/24/21 09:00 01/24/21 17:58 DC 01/24/21 17:00 Quetiapine Fumarate (SEROquel) 12.5 mg 0900,1200,1500,1900 PO 01/25/21 09:00 02/01/21 09:26 Divalproex Sodium (Depakote Sprinkles) 250 mg 0900,1700 PO 01/26/21 09:00 02/01/21 09:26 I have reviewed the current psychotropics carefully including drug interactions. Risk benefit ratio favors no change other than as noted in my dictated progress note. Diagnosis: Problems: (1) Impulse control disorder, unspecified (2) Mild cognitive impairment (3) Anxiety disorder, unspecified (4) Dementia, vascular, with depression (5) Dementia, vascular, with delusions (6) Dementia in Alzheimer's disease with depression (7) Dementia in Alzheimer's disease with delusions (8) Major neurocognitive disorder (9) Dementia in Alzheimer's disease with early onset with behavioral disturbance DIMITRIOS RANDALL MD Feb 01, 2021 09:41
--- NOTE | 2021-02-01 10:11 | PDOC ---
Exam Note: Tyler Note: This note is a late entry for 01/31/2021 covers elements not covered in my initial note. Subjective: The patient was seen on telehealth rounds in the afternoon of 01/31/2021 with the nursing staff taking the telehealth camera to each patient, which was on a secure portal, discussed and reviewed the chart with Barbara MEDEL. She slept 8-1/4 hours previous night. Valproic acid level is 38, slightly subtherapeutic but today she has been doing pretty good per nursing report. At times she gets a little paranoid, frowning but not aggressive. If some of the aggression resurfaces, we may have to increase the Depakote then. Review of Systems: No CV, , pulmonary, eye system symptoms on review. Mental Status Exam: The patient is oriented to herself. Insight and judgment, recent and remote memory, attention and concentration, fund of knowledge is poor consistent with her diagnoses. Laboratory Data: Reviewed. Impression: Major neurocognitive disorder Alzheimer vascular with delusion, depression, behavioral disturbance. Anxiety disorder unspecified. Impulse control disorder unspecified. Plan: Continue current psychotropics from initial note. Assessment: Vital Signs/I&O: Vital Signs Date Time Temp Pulse Resp B/P (MAP) Pulse Ox O2 Delivery O2 Flow Rate FiO2 02/01/21 09:27 64 106/48 02/01/21 05:51 97.4 18 96 01/30/21 15:48 Room Air I & O 01/31/21 01/31/21 02/01/21 15:00 23:00 07:00 Intake Total 480 ml 720 ml Balance 480 ml 720 ml Current Medications: Meds: Current Medications Medications (Trade) Dose Ordered Sig/Toño Route PRN Reason Start Time Stop Time Status Last Admin Dose Admin Acetaminophen (Tylenol) 650 mg PRN Q6HRS PRN PO MILD PAIN / TEMP > 100.3'F 01/20/21 18:00 01/25/21 08:25 Benzonatate (Tessalon Perle) 100 mg PRN TID PRN PO COUGH 01/20/21 18:00 Buspirone HCl (Buspar) 10 mg BID PO 01/20/21 21:00 02/01/21 09:27 Cetirizine HCl (ZyrTEC) 10 mg PRN DAILY PRN PO ALLERGIES 01/20/21 18:00 Vitamin D (Vitamin D3) 2,000 unit DAILY PO 01/21/21 09:00 02/01/21 09:26 Donepezil HCl (Aricept) 10 mg QHS PO 01/20/21 21:00 01/31/21 19:41 Lisinopril (Prinivil) 5 mg DAILY PO 01/21/21 09:00 02/01/21 09:27 Al Hydroxide/Mg Hydroxide (Mylanta Plus Xs) 15 ml PRN AFTMEALHC PRN PO DYSPEPSIA 01/20/21 18:00 Memantine (Namenda) 10 mg BID PO 01/20/21 21:00 02/01/21 09:26 Multi-Ingredient Ointment (Analgesic [place]) 1 micah PRN QID PRN TP MUSCLE PAIN 01/20/21 18:00 Olanzapine (ZyPREXA ZYDIS) 2.5 mg PRN Q2HR PRN PO ANXIETY / AGITATION 01/20/21 18:00 Pantoprazole Sodium (Protonix) 40 mg DAILY PO 01/21/21 09:00 02/01/21 09:26 Pseudoephedrine HCl (Sudafed 12-Hour) 120 mg PRN BID PRN PO CONGESTION 01/20/21 18:00 Sertraline HCl (Zoloft) 75 mg DAILY PO 01/21/21 09:00 01/21/21 17:45 DC 01/21/21 09:41 Trazodone HCl (Desyrel) 50 mg HS PO 01/20/21 21:00 01/31/21 19:41 Trazodone HCl (Desyrel) 50 mg PRN QHS PRN PO INSOMNIA 01/20/21 18:00 Ascorbic Acid (Vitamin C) 500 mg DAILY PO 01/21/21 09:00 02/01/21 09:26 Calcium/Vitamin D (Oscal D 500mg/ 200uts) 1 tab BIDWMEALS PO 01/21/21 08:00 01/31/21 17:38 Magnesium Hydroxide (Milk Of Magnesia) 2,400 mg PRN QHS PRN PO CONSTIPATION 01/20/21 18:30 Multivitamins/ Calcium (Thera-M Plus) 1 tab DAILY PO 01/21/21 09:00 01/31/21 08:09 Fish Oil (Fish Oil) 1,000 mg DAILY PO 01/21/21 09:00 01/31/21 08:09 Sertraline HCl (Zoloft) 100 mg DAILY PO 01/22/21 09:00 02/01/21 09:27 Divalproex Sodium (Depakote Sprinkles) 125 mg 0900,1700 PO 01/22/21 09:00 01/26/21 03:28 DC 01/25/21 17:22 Quetiapine Fumarate (SEROquel) 12.5 mg 0900,1700 PO 01/24/21 09:00 01/24/21 17:58 DC 01/24/21 17:00 Quetiapine Fumarate (SEROquel) 12.5 mg 0900,1200,1500,1900 PO 01/25/21 09:00 02/01/21 09:26 Divalproex Sodium (Depakote Sprinkles) 250 mg 0900,1700 PO 01/26/21 09:00 02/01/21 09:26 I have reviewed the current psychotropics carefully including drug interactions. Risk benefit ratio favors no change other than as noted in my dictated progress note. Diagnosis: Problems: (1) Impulse control disorder, unspecified (2) Mild cognitive impairment (3) Anxiety disorder, unspecified (4) Dementia, vascular, with depression (5) Dementia, vascular, with delusions (6) Dementia in Alzheimer's disease with depression (7) Dementia in Alzheimer's disease with delusions (8) Major neurocognitive disorder (9) Dementia in Alzheimer's disease with early onset with behavioral disturbance DIMITRIOS RANDALL MD Feb 01, 2021 10:11
[2021-02-01 16:05] VITALS: BP 132/75
[2021-02-01] MEDS: traZODone 50 MG TABLET. PO SCH (20:43)
[2021-02-01] MEDS: DONEPEZIL HCL 10 MG TABLET PO SCH (20:43)
--- NOTE | 2021-02-01 22:09 | PDOC ---
Exam Note: Tyler Note: Please also refer to the separate dictated note~for this date of service dictated separately.~Patient seen individually. Discussed the patient with Nursing staff reviewed the chart.~Reviewed interim history and current functioning. Reviewed vital signs,~Labs/ Radiology~and current medications noted below. Continue current treatment with the changes noted in the dictated addendum note Assessment: Vital Signs/I&O: Vital Signs Date Time Temp Pulse Resp B/P (MAP) Pulse Ox O2 Delivery O2 Flow Rate FiO2 02/01/21 16:05 97.7 73 20 132/75 (94) 98 01/30/21 15:48 Room Air I & O 01/31/21 01/31/21 02/01/21 14:59 22:59 06:59 Intake Total 480 ml 720 ml Balance 480 ml 720 ml Current Medications: Meds: Current Medications Medications (Trade) Dose Ordered Sig/Toño Route PRN Reason Start Time Stop Time Status Last Admin Dose Admin Acetaminophen (Tylenol) 650 mg PRN Q6HRS PRN PO MILD PAIN / TEMP > 100.3'F 01/20/21 18:00 01/25/21 08:25 Benzonatate (Tessalon Perle) 100 mg PRN TID PRN PO COUGH 01/20/21 18:00 Buspirone HCl (Buspar) 10 mg BID PO 01/20/21 21:00 02/01/21 20:43 Cetirizine HCl (ZyrTEC) 10 mg PRN DAILY PRN PO ALLERGIES 01/20/21 18:00 Vitamin D (Vitamin D3) 2,000 unit DAILY PO 01/21/21 09:00 02/01/21 09:26 Donepezil HCl (Aricept) 10 mg QHS PO 01/20/21 21:00 02/01/21 20:43 Lisinopril (Prinivil) 5 mg DAILY PO 01/21/21 09:00 02/01/21 09:27 Al Hydroxide/Mg Hydroxide (Mylanta Plus Xs) 15 ml PRN AFTMEALHC PRN PO DYSPEPSIA 01/20/21 18:00 Memantine (Namenda) 10 mg BID PO 01/20/21 21:00 02/01/21 20:42 Multi-Ingredient Ointment (Analgesic [place]) 1 micah PRN QID PRN TP MUSCLE PAIN 01/20/21 18:00 Olanzapine (ZyPREXA ZYDIS) 2.5 mg PRN Q2HR PRN PO ANXIETY / AGITATION 01/20/21 18:00 Pantoprazole Sodium (Protonix) 40 mg DAILY PO 01/21/21 09:00 02/01/21 09:26 Pseudoephedrine HCl (Sudafed 12-Hour) 120 mg PRN BID PRN PO CONGESTION 01/20/21 18:00 Sertraline HCl (Zoloft) 75 mg DAILY PO 01/21/21 09:00 01/21/21 17:45 DC 01/21/21 09:41 Trazodone HCl (Desyrel) 50 mg HS PO 01/20/21 21:00 02/01/21 20:43 Trazodone HCl (Desyrel) 50 mg PRN QHS PRN PO INSOMNIA 01/20/21 18:00 Ascorbic Acid (Vitamin C) 500 mg DAILY PO 01/21/21 09:00 02/01/21 09:26 Calcium/Vitamin D (Oscal D 500mg/ 200uts) 1 tab BIDWMEALS PO 01/21/21 08:00 02/01/21 17:18 Magnesium Hydroxide (Milk Of Magnesia) 2,400 mg PRN QHS PRN PO CONSTIPATION 01/20/21 18:30 Multivitamins/ Calcium (Thera-M Plus) 1 tab DAILY PO 01/21/21 09:00 01/31/21 08:09 Fish Oil (Fish Oil) 1,000 mg DAILY PO 01/21/21 09:00 01/31/21 08:09 Sertraline HCl (Zoloft) 100 mg DAILY PO 01/22/21 09:00 02/01/21 09:27 Divalproex Sodium (Depakote Sprinkles) 125 mg 0900,1700 PO 01/22/21 09:00 01/26/21 03:28 DC 01/25/21 17:22 Quetiapine Fumarate (SEROquel) 12.5 mg 0900,1700 PO 01/24/21 09:00 01/24/21 17:58 DC 01/24/21 17:00 Quetiapine Fumarate (SEROquel) 12.5 mg 0900,1200,1500,1900 PO 01/25/21 09:00 02/01/21 17:18 Divalproex Sodium (Depakote Sprinkles) 250 mg 0900,1700 PO 01/26/21 09:00 02/01/21 17:18 I have reviewed the current psychotropics carefully including drug interactions. Risk benefit ratio favors no change other than as noted in my dictated progress note. Diagnosis: Problems: (1) Impulse control disorder, unspecified (2) Mild cognitive impairment (3) Anxiety disorder, unspecified (4) Dementia, vascular, with depression (5) Dementia, vascular, with delusions (6) Dementia in Alzheimer's disease with depression (7) Dementia in Alzheimer's disease with delusions (8) Major neurocognitive disorder (9) Dementia in Alzheimer's disease with early onset with behavioral disturbance DIMITRIOS RANDALL MD Feb 01, 2021 22:09
[2021-02-02 05:50] VITALS: BP 117/63
[2021-02-02] MEDS: CHOLECALCIFEROL (VITAMIN D3) 1,000 UNIT TABLET PO SCH (08:44)
[2021-02-02] MEDS: CALCIUM CARB/VIT D3 500/200 TABLET PO SCH ×2 (08:44→17:22)
[2021-02-02] MEDS: OMEGA-3 FATTY ACIDS/FISH OIL 1,000 MG CAPSULE. PO SCH (08:44)
[2021-02-02] MEDS: QUEtiapine 25 MG TABLET. PO SCH ×4 (08:44→17:22)
[2021-02-02] MEDS: MULTIVITAMIN with MINERAL TABLET. PO SCH (08:45)
[2021-02-02] MEDS: PANTOPRAZOLE 40 MG TABLET. PO SCH (08:45)
[2021-02-02] MEDS: ASCORBIC ACID 500 MG TABLET PO SCH (08:45)
[2021-02-02] MEDS: LISINOPRIL 5 MG TABLET. PO SCH (08:45)
[2021-02-02] MEDS: busPIRone 10 MG TABLET. PO SCH ×2 (08:45→20:35)
[2021-02-02] MEDS: SERTRALINE 100 MG TABLET. PO SCH (08:45)
[2021-02-02] MEDS: MEMANTINE 10 MG TABLET. PO SCH ×2 (08:45→20:35)
[2021-02-02] MEDS: DIVALPROEX 125 MG CAP.SPRINK PO SCH ×2 (08:45→17:22)
[2021-02-02 16:19] VITALS: BP 145/77
[2021-02-02] MEDS: DONEPEZIL HCL 10 MG TABLET PO SCH (20:35)
[2021-02-02] MEDS: traZODone 50 MG TABLET. PO SCH (20:36)
--- NOTE | 2021-02-02 22:45 | PDOC ---
Exam Note: Tyler Note: Please also refer to the separate dictated note~for this date of service dictated separately.~Patient seen individually. Discussed the patient with Nursing staff reviewed the chart.~Reviewed interim history and current functioning. Reviewed vital signs,~Labs/ Radiology~and current medications noted below. Continue current treatment with the changes noted in the dictated addendum note Assessment: Vital Signs/I&O: Vital Signs Date Time Temp Pulse Resp B/P (MAP) Pulse Ox O2 Delivery O2 Flow Rate FiO2 02/02/21 16:19 97.7 85 20 145/77 (99) 94 Room Air I & O 02/01/21 02/01/21 02/02/21 15:00 23:00 07:00 Intake Total 480 ml 480 ml Balance 480 ml 480 ml Current Medications: Meds: Current Medications Medications (Trade) Dose Ordered Sig/Toño Route PRN Reason Start Time Stop Time Status Last Admin Dose Admin Acetaminophen (Tylenol) 650 mg PRN Q6HRS PRN PO MILD PAIN / TEMP > 100.3'F 01/20/21 18:00 01/25/21 08:25 Benzonatate (Tessalon Perle) 100 mg PRN TID PRN PO COUGH 01/20/21 18:00 Buspirone HCl (Buspar) 10 mg BID PO 01/20/21 21:00 02/02/21 20:35 Cetirizine HCl (ZyrTEC) 10 mg PRN DAILY PRN PO ALLERGIES 01/20/21 18:00 Vitamin D (Vitamin D3) 2,000 unit DAILY PO 01/21/21 09:00 02/02/21 08:44 Donepezil HCl (Aricept) 10 mg QHS PO 01/20/21 21:00 02/02/21 20:35 Lisinopril (Prinivil) 5 mg DAILY PO 01/21/21 09:00 02/02/21 08:45 Al Hydroxide/Mg Hydroxide (Mylanta Plus Xs) 15 ml PRN AFTMEALHC PRN PO DYSPEPSIA 01/20/21 18:00 Memantine (Namenda) 10 mg BID PO 01/20/21 21:00 02/02/21 20:35 Multi-Ingredient Ointment (Analgesic [place]) 1 micah PRN QID PRN TP MUSCLE PAIN 01/20/21 18:00 Olanzapine (ZyPREXA ZYDIS) 2.5 mg PRN Q2HR PRN PO ANXIETY / AGITATION 01/20/21 18:00 Pantoprazole Sodium (Protonix) 40 mg DAILY PO 01/21/21 09:00 02/02/21 08:45 Pseudoephedrine HCl (Sudafed 12-Hour) 120 mg PRN BID PRN PO CONGESTION 01/20/21 18:00 Sertraline HCl (Zoloft) 75 mg DAILY PO 01/21/21 09:00 01/21/21 17:45 DC 01/21/21 09:41 Trazodone HCl (Desyrel) 50 mg HS PO 01/20/21 21:00 02/02/21 20:36 Trazodone HCl (Desyrel) 50 mg PRN QHS PRN PO INSOMNIA 01/20/21 18:00 Ascorbic Acid (Vitamin C) 500 mg DAILY PO 01/21/21 09:00 02/02/21 08:45 Calcium/Vitamin D (Oscal D 500mg/ 200uts) 1 tab BIDWMEALS PO 01/21/21 08:00 02/02/21 17:22 Magnesium Hydroxide (Milk Of Magnesia) 2,400 mg PRN QHS PRN PO CONSTIPATION 01/20/21 18:30 Multivitamins/ Calcium (Thera-M Plus) 1 tab DAILY PO 01/21/21 09:00 02/02/21 08:45 Fish Oil (Fish Oil) 1,000 mg DAILY PO 01/21/21 09:00 02/02/21 08:44 Sertraline HCl (Zoloft) 100 mg DAILY PO 01/22/21 09:00 02/02/21 08:45 Divalproex Sodium (Depakote Sprinkles) 125 mg 0900,1700 PO 01/22/21 09:00 01/26/21 03:28 DC 01/25/21 17:22 Quetiapine Fumarate (SEROquel) 12.5 mg 0900,1700 PO 01/24/21 09:00 01/24/21 17:58 DC 01/24/21 17:00 Quetiapine Fumarate (SEROquel) 12.5 mg 0900,1200,1500,1900 PO 01/25/21 09:00 02/02/21 17:22 Divalproex Sodium (Depakote Sprinkles) 250 mg 0900,1700 PO 01/26/21 09:00 02/02/21 17:22 I have reviewed the current psychotropics carefully including drug interactions. Risk benefit ratio favors no change other than as noted in my dictated progress note. Diagnosis: Problems: (1) Impulse control disorder, unspecified (2) Mild cognitive impairment (3) Anxiety disorder, unspecified (4) Dementia, vascular, with depression (5) Dementia, vascular, with delusions (6) Dementia in Alzheimer's disease with depression (7) Dementia in Alzheimer's disease with delusions (8) Major neurocognitive disorder (9) Dementia in Alzheimer's disease with early onset with behavioral disturbance DIMITRIOS RANDALL MD Feb 02, 2021 22:45
[2021-02-03 06:11] VITALS: BP 124/66
[2021-02-03] MEDS: busPIRone 10 MG TABLET. PO SCH ×2 (08:58→22:22)
[2021-02-03] MEDS: QUEtiapine 25 MG TABLET. PO SCH ×4 (08:58→17:23)
[2021-02-03] MEDS: CHOLECALCIFEROL (VITAMIN D3) 1,000 UNIT TABLET PO SCH (08:58)
[2021-02-03] MEDS: OMEGA-3 FATTY ACIDS/FISH OIL 1,000 MG CAPSULE. PO SCH (08:58)
[2021-02-03] MEDS: DIVALPROEX 125 MG CAP.SPRINK PO SCH ×2 (08:58→17:23)
[2021-02-03] MEDS: LISINOPRIL 5 MG TABLET. PO SCH (08:59)
[2021-02-03] MEDS: MULTIVITAMIN with MINERAL TABLET. PO SCH (08:59)
[2021-02-03] MEDS: PANTOPRAZOLE 40 MG TABLET. PO SCH (08:59)
[2021-02-03] MEDS: MEMANTINE 10 MG TABLET. PO SCH ×2 (08:59→22:22)
[2021-02-03] MEDS: CALCIUM CARB/VIT D3 500/200 TABLET PO SCH ×2 (08:59→17:22)
[2021-02-03] MEDS: ASCORBIC ACID 500 MG TABLET PO SCH (08:59)
[2021-02-03] MEDS: SERTRALINE 100 MG TABLET. PO SCH (09:00)
--- NOTE | 2021-02-03 09:19 | PDOC ---
Exam Note: Tyler Note: This note is a late entry for 02/01/2021 covers elements not covered in my initial note. Subjective: The patient was seen on telehealth rounds in the afternoon of 02/01/2021 with the nursing staff taking the telehealth camera to each patient, which was on a secure portal, discussed and reviewed the chart with Zurdo MEDEL. She slept 8 hours previous night. No oil changer the patients behaviors, less paranoid, disorganized, wandering, compliant with medications. Review of Systems: No CV, , pulmonary, eye system symptoms on review. Mental Status Exam: The patient is oriented to herself. Insight and judgment, recent and remote memory, attention and concentration, fund of knowledge is poor consistent with her diagnoses. Laboratory Data: Reviewed. Impression: Major neurocognitive disorder Alzheimer vascular with delusion, depression, behavioral disturbance. Anxiety disorder unspecified. Impulse control disorder unspecified. Plan: Continue current psychotropics from initial note. Assessment: Vital Signs/I&O: Vital Signs Date Time Temp Pulse Resp B/P (MAP) Pulse Ox O2 Delivery O2 Flow Rate FiO2 02/03/21 08:59 64 124/66 02/03/21 06:11 97.1 16 98 Room Air I & O 02/02/21 02/02/21 02/03/21 14:59 22:59 06:59 Intake Total 480 ml 480 ml Balance 480 ml 480 ml Current Medications: Meds: Current Medications Medications (Trade) Dose Ordered Sig/Toño Route PRN Reason Start Time Stop Time Status Last Admin Dose Admin Acetaminophen (Tylenol) 650 mg PRN Q6HRS PRN PO MILD PAIN / TEMP > 100.3'F 01/20/21 18:00 01/25/21 08:25 Benzonatate (Tessalon Perle) 100 mg PRN TID PRN PO COUGH 01/20/21 18:00 Buspirone HCl (Buspar) 10 mg BID PO 01/20/21 21:00 02/03/21 08:58 Cetirizine HCl (ZyrTEC) 10 mg PRN DAILY PRN PO ALLERGIES 01/20/21 18:00 Vitamin D (Vitamin D3) 2,000 unit DAILY PO 01/21/21 09:00 02/03/21 08:58 Donepezil HCl (Aricept) 10 mg QHS PO 01/20/21 21:00 02/02/21 20:35 Lisinopril (Prinivil) 5 mg DAILY PO 01/21/21 09:00 02/03/21 08:59 Al Hydroxide/Mg Hydroxide (Mylanta Plus Xs) 15 ml PRN AFTMEALHC PRN PO DYSPEPSIA 01/20/21 18:00 Memantine (Namenda) 10 mg BID PO 01/20/21 21:00 02/03/21 08:59 Multi-Ingredient Ointment (Analgesic [place]) 1 micah PRN QID PRN TP MUSCLE PAIN 01/20/21 18:00 Olanzapine (ZyPREXA ZYDIS) 2.5 mg PRN Q2HR PRN PO ANXIETY / AGITATION 01/20/21 18:00 Pantoprazole Sodium (Protonix) 40 mg DAILY PO 01/21/21 09:00 02/03/21 08:59 Pseudoephedrine HCl (Sudafed 12-Hour) 120 mg PRN BID PRN PO CONGESTION 01/20/21 18:00 Sertraline HCl (Zoloft) 75 mg DAILY PO 01/21/21 09:00 01/21/21 17:45 DC 01/21/21 09:41 Trazodone HCl (Desyrel) 50 mg HS PO 01/20/21 21:00 02/02/21 20:36 Trazodone HCl (Desyrel) 50 mg PRN QHS PRN PO INSOMNIA 01/20/21 18:00 Ascorbic Acid (Vitamin C) 500 mg DAILY PO 01/21/21 09:00 02/03/21 08:59 Calcium/Vitamin D (Oscal D 500mg/ 200uts) 1 tab BIDWMEALS PO 01/21/21 08:00 02/03/21 08:59 Magnesium Hydroxide (Milk Of Magnesia) 2,400 mg PRN QHS PRN PO CONSTIPATION 01/20/21 18:30 Multivitamins/ Calcium (Thera-M Plus) 1 tab DAILY PO 01/21/21 09:00 02/03/21 08:59 Fish Oil (Fish Oil) 1,000 mg DAILY PO 01/21/21 09:00 02/03/21 08:58 Sertraline HCl (Zoloft) 100 mg DAILY PO 01/22/21 09:00 02/03/21 09:00 Divalproex Sodium (Depakote Sprinkles) 125 mg 0900,1700 PO 01/22/21 09:00 01/26/21 03:28 DC 01/25/21 17:22 Quetiapine Fumarate (SEROquel) 12.5 mg 0900,1700 PO 01/24/21 09:00 01/24/21 17:58 DC 01/24/21 17:00 Quetiapine Fumarate (SEROquel) 12.5 mg 0900,1200,1500,1900 PO 01/25/21 09:00 02/03/21 08:58 Divalproex Sodium (Depakote Sprinkles) 250 mg 0900,1700 PO 01/26/21 09:00 02/03/21 08:58 I have reviewed the current psychotropics carefully including drug interactions. Risk benefit ratio favors no change other than as noted in my dictated progress note. Diagnosis: Problems: (1) Impulse control disorder, unspecified (2) Mild cognitive impairment (3) Anxiety disorder, unspecified (4) Dementia, vascular, with depression (5) Dementia, vascular, with delusions (6) Dementia in Alzheimer's disease with depression (7) Dementia in Alzheimer's disease with delusions (8) Major neurocognitive disorder (9) Dementia in Alzheimer's disease with early onset with behavioral disturbance DIMITRIOS RANDALL MD Feb 03, 2021 09:19
--- NOTE | 2021-02-03 11:53 | TX PLAN ---
Interdisciplinary Tx Plan Admission Information Jan 20, 2021 at 17:49 Legal Status (on Admission): Voluntary DPOA/Guardian Name: Ella Pelaez-sister in law Contact Other Contact Name: Tatyana Coelho-nurse at [facility] Other Contact Verified Code Status: DNR Allergies: Coded Allergies: No Known Drug Allergies (Unverified , 03/23/20) Estimated Length of Stay: 14 Diagnoses Primary Diagnosis: Major neurocognitive d/o alzheimers vascular with delusions, depression BD; Anxiety d/o unspecified; Impulse control d/o Reasons for Admission: Aggressive, Delusions, Agitated, Angry, Anxiety/Panic, Combative, Suspicious/paranoid, Confusion/Disoriented, Poor impulse control Problem in Patient's Words: Per POA, Betty has continued to have aggressive behaviors after d/c prompting a re-admisson to [facility]. Problems Active Problems: Delusional Paranoid Aggressive Confused Inactive Problems: Medication complaint Adequate intake of meals Pt Strengths/Limitations Ability for [place]: Poor Cognitive Functioning/Ability: Poor Communication Skills/Ability: Fair Financial Resources: Fair Insight/Judgement: Poor Intellectual Ability: Fair Physical Health: Fair Social Skills: Fair Stability in Family: Good Verbal Skills: Fair Discharge Criteria Discharge Criteria: Adequate arrangements @DC, Improved behavior, Improved mood/thought Preliminary Discharge Plan Preliminary DC Plan: Placement Needed Special Precautions Special Precautions: Agitation/Assault Fall Risk: High Initial D/C Plan POA is requesting placement/level of care recommendations for Betty. Identified Discharge Needs: F/U with PCP Currently Utilized Resources Currently Utilized Resources/P: PCP Out patient psychiatry Identified Problems/Hx/Goals Objectives/Short-Term Goals Short Term Goals: Control abnormal behavior, Dec. Aggression, Dec. Anxiety/Panic, Dec. Hallucination/Delus, Dec. Outbursts, Dec. Symp. Depression, Medication Stabilization, Monitor Med Effects, Prevent Deterioration Short Term Goals in Patient's: Per POA, mood and behavior stabilization. Placement will be needed. Interventions/Frequency Staff Interventions/Frequency&: Nursing to provide routine safety checks, medication adminstration, assessments, and adl support. Psychiatry to se three times weekly. SW to see twice weekly. Recreational and SW groups as Betty will join. 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 Social: Betty has enjoyed music, reading, and movies. 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 She has had periods of irritability and needs coaxed to take medications. At times, she just stares when she is spoken to and does not verbally respond despite making eye contact. Staff allow time for Betty to calm and re-approach later. She has been involved in all group activities and responds particularly well to music. She interacts with peers and will often be seen comforting them but can also have periods of being argumentative with them. Depakote will be increased to 375mg bid and labs will be completed in three days. SW will reach out to Ayala at [facility] per ZEE preference for possible new placement. ZEE Jaramillo, was involved in team meeting via phone this morning. CARROLL KAUR Feb 03, 2021 11:53
[2021-02-03 16:33] VITALS: BP 134/77
--- NOTE | 2021-02-03 22:08 | PDOC ---
Exam Note: Tyler Note: Please also refer to the separate dictated note~for this date of service dictated separately.~Patient seen individually. Discussed the patient with Nursing staff reviewed the chart.~Reviewed interim history and current functioning. Reviewed vital signs,~Labs/ Radiology~and current medications noted below. Continue current treatment with the changes noted in the dictated addendum note Assessment: Vital Signs/I&O: Vital Signs Date Time Temp Pulse Resp B/P (MAP) Pulse Ox O2 Delivery O2 Flow Rate FiO2 02/03/21 16:33 97.4 99 20 134/77 (96) 95 Room Air I & O 02/02/21 02/02/21 02/03/21 15:00 23:00 07:00 Intake Total 480 ml 480 ml Balance 480 ml 480 ml Current Medications: Meds: Current Medications Medications (Trade) Dose Ordered Sig/Toño Route PRN Reason Start Time Stop Time Status Last Admin Dose Admin Acetaminophen (Tylenol) 650 mg PRN Q6HRS PRN PO MILD PAIN / TEMP > 100.3'F 01/20/21 18:00 01/25/21 08:25 Benzonatate (Tessalon Perle) 100 mg PRN TID PRN PO COUGH 01/20/21 18:00 Buspirone HCl (Buspar) 10 mg BID PO 01/20/21 21:00 02/03/21 08:58 Cetirizine HCl (ZyrTEC) 10 mg PRN DAILY PRN PO ALLERGIES 01/20/21 18:00 Vitamin D (Vitamin D3) 2,000 unit DAILY PO 01/21/21 09:00 02/03/21 08:58 Donepezil HCl (Aricept) 10 mg QHS PO 01/20/21 21:00 02/02/21 20:35 Lisinopril (Prinivil) 5 mg DAILY PO 01/21/21 09:00 02/03/21 08:59 Al Hydroxide/Mg Hydroxide (Mylanta Plus Xs) 15 ml PRN AFTMEALHC PRN PO DYSPEPSIA 01/20/21 18:00 Memantine (Namenda) 10 mg BID PO 01/20/21 21:00 02/03/21 08:59 Multi-Ingredient Ointment (Analgesic [place]) 1 micah PRN QID PRN TP MUSCLE PAIN 01/20/21 18:00 Olanzapine (ZyPREXA ZYDIS) 2.5 mg PRN Q2HR PRN PO ANXIETY / AGITATION 01/20/21 18:00 Pantoprazole Sodium (Protonix) 40 mg DAILY PO 01/21/21 09:00 02/03/21 08:59 Pseudoephedrine HCl (Sudafed 12-Hour) 120 mg PRN BID PRN PO CONGESTION 01/20/21 18:00 Sertraline HCl (Zoloft) 75 mg DAILY PO 01/21/21 09:00 01/21/21 17:45 DC 01/21/21 09:41 Trazodone HCl (Desyrel) 50 mg HS PO 01/20/21 21:00 02/02/21 20:36 Trazodone HCl (Desyrel) 50 mg PRN QHS PRN PO INSOMNIA 01/20/21 18:00 Ascorbic Acid (Vitamin C) 500 mg DAILY PO 01/21/21 09:00 02/03/21 08:59 Calcium/Vitamin D (Oscal D 500mg/ 200uts) 1 tab BIDWMEALS PO 01/21/21 08:00 02/03/21 17:22 Magnesium Hydroxide (Milk Of Magnesia) 2,400 mg PRN QHS PRN PO CONSTIPATION 01/20/21 18:30 Multivitamins/ Calcium (Thera-M Plus) 1 tab DAILY PO 01/21/21 09:00 02/03/21 08:59 Fish Oil (Fish Oil) 1,000 mg DAILY PO 01/21/21 09:00 02/03/21 08:58 Sertraline HCl (Zoloft) 100 mg DAILY PO 01/22/21 09:00 02/03/21 09:00 Divalproex Sodium (Depakote Sprinkles) 125 mg 0900,1700 PO 01/22/21 09:00 01/26/21 03:28 DC 01/25/21 17:22 Quetiapine Fumarate (SEROquel) 12.5 mg 0900,1700 PO 01/24/21 09:00 01/24/21 17:58 DC 01/24/21 17:00 Quetiapine Fumarate (SEROquel) 12.5 mg 0900,1200,1500,1900 PO 01/25/21 09:00 02/03/21 17:23 Divalproex Sodium (Depakote Sprinkles) 250 mg 0900,1700 PO 01/26/21 09:00 02/03/21 10:19 DC 02/03/21 08:58 Divalproex Sodium (Depakote Sprinkles) 375 mg 0900,1700 PO 02/03/21 17:00 02/03/21 17:23 Current Medications Medications (Trade) Dose Ordered Sig/Toño Route PRN Reason Start Time Stop Time Status Last Admin Dose Admin Divalproex Sodium (Depakote Sprinkles) 375 mg 0900,1700 PO 02/03/21 17:00 02/03/21 17:23 I have reviewed the current psychotropics carefully including drug interactions. Risk benefit ratio favors no change other than as noted in my dictated progress note. Diagnosis: Problems: (1) Impulse control disorder, unspecified (2) Mild cognitive impairment (3) Anxiety disorder, unspecified (4) Dementia, vascular, with depression (5) Dementia, vascular, with delusions (6) Dementia in Alzheimer's disease with depression (7) Dementia in Alzheimer's disease with delusions (8) Major neurocognitive disorder (9) Dementia in Alzheimer's disease with early onset with behavioral disturbance DIMITRIOS RANDALL MD Feb 03, 2021 22:08
[2021-02-03] MEDS: traZODone 50 MG TABLET. PO SCH (22:22)
[2021-02-03] MEDS: DONEPEZIL HCL 10 MG TABLET PO SCH (22:22)
[2021-02-04 05:56] VITALS: BP 124/65
[2021-02-04] MEDS: PANTOPRAZOLE 40 MG TABLET. PO SCH (06:32)
[2021-02-04] MEDS: QUEtiapine 25 MG TABLET. PO SCH ×4 (08:29→20:14)
[2021-02-04] MEDS: CALCIUM CARB/VIT D3 500/200 TABLET PO SCH ×3 (08:29→20:16)
[2021-02-04] MEDS: LISINOPRIL 5 MG TABLET. PO SCH ×2 (08:30→09:10)
[2021-02-04] MEDS: SERTRALINE 100 MG TABLET. PO SCH ×2 (08:30→09:10)
[2021-02-04] MEDS: ASCORBIC ACID 500 MG TABLET PO SCH ×2 (08:30→09:11)
[2021-02-04] MEDS: MULTIVITAMIN with MINERAL TABLET. PO SCH ×2 (08:31→09:10)
[2021-02-04] MEDS: CHOLECALCIFEROL (VITAMIN D3) 1,000 UNIT TABLET PO SCH ×2 (08:31→09:09)
[2021-02-04] MEDS: busPIRone 10 MG TABLET. PO SCH ×3 (08:31→20:15)
[2021-02-04] MEDS: OMEGA-3 FATTY ACIDS/FISH OIL 1,000 MG CAPSULE. PO SCH (09:00)
[2021-02-04] MEDS: MEMANTINE 10 MG TABLET. PO SCH ×2 (09:09→20:15)
[2021-02-04] MEDS: DIVALPROEX 125 MG CAP.SPRINK PO SCH ×2 (09:11→17:18)
[2021-02-04 16:15] VITALS: BP 102/68
[2021-02-04] MEDS: traZODone 50 MG TABLET. PO SCH (20:15)
[2021-02-04] MEDS: DONEPEZIL HCL 10 MG TABLET PO SCH (20:16)
--- NOTE | 2021-02-04 22:13 | PDOC ---
Exam Note: Tyler Note: This note is a late entry for 02/02/2021 covers elements not covered in my initial note. Subjective: The patient was seen on telehealth rounds in the afternoon of 02/02/2021 as an option during the COVID-19 pandemic period with Jus MEDEL, discussed and reviewed the chart. She slept 7-1/2 hours previous night. She is wandering, irritable at staff at times, otherwise, little more social, no changes. Review of Systems: No CV, , pulmonary, eye system symptoms on review. Mental Status Exam: The patient is oriented to herself. Insight and judgment, recent and remote memory, attention and concentration, fund of knowledge is poor consistent with her diagnoses. Laboratory Data: Reviewed. Impression: Major neurocognitive disorder Alzheimer vascular with delusion, depression, behavioral disturbance. Anxiety disorder unspecified. Impulse control disorder unspecified. Plan: Continue current psychotropics from initial note. Assessment: Vital Signs/I&O: Vital Signs Date Time Temp Pulse Resp B/P (MAP) Pulse Ox O2 Delivery O2 Flow Rate FiO2 02/04/21 16:15 98.0 66 20 102/68 (79) 98 02/04/21 05:56 Room Air I & O 02/03/21 02/03/21 02/04/21 15:00 23:00 07:00 Intake Total 480 ml 240 ml 240 ml Balance 480 ml 240 ml 240 ml Current Medications: Meds: Current Medications Medications (Trade) Dose Ordered Sig/Toño Route PRN Reason Start Time Stop Time Status Last Admin Dose Admin Acetaminophen (Tylenol) 650 mg PRN Q6HRS PRN PO MILD PAIN / TEMP > 100.3'F 01/20/21 18:00 01/25/21 08:25 Benzonatate (Tessalon Perle) 100 mg PRN TID PRN PO COUGH 01/20/21 18:00 Buspirone HCl (Buspar) 10 mg BID PO 01/20/21 21:00 02/04/21 20:15 Cetirizine HCl (ZyrTEC) 10 mg PRN DAILY PRN PO ALLERGIES 01/20/21 18:00 Vitamin D (Vitamin D3) 2,000 unit DAILY PO 01/21/21 09:00 02/04/21 09:09 Donepezil HCl (Aricept) 10 mg QHS PO 01/20/21 21:00 02/04/21 20:16 Lisinopril (Prinivil) 5 mg DAILY PO 01/21/21 09:00 02/04/21 09:10 Al Hydroxide/Mg Hydroxide (Mylanta Plus Xs) 15 ml PRN AFTMEALHC PRN PO DYSPEPSIA 01/20/21 18:00 Memantine (Namenda) 10 mg BID PO 01/20/21 21:00 02/04/21 20:15 Multi-Ingredient Ointment (Analgesic [place]) 1 micah PRN QID PRN TP MUSCLE PAIN 01/20/21 18:00 Olanzapine (ZyPREXA ZYDIS) 2.5 mg PRN Q2HR PRN PO ANXIETY / AGITATION 01/20/21 18:00 Pantoprazole Sodium (Protonix) 40 mg DAILY PO 01/21/21 09:00 02/04/21 06:32 Pseudoephedrine HCl (Sudafed 12-Hour) 120 mg PRN BID PRN PO CONGESTION 01/20/21 18:00 Sertraline HCl (Zoloft) 75 mg DAILY PO 01/21/21 09:00 01/21/21 17:45 DC 01/21/21 09:41 Trazodone HCl (Desyrel) 50 mg HS PO 01/20/21 21:00 02/04/21 20:15 Trazodone HCl (Desyrel) 50 mg PRN QHS PRN PO INSOMNIA 01/20/21 18:00 Ascorbic Acid (Vitamin C) 500 mg DAILY PO 01/21/21 09:00 02/04/21 09:11 Calcium/Vitamin D (Oscal D 500mg/ 200uts) 1 tab BIDWMEALS PO 01/21/21 08:00 02/04/21 20:16 Magnesium Hydroxide (Milk Of Magnesia) 2,400 mg PRN QHS PRN PO CONSTIPATION 01/20/21 18:30 Multivitamins/ Calcium (Thera-M Plus) 1 tab DAILY PO 01/21/21 09:00 02/04/21 09:10 Fish Oil (Fish Oil) 1,000 mg DAILY PO 01/21/21 09:00 02/04/21 09:00 Sertraline HCl (Zoloft) 100 mg DAILY PO 01/22/21 09:00 02/04/21 09:10 Divalproex Sodium (Depakote Sprinkles) 125 mg 0900,1700 PO 01/22/21 09:00 01/26/21 03:28 DC 01/25/21 17:22 Quetiapine Fumarate (SEROquel) 12.5 mg 0900,1700 PO 01/24/21 09:00 01/24/21 17:58 DC 01/24/21 17:00 Quetiapine Fumarate (SEROquel) 12.5 mg 0900,1200,1500,1900 PO 01/25/21 09:00 02/04/21 20:14 Divalproex Sodium (Depakote Sprinkles) 250 mg 0900,1700 PO 01/26/21 09:00 02/03/21 10:19 DC 02/03/21 08:58 Divalproex Sodium (Depakote Sprinkles) 375 mg 0900,1700 PO 02/03/21 17:00 02/04/21 17:18 I have reviewed the current psychotropics carefully including drug interactions. Risk benefit ratio favors no change other than as noted in my dictated progress note. Diagnosis: Problems: (1) Impulse control disorder, unspecified (2) Mild cognitive impairment (3) Anxiety disorder, unspecified (4) Dementia, vascular, with depression (5) Dementia, vascular, with delusions (6) Dementia in Alzheimer's disease with depression (7) Dementia in Alzheimer's disease with delusions (8) Major neurocognitive disorder (9) Dementia in Alzheimer's disease with early onset with behavioral disturbance DIMITRIOS RANDALL MD Feb 04, 2021 22:13
--- NOTE | 2021-02-04 22:36 | PDOC ---
Exam Note: Tyler Note: This note is a late entry for 02/03/2021 covers elements not covered in my initial note. Subjective: The patient was reviewed on telehealth rounds in the morning of 02/03/2021 as an option during the COVID-19 pandemic period for a treatment team meeting with Nanette Pace, Pascale Colvin (psychiatric social worker supervisor), Antoinette, activity therapy and Hortencia RN, discussed and reviewed the chart. We discussed the patients diagnoses, progress, current psychotropics, reviewed drug interactions, risk-benefit ratio of current psychotropics. The patients [id number] and power of manager mining attended as well. She slept 7-1/4 hours previous night. She is irritable at times, flat, withdrawn. Oral intake is poor. Review of Systems: No CV, , pulmonary, eye system symptoms on review. Mental Status Exam: The patient is oriented to herself. Insight and judgment, recent and remote memory, attention and concentration, fund of knowledge is poor consistent with her diagnoses. Laboratory Data: Reviewed. Impression: Major neurocognitive disorder Alzheimer vascular with delusion, depress*ion, behavioral disturbance. Anxiety disorder unspecified. Impulse control disorder unspecified. Plan: Continue current psychotropics from initial note. The patient may be accepted at [facility]. Valproic acid level is subtherapeutic at 38. We will increase Depakote Sprinkle to 375 mg twice a day. Check CBC, CMP, valproic acid level in 3 days. Adjust further as clinically indicated. Assessment: Vital Signs/I&O: Vital Signs Date Time Temp Pulse Resp B/P (MAP) Pulse Ox O2 Delivery O2 Flow Rate FiO2 02/04/21 16:15 98.0 66 20 102/68 (79) 98 02/04/21 05:56 Room Air I & O 02/03/21 02/03/21 02/04/21 15:00 23:00 07:00 Intake Total 480 ml 240 ml 240 ml Balance 480 ml 240 ml 240 ml Current Medications: Meds: Current Medications Medications (Trade) Dose Ordered Sig/Toño Route PRN Reason Start Time Stop Time Status Last Admin Dose Admin Acetaminophen (Tylenol) 650 mg PRN Q6HRS PRN PO MILD PAIN / TEMP > 100.3'F 01/20/21 18:00 01/25/21 08:25 Benzonatate (Tessalon Perle) 100 mg PRN TID PRN PO COUGH 01/20/21 18:00 Buspirone HCl (Buspar) 10 mg BID PO 01/20/21 21:00 02/04/21 20:15 Cetirizine HCl (ZyrTEC) 10 mg PRN DAILY PRN PO ALLERGIES 01/20/21 18:00 Vitamin D (Vitamin D3) 2,000 unit DAILY PO 01/21/21 09:00 02/04/21 09:09 Donepezil HCl (Aricept) 10 mg QHS PO 01/20/21 21:00 02/04/21 20:16 Lisinopril (Prinivil) 5 mg DAILY PO 01/21/21 09:00 02/04/21 09:10 Al Hydroxide/Mg Hydroxide (Mylanta Plus Xs) 15 ml PRN AFTMEALHC PRN PO DYSPEPSIA 01/20/21 18:00 Memantine (Namenda) 10 mg BID PO 01/20/21 21:00 02/04/21 20:15 Multi-Ingredient Ointment (Analgesic [place]) 1 micah PRN QID PRN TP MUSCLE PAIN 01/20/21 18:00 Olanzapine (ZyPREXA ZYDIS) 2.5 mg PRN Q2HR PRN PO ANXIETY / AGITATION 01/20/21 18:00 Pantoprazole Sodium (Protonix) 40 mg DAILY PO 01/21/21 09:00 02/04/21 06:32 Pseudoephedrine HCl (Sudafed 12-Hour) 120 mg PRN BID PRN PO CONGESTION 01/20/21 18:00 Sertraline HCl (Zoloft) 75 mg DAILY PO 01/21/21 09:00 01/21/21 17:45 DC 01/21/21 09:41 Trazodone HCl (Desyrel) 50 mg HS PO 01/20/21 21:00 02/04/21 20:15 Trazodone HCl (Desyrel) 50 mg PRN QHS PRN PO INSOMNIA 01/20/21 18:00 Ascorbic Acid (Vitamin C) 500 mg DAILY PO 01/21/21 09:00 02/04/21 09:11 Calcium/Vitamin D (Oscal D 500mg/ 200uts) 1 tab BIDWMEALS PO 01/21/21 08:00 02/04/21 20:16 Magnesium Hydroxide (Milk Of Magnesia) 2,400 mg PRN QHS PRN PO CONSTIPATION 01/20/21 18:30 Multivitamins/ Calcium (Thera-M Plus) 1 tab DAILY PO 01/21/21 09:00 02/04/21 09:10 Fish Oil (Fish Oil) 1,000 mg DAILY PO 01/21/21 09:00 02/04/21 09:00 Sertraline HCl (Zoloft) 100 mg DAILY PO 01/22/21 09:00 02/04/21 09:10 Divalproex Sodium (Depakote Sprinkles) 125 mg 0900,1700 PO 01/22/21 09:00 01/26/21 03:28 DC 01/25/21 17:22 Quetiapine Fumarate (SEROquel) 12.5 mg 0900,1700 PO 01/24/21 09:00 01/24/21 17:58 DC 01/24/21 17:00 Quetiapine Fumarate (SEROquel) 12.5 mg 0900,1200,1500,1900 PO 01/25/21 09:00 02/04/21 20:14 Divalproex Sodium (Depakote Sprinkles) 250 mg 0900,1700 PO 01/26/21 09:00 02/03/21 10:19 DC 02/03/21 08:58 Divalproex Sodium (Depakote Sprinkles) 375 mg 0900,1700 PO 02/03/21 17:00 02/04/21 17:18 I have reviewed the current psychotropics carefully including drug interactions. Risk benefit ratio favors no change other than as noted in my dictated progress note. Diagnosis: Problems: (1) Impulse control disorder, unspecified (2) Mild cognitive impairment (3) Anxiety disorder, unspecified (4) Dementia, vascular, with depression (5) Dementia, vascular, with delusions (6) Dementia in Alzheimer's disease with depression (7) Dementia in Alzheimer's disease with delusions (8) Major neurocognitive disorder (9) Dementia in Alzheimer's disease with early onset with behavioral disturbance DIMITRIOS RANDALL MD Feb 04, 2021 22:36
--- NOTE | 2021-02-04 22:54 | PDOC ---
Exam Note: Tyler Note: Please also refer to the separate dictated note~for this date of service dictated separately.~Patient seen individually. Discussed the patient with Nursing staff reviewed the chart.~Reviewed interim history and current functioning. Reviewed vital signs,~Labs/ Radiology~and current medications noted below. Continue current treatment with the changes noted in the dictated addendum note Assessment: Vital Signs/I&O: Vital Signs Date Time Temp Pulse Resp B/P (MAP) Pulse Ox O2 Delivery O2 Flow Rate FiO2 02/04/21 16:15 98.0 66 20 102/68 (79) 98 02/04/21 05:56 Room Air I & O 02/03/21 02/03/21 02/04/21 15:00 23:00 07:00 Intake Total 480 ml 240 ml 240 ml Balance 480 ml 240 ml 240 ml Current Medications: I have reviewed the current psychotropics carefully including drug interactions. Risk benefit ratio favors no change other than as noted in my dictated progress note. Diagnosis: Problems: (1) Impulse control disorder, unspecified (2) Mild cognitive impairment (3) Anxiety disorder, unspecified (4) Dementia, vascular, with depression (5) Dementia, vascular, with delusions (6) Dementia in Alzheimer's disease with depression (7) Dementia in Alzheimer's disease with delusions (8) Major neurocognitive disorder (9) Dementia in Alzheimer's disease with early onset with behavioral disturbance DIMITRIOS RANDALL MD Feb 04, 2021 22:54
[2021-02-05 06:14] VITALS: BP 99/63
[2021-02-05] MEDS: CALCIUM CARB/VIT D3 500/200 TABLET PO SCH (08:23)
[2021-02-05] MEDS: DIVALPROEX 125 MG CAP.SPRINK PO SCH ×2 (08:23→17:16)
[2021-02-05] MEDS: MEMANTINE 10 MG TABLET. PO SCH ×2 (08:24→20:19)
[2021-02-05] MEDS: PANTOPRAZOLE 40 MG TABLET. PO SCH (08:24)
[2021-02-05] MEDS: busPIRone 10 MG TABLET. PO SCH ×2 (08:25→20:19)
[2021-02-05] MEDS: SERTRALINE 100 MG TABLET. PO SCH (08:25)
[2021-02-05] MEDS: ASCORBIC ACID 500 MG TABLET PO SCH (08:25)
[2021-02-05] MEDS: LISINOPRIL 5 MG TABLET. PO SCH (08:25)
[2021-02-05] MEDS: MULTIVITAMIN with MINERAL TABLET. PO SCH (08:25)
[2021-02-05] MEDS: QUEtiapine 25 MG TABLET. PO SCH ×4 (08:25→20:20)
[2021-02-05] MEDS: CHOLECALCIFEROL (VITAMIN D3) 1,000 UNIT TABLET PO SCH (08:25)
[2021-02-05] MEDS: OMEGA-3 FATTY ACIDS/FISH OIL 1,000 MG CAPSULE. PO SCH (08:25)
[2021-02-05 15:45] VITALS: BP 112/70
[2021-02-05] MEDS: traZODone 50 MG TABLET. PO SCH (20:19)
[2021-02-05] MEDS: DONEPEZIL HCL 10 MG TABLET PO SCH (20:19)
--- NOTE | 2021-02-05 22:32 | PDOC ---
Exam Note: Tyler Note: Please also refer to the separate dictated note~for this date of service dictated separately.~Patient seen individually. Discussed the patient with Nursing staff reviewed the chart.~Reviewed interim history and current functioning. Reviewed vital signs,~Labs/ Radiology~and current medications noted below. Continue current treatment with the changes noted in the dictated addendum note Assessment: Vital Signs/I&O: Vital Signs Date Time Temp Pulse Resp B/P (MAP) Pulse Ox O2 Delivery O2 Flow Rate FiO2 02/05/21 15:45 97.4 56 20 112/70 (84) 100 02/04/21 05:56 Room Air I & O 02/04/21 02/04/21 02/05/21 15:00 23:00 07:00 Intake Total 600 ml 480 ml Balance 600 ml 480 ml Current Medications: Meds: Current Medications Medications (Trade) Dose Ordered Sig/Toño Route PRN Reason Start Time Stop Time Status Last Admin Dose Admin Ascorbic Acid (Vitamin C) 500 mg DAILY PO 02/05/21 09:00 02/05/21 08:25 Buspirone HCl (Buspar) 10 mg BID PO 02/05/21 09:00 02/05/21 20:19 Vitamin D (Vitamin D3) 2,000 unit DAILY PO 02/05/21 09:00 02/05/21 08:25 Lisinopril (Prinivil) 5 mg DAILY PO 02/05/21 09:00 02/05/21 08:25 Multivitamins/ Calcium (Thera-M Plus) 1 tab DAILY PO 02/05/21 09:00 02/05/21 08:25 Sertraline HCl (Zoloft) 100 mg DAILY PO 02/05/21 09:00 02/05/21 08:25 I have reviewed the current psychotropics carefully including drug interactions. Risk benefit ratio favors no change other than as noted in my dictated progress note. Diagnosis: Problems: (1) Impulse control disorder, unspecified (2) Mild cognitive impairment (3) Anxiety disorder, unspecified (4) Dementia, vascular, with depression (5) Dementia, vascular, with delusions (6) Dementia in Alzheimer's disease with depression (7) Dementia in Alzheimer's disease with delusions (8) Major neurocognitive disorder (9) Dementia in Alzheimer's disease with early onset with behavioral disturbance DIMITRIOS RANDALL MD Feb 05, 2021 22:32
[2021-02-06 05:49] VITALS: BP 122/71
[2021-02-06 07:22] LABS: BASO % 0 % (0-3); EOS # 0.1 x10^3/uL (0.0-0.7); EOS % 3 % (0-3); HEMATOCRIT 32.2 % (36.0-47.0); HEMOGLOBIN 10.7 g/dL (12.0-15.5); LYMPH # 1.1 x10^3/uL (1.0-4.8); LYMPH % 28 % (24-48); MEAN CORPUSCULAR HEMOGLOBIN 30 pg (25-35); MEAN CORPUSCULAR HGB CONC 33 g/dL (31-37); MEAN CORPUSCULAR VOLUME 91 fL (79-100); MONO # 0.3 x10^3/uL (0.0-1.1); MONO % 9 % (0-9); NEUT # 2.4 x10^3uL (1.8-7.7); NEUT % 60 % (31-73); PLATELET COUNT 192 x10^3/uL (140-400); RED BLOOD COUNT 3.55 x10^6/uL (3.50-5.40); RED CELL DISTRIBUTION WIDTH 13.4 % (11.5-14.5)
[2021-02-06 07:39] LABS: ALBUMIN 3.4 g/dL (3.4-5.0); ALBUMIN/GLOBULIN RATIO 1.2 (1.0-1.7); ALK PHOS 89 U/L (46-116); ALT (SGPT) 21 U/L (14-59); ANION GAP 6 (6-14); AST (SGOT) 17 U/L (15-37); BLOOD UREA NITROGEN 24 mg/dL (7-20); BUN/CREATININE RATIO 16 (6-20); CALCIUM 8.3 mg/dL (8.5-10.1); CARBON DIOXIDE 28 mmol/L (21-32); CHLORIDE 105 mmol/L (98-107); CREATININE 1.5 mg/dL (0.6-1.0); GFR 34.1; GLUCOSE 115 mg/dL (70-99); SODIUM 139 mmol/L (136-145); TOTAL BILIRUBIN 0.6 mg/dL (0.2-1.0); TOTAL PROTEIN 6.3 g/dL (6.4-8.2)
[2021-02-06 07:49] LABS: VAL ACID 55 mcg/mL (50-100)
[2021-02-06] MEDS: PANTOPRAZOLE 40 MG TABLET. PO SCH (08:40)
[2021-02-06] MEDS: SERTRALINE 100 MG TABLET. PO SCH (08:40)
[2021-02-06] MEDS: DIVALPROEX 125 MG CAP.SPRINK PO SCH ×2 (08:40→17:21)
[2021-02-06] MEDS: CALCIUM CARB/VIT D3 500/200 TABLET PO SCH ×2 (08:40→17:21)
[2021-02-06] MEDS: OMEGA-3 FATTY ACIDS/FISH OIL 1,000 MG CAPSULE. PO SCH (08:40)
[2021-02-06] MEDS: CHOLECALCIFEROL (VITAMIN D3) 1,000 UNIT TABLET PO SCH (08:40)
[2021-02-06] MEDS: busPIRone 10 MG TABLET. PO SCH ×2 (08:40→20:18)
[2021-02-06] MEDS: LISINOPRIL 5 MG TABLET. PO SCH (08:40)
[2021-02-06] MEDS: MEMANTINE 10 MG TABLET. PO SCH ×2 (08:40→20:18)
[2021-02-06] MEDS: QUEtiapine 25 MG TABLET. PO SCH ×4 (08:40→17:21)
[2021-02-06] MEDS: ASCORBIC ACID 500 MG TABLET PO SCH (08:40)
[2021-02-06] MEDS: MULTIVITAMIN with MINERAL TABLET. PO SCH (08:40)
--- NOTE | 2021-02-06 09:29 | PDOC ---
Exam Note: Tyler Note: This note is a late entry for 02/04/2021 covers elements not covered in my initial note. Subjective: The patient was seen on telehealth rounds in the afternoon of 02/04/2021 as an option during the COVID-19 pandemic period with Faith MEDEL, discussed and reviewed the chart. She slept 7 hours previous night. She has been fairly cooperative and less agitated. Review of Systems: No CV, , pulmonary, eye system symptoms on review. Mental Status Exam: The patient is oriented to herself. Insight and judgment, recent and remote memory, attention and concentration, fund of knowledge is poor consistent with her diagnoses. Laboratory Data: Reviewed. Impression: Major neurocognitive disorder Alzheimer vascular with delusion, depress*ion, behavioral disturbance. Anxiety disorder unspecified. Impulse control disorder unspecified. Plan: Continue current psychotropics from initial note. Check valproic acid level in the morning. Rest unchanged for now. Assessment: Vital Signs/I&O: Vital Signs Date Time Temp Pulse Resp B/P (MAP) Pulse Ox O2 Delivery O2 Flow Rate FiO2 02/06/21 05:49 98.1 63 18 122/71 (88) 96 02/04/21 05:56 Room Air I & O 02/05/21 02/05/21 02/06/21 15:00 23:00 07:00 Intake Total 600 ml 480 ml Balance 600 ml 480 ml Labs: Laboratory Tests Test 02/06/21 06:48 White Blood Count 4.0 x10^3/uL (4.0-11.0) Red Blood Count 3.55 x10^6/uL (3.50-5.40) Hemoglobin 10.7 g/dL (12.0-15.5) L Hematocrit 32.2 % (36.0-47.0) L Mean Corpuscular Volume 91 fL (79-100) Mean Corpuscular Hemoglobin 30 pg (25-35) Mean Corpuscular Hemoglobin Concent 33 g/dL (31-37) Red Cell Distribution Width 13.4 % (11.5-14.5) Platelet Count 192 x10^3/uL (140-400) Neutrophils (%) (Auto) 60 % (31-73) Lymphocytes (%) (Auto) 28 % (24-48) Monocytes (%) (Auto) 9 % (0-9) Eosinophils (%) (Auto) 3 % (0-3) Basophils (%) (Auto) 0 % (0-3) Neutrophils # (Auto) 2.4 x10^3uL (1.8-7.7) Lymphocytes # (Auto) 1.1 x10^3/uL (1.0-4.8) Monocytes # (Auto) 0.3 x10^3/uL (0.0-1.1) Eosinophils # (Auto) 0.1 x10^3/uL (0.0-0.7) Basophils # (Auto) 0.0 x10^3/uL (0.0-0.2) Sodium Level 139 mmol/L (136-145) Potassium Level 5.0 mmol/L (3.5-5.1) Chloride Level 105 mmol/L (98-107) Carbon Dioxide Level 28 mmol/L (21-32) Anion Gap 6 (6-14) Blood Urea Nitrogen 24 mg/dL (7-20) H Creatinine 1.5 mg/dL (0.6-1.0) H Estimated GFR (Cockcroft-Gault) 34.1 BUN/Creatinine Ratio 16 (6-20) Glucose Level 115 mg/dL (70-99) H Calcium Level 8.3 mg/dL (8.5-10.1) L Total Bilirubin 0.6 mg/dL (0.2-1.0) Aspartate Amino Transferase (AST) 17 U/L (15-37) Alanine Aminotransferase (ALT) 21 U/L (14-59) Alkaline Phosphatase 89 U/L (46-116) Ammonia < 10 mcmol/L (11-34) L Total Protein 6.3 g/dL (6.4-8.2) L Albumin 3.4 g/dL (3.4-5.0) Albumin/Globulin Ratio 1.2 (1.0-1.7) Valproic Acid Level 55 mcg/mL (50-100) Valproic Acid Last Dose Date 02/05/21 Valproic Acid Last Dose Time 1700 Current Medications: Meds: Laboratory Tests Test 02/06/21 06:48 White Blood Count 4.0 x10^3/uL Red Blood Count 3.55 x10^6/uL Hemoglobin 10.7 g/dL Hematocrit 32.2 % Mean Corpuscular Volume 91 fL Mean Corpuscular Hemoglobin 30 pg Mean Corpuscular Hemoglobin Concent 33 g/dL Red Cell Distribution Width 13.4 % Platelet Count 192 x10^3/uL Neutrophils (%) (Auto) 60 % Lymphocytes (%) (Auto) 28 % Monocytes (%) (Auto) 9 % Eosinophils (%) (Auto) 3 % Basophils (%) (Auto) 0 % Neutrophils # (Auto) 2.4 x10^3uL Lymphocytes # (Auto) 1.1 x10^3/uL Monocytes # (Auto) 0.3 x10^3/uL Eosinophils # (Auto) 0.1 x10^3/uL Basophils # (Auto) 0.0 x10^3/uL Sodium Level 139 mmol/L Potassium Level 5.0 mmol/L Chloride Level 105 mmol/L Carbon Dioxide Level 28 mmol/L Anion Gap 6 Blood Urea Nitrogen 24 mg/dL Creatinine 1.5 mg/dL Estimated GFR (Cockcroft-Gault) 34.1 BUN/Creatinine Ratio 16 Glucose Level 115 mg/dL Calcium Level 8.3 mg/dL Total Bilirubin 0.6 mg/dL Aspartate Amino Transf (AST/SGOT) 17 U/L Alanine Aminotransferase (ALT/SGPT) 21 U/L Alkaline Phosphatase 89 U/L Ammonia < 10 mcmol/L Total Protein 6.3 g/dL Albumin 3.4 g/dL Albumin/Globulin Ratio 1.2 Valproic Acid (Depakene) Level 55 mcg/mL Valproic Acid Last Dose Date 02/05/21 Valproic Acid Last Dose Time 1700 Current Medications Medications (Trade) Dose Ordered Sig/Toño Route PRN Reason Start Time Stop Time Status Last Admin Dose Admin Acetaminophen (Tylenol) 650 mg PRN Q6HRS PRN PO MILD PAIN / TEMP > 100.3'F 01/20/21 18:00 01/25/21 08:25 Benzonatate (Tessalon Perle) 100 mg PRN TID PRN PO COUGH 01/20/21 18:00 Buspirone HCl (Buspar) 10 mg BID PO 01/20/21 21:00 02/05/21 08:27 DC 02/04/21 20:15 Cetirizine HCl (ZyrTEC) 10 mg PRN DAILY PRN PO ALLERGIES 01/20/21 18:00 Vitamin D (Vitamin D3) 2,000 unit DAILY PO 01/21/21 09:00 7/3/21 08:28 DC 02/04/21 09:09 Donepezil HCl (Aricept) 10 mg QHS PO 01/20/21 21:00 02/05/21 20:19 Lisinopril (Prinivil) 5 mg DAILY PO 01/21/21 09:00 02/05/21 08:29 DC 02/04/21 09:10 Al Hydroxide/Mg Hydroxide (Mylanta Plus Xs) 15 ml PRN AFTMEALHC PRN PO DYSPEPSIA 01/20/21 18:00 Memantine (Namenda) 10 mg BID PO 01/20/21 21:00 02/05/21 20:19 Multi-Ingredient Ointment (Analgesic [place]) 1 micah PRN QID PRN TP MUSCLE PAIN 01/20/21 18:00 Olanzapine (ZyPREXA ZYDIS) 2.5 mg PRN Q2HR PRN PO ANXIETY / AGITATION 01/20/21 18:00 Pantoprazole Sodium (Protonix) 40 mg DAILY PO 01/21/21 09:00 02/05/21 08:24 Pseudoephedrine HCl (Sudafed 12-Hour) 120 mg PRN BID PRN PO CONGESTION 01/20/21 18:00 Sertraline HCl (Zoloft) 75 mg DAILY PO 01/21/21 09:00 01/21/21 17:45 DC 01/21/21 09:41 Trazodone HCl (Desyrel) 50 mg HS PO 01/20/21 21:00 02/05/21 20:19 Trazodone HCl (Desyrel) 50 mg PRN QHS PRN PO INSOMNIA 01/20/21 18:00 Ascorbic Acid (Vitamin C) 500 mg DAILY PO 01/21/21 09:00 02/05/21 08:26 DC 02/04/21 09:11 Calcium/Vitamin D (Oscal D 500mg/ 200uts) 1 tab BIDWMEALS PO 01/21/21 08:00 02/05/21 08:23 Magnesium Hydroxide (Milk Of Magnesia) 2,400 mg PRN QHS PRN PO CONSTIPATION 01/20/21 18:30 Multivitamins/ Calcium (Thera-M Plus) 1 tab DAILY PO 01/21/21 09:00 02/05/21 08:31 DC 02/04/21 09:10 Fish Oil (Fish Oil) 1,000 mg DAILY PO 01/21/21 09:00 02/05/21 08:25 Sertraline HCl (Zoloft) 100 mg DAILY PO 01/22/21 09:00 02/05/21 08:32 DC 02/04/21 09:10 Divalproex Sodium (Depakote Sprinkles) 125 mg 0900,1700 PO 01/22/21 09:00 01/26/21 03:28 DC 01/25/21 17:22 Quetiapine Fumarate (SEROquel) 12.5 mg 0900,1700 PO 01/24/21 09:00 01/24/21 17:58 DC 01/24/21 17:00 Quetiapine Fumarate (SEROquel) 12.5 mg 0900,1200,1500,1900 PO 01/25/21 09:00 02/05/21 20:20 Divalproex Sodium (Depakote Sprinkles) 250 mg 0900,1700 PO 01/26/21 09:00 02/03/21 10:19 DC 02/03/21 08:58 Divalproex Sodium (Depakote Sprinkles) 375 mg 0900,1700 PO 02/03/21 17:00 02/05/21 17:16 Ascorbic Acid (Vitamin C) 500 mg DAILY PO 02/05/21 09:00 02/05/21 08:25 Buspirone HCl (Buspar) 10 mg BID PO 02/05/21 09:00 02/05/21 20:19 Vitamin D (Vitamin D3) 2,000 unit DAILY PO 02/05/21 09:00 02/05/21 08:25 Lisinopril (Prinivil) 5 mg DAILY PO 02/05/21 09:00 02/05/21 08:25 Multivitamins/ Calcium (Thera-M Plus) 1 tab DAILY PO 02/05/21 09:00 02/05/21 08:25 Sertraline HCl (Zoloft) 100 mg DAILY PO 02/05/21 09:00 02/05/21 08:25 I have reviewed the current psychotropics carefully including drug interactions. Risk benefit ratio favors no change other than as noted in my dictated progress note. Diagnosis: Problems: (1) Impulse control disorder, unspecified (2) Mild cognitive impairment (3) Anxiety disorder, unspecified (4) Dementia, vascular, with depression (5) Dementia, vascular, with delusions (6) Dementia in Alzheimer's disease with depression (7) Dementia in Alzheimer's disease with delusions (8) Major neurocognitive disorder (9) Dementia in Alzheimer's disease with early onset with behavioral disturbance DIMITRIOS RANDALL MD Feb 06, 2021 09:29
--- NOTE | 2021-02-06 09:52 | PDOC ---
Exam Note: Tyler Note: This note is a late entry for 02/05/2021 covers elements not covered in my initial note. Subjective: The patient was seen on telehealth rounds in the afternoon of 02/05/2021 as an option during the COVID-19 pandemic period with Barbara MEDEL, discussed and reviewed the chart. She slept 8 hours previous night. She has been flat, somewhat withdrawn, not aggressive or disruptive. Review of Systems: No CV, , pulmonary, eye system symptoms on review. Mental Status Exam: The patient is oriented to herself. Insight and judgment, recent and remote memory, attention and concentration, fund of knowledge is poor consistent with her diagnoses. Laboratory Data: Reviewed. Impression: Major neurocognitive disorder Alzheimer vascular with delusion, depression, behavioral disturbance. Anxiety disorder unspecified. Impulse control disorder unspecified. Plan: Continue current psychotropics from initial note. Assessment: Vital Signs/I&O: Vital Signs Date Time Temp Pulse Resp B/P (MAP) Pulse Ox O2 Delivery O2 Flow Rate FiO2 02/06/21 05:49 98.1 63 18 122/71 (88) 96 02/04/21 05:56 Room Air I & O 02/05/21 02/05/21 02/06/21 15:00 23:00 07:00 Intake Total 600 ml 480 ml Balance 600 ml 480 ml Labs: Laboratory Tests Test 02/06/21 06:48 White Blood Count 4.0 x10^3/uL (4.0-11.0) Red Blood Count 3.55 x10^6/uL (3.50-5.40) Hemoglobin 10.7 g/dL (12.0-15.5) L Hematocrit 32.2 % (36.0-47.0) L Mean Corpuscular Volume 91 fL (79-100) Mean Corpuscular Hemoglobin 30 pg (25-35) Mean Corpuscular Hemoglobin Concent 33 g/dL (31-37) Red Cell Distribution Width 13.4 % (11.5-14.5) Platelet Count 192 x10^3/uL (140-400) Neutrophils (%) (Auto) 60 % (31-73) Lymphocytes (%) (Auto) 28 % (24-48) Monocytes (%) (Auto) 9 % (0-9) Eosinophils (%) (Auto) 3 % (0-3) Basophils (%) (Auto) 0 % (0-3) Neutrophils # (Auto) 2.4 x10^3uL (1.8-7.7) Lymphocytes # (Auto) 1.1 x10^3/uL (1.0-4.8) Monocytes # (Auto) 0.3 x10^3/uL (0.0-1.1) Eosinophils # (Auto) 0.1 x10^3/uL (0.0-0.7) Basophils # (Auto) 0.0 x10^3/uL (0.0-0.2) Sodium Level 139 mmol/L (136-145) Potassium Level 5.0 mmol/L (3.5-5.1) Chloride Level 105 mmol/L (98-107) Carbon Dioxide Level 28 mmol/L (21-32) Anion Gap 6 (6-14) Blood Urea Nitrogen 24 mg/dL (7-20) H Creatinine 1.5 mg/dL (0.6-1.0) H Estimated GFR (Cockcroft-Gault) 34.1 BUN/Creatinine Ratio 16 (6-20) Glucose Level 115 mg/dL (70-99) H Calcium Level 8.3 mg/dL (8.5-10.1) L Total Bilirubin 0.6 mg/dL (0.2-1.0) Aspartate Amino Transferase (AST) 17 U/L (15-37) Alanine Aminotransferase (ALT) 21 U/L (14-59) Alkaline Phosphatase 89 U/L (46-116) Ammonia < 10 mcmol/L (11-34) L Total Protein 6.3 g/dL (6.4-8.2) L Albumin 3.4 g/dL (3.4-5.0) Albumin/Globulin Ratio 1.2 (1.0-1.7) Valproic Acid Level 55 mcg/mL (50-100) Valproic Acid Last Dose Date 02/05/21 Valproic Acid Last Dose Time 1700 Current Medications: Meds: Laboratory Tests Test 02/06/21 06:48 White Blood Count 4.0 x10^3/uL Red Blood Count 3.55 x10^6/uL Hemoglobin 10.7 g/dL Hematocrit 32.2 % Mean Corpuscular Volume 91 fL Mean Corpuscular Hemoglobin 30 pg Mean Corpuscular Hemoglobin Concent 33 g/dL Red Cell Distribution Width 13.4 % Platelet Count 192 x10^3/uL Neutrophils (%) (Auto) 60 % Lymphocytes (%) (Auto) 28 % Monocytes (%) (Auto) 9 % Eosinophils (%) (Auto) 3 % Basophils (%) (Auto) 0 % Neutrophils # (Auto) 2.4 x10^3uL Lymphocytes # (Auto) 1.1 x10^3/uL Monocytes # (Auto) 0.3 x10^3/uL Eosinophils # (Auto) 0.1 x10^3/uL Basophils # (Auto) 0.0 x10^3/uL Sodium Level 139 mmol/L Potassium Level 5.0 mmol/L Chloride Level 105 mmol/L Carbon Dioxide Level 28 mmol/L Anion Gap 6 Blood Urea Nitrogen 24 mg/dL Creatinine 1.5 mg/dL Estimated GFR (Cockcroft-Gault) 34.1 BUN/Creatinine Ratio 16 Glucose Level 115 mg/dL Calcium Level 8.3 mg/dL Total Bilirubin 0.6 mg/dL Aspartate Amino Transf (AST/SGOT) 17 U/L Alanine Aminotransferase (ALT/SGPT) 21 U/L Alkaline Phosphatase 89 U/L Ammonia < 10 mcmol/L Total Protein 6.3 g/dL Albumin 3.4 g/dL Albumin/Globulin Ratio 1.2 Valproic Acid (Depakene) Level 55 mcg/mL Valproic Acid Last Dose Date 02/05/21 Valproic Acid Last Dose Time 1700 Current Medications Medications (Trade) Dose Ordered Sig/Toño Route PRN Reason Start Time Stop Time Status Last Admin Dose Admin Acetaminophen (Tylenol) 650 mg PRN Q6HRS PRN PO MILD PAIN / TEMP > 100.3'F 01/20/21 18:00 01/25/21 08:25 Benzonatate (Tessalon Perle) 100 mg PRN TID PRN PO COUGH 01/20/21 18:00 Buspirone HCl (Buspar) 10 mg BID PO 01/20/21 21:00 02/05/21 08:27 DC 02/04/21 20:15 Cetirizine HCl (ZyrTEC) 10 mg PRN DAILY PRN PO ALLERGIES 01/20/21 18:00 Vitamin D (Vitamin D3) 2,000 unit DAILY PO 01/21/21 09:00 02/05/21 08:28 DC 02/04/21 09:09 Donepezil HCl (Aricept) 10 mg QHS PO 01/20/21 21:00 02/05/21 20:19 Lisinopril (Prinivil) 5 mg DAILY PO 01/21/21 09:00 02/05/21 08:29 DC 02/04/21 09:10 Al Hydroxide/Mg Hydroxide (Mylanta Plus Xs) 15 ml PRN AFTMEALHC PRN PO DYSPEPSIA 01/20/21 18:00 Memantine (Namenda) 10 mg BID PO 01/20/21 21:00 02/05/21 20:19 Multi-Ingredient Ointment (Analgesic [place]) 1 micah PRN QID PRN TP MUSCLE PAIN 01/20/21 18:00 Olanzapine (ZyPREXA ZYDIS) 2.5 mg PRN Q2HR PRN PO ANXIETY / AGITATION 01/20/21 18:00 Pantoprazole Sodium (Protonix) 40 mg DAILY PO 01/21/21 09:00 02/05/21 08:24 Pseudoephedrine HCl (Sudafed 12-Hour) 120 mg PRN BID PRN PO CONGESTION 01/20/21 18:00 Sertraline HCl (Zoloft) 75 mg DAILY PO 01/21/21 09:00 01/21/21 17:45 DC 01/21/21 09:41 Trazodone HCl (Desyrel) 50 mg HS PO 01/20/21 21:00 02/05/21 20:19 Trazodone HCl (Desyrel) 50 mg PRN QHS PRN PO INSOMNIA 01/20/21 18:00 Ascorbic Acid (Vitamin C) 500 mg DAILY PO 01/21/21 09:00 02/05/21 08:26 DC 02/04/21 09:11 Calcium/Vitamin D (Oscal D 500mg/ 200uts) 1 tab BIDWMEALS PO 01/21/21 08:00 02/05/21 08:23 Magnesium Hydroxide (Milk Of Magnesia) 2,400 mg PRN QHS PRN PO CONSTIPATION 01/20/21 18:30 Multivitamins/ Calcium (Thera-M Plus) 1 tab DAILY PO 01/21/21 09:00 02/05/21 08:31 DC 02/04/21 09:10 Fish Oil (Fish Oil) 1,000 mg DAILY PO 01/21/21 09:00 02/05/21 08:25 Sertraline HCl (Zoloft) 100 mg DAILY PO 01/22/21 09:00 02/05/21 08:32 DC 02/04/21 09:10 Divalproex Sodium (Depakote Sprinkles) 125 mg 0900,1700 PO 01/22/21 09:00 01/26/21 03:28 DC 01/25/21 17:22 Quetiapine Fumarate (SEROquel) 12.5 mg 0900,1700 PO 01/24/21 09:00 01/24/21 17:58 DC 01/24/21 17:00 Quetiapine Fumarate (SEROquel) 12.5 mg 0900,1200,1500,1900 PO 01/25/21 09:00 02/05/21 20:20 Divalproex Sodium (Depakote Sprinkles) 250 mg 0900,1700 PO 01/26/21 09:00 02/03/21 10:19 DC 02/03/21 08:58 Divalproex Sodium (Depakote Sprinkles) 375 mg 0900,1700 PO 02/03/21 17:00 02/05/21 17:16 Ascorbic Acid (Vitamin C) 500 mg DAILY PO 02/05/21 09:00 02/05/21 08:25 Buspirone HCl (Buspar) 10 mg BID PO 02/05/21 09:00 02/05/21 20:19 Vitamin D (Vitamin D3) 2,000 unit DAILY PO 02/05/21 09:00 02/05/21 08:25 Lisinopril (Prinivil) 5 mg DAILY PO 02/05/21 09:00 02/05/21 08:25 Multivitamins/ Calcium (Thera-M Plus) 1 tab DAILY PO 02/05/21 09:00 02/05/21 08:25 Sertraline HCl (Zoloft) 100 mg DAILY PO 02/05/21 09:00 02/05/21 08:25 I have reviewed the current psychotropics carefully including drug interactions. Risk benefit ratio favors no change other than as noted in my dictated progress note. Diagnosis: Problems: (1) Impulse control disorder, unspecified (2) Mild cognitive impairment (3) Anxiety disorder, unspecified (4) Dementia, vascular, with depression (5) Dementia, vascular, with delusions (6) Dementia in Alzheimer's disease with depression (7) Dementia in Alzheimer's disease with delusions (8) Major neurocognitive disorder (9) Dementia in Alzheimer's disease with early onset with behavioral disturbance DIMITRIOS RANDALL MD Feb 06, 2021 09:52
[2021-02-06 16:37] VITALS: BP 91/66
[2021-02-06] MEDS: traZODone 50 MG TABLET. PO SCH (20:18)
[2021-02-06] MEDS: DONEPEZIL HCL 10 MG TABLET PO SCH (20:18)
--- NOTE | 2021-02-06 22:00 | PDOC ---
Exam Note: Tyler Note: Please also refer to the separate dictated note~for this date of service dictated separately.~Patient seen individually. Discussed the patient with Nursing staff reviewed the chart.~Reviewed interim history and current functioning. Reviewed vital signs,~Labs/ Radiology~and current medications noted below. Continue current treatment with the changes noted in the dictated addendum note Assessment: Vital Signs/I&O: Vital Signs Date Time Temp Pulse Resp B/P (MAP) Pulse Ox O2 Delivery O2 Flow Rate FiO2 02/06/21 16:37 98.1 104 18 91/66 (74) 94 02/04/21 05:56 Room Air I & O 02/05/21 02/05/21 02/06/21 15:00 23:00 07:00 Intake Total 600 ml 480 ml Balance 600 ml 480 ml Labs: Laboratory Tests Test 02/06/21 06:48 White Blood Count 4.0 x10^3/uL (4.0-11.0) Red Blood Count 3.55 x10^6/uL (3.50-5.40) Hemoglobin 10.7 g/dL (12.0-15.5) L Hematocrit 32.2 % (36.0-47.0) L Mean Corpuscular Volume 91 fL (79-100) Mean Corpuscular Hemoglobin 30 pg (25-35) Mean Corpuscular Hemoglobin Concent 33 g/dL (31-37) Red Cell Distribution Width 13.4 % (11.5-14.5) Platelet Count 192 x10^3/uL (140-400) Neutrophils (%) (Auto) 60 % (31-73) Lymphocytes (%) (Auto) 28 % (24-48) Monocytes (%) (Auto) 9 % (0-9) Eosinophils (%) (Auto) 3 % (0-3) Basophils (%) (Auto) 0 % (0-3) Neutrophils # (Auto) 2.4 x10^3uL (1.8-7.7) Lymphocytes # (Auto) 1.1 x10^3/uL (1.0-4.8) Monocytes # (Auto) 0.3 x10^3/uL (0.0-1.1) Eosinophils # (Auto) 0.1 x10^3/uL (0.0-0.7) Basophils # (Auto) 0.0 x10^3/uL (0.0-0.2) Sodium Level 139 mmol/L (136-145) Potassium Level 5.0 mmol/L (3.5-5.1) Chloride Level 105 mmol/L (98-107) Carbon Dioxide Level 28 mmol/L (21-32) Anion Gap 6 (6-14) Blood Urea Nitrogen 24 mg/dL (7-20) H Creatinine 1.5 mg/dL (0.6-1.0) H Estimated GFR (Cockcroft-Gault) 34.1 BUN/Creatinine Ratio 16 (6-20) Glucose Level 115 mg/dL (70-99) H Calcium Level 8.3 mg/dL (8.5-10.1) L Total Bilirubin 0.6 mg/dL (0.2-1.0) Aspartate Amino Transferase (AST) 17 U/L (15-37) Alanine Aminotransferase (ALT) 21 U/L (14-59) Alkaline Phosphatase 89 U/L (46-116) Ammonia < 10 mcmol/L (11-34) L Total Protein 6.3 g/dL (6.4-8.2) L Albumin 3.4 g/dL (3.4-5.0) Albumin/Globulin Ratio 1.2 (1.0-1.7) Valproic Acid Level 55 mcg/mL (50-100) Valproic Acid Last Dose Date 02/05/21 Valproic Acid Last Dose Time 1700 Current Medications: Meds: Laboratory Tests Test 02/06/21 06:48 White Blood Count 4.0 x10^3/uL Red Blood Count 3.55 x10^6/uL Hemoglobin 10.7 g/dL Hematocrit 32.2 % Mean Corpuscular Volume 91 fL Mean Corpuscular Hemoglobin 30 pg Mean Corpuscular Hemoglobin Concent 33 g/dL Red Cell Distribution Width 13.4 % Platelet Count 192 x10^3/uL Neutrophils (%) (Auto) 60 % Lymphocytes (%) (Auto) 28 % Monocytes (%) (Auto) 9 % Eosinophils (%) (Auto) 3 % Basophils (%) (Auto) 0 % Neutrophils # (Auto) 2.4 x10^3uL Lymphocytes # (Auto) 1.1 x10^3/uL Monocytes # (Auto) 0.3 x10^3/uL Eosinophils # (Auto) 0.1 x10^3/uL Basophils # (Auto) 0.0 x10^3/uL Sodium Level 139 mmol/L Potassium Level 5.0 mmol/L Chloride Level 105 mmol/L Carbon Dioxide Level 28 mmol/L Anion Gap 6 Blood Urea Nitrogen 24 mg/dL Creatinine 1.5 mg/dL Estimated GFR (Cockcroft-Gault) 34.1 BUN/Creatinine Ratio 16 Glucose Level 115 mg/dL Calcium Level 8.3 mg/dL Total Bilirubin 0.6 mg/dL Aspartate Amino Transf (AST/SGOT) 17 U/L Alanine Aminotransferase (ALT/SGPT) 21 U/L Alkaline Phosphatase 89 U/L Ammonia < 10 mcmol/L Total Protein 6.3 g/dL Albumin 3.4 g/dL Albumin/Globulin Ratio 1.2 Valproic Acid (Depakene) Level 55 mcg/mL Valproic Acid Last Dose Date 02/05/21 Valproic Acid Last Dose Time 1700 Current Medications Medications (Trade) Dose Ordered Sig/Toño Route PRN Reason Start Time Stop Time Status Last Admin Dose Admin Acetaminophen (Tylenol) 650 mg PRN Q6HRS PRN PO MILD PAIN / TEMP > 100.3'F 01/20/21 18:00 01/25/21 08:25 Benzonatate (Tessalon Perle) 100 mg PRN TID PRN PO COUGH 01/20/21 18:00 Buspirone HCl (Buspar) 10 mg BID PO 01/20/21 21:00 02/05/21 08:27 DC 02/04/21 20:15 Cetirizine HCl (ZyrTEC) 10 mg PRN DAILY PRN PO ALLERGIES 01/20/21 18:00 Vitamin D (Vitamin D3) 2,000 unit DAILY PO 01/21/21 09:00 02/05/21 08:28 DC 02/04/21 09:09 Donepezil HCl (Aricept) 10 mg QHS PO 01/20/21 21:00 02/06/21 20:18 Lisinopril (Prinivil) 5 mg DAILY PO 01/21/21 09:00 02/05/21 08:29 DC 02/04/21 09:10 Al Hydroxide/Mg Hydroxide (Mylanta Plus Xs) 15 ml PRN AFTMEALHC PRN PO DYSPEPSIA 01/20/21 18:00 Memantine (Namenda) 10 mg BID PO 01/20/21 21:00 02/06/21 20:18 Multi-Ingredient Ointment (Analgesic [place]) 1 micah PRN QID PRN TP MUSCLE PAIN 01/20/21 18:00 Olanzapine (ZyPREXA ZYDIS) 2.5 mg PRN Q2HR PRN PO ANXIETY / AGITATION 01/20/21 18:00 Pantoprazole Sodium (Protonix) 40 mg DAILY PO 01/21/21 09:00 02/06/21 08:40 Pseudoephedrine HCl (Sudafed 12-Hour) 120 mg PRN BID PRN PO CONGESTION 01/20/21 18:00 Sertraline HCl (Zoloft) 75 mg DAILY PO 01/21/21 09:00 01/21/21 17:45 DC 01/21/21 09:41 Trazodone HCl (Desyrel) 50 mg HS PO 01/20/21 21:00 02/06/21 20:18 Trazodone HCl (Desyrel) 50 mg PRN QHS PRN PO INSOMNIA 01/20/21 18:00 Ascorbic Acid (Vitamin C) 500 mg DAILY PO 01/21/21 09:00 02/05/21 08:26 DC 02/04/21 09:11 Calcium/Vitamin D (Oscal D 500mg/ 200uts) 1 tab BIDWMEALS PO 01/21/21 08:00 02/06/21 17:21 Magnesium Hydroxide (Milk Of Magnesia) 2,400 mg PRN QHS PRN PO CONSTIPATION 01/20/21 18:30 Multivitamins/ Calcium (Thera-M Plus) 1 tab DAILY PO 01/21/21 09:00 02/05/21 08:31 DC 02/04/21 09:10 Fish Oil (Fish Oil) 1,000 mg DAILY PO 01/21/21 09:00 02/06/21 08:40 Sertraline HCl (Zoloft) 100 mg DAILY PO 01/22/21 09:00 02/05/21 08:32 DC 02/04/21 09:10 Divalproex Sodium (Depakote Sprinkles) 125 mg 0900,1700 PO 01/22/21 09:00 01/26/21 03:28 DC 01/25/21 17:22 Quetiapine Fumarate (SEROquel) 12.5 mg 0900,1700 PO 01/24/21 09:00 01/24/21 17:58 DC 01/24/21 17:00 Quetiapine Fumarate (SEROquel) 12.5 mg 0900,1200,1500,1900 PO 01/25/21 09:00 02/06/21 17:21 Divalproex Sodium (Depakote Sprinkles) 250 mg 0900,1700 PO 01/26/21 09:00 02/03/21 10:19 DC 02/03/21 08:58 Divalproex Sodium (Depakote Sprinkles) 375 mg 0900,1700 PO 02/03/21 17:00 02/06/21 17:21 Ascorbic Acid (Vitamin C) 500 mg DAILY PO 02/05/21 09:00 02/06/21 08:40 Buspirone HCl (Buspar) 10 mg BID PO 02/05/21 09:00 02/06/21 20:18 Vitamin D (Vitamin D3) 2,000 unit DAILY PO 02/05/21 09:00 02/06/21 08:40 Lisinopril (Prinivil) 5 mg DAILY PO 02/05/21 09:00 02/06/21 08:40 Multivitamins/ Calcium (Thera-M Plus) 1 tab DAILY PO 02/05/21 09:00 02/06/21 08:40 Sertraline HCl (Zoloft) 100 mg DAILY PO 02/05/21 09:00 02/06/21 08:40 I have reviewed the current psychotropics carefully including drug interactions. Risk benefit ratio favors no change other than as noted in my dictated progress note. Diagnosis: Problems: (1) Impulse control disorder, unspecified (2) Mild cognitive impairment (3) Anxiety disorder, unspecified (4) Dementia, vascular, with depression (5) Dementia, vascular, with delusions (6) Dementia in Alzheimer's disease with depression (7) Dementia in Alzheimer's disease with delusions (8) Major neurocognitive disorder (9) Dementia in Alzheimer's disease with early onset with behavioral disturbance DIMITRIOS RANDALL MD Feb 06, 2021 22:00
[2021-02-07 05:29] VITALS: BP 121/70
--- NOTE | 2021-02-07 08:57 | PDOC ---
Exam Note: Tyler Note: This note is a late entry for 02/06/2021 covers elements not covered in my initial note. Subjective: The patient was seen individually in the evening of 02/06/2021 with Barbara MEDEL, discussed and reviewed the chart. She slept 7 hours previous night. She has been somewhat disorganized but not aggressive. She is pleasant, verbal, interactive as I met with her in the hallway. I asked if she knew where she was and she laughed, same place I was before. Hemoglobin 10.7. We will defer to Dr. Machado. Review of Systems: No CV, , pulmonary, eye system symptoms on review. Mental Status Exam: The patient is oriented to herself. Insight and judgment, recent and remote memory, attention and concentration, fund of knowledge is poor consistent with her diagnoses. Laboratory Data: Reviewed. Impression: Major neurocognitive disorder Alzheimer vascular with delusion, depress*ion, behavioral disturbance. Anxiety disorder unspecified. Impulse c ontrol disorder unspecified. Plan: Continue current psychotropics from initial note. Assessment: Vital Signs/I&O: Vital Signs Date Time Temp Pulse Resp B/P (MAP) Pulse Ox O2 Delivery O2 Flow Rate FiO2 02/07/21 05:29 96.7 66 16 121/70 (87) 99 02/04/21 05:56 Room Air I & O 02/06/21 02/06/21 02/07/21 15:00 23:00 07:00 Intake Total 840 ml 680 ml Balance 840 ml 680 ml Current Medications: Meds: Current Medications Medications (Trade) Dose Ordered Sig/Toño Route PRN Reason Start Time Stop Time Status Last Admin Dose Admin Acetaminophen (Tylenol) 650 mg PRN Q6HRS PRN PO MILD PAIN / TEMP > 100.3'F 01/20/21 18:00 01/25/21 08:25 Benzonatate (Tessalon Perle) 100 mg PRN TID PRN PO COUGH 01/20/21 18:00 Buspirone HCl (Buspar) 10 mg BID PO 01/20/21 21:00 02/05/21 08:27 DC 02/04/21 20:15 Cetirizine HCl (ZyrTEC) 10 mg PRN DAILY PRN PO ALLERGIES 01/20/21 18:00 Vitamin D (Vitamin D3) 2,000 unit DAILY PO 01/21/21 09:00 02/05/21 08:28 DC 02/04/21 09:09 Donepezil HCl (Aricept) 10 mg QHS PO 01/20/21 21:00 02/06/21 20:18 Lisinopril (Prinivil) 5 mg DAILY PO 01/21/21 09:00 02/05/21 08:29 DC 02/04/21 09:10 Al Hydroxide/Mg Hydroxide (Mylanta Plus Xs) 15 ml PRN AFTMEALHC PRN PO DYSPEPSIA 01/20/21 18:00 Memantine (Namenda) 10 mg BID PO 01/20/21 21:00 02/06/21 20:18 Multi-Ingredient Ointment (Analgesic [place]) 1 micah PRN QID PRN TP MUSCLE PAIN 01/20/21 18:00 Olanzapine (ZyPREXA ZYDIS) 2.5 mg PRN Q2HR PRN PO ANXIETY / AGITATION 01/20/21 18:00 Pantoprazole Sodium (Protonix) 40 mg DAILY PO 01/21/21 09:00 02/06/21 08:40 Pseudoephedrine HCl (Sudafed 12-Hour) 120 mg PRN BID PRN PO CONGESTION 01/20/21 18:00 Sertraline HCl (Zoloft) 75 mg DAILY PO 01/21/21 09:00 01/21/21 17:45 DC 01/21/21 09:41 Trazodone HCl (Desyrel) 50 mg HS PO 01/20/21 21:00 02/06/21 20:18 Trazodone HCl (Desyrel) 50 mg PRN QHS PRN PO INSOMNIA 01/20/21 18:00 Ascorbic Acid (Vitamin C) 500 mg DAILY PO 01/21/21 09:00 02/05/21 08:26 DC 02/04/21 09:11 Calcium/Vitamin D (Oscal D 500mg/ 200uts) 1 tab BIDWMEALS PO 01/21/21 08:00 02/06/21 17:21 Magnesium Hydroxide (Milk Of Magnesia) 2,400 mg PRN QHS PRN PO CONSTIPATION 01/20/21 18:30 Multivitamins/ Calcium (Thera-M Plus) 1 tab DAILY PO 01/21/21 09:00 02/05/21 08:31 DC 02/04/21 09:10 Fish Oil (Fish Oil) 1,000 mg DAILY PO 01/21/21 09:00 02/06/21 08:40 Sertraline HCl (Zoloft) 100 mg DAILY PO 01/22/21 09:00 02/05/21 08:32 DC 02/04/21 09:10 Divalproex Sodium (Depakote Sprinkles) 125 mg 0900,1700 PO 01/22/21 09:00 01/26/21 03:28 DC 01/25/21 17:22 Quetiapine Fumarate (SEROquel) 12.5 mg 0900,1700 PO 01/24/21 09:00 01/24/21 17:58 DC 01/24/21 17:00 Quetiapine Fumarate (SEROquel) 12.5 mg 0900,1200,1500,1900 PO 01/25/21 09:00 02/06/21 17:21 Divalproex Sodium (Depakote Sprinkles) 250 mg 0900,1700 PO 01/26/21 09:00 02/03/21 10:19 DC 02/03/21 08:58 Divalproex Sodium (Depakote Sprinkles) 375 mg 0900,1700 PO 02/03/21 17:00 02/06/21 17:21 Ascorbic Acid (Vitamin C) 500 mg DAILY PO 02/05/21 09:00 02/06/21 08:40 Buspirone HCl (Buspar) 10 mg BID PO 02/05/21 09:00 02/06/21 20:18 Vitamin D (Vitamin D3) 2,000 unit DAILY PO 02/05/21 09:00 02/06/21 08:40 Lisinopril (Prinivil) 5 mg DAILY PO 02/05/21 09:00 02/06/21 08:40 Multivitamins/ Calcium (Thera-M Plus) 1 tab DAILY PO 02/05/21 09:00 02/06/21 08:40 Sertraline HCl (Zoloft) 100 mg DAILY PO 02/05/21 09:00 02/06/21 08:40 I have reviewed the current psychotropics carefully including drug interactions. Risk benefit ratio favors no change other than as noted in my dictated progress note. Diagnosis: Problems: (1) Impulse control disorder, unspecified (2) Mild cognitive impairment (3) Anxiety disorder, unspecified (4) Dementia, vascular, with depression (5) Dementia, vascular, with delusions (6) Dementia in Alzheimer's disease with depression (7) Dementia in Alzheimer's disease with delusions (8) Major neurocognitive disorder (9) Dementia in Alzheimer's disease with early onset with behavioral disturbance DIMITRIOS RANDALL MD Feb 07, 2021 08:57
[2021-02-07] MEDS: PANTOPRAZOLE 40 MG TABLET. PO SCH (10:05)
[2021-02-07] MEDS: ASCORBIC ACID 500 MG TABLET PO SCH (10:05)
[2021-02-07] MEDS: MEMANTINE 10 MG TABLET. PO SCH ×2 (10:05→20:28)
[2021-02-07] MEDS: busPIRone 10 MG TABLET. PO SCH ×2 (10:05→20:28)
[2021-02-07] MEDS: MULTIVITAMIN with MINERAL TABLET. PO SCH (10:05)
[2021-02-07] MEDS: QUEtiapine 25 MG TABLET. PO SCH ×4 (10:05→17:15)
[2021-02-07] MEDS: SERTRALINE 100 MG TABLET. PO SCH (10:05)
[2021-02-07] MEDS: CHOLECALCIFEROL (VITAMIN D3) 1,000 UNIT TABLET PO SCH (10:05)
[2021-02-07] MEDS: LISINOPRIL 5 MG TABLET. PO SCH (10:05)
[2021-02-07] MEDS: DIVALPROEX 125 MG CAP.SPRINK PO SCH ×2 (10:05→17:16)
[2021-02-07] MEDS: OMEGA-3 FATTY ACIDS/FISH OIL 1,000 MG CAPSULE. PO SCH (10:05)
[2021-02-07] MEDS: CALCIUM CARB/VIT D3 500/200 TABLET PO SCH ×2 (10:05→17:15)
[2021-02-07 16:13] VITALS: BP 136/76
[2021-02-07] MEDS: DONEPEZIL HCL 10 MG TABLET PO SCH (20:28)
[2021-02-07] MEDS: traZODone 50 MG TABLET. PO SCH (20:28)
--- NOTE | 2021-02-07 22:00 | PDOC ---
Exam Note: Tyler Note: Please also refer to the separate dictated note~for this date of service dictated separately.~Patient seen individually. Discussed the patient with Nursing staff reviewed the chart.~Reviewed interim history and current functioning. Reviewed vital signs,~Labs/ Radiology~and current medications noted below. Continue current treatment with the changes noted in the dictated addendum note Assessment: Vital Signs/I&O: Vital Signs Date Time Temp Pulse Resp B/P (MAP) Pulse Ox O2 Delivery O2 Flow Rate FiO2 02/07/21 16:13 98.6 89 18 136/76 (96) 95 02/04/21 05:56 Room Air I & O 02/06/21 02/06/21 02/07/21 15:00 23:00 07:00 Intake Total 840 ml 680 ml Balance 840 ml 680 ml Current Medications: Meds: Current Medications Medications (Trade) Dose Ordered Sig/Toño Route PRN Reason Start Time Stop Time Status Last Admin Dose Admin Acetaminophen (Tylenol) 650 mg PRN Q6HRS PRN PO MILD PAIN / TEMP > 100.3'F 01/20/21 18:00 01/25/21 08:25 Benzonatate (Tessalon Perle) 100 mg PRN TID PRN PO COUGH 01/20/21 18:00 Buspirone HCl (Buspar) 10 mg BID PO 01/20/21 21:00 02/05/21 08:27 DC 02/04/21 20:15 Cetirizine HCl (ZyrTEC) 10 mg PRN DAILY PRN PO ALLERGIES 01/20/21 18:00 Vitamin D (Vitamin D3) 2,000 unit DAILY PO 01/21/21 09:00 02/05/21 08:28 DC 02/04/21 09:09 Donepezil HCl (Aricept) 10 mg QHS PO 01/20/21 21:00 02/07/21 20:28 Lisinopril (Prinivil) 5 mg DAILY PO 01/21/21 09:00 02/05/21 08:29 DC 02/04/21 09:10 Al Hydroxide/Mg Hydroxide (Mylanta Plus Xs) 15 ml PRN AFTMEALHC PRN PO DYSPEPSIA 01/20/21 18:00 Memantine (Namenda) 10 mg BID PO 01/20/21 21:00 02/07/21 20:28 Multi-Ingredient Ointment (Analgesic [place]) 1 micah PRN QID PRN TP MUSCLE PAIN 01/20/21 18:00 Olanzapine (ZyPREXA ZYDIS) 2.5 mg PRN Q2HR PRN PO ANXIETY / AGITATION 01/20/21 18:00 Pantoprazole Sodium (Protonix) 40 mg DAILY PO 01/21/21 09:00 02/07/21 10:05 Pseudoephedrine HCl (Sudafed 12-Hour) 120 mg PRN BID PRN PO CONGESTION 01/20/21 18:00 Sertraline HCl (Zoloft) 75 mg DAILY PO 01/21/21 09:00 01/21/21 17:45 DC 01/21/21 09:41 Trazodone HCl (Desyrel) 50 mg HS PO 01/20/21 21:00 02/07/21 20:28 Trazodone HCl (Desyrel) 50 mg PRN QHS PRN PO INSOMNIA 01/20/21 18:00 Ascorbic Acid (Vitamin C) 500 mg DAILY PO 01/21/21 09:00 02/05/21 08:26 DC 02/04/21 09:11 Calcium/Vitamin D (Oscal D 500mg/ 200uts) 1 tab BIDWMEALS PO 01/21/21 08:00 02/07/21 17:15 Magnesium Hydroxide (Milk Of Magnesia) 2,400 mg PRN QHS PRN PO CONSTIPATION 01/20/21 18:30 Multivitamins/ Calcium (Thera-M Plus) 1 tab DAILY PO 01/21/21 09:00 02/05/21 08:31 DC 02/04/21 09:10 Fish Oil (Fish Oil) 1,000 mg DAILY PO 01/21/21 09:00 02/07/21 18:16 DC 02/07/21 10:05 Sertraline HCl (Zoloft) 100 mg DAILY PO 01/22/21 09:00 02/05/21 08:32 DC 02/04/21 09:10 Divalproex Sodium (Depakote Sprinkles) 125 mg 0900,1700 PO 01/22/21 09:00 01/26/21 03:28 DC 01/25/21 17:22 Quetiapine Fumarate (SEROquel) 12.5 mg 0900,1700 PO 01/24/21 09:00 01/24/21 17:58 DC 01/24/21 17:00 Quetiapine Fumarate (SEROquel) 12.5 mg 0900,1200,1500,1900 PO 01/25/21 09:00 02/07/21 17:15 Divalproex Sodium (Depakote Sprinkles) 250 mg 0900,1700 PO 01/26/21 09:00 02/03/21 10:19 DC 02/03/21 08:58 Divalproex Sodium (Depakote Sprinkles) 375 mg 0900,1700 PO 02/03/21 17:00 02/07/21 17:16 Ascorbic Acid (Vitamin C) 500 mg DAILY PO 02/05/21 09:00 02/07/21 18:16 DC 02/07/21 10:05 Buspirone HCl (Buspar) 10 mg BID PO 02/05/21 09:00 02/07/21 20:28 Vitamin D (Vitamin D3) 2,000 unit DAILY PO 02/05/21 09:00 02/07/21 18:16 DC 02/07/21 10:05 Lisinopril (Prinivil) 5 mg DAILY PO 02/05/21 09:00 02/07/21 10:05 Multivitamins/ Calcium (Thera-M Plus) 1 tab DAILY PO 02/05/21 09:00 02/07/21 18:16 DC 02/07/21 10:05 Sertraline HCl (Zoloft) 100 mg DAILY PO 02/05/21 09:00 02/07/21 10:05 Ascorbic Acid (Vitamin C) 500 mg NOON PO 02/08/21 12:00 Vitamin D (Vitamin D3) 2,000 unit NOON PO 02/08/21 12:00 Multivitamins/ Calcium (Thera-M Plus) 1 tab NOON PO 02/08/21 12:00 Fish Oil (Fish Oil) 1,000 mg NOON PO 02/08/21 12:00 I have reviewed the current psychotropics carefully including drug interactions. Risk benefit ratio favors no change other than as noted in my dictated progress note. Diagnosis: Problems: (1) Impulse control disorder, unspecified (2) Mild cognitive impairment (3) Anxiety disorder, unspecified (4) Dementia, vascular, with depression (5) Dementia, vascular, with delusions (6) Dementia in Alzheimer's disease with depression (7) Dementia in Alzheimer's disease with delusions (8) Major neurocognitive disorder (9) Dementia in Alzheimer's disease with early onset with behavioral disturbance DIMITRIOS RANDALL MD Feb 07, 2021 22:00
[2021-02-08 06:21] VITALS: BP 125/71
--- NOTE | 2021-02-08 06:29 | PDOC ---
Exam Note: Tyler Note: This note is a late entry for 02/07/2021 covers elements not covered in my initial note. Subjective: The patient was seen individually in the evening of 02/07/2021 with Barbara MEDEL, discussed and reviewed the chart. She slept 6-1/4 hours previous night. The patient is resistive to a.m. medications because she feels there are too many pills that are given to her at the same time. We will check with Dr. Machado or the pharmacist to try and simplify this regimen. Review of Systems: No CV, , pulmonary, eye system symptoms on review. Mental Status Exam: The patient is oriented to herself. Insight and judgment, recent and remote memory, attention and concentration, fund of knowledge is poor consistent with her diagnoses. Laboratory Data: Reviewed. Impression: Major neurocognitive disorder Alzheimer vascular with delusion, depress*ion, behavioral disturbance. Anxiety disorder unspecified. Impulse control disorder unspecified. Plan: Continue current psychotropics from initial note. Assessment: Vital Signs/I&O: Vital Signs Date Time Temp Pulse Resp B/P (MAP) Pulse Ox O2 Delivery O2 Flow Rate FiO2 02/08/21 06:21 97.6 64 18 125/71 (89) 96 02/04/21 05:56 Room Air I & O 02/07/21 02/07/21 02/08/21 15:00 23:00 07:00 Intake Total 480 ml 220 ml Balance 480 ml 220 ml Current Medications: Meds: Current Medications Medications (Trade) Dose Ordered Sig/Toño Route PRN Reason Start Time Stop Time Status Last Admin Dose Admin Acetaminophen (Tylenol) 650 mg PRN Q6HRS PRN PO MILD PAIN / TEMP > 100.3'F 01/20/21 18:00 01/25/21 08:25 Benzonatate (Tessalon Perle) 100 mg PRN TID PRN PO COUGH 01/20/21 18:00 Buspirone HCl (Buspar) 10 mg BID PO 01/20/21 21:00 02/05/21 08:27 DC 02/04/21 20:15 Cetirizine HCl (ZyrTEC) 10 mg PRN DAILY PRN PO ALLERGIES 01/20/21 18:00 Vitamin D (Vitamin D3) 2,000 unit DAILY PO 01/21/21 09:00 02/05/21 08:28 DC 02/04/21 09:09 Donepezil HCl (Aricept) 10 mg QHS PO 01/20/21 21:00 02/07/21 20:28 Lisinopril (Prinivil) 5 mg DAILY PO 01/21/21 09:00 02/05/21 08:29 DC 02/04/21 09:10 Al Hydroxide/Mg Hydroxide (Mylanta Plus Xs) 15 ml PRN AFTMEALHC PRN PO DYSPEPSIA 01/20/21 18:00 Memantine (Namenda) 10 mg BID PO 01/20/21 21:00 02/07/21 20:28 Multi-Ingredient Ointment (Analgesic [place]) 1 micah PRN QID PRN TP MUSCLE PAIN 01/20/21 18:00 Olanzapine (ZyPREXA ZYDIS) 2.5 mg PRN Q2HR PRN PO ANXIETY / AGITATION 01/20/21 18:00 Pantoprazole Sodium (Protonix) 40 mg DAILY PO 01/21/21 09:00 02/07/21 10:05 Pseudoephedrine HCl (Sudafed 12-Hour) 120 mg PRN BID PRN PO CONGESTION 01/20/21 18:00 Sertraline HCl (Zoloft) 75 mg DAILY PO 01/21/21 09:00 01/21/21 17:45 DC 01/21/21 09:41 Trazodone HCl (Desyrel) 50 mg HS PO 01/20/21 21:00 02/07/21 20:28 Trazodone HCl (Desyrel) 50 mg PRN QHS PRN PO INSOMNIA 01/20/21 18:00 Ascorbic Acid (Vitamin C) 500 mg DAILY PO 01/21/21 09:00 02/05/21 08:26 DC 02/04/21 09:11 Calcium/Vitamin D (Oscal D 500mg/ 200uts) 1 tab BIDWMEALS PO 01/21/21 08:00 02/07/21 17:15 Magnesium Hydroxide (Milk Of Magnesia) 2,400 mg PRN QHS PRN PO CONSTIPATION 01/20/21 18:30 Multivitamins/ Calcium (Thera-M Plus) 1 tab DAILY PO 01/21/21 09:00 02/05/21 08:31 DC 02/04/21 09:10 Fish Oil (Fish Oil) 1,000 mg DAILY PO 01/21/21 09:00 02/07/21 18:16 DC 02/07/21 10:05 Sertraline HCl (Zoloft) 100 mg DAILY PO 01/22/21 09:00 02/05/21 08:32 DC 02/04/21 09:10 Divalproex Sodium (Depakote Sprinkles) 125 mg 0900,1700 PO 01/22/21 09:00 01/26/21 03:28 DC 01/25/21 17:22 Quetiapine Fumarate (SEROquel) 12.5 mg 0900,1700 PO 01/24/21 09:00 01/24/21 17:58 DC 01/24/21 17:00 Quetiapine Fumarate (SEROquel) 12.5 mg 0900,1200,1500,1900 PO 01/25/21 09:00 02/07/21 17:15 Divalproex Sodium (Depakote Sprinkles) 250 mg 0900,1700 PO 01/26/21 09:00 02/03/21 10:19 DC 02/03/21 08:58 Divalproex Sodium (Depakote Sprinkles) 375 mg 0900,1700 PO 02/03/21 17:00 02/07/21 17:16 Ascorbic Acid (Vitamin C) 500 mg DAILY PO 02/05/21 09:00 02/07/21 18:16 DC 02/07/21 10:05 Buspirone HCl (Buspar) 10 mg BID PO 02/05/21 09:00 02/07/21 20:28 Vitamin D (Vitamin D3) 2,000 unit DAILY PO 02/05/21 09:00 02/07/21 18:16 DC 02/07/21 10:05 Lisinopril (Prinivil) 5 mg DAILY PO 02/05/21 09:00 02/07/21 10:05 Multivitamins/ Calcium (Thera-M Plus) 1 tab DAILY PO 02/05/21 09:00 02/07/21 18:16 DC 02/07/21 10:05 Sertraline HCl (Zoloft) 100 mg DAILY PO 02/05/21 09:00 02/07/21 10:05 Ascorbic Acid (Vitamin C) 500 mg NOON PO 02/08/21 12:00 Vitamin D (Vitamin D3) 2,000 unit NOON PO 02/08/21 12:00 Multivitamins/ Calcium (Thera-M Plus) 1 tab NOON PO 02/08/21 12:00 Fish Oil (Fish Oil) 1,000 mg NOON PO 02/08/21 12:00 I have reviewed the current psychotropics carefully including drug interactions. Risk benefit ratio favors no change other than as noted in my dictated progress note. Diagnosis: Problems: (1) Impulse control disorder, unspecified (2) Mild cognitive impairment (3) Anxiety disorder, unspecified (4) Dementia, vascular, with depression (5) Dementia, vascular, with delusions (6) Dementia in Alzheimer's disease with depression (7) Dementia in Alzheimer's disease with delusions (8) Major neurocognitive disorder (9) Dementia in Alzheimer's disease with early onset with behavioral disturbance DIMITRIOS RANDALL MD Feb 08, 2021 06:29
[2021-02-08] MEDS: DIVALPROEX 125 MG CAP.SPRINK PO SCH ×2 (08:17→17:33)
[2021-02-08] MEDS: CALCIUM CARB/VIT D3 500/200 TABLET PO SCH ×2 (08:17→17:33)
[2021-02-08] MEDS: MEMANTINE 10 MG TABLET. PO SCH ×2 (08:18→20:33)
[2021-02-08] MEDS: LISINOPRIL 5 MG TABLET. PO SCH (08:18)
[2021-02-08] MEDS: SERTRALINE 100 MG TABLET. PO SCH (08:18)
[2021-02-08] MEDS: busPIRone 10 MG TABLET. PO SCH ×2 (08:18→20:33)
[2021-02-08] MEDS: QUEtiapine 25 MG TABLET. PO SCH ×4 (08:18→17:33)
[2021-02-08] MEDS: PANTOPRAZOLE 40 MG TABLET. PO SCH (08:18)
[2021-02-08] MEDS: MULTIVITAMIN with MINERAL TABLET. PO SCH (11:55)
[2021-02-08] MEDS: OMEGA-3 FATTY ACIDS/FISH OIL 1,000 MG CAPSULE. PO SCH (11:55)
[2021-02-08] MEDS: CHOLECALCIFEROL (VITAMIN D3) 1,000 UNIT TABLET PO SCH (11:55)
[2021-02-08] MEDS: ASCORBIC ACID 500 MG TABLET PO SCH (11:55)
[2021-02-08 15:51] VITALS: BP 117/74
[2021-02-08] MEDS: traZODone 50 MG TABLET. PO SCH (20:32)
[2021-02-08] MEDS: DONEPEZIL HCL 10 MG TABLET PO SCH (20:32)
--- NOTE | 2021-02-08 22:05 | PDOC ---
Exam Note: Tyler Note: Please also refer to the separate dictated note~for this date of service dictated separately.~Patient seen individually. Discussed the patient with Nursing staff reviewed the chart.~Reviewed interim history and current functioning. Reviewed vital signs,~Labs/ Radiology~and current medications noted below. Continue current treatment with the changes noted in the dictated addendum note Assessment: Vital Signs/I&O: Vital Signs Date Time Temp Pulse Resp B/P (MAP) Pulse Ox O2 Delivery O2 Flow Rate FiO2 02/08/21 15:51 97.1 74 16 117/74 (88) 94 Room Air I & O 02/07/21 02/07/21 02/08/21 15:00 23:00 07:00 Intake Total 480 ml 220 ml Balance 480 ml 220 ml Labs: Laboratory Tests Test 02/08/21 07:46 Glucose (Fingerstick) 96 mg/dL (70-99) Current Medications: Meds: Laboratory Tests Test 02/08/21 07:46 Glucose (Fingerstick) 96 mg/dL Current Medications Medications (Trade) Dose Ordered Sig/Toño Route PRN Reason Start Time Stop Time Status Last Admin Dose Admin Acetaminophen (Tylenol) 650 mg PRN Q6HRS PRN PO MILD PAIN / TEMP > 100.3'F 01/20/21 18:00 01/25/21 08:25 Benzonatate (Tessalon Perle) 100 mg PRN TID PRN PO COUGH 01/20/21 18:00 Buspirone HCl (Buspar) 10 mg BID PO 01/20/21 21:00 02/05/21 08:27 DC 02/04/21 20:15 Cetirizine HCl (ZyrTEC) 10 mg PRN DAILY PRN PO ALLERGIES 01/20/21 18:00 Vitamin D (Vitamin D3) 2,000 unit DAILY PO 01/21/21 09:00 02/05/21 08:28 DC 02/04/21 09:09 Donepezil HCl (Aricept) 10 mg QHS PO 01/20/21 21:00 02/08/21 20:32 Lisinopril (Prinivil) 5 mg DAILY PO 01/21/21 09:00 02/05/21 08:29 DC 02/04/21 09:10 Al Hydroxide/Mg Hydroxide (Mylanta Plus Xs) 15 ml PRN AFTMEALHC PRN PO DYSPEPSIA 01/20/21 18:00 Memantine (Namenda) 10 mg BID PO 01/20/21 21:00 02/08/21 20:33 Multi-Ingredient Ointment (Analgesic [place]) 1 micah PRN QID PRN TP MUSCLE PAIN 01/20/21 18:00 Olanzapine (ZyPREXA ZYDIS) 2.5 mg PRN Q2HR PRN PO ANXIETY / AGITATION 01/20/21 18:00 Pantoprazole Sodium (Protonix) 40 mg DAILY PO 01/21/21 09:00 02/08/21 08:18 Pseudoephedrine HCl (Sudafed 12-Hour) 120 mg PRN BID PRN PO CONGESTION 01/20/21 18:00 Sertraline HCl (Zoloft) 75 mg DAILY PO 01/21/21 09:00 01/21/21 17:45 DC 01/21/21 09:41 Trazodone HCl (Desyrel) 50 mg HS PO 01/20/21 21:00 02/08/21 20:32 Trazodone HCl (Desyrel) 50 mg PRN QHS PRN PO INSOMNIA 01/20/21 18:00 Ascorbic Acid (Vitamin C) 500 mg DAILY PO 01/21/21 09:00 02/05/21 08:26 DC 02/04/21 09:11 Calcium/Vitamin D (Oscal D 500mg/ 200uts) 1 tab BIDWMEALS PO 01/21/21 08:00 02/08/21 17:33 Magnesium Hydroxide (Milk Of Magnesia) 2,400 mg PRN QHS PRN PO CONSTIPATION 01/20/21 18:30 Multivitamins/ Calcium (Thera-M Plus) 1 tab DAILY PO 01/21/21 09:00 02/05/21 08:31 DC 02/04/21 09:10 Fish Oil (Fish Oil) 1,000 mg DAILY PO 01/21/21 09:00 02/07/21 18:16 DC 02/07/21 10:05 Sertraline HCl (Zoloft) 100 mg DAILY PO 01/22/21 09:00 02/05/21 08:32 DC 02/04/21 09:10 Divalproex Sodium (Depakote Sprinkles) 125 mg 0900,1700 PO 01/22/21 09:00 01/26/21 03:28 DC 01/25/21 17:22 Quetiapine Fumarate (SEROquel) 12.5 mg 0900,1700 PO 01/24/21 09:00 01/24/21 17:58 DC 01/24/21 17:00 Quetiapine Fumarate (SEROquel) 12.5 mg 0900,1200,1500,1900 PO 01/25/21 09:00 02/08/21 17:33 Divalproex Sodium (Depakote Sprinkles) 250 mg 0900,1700 PO 01/26/21 09:00 02/03/21 10:19 DC 02/03/21 08:58 Divalproex Sodium (Depakote Sprinkles) 375 mg 0900,1700 PO 02/03/21 17:00 02/08/21 17:33 Ascorbic Acid (Vitamin C) 500 mg DAILY PO 02/05/21 09:00 02/07/21 18:16 DC 02/07/21 10:05 Buspirone HCl (Buspar) 10 mg BID PO 02/05/21 09:00 02/08/21 20:33 Vitamin D (Vitamin D3) 2,000 unit DAILY PO 02/05/21 09:00 02/07/21 18:16 DC 02/07/21 10:05 Lisinopril (Prinivil) 5 mg DAILY PO 02/05/21 09:00 02/08/21 08:18 Multivitamins/ Calcium (Thera-M Plus) 1 tab DAILY PO 02/05/21 09:00 02/07/21 18:16 DC 02/07/21 10:05 Sertraline HCl (Zoloft) 100 mg DAILY PO 02/05/21 09:00 02/08/21 08:18 Ascorbic Acid (Vitamin C) 500 mg NOON PO 02/08/21 12:00 02/08/21 11:55 Vitamin D (Vitamin D3) 2,000 unit NOON PO 02/08/21 12:00 02/08/21 11:55 Multivitamins/ Calcium (Thera-M Plus) 1 tab NOON PO 02/08/21 12:00 02/08/21 11:55 Fish Oil (Fish Oil) 1,000 mg NOON PO 02/08/21 12:00 02/08/21 11:55 Current Medications Medications (Trade) Dose Ordered Sig/Toño Route PRN Reason Start Time Stop Time Status Last Admin Dose Admin Ascorbic Acid (Vitamin C) 500 mg NOON PO 02/08/21 12:00 02/08/21 11:55 Vitamin D (Vitamin D3) 2,000 unit NOON PO 02/08/21 12:00 02/08/21 11:55 Multivitamins/ Calcium (Thera-M Plus) 1 tab NOON PO 02/08/21 12:00 02/08/21 11:55 Fish Oil (Fish Oil) 1,000 mg NOON PO 02/08/21 12:00 02/08/21 11:55 I have reviewed the current psychotropics carefully including drug interactions. Risk benefit ratio favors no change other than as noted in my dictated progress note. Diagnosis: Problems: (1) Impulse control disorder, unspecified (2) Mild cognitive impairment (3) Anxiety disorder, unspecified (4) Dementia, vascular, with depression (5) Dementia, vascular, with delusions (6) Dementia in Alzheimer's disease with depression (7) Dementia in Alzheimer's disease with delusions (8) Major neurocognitive disorder (9) Dementia in Alzheimer's disease with early onset with behavioral disturbance DIMITRIOS RANDALL MD Feb 08, 2021 22:05
[2021-02-09 06:04] VITALS: BP 116/73
[2021-02-09] MEDS: QUEtiapine 25 MG TABLET. PO SCH ×4 (08:39→17:27)
[2021-02-09] MEDS: MEMANTINE 10 MG TABLET. PO SCH ×2 (08:40→20:47)
[2021-02-09] MEDS: PANTOPRAZOLE 40 MG TABLET. PO SCH (08:40)
[2021-02-09] MEDS: LISINOPRIL 5 MG TABLET. PO SCH (08:40)
[2021-02-09] MEDS: CALCIUM CARB/VIT D3 500/200 TABLET PO SCH ×2 (08:40→17:25)
[2021-02-09] MEDS: DIVALPROEX 125 MG CAP.SPRINK PO SCH ×2 (08:41→17:26)
[2021-02-09] MEDS: busPIRone 10 MG TABLET. PO SCH ×2 (08:41→20:48)
[2021-02-09] MEDS: SERTRALINE 100 MG TABLET. PO SCH (08:42)
--- NOTE | 2021-02-09 08:53 | PDOC ---
Exam Note: Tyler Note: This note is a late entry for 02/08/2021 covers elements not covered in my initial note. Subjective: The patient was seen individually in the evening of 02/08/2021 with Barbara MEDEL, discussed and reviewed the chart. She slept 8 hours previous night. The patient has not been yelling. She remains confused, but redirectable. Review of Systems: No CV, , pulmonary, eye system symptoms on review. Mental Status Exam: The patient is oriented to herself. Insight and judgment, recent and remote memory, attention and concentration, fund of knowledge is poor consistent with her diagnoses. Laboratory Data: Reviewed. Impression: Major neurocognitive disorder Alzheimer vascular with delusion, depress*ion, behavioral disturbance. Anxiety disorder unspecified. Impulse control disorder unspecified. Plan: Continue current psychotropics from initial note. Assessment: Vital Signs/I&O: Vital Signs Date Time Temp Pulse Resp B/P (MAP) Pulse Ox O2 Delivery O2 Flow Rate FiO2 02/09/21 08:40 65 116/73 02/09/21 06:04 97.1 17 97 Room Air I & O 02/08/21 02/08/21 02/09/21 15:00 23:00 07:00 Intake Total 600 ml 120 ml 120 ml Balance 600 ml 120 ml 120 ml Labs: Laboratory Tests Test 02/09/21 07:46 Glucose (Fingerstick) 86 mg/dL (70-99) Current Medications: Meds: Laboratory Tests Test 02/09/21 07:46 Glucose (Fingerstick) 86 mg/dL Current Medications Medications (Trade) Dose Ordered Sig/Toño Route PRN Reason Start Time Stop Time Status Last Admin Dose Admin Acetaminophen (Tylenol) 650 mg PRN Q6HRS PRN PO MILD PAIN / TEMP > 100.3'F 01/20/21 18:00 01/25/21 08:25 Benzonatate (Tessalon Perle) 100 mg PRN TID PRN PO COUGH 01/20/21 18:00 Buspirone HCl (Buspar) 10 mg BID PO 01/20/21 21:00 02/05/21 08:27 DC 02/04/21 20:15 Cetirizine HCl (ZyrTEC) 10 mg PRN DAILY PRN PO ALLERGIES 01/20/21 18:00 Vitamin D (Vitamin D3) 2,000 unit DAILY PO 01/21/21 09:00 02/05/21 08:28 DC 02/04/21 09:09 Donepezil HCl (Aricept) 10 mg QHS PO 01/20/21 21:00 02/08/21 20:32 Lisinopril (Prinivil) 5 mg DAILY PO 01/21/21 09:00 02/05/21 08:29 DC 02/04/21 09:10 Al Hydroxide/Mg Hydroxide (Mylanta Plus Xs) 15 ml PRN AFTMEALHC PRN PO DYSPEPSIA 01/20/21 18:00 Memantine (Namenda) 10 mg BID PO 01/20/21 21:00 02/09/21 08:40 Multi-Ingredient Ointment (Analgesic [place]) 1 micah PRN QID PRN TP MUSCLE PAIN 01/20/21 18:00 Olanzapine (ZyPREXA ZYDIS) 2.5 mg PRN Q2HR PRN PO ANXIETY / AGITATION 01/20/21 18:00 Pantoprazole Sodium (Protonix) 40 mg DAILY PO 01/21/21 09:00 02/09/21 08:40 Pseudoephedrine HCl (Sudafed 12-Hour) 120 mg PRN BID PRN PO CONGESTION 01/20/21 18:00 Sertraline HCl (Zoloft) 75 mg DAILY PO 01/21/21 09:00 01/21/21 17:45 DC 01/21/21 09:41 Trazodone HCl (Desyrel) 50 mg HS PO 01/20/21 21:00 02/08/21 20:32 Trazodone HCl (Desyrel) 50 mg PRN QHS PRN PO INSOMNIA 01/20/21 18:00 Ascorbic Acid (Vitamin C) 500 mg DAILY PO 01/21/21 09:00 02/05/21 08:26 DC 02/04/21 09:11 Calcium/Vitamin D (Oscal D 500mg/ 200uts) 1 tab BIDWMEALS PO 01/21/21 08:00 02/09/21 08:40 Magnesium Hydroxide (Milk Of Magnesia) 2,400 mg PRN QHS PRN PO CONSTIPATION 01/20/21 18:30 Multivitamins/ Calcium (Thera-M Plus) 1 tab DAILY PO 01/21/21 09:00 02/05/21 08:31 DC 02/04/21 09:10 Fish Oil (Fish Oil) 1,000 mg DAILY PO 01/21/21 09:00 02/07/21 18:16 DC 02/07/21 10:05 Sertraline HCl (Zoloft) 100 mg DAILY PO 01/22/21 09:00 02/05/21 08:32 DC 02/04/21 09:10 Divalproex Sodium (Depakote Sprinkles) 125 mg 0900,1700 PO 01/22/21 09:00 01/26/21 03:28 DC 01/25/21 17:22 Quetiapine Fumarate (SEROquel) 12.5 mg 0900,1700 PO 01/24/21 09:00 01/24/21 17:58 DC 01/24/21 17:00 Quetiapine Fumarate (SEROquel) 12.5 mg 0900,1200,1500,1900 PO 01/25/21 09:00 02/09/21 08:39 Divalproex Sodium (Depakote Sprinkles) 250 mg 0900,1700 PO 01/26/21 09:00 02/03/21 10:19 DC 02/03/21 08:58 Divalproex Sodium (Depakote Sprinkles) 375 mg 0900,1700 PO 02/03/21 17:00 02/09/21 08:41 Ascorbic Acid (Vitamin C) 500 mg DAILY PO 02/05/21 09:00 02/07/21 18:16 DC 02/07/21 10:05 Buspirone HCl (Buspar) 10 mg BID PO 02/05/21 09:00 02/09/21 08:41 Vitamin D (Vitamin D3) 2,000 unit DAILY PO 02/05/21 09:00 02/07/21 18:16 DC 02/07/21 10:05 Lisinopril (Prinivil) 5 mg DAILY PO 02/05/21 09:00 02/09/21 08:40 Multivitamins/ Calcium (Thera-M Plus) 1 tab DAILY PO 02/05/21 09:00 02/07/21 18:16 DC 02/07/21 10:05 Sertraline HCl (Zoloft) 100 mg DAILY PO 02/05/21 09:00 02/09/21 08:42 Ascorbic Acid (Vitamin C) 500 mg NOON PO 02/08/21 12:00 02/08/21 11:55 Vitamin D (Vitamin D3) 2,000 unit NOON PO 02/08/21 12:00 02/08/21 11:55 Multivitamins/ Calcium (Thera-M Plus) 1 tab NOON PO 02/08/21 12:00 02/08/21 11:55 Fish Oil (Fish Oil) 1,000 mg NOON PO 02/08/21 12:00 02/08/21 11:55 Current Medications Medications (Trade) Dose Ordered Sig/Toño Route PRN Reason Start Time Stop Time Status Last Admin Dose Admin Ascorbic Acid (Vitamin C) 500 mg NOON PO 02/08/21 12:00 02/08/21 11:55 Vitamin D (Vitamin D3) 2,000 unit NOON PO 02/08/21 12:00 02/08/21 11:55 Multivitamins/ Calcium (Thera-M Plus) 1 tab NOON PO 02/08/21 12:00 02/08/21 11:55 Fish Oil (Fish Oil) 1,000 mg NOON PO 02/08/21 12:00 02/08/21 11:55 I have reviewed the current psychotropics carefully including drug interactions. Risk benefit ratio favors no change other than as noted in my dictated progress note. Diagnosis: Problems: (1) Impulse control disorder, unspecified (2) Mild cognitive impairment (3) Anxiety disorder, unspecified (4) Dementia, vascular, with depression (5) Dementia, vascular, with delusions (6) Dementia in Alzheimer's disease with depression (7) Dementia in Alzheimer's disease with delusions (8) Major neurocognitive disorder (9) Dementia in Alzheimer's disease with early onset with behavioral disturbance DIMITRIOS RANDALL MD Feb 09, 2021 08:53
[2021-02-09] MEDS: MULTIVITAMIN with MINERAL TABLET. PO SCH (12:00)
[2021-02-09] MEDS: OMEGA-3 FATTY ACIDS/FISH OIL 1,000 MG CAPSULE. PO SCH (12:00)
[2021-02-09] MEDS: CHOLECALCIFEROL (VITAMIN D3) 1,000 UNIT TABLET PO SCH (12:00)
[2021-02-09] MEDS: ASCORBIC ACID 500 MG TABLET PO SCH (12:07)
[2021-02-09 16:21] VITALS: BP 142/83
[2021-02-09] MEDS: DONEPEZIL HCL 10 MG TABLET PO SCH (20:48)
[2021-02-09] MEDS: traZODone 50 MG TABLET. PO SCH (20:48)
--- NOTE | 2021-02-09 21:45 | PDOC ---
Exam Note: Tyler Note: Please also refer to the separate dictated note~for this date of service dictated separately.~Patient seen individually. Discussed the patient with Nursing staff reviewed the chart.~Reviewed interim history and current functioning. Reviewed vital signs,~Labs/ Radiology~and current medications noted below. Continue current treatment with the changes noted in the dictated addendum note Assessment: Vital Signs/I&O: Vital Signs Date Time Temp Pulse Resp B/P (MAP) Pulse Ox O2 Delivery O2 Flow Rate FiO2 02/09/21 16:21 98.0 72 16 142/83 (102) 97 02/09/21 06:04 Room Air I & O 02/08/21 02/08/21 02/09/21 15:00 23:00 07:00 Intake Total 600 ml 120 ml 120 ml Balance 600 ml 120 ml 120 ml Labs: Laboratory Tests Test 02/09/21 07:46 Glucose (Fingerstick) 86 mg/dL (70-99) Current Medications: Meds: Laboratory Tests Test 02/09/21 07:46 Glucose (Fingerstick) 86 mg/dL Current Medications Medications (Trade) Dose Ordered Sig/Toño Route PRN Reason Start Time Stop Time Status Last Admin Dose Admin Acetaminophen (Tylenol) 650 mg PRN Q6HRS PRN PO MILD PAIN / TEMP > 100.3'F 01/20/21 18:00 01/25/21 08:25 Benzonatate (Tessalon Perle) 100 mg PRN TID PRN PO COUGH 01/20/21 18:00 Buspirone HCl (Buspar) 10 mg BID PO 01/20/21 21:00 02/05/21 08:27 DC 02/04/21 20:15 Cetirizine HCl (ZyrTEC) 10 mg PRN DAILY PRN PO ALLERGIES 01/20/21 18:00 Vitamin D (Vitamin D3) 2,000 unit DAILY PO 01/21/21 09:00 02/05/21 08:28 DC 02/04/21 09:09 Donepezil HCl (Aricept) 10 mg QHS PO 01/20/21 21:00 02/09/21 20:48 Lisinopril (Prinivil) 5 mg DAILY PO 01/21/21 09:00 02/05/21 08:29 DC 02/04/21 09:10 Al Hydroxide/Mg Hydroxide (Mylanta Plus Xs) 15 ml PRN AFTMEALHC PRN PO DYSPEPSIA 01/20/21 18:00 Memantine (Namenda) 10 mg BID PO 01/20/21 21:00 02/09/21 20:47 Multi-Ingredient Ointment (Analgesic [place]) 1 micah PRN QID PRN TP MUSCLE PAIN 01/20/21 18:00 Olanzapine (ZyPREXA ZYDIS) 2.5 mg PRN Q2HR PRN PO ANXIETY / AGITATION 01/20/21 18:00 02/09/21 08:55 Pantoprazole Sodium (Protonix) 40 mg DAILY PO 01/21/21 09:00 02/09/21 08:40 Pseudoephedrine HCl (Sudafed 12-Hour) 120 mg PRN BID PRN PO CONGESTION 01/20/21 18:00 Sertraline HCl (Zoloft) 75 mg DAILY PO 01/21/21 09:00 01/21/21 17:45 DC 01/21/21 09:41 Trazodone HCl (Desyrel) 50 mg HS PO 01/20/21 21:00 02/09/21 20:48 Trazodone HCl (Desyrel) 50 mg PRN QHS PRN PO INSOMNIA 01/20/21 18:00 Ascorbic Acid (Vitamin C) 500 mg DAILY PO 01/21/21 09:00 02/05/21 08:26 DC 02/04/21 09:11 Calcium/Vitamin D (Oscal D 500mg/ 200uts) 1 tab BIDWMEALS PO 01/21/21 08:00 02/09/21 17:25 Magnesium Hydroxide (Milk Of Magnesia) 2,400 mg PRN QHS PRN PO CONSTIPATION 01/20/21 18:30 Multivitamins/ Calcium (Thera-M Plus) 1 tab DAILY PO 01/21/21 09:00 02/05/21 08:31 DC 02/04/21 09:10 Fish Oil (Fish Oil) 1,000 mg DAILY PO 01/21/21 09:00 02/07/21 18:16 DC 02/07/21 10:05 Sertraline HCl (Zoloft) 100 mg DAILY PO 01/22/21 09:00 02/05/21 08:32 DC 02/04/21 09:10 Divalproex Sodium (Depakote Sprinkles) 125 mg 0900,1700 PO 01/22/21 09:00 01/26/21 03:28 DC 01/25/21 17:22 Quetiapine Fumarate (SEROquel) 12.5 mg 0900,1700 PO 01/24/21 09:00 01/24/21 17:58 DC 01/24/21 17:00 Quetiapine Fumarate (SEROquel) 12.5 mg 0900,1200,1500,1900 PO 01/25/21 09:00 02/09/21 17:27 Divalproex Sodium (Depakote Sprinkles) 250 mg 0900,1700 PO 01/26/21 09:00 02/03/21 10:19 DC 02/03/21 08:58 Divalproex Sodium (Depakote Sprinkles) 375 mg 0900,1700 PO 02/03/21 17:00 02/09/21 17:26 Ascorbic Acid (Vitamin C) 500 mg DAILY PO 02/05/21 09:00 02/07/21 18:16 DC 02/07/21 10:05 Buspirone HCl (Buspar) 10 mg BID PO 02/05/21 09:00 02/09/21 20:48 Vitamin D (Vitamin D3) 2,000 unit DAILY PO 02/05/21 09:00 02/07/21 18:16 DC 02/07/21 10:05 Lisinopril (Prinivil) 5 mg DAILY PO 02/05/21 09:00 02/09/21 11:06 AL 02/09/21 08:40 Multivitamins/ Calcium (Thera-M Plus) 1 tab DAILY PO 02/05/21 09:00 02/07/21 18:16 AL 02/07/21 10:05 Sertraline HCl (Zoloft) 100 mg DAILY PO 02/05/21 09:00 02/09/21 08:42 Ascorbic Acid (Vitamin C) 500 mg NOON PO 02/08/21 12:00 02/09/21 12:07 Vitamin D (Vitamin D3) 2,000 unit NOON PO 02/08/21 12:00 02/09/21 12:00 Multivitamins/ Calcium (Thera-M Plus) 1 tab NOON PO 02/08/21 12:00 02/09/21 12:00 Fish Oil (Fish Oil) 1,000 mg NOON PO 02/08/21 12:00 02/09/21 12:00 I have reviewed the current psychotropics carefully including drug interactions. Risk benefit ratio favors no change other than as noted in my dictated progress note. Diagnosis: Problems: (1) Impulse control disorder, unspecified (2) Anxiety disorder, unspecified (3) Dementia, vascular, with depression (4) Dementia, vascular, with delusions (5) Dementia in Alzheimer's disease with depression (6) Dementia in Alzheimer's disease with delusions (7) Major neurocognitive disorder (8) Dementia in Alzheimer's disease with early onset with behavioral disturbance DIMITRIOS RANDALL MD Feb 09, 2021 21:45
[2021-02-10 05:58] VITALS: BP 151/80
--- NOTE | 2021-02-10 06:39 | PDOC ---
Exam Note: Tyler Note: This note is a late entry for 02/09/2021 covers elements not covered in my initial note. Subjective: The patient was seen individually in the evening of 02/09/2021 with Leona MEDEL, discussed and reviewed the chart. She slept 7-1/4 hours previous night. The patients lisinopril was discontinued per Dr. Sr. She was resistive to medications in the morning, took it in a syringe, later took it orally without much effort. She remains confused, pleasant, verbal, interactive. Review of Systems: No CV, , pulmonary, eye system symptoms on review. Mental Status Exam: The patient is oriented to herself. Insight and judgment, recent and remote memory, attention and concentration, fund of knowledge is poor consistent with her diagnoses. Laboratory Data: Reviewed. Impression: Major neurocognitive disorder Alzheimer vascular with delusion, depression, behavioral disturbance. Anxiety disorder unspecified. Impulse control disorder unspecified. Plan: Continue current psychotropics from initial note. Assessment: Vital Signs/I&O: Vital Signs Date Time Temp Pulse Resp B/P (MAP) Pulse Ox O2 Delivery O2 Flow Rate FiO2 02/10/21 05:58 96.9 66 18 151/80 (103) 98 Room Air I & O 02/09/21 02/09/21 02/10/21 15:00 23:00 07:00 Intake Total 120 ml 180 ml Balance 120 ml 180 ml Labs: Laboratory Tests Test 02/09/21 07:46 Glucose (Fingerstick) 86 mg/dL (70-99) Current Medications: Meds: Laboratory Tests Test 02/09/21 07:46 Glucose (Fingerstick) 86 mg/dL Current Medications Medications (Trade) Dose Ordered Sig/Toño Route PRN Reason Start Time Stop Time Status Last Admin Dose Admin Acetaminophen (Tylenol) 650 mg PRN Q6HRS PRN PO MILD PAIN / TEMP > 100.3'F 01/20/21 18:00 01/25/21 08:25 Benzonatate (Tessalon Perle) 100 mg PRN TID PRN PO COUGH 01/20/21 18:00 Buspirone HCl (Buspar) 10 mg BID PO 01/20/21 21:00 02/05/21 08:27 DC 02/04/21 20:15 Cetirizine HCl (ZyrTEC) 10 mg PRN DAILY PRN PO ALLERGIES 01/20/21 18:00 Vitamin D (Vitamin D3) 2,000 unit DAILY PO 01/21/21 09:00 02/05/21 08:28 DC 02/04/21 09:09 Donepezil HCl (Aricept) 10 mg QHS PO 01/20/21 21:00 02/09/21 20:48 Lisinopril (Prinivil) 5 mg DAILY PO 01/21/21 09:00 02/05/21 08:29 DC 02/04/21 09:10 Al Hydroxide/Mg Hydroxide (Mylanta Plus Xs) 15 ml PRN AFTMEALHC PRN PO DYSPEPSIA 01/20/21 18:00 Memantine (Namenda) 10 mg BID PO 01/20/21 21:00 02/09/21 20:47 Multi-Ingredient Ointment (Analgesic [place]) 1 micah PRN QID PRN TP MUSCLE PAIN 01/20/21 18:00 Olanzapine (ZyPREXA ZYDIS) 2.5 mg PRN Q2HR PRN PO ANXIETY / AGITATION 01/20/21 18:00 02/09/21 08:55 Pantoprazole Sodium (Protonix) 40 mg DAILY PO 01/21/21 09:00 02/09/21 08:40 Pseudoephedrine HCl (Sudafed 12-Hour) 120 mg PRN BID PRN PO CONGESTION 01/20/21 18:00 Sertraline HCl (Zoloft) 75 mg DAILY PO 01/21/21 09:00 01/21/21 17:45 DC 01/21/21 09:41 Trazodone HCl (Desyrel) 50 mg HS PO 01/20/21 21:00 02/09/21 20:48 Trazodone HCl (Desyrel) 50 mg PRN QHS PRN PO INSOMNIA 01/20/21 18:00 Ascorbic Acid (Vitamin C) 500 mg DAILY PO 01/21/21 09:00 02/05/21 08:26 DC 02/04/21 09:11 Calcium/Vitamin D (Oscal D 500mg/ 200uts) 1 tab BIDWMEALS PO 01/21/21 08:00 02/09/21 17:25 Magnesium Hydroxide (Milk Of Magnesia) 2,400 mg PRN QHS PRN PO CONSTIPATION 01/20/21 18:30 Multivitamins/ Calcium (Thera-M Plus) 1 tab DAILY PO 01/21/21 09:00 02/05/21 08:31 DC 02/04/21 09:10 Fish Oil (Fish Oil) 1,000 mg DAILY PO 01/21/21 09:00 02/07/21 18:16 DC 02/07/21 10:05 Sertraline HCl (Zoloft) 100 mg DAILY PO 01/22/21 09:00 02/05/21 08:32 DC 02/04/21 09:10 Divalproex Sodium (Depakote Sprinkles) 125 mg 0900,1700 PO 01/22/21 09:00 01/26/21 03:28 DC 01/25/21 17:22 Quetiapine Fumarate (SEROquel) 12.5 mg 0900,1700 PO 01/24/21 09:00 01/24/21 17:58 DC 01/24/21 17:00 Quetiapine Fumarate (SEROquel) 12.5 mg 0900,1200,1500,1900 PO 01/25/21 09:00 02/09/21 17:27 Divalproex Sodium (Depakote Sprinkles) 250 mg 0900,1700 PO 01/26/21 09:00 02/03/21 10:19 DC 02/03/21 08:58 Divalproex Sodium (Depakote Sprinkles) 375 mg 0900,1700 PO 02/03/21 17:00 02/09/21 17:26 Ascorbic Acid (Vitamin C) 500 mg DAILY PO 02/05/21 09:00 02/07/21 18:16 DC 02/07/21 10:05 Buspirone HCl (Buspar) 10 mg BID PO 02/05/21 09:00 02/09/21 20:48 Vitamin D (Vitamin D3) 2,000 unit DAILY PO 02/05/21 09:00 02/07/21 18:16 DC 02/07/21 10:05 Lisinopril (Prinivil) 5 mg DAILY PO 02/05/21 09:00 02/09/21 11:06 DC 02/09/21 08:40 Multivitamins/ Calcium (Thera-M Plus) 1 tab DAILY PO 02/05/21 09:00 02/07/21 18:16 DC 02/07/21 10:05 Sertraline HCl (Zoloft) 100 mg DAILY PO 02/05/21 09:00 02/09/21 08:42 Ascorbic Acid (Vitamin C) 500 mg NOON PO 02/08/21 12:00 02/09/21 12:07 Vitamin D (Vitamin D3) 2,000 unit NOON PO 02/08/21 12:00 02/09/21 12:00 Multivitamins/ Calcium (Thera-M Plus) 1 tab NOON PO 02/08/21 12:00 02/09/21 12:00 Fish Oil (Fish Oil) 1,000 mg NOON PO 02/08/21 12:00 02/09/21 12:00 I have reviewed the current psychotropics carefully including drug interactions. Risk benefit ratio favors no change other than as noted in my dictated progress note. Diagnosis: Problems: (1) Impulse control disorder, unspecified (2) Anxiety disorder, unspecified (3) Dementia, vascular, with depression (4) Dementia, vascular, with delusions (5) Dementia in Alzheimer's disease with depression (6) Dementia in Alzheimer's disease with delusions (7) Major neurocognitive disorder (8) Dementia in Alzheimer's disease with early onset with behavioral disturbance DIMITRIOS RANDALL MD Feb 10, 2021 06:39
[2021-02-10] MEDS: QUEtiapine 25 MG TABLET. PO SCH ×4 (08:20→18:27)
[2021-02-10] MEDS: PANTOPRAZOLE 40 MG TABLET. PO SCH (08:20)
[2021-02-10] MEDS: MEMANTINE 10 MG TABLET. PO SCH ×2 (08:20→22:05)
[2021-02-10] MEDS: DIVALPROEX 125 MG CAP.SPRINK PO SCH ×2 (08:20→16:01)
[2021-02-10] MEDS: busPIRone 10 MG TABLET. PO SCH ×2 (08:20→22:04)
[2021-02-10] MEDS: CALCIUM CARB/VIT D3 500/200 TABLET PO SCH ×2 (08:20→16:01)
[2021-02-10] MEDS: SERTRALINE 100 MG TABLET. PO SCH (08:21)
--- NOTE | 2021-02-10 12:06 | TX PLAN ---
Interdisciplinary Tx Plan Admission Information Jan 20, 2021 at 17:49 Legal Status (on Admission): Voluntary DPOA/Guardian Name: lEla Pelaez-sister in law Contact Other Contact Name: Tatyana Coelho-nurse at [facility] Other Contact Verified Code Status: DNR Allergies: Coded Allergies: No Known Drug Allergies (Unverified , 03/23/20) Estimated Length of Stay: 14 Diagnoses Primary Diagnosis: Major neurocognitive d/o alzheimers vascular with delusions, depression BD; Anxiety d/o unspecified; Impulse control d/o Reasons for Admission: Aggressive, Delusions, Agitated, Angry, Anxiety/Panic, Combative, Suspicious/paranoid, Confusion/Disoriented, Poor impulse control Problem in Patient's Words: Per POA, Betty has continued to have aggressive behaviors after d/c prompting a re-admisson to [facility]. Problems Active Problems: Delusional Paranoid Aggressive Confused Inactive Problems: Medication complaint Adequate intake of meals Pt Strengths/Limitations Ability for Grainger: Poor Cognitive Functioning/Ability: Poor Communication Skills/Ability: Fair Financial Resources: Fair Insight/Judgement: Poor Intellectual Ability: Fair Physical Health: Fair Social Skills: Fair Stability in Family: Good Verbal Skills: Fair Discharge Criteria Discharge Criteria: Adequate arrangements @DC, Improved behavior, Improved mood/thought Preliminary Discharge Plan Preliminary DC Plan: Placement Needed Special Precautions Special Precautions: Agitation/Assault Fall Risk: High Initial D/C Plan POA is requesting placement/level of care recommendations for Betty. Identified Discharge Needs: F/U with PCP Currently Utilized Resources Currently Utilized Resources/P: PCP Out patient psychiatry Identified Problems/Hx/Goals Objectives/Short-Term Goals Short Term Goals: Control abnormal behavior, Dec. Aggression, Dec. Anxiety/Panic, Dec. Hallucination/Delus, Dec. Outbursts, Dec. Symp. Depression, Medication Stabilization, Monitor Med Effects, Prevent Deterioration Short Term Goals in Patient's: Per POA, mood and behavior stabilization. Placement will be needed. Interventions/Frequency Staff Interventions/Frequency&: Nursing to provide routine safety checks, medication adminstration, assessments, and adl support. Psychiatry to se three times weekly. SW to see twice weekly. Recreational and SW groups as Betty will join. 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 Social: Betty has enjoyed music, reading, and movies. 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 Community Follow-up PCP Out patient psychiatry Treatment Plan Explained Patient/Rehabilitation Manager had this treatment plan explained to him/her as indicated by the signature below and has been given the opportunity to ask questions and make suggestions: Date: Patient/Rehabilitation Manager Signature: Status Update Update WEEKLY NOTE/UPDATE: Betty is averaging 50% of meal intakes and seven hours of sleep at night. She is disorganized with labile mood, exhibiting periods of being angry and intrusive to consoling peers and being social. She has difficulty recalling recent and remote events and is noted to have difficulty following verbal cues. She tends to be resistive to meds and has episodes of spitting them out or refusing to take them. Last evening medications were crushed and put into liquid which Betty consumed. She has been involved in eight group activities over the past week. Lisinopril was discontinued related to renal function. Zoloft will be increased to 125mg daily. ZEE Jaramillo, participated in team meeting via phone. MALU will follow up with [facility] for admission decision. CARROLL KAUR Feb 10, 2021 12:06
[2021-02-10] MEDS: MULTIVITAMIN with MINERAL TABLET. PO SCH (12:27)
[2021-02-10] MEDS: OMEGA-3 FATTY ACIDS/FISH OIL 1,000 MG CAPSULE. PO SCH (12:27)
[2021-02-10] MEDS: CHOLECALCIFEROL (VITAMIN D3) 1,000 UNIT TABLET PO SCH (12:27)
[2021-02-10] MEDS: ASCORBIC ACID 500 MG TABLET PO SCH (12:27)
[2021-02-10 16:09] VITALS: BP 112/72
[2021-02-10] MEDS: DONEPEZIL HCL 10 MG TABLET PO SCH (22:04)
[2021-02-10] MEDS: traZODone 50 MG TABLET. PO SCH (22:04)
--- NOTE | 2021-02-10 22:17 | PDOC ---
Exam Note: Tyler Note: Please also refer to the separate dictated note~for this date of service dictated separately.~Patient seen individually. Discussed the patient with Nursing staff reviewed the chart.~Reviewed interim history and current functioning. Reviewed vital signs,~Labs/ Radiology~and current medications noted below. Continue current treatment with the changes noted in the dictated addendum note Assessment: Vital Signs/I&O: Vital Signs Date Time Temp Pulse Resp B/P (MAP) Pulse Ox O2 Delivery O2 Flow Rate FiO2 02/10/21 16:09 97.8 52 16 112/72 (85) 98 02/10/21 05:58 Room Air I & O 02/09/21 02/09/21 02/10/21 15:00 23:00 07:00 Intake Total 120 ml 180 ml Balance 120 ml 180 ml Labs: Laboratory Tests Test 02/10/21 07:37 Glucose (Fingerstick) 76 mg/dL (70-99) Current Medications: Meds: Laboratory Tests Test 02/10/21 07:37 Glucose (Fingerstick) 76 mg/dL Current Medications Medications (Trade) Dose Ordered Sig/Toño Route PRN Reason Start Time Stop Time Status Last Admin Dose Admin Acetaminophen (Tylenol) 650 mg PRN Q6HRS PRN PO MILD PAIN / TEMP > 100.3'F 01/20/21 18:00 01/25/21 08:25 Benzonatate (Tessalon Perle) 100 mg PRN TID PRN PO COUGH 01/20/21 18:00 Buspirone HCl (Buspar) 10 mg BID PO 01/20/21 21:00 02/05/21 08:27 DC 02/04/21 20:15 Cetirizine HCl (ZyrTEC) 10 mg PRN DAILY PRN PO ALLERGIES 01/20/21 18:00 Vitamin D (Vitamin D3) 2,000 unit DAILY PO 01/21/21 09:00 02/05/21 08:28 DC 02/04/21 09:09 Donepezil HCl (Aricept) 10 mg QHS PO 01/20/21 21:00 02/09/21 20:48 Lisinopril (Prinivil) 5 mg DAILY PO 01/21/21 09:00 02/05/21 08:29 DC 02/04/21 09:10 Al Hydroxide/Mg Hydroxide (Mylanta Plus Xs) 15 ml PRN AFTMEALHC PRN PO DYSPEPSIA 01/20/21 18:00 Memantine (Namenda) 10 mg BID PO 01/20/21 21:00 02/10/21 08:20 Multi-Ingredient Ointment (Analgesic [place]) 1 micah PRN QID PRN TP MUSCLE PAIN 01/20/21 18:00 Olanzapine (ZyPREXA ZYDIS) 2.5 mg PRN Q2HR PRN PO ANXIETY / AGITATION 01/20/21 18:00 02/09/21 08:55 Pantoprazole Sodium (Protonix) 40 mg DAILY PO 01/21/21 09:00 02/10/21 08:20 Pseudoephedrine HCl (Sudafed 12-Hour) 120 mg PRN BID PRN PO CONGESTION 01/20/21 18:00 Sertraline HCl (Zoloft) 75 mg DAILY PO 01/21/21 09:00 01/21/21 17:45 DC 01/21/21 09:41 Trazodone HCl (Desyrel) 50 mg HS PO 01/20/21 21:00 02/09/21 20:48 Trazodone HCl (Desyrel) 50 mg PRN QHS PRN PO INSOMNIA 01/20/21 18:00 Ascorbic Acid (Vitamin C) 500 mg DAILY PO 01/21/21 09:00 02/05/21 08:26 DC 02/04/21 09:11 Calcium/Vitamin D (Oscal D 500mg/ 200uts) 1 tab BIDWMEALS PO 01/21/21 08:00 02/10/21 16:01 Magnesium Hydroxide (Milk Of Magnesia) 2,400 mg PRN QHS PRN PO CONSTIPATION 01/20/21 18:30 Multivitamins/ Calcium (Thera-M Plus) 1 tab DAILY PO 01/21/21 09:00 02/05/21 08:31 DC 02/04/21 09:10 Fish Oil (Fish Oil) 1,000 mg DAILY PO 01/21/21 09:00 02/07/21 18:16 DC 02/07/21 10:05 Sertraline HCl (Zoloft) 100 mg DAILY PO 01/22/21 09:00 02/05/21 08:32 DC 02/04/21 09:10 Divalproex Sodium (Depakote Sprinkles) 125 mg 0900,1700 PO 01/22/21 09:00 01/26/21 03:28 DC 01/25/21 17:22 Quetiapine Fumarate (SEROquel) 12.5 mg 0900,1700 PO 01/24/21 09:00 01/24/21 17:58 DC 01/24/21 17:00 Quetiapine Fumarate (SEROquel) 12.5 mg 0900,1200,1500,1900 PO 01/25/21 09:00 02/10/21 18:27 Divalproex Sodium (Depakote Sprinkles) 250 mg 0900,1700 PO 01/26/21 09:00 02/03/21 10:19 DC 02/03/21 08:58 Divalproex Sodium (Depakote Sprinkles) 375 mg 0900,1700 PO 02/03/21 17:00 02/10/21 16:01 Ascorbic Acid (Vitamin C) 500 mg DAILY PO 02/05/21 09:00 02/07/21 18:16 DC 02/07/21 10:05 Buspirone HCl (Buspar) 10 mg BID PO 02/05/21 09:00 02/10/21 08:20 Vitamin D (Vitamin D3) 2,000 unit DAILY PO 02/05/21 09:00 02/07/21 18:16 DC 02/07/21 10:05 Lisinopril (Prinivil) 5 mg DAILY PO 02/05/21 09:00 02/09/21 11:06 DC 02/09/21 08:40 Multivitamins/ Calcium (Thera-M Plus) 1 tab DAILY PO 02/05/21 09:00 02/07/21 18:16 DC 02/07/21 10:05 Sertraline HCl (Zoloft) 100 mg DAILY PO 02/05/21 09:00 02/10/21 14:13 DC 02/10/21 08:21 Ascorbic Acid (Vitamin C) 500 mg NOON PO 02/08/21 12:00 02/10/21 12:27 Vitamin D (Vitamin D3) 2,000 unit NOON PO 02/08/21 12:00 02/10/21 12:27 Multivitamins/ Calcium (Thera-M Plus) 1 tab NOON PO 02/08/21 12:00 02/10/21 12:27 Fish Oil (Fish Oil) 1,000 mg NOON PO 02/08/21 12:00 02/10/21 12:27 Sertraline HCl (Zoloft) 125 mg DAILY PO 02/11/21 09:00 I have reviewed the current psychotropics carefully including drug interactions. Risk benefit ratio favors no change other than as noted in my dictated progress note. Diagnosis: Problems: (1) Impulse control disorder, unspecified (2) Mild cognitive impairment (3) Anxiety disorder, unspecified (4) Dementia, vascular, with depression (5) Dementia, vascular, with delusions (6) Dementia in Alzheimer's disease with depression (7) Dementia in Alzheimer's disease with delusions (8) Major neurocognitive disorder (9) Dementia in Alzheimer's disease with early onset with behavioral disturbance DIMITRIOS RANDALL MD Feb 10, 2021 22:17
[2021-02-11 06:24] VITALS: BP 138/75
--- NOTE | 2021-02-11 07:01 | PDOC ---
Exam Note: Tyler Note: This note is a late entry for 02/10/2021 covers elements not covered in my initial note. Subjective: The patient was seen individually in the morning of 02/10/2021 for a treatment team meeting with Nanette Pace, Pascale Colvin (rn social work), Antoinette, activity therapy and Rosalinda MEDEL, discussed and reviewed the chart. She slept 8 hours previous night. The patients MARIBELLOA [id number] Ella attended the treatment team meeting as well. Appetite is 50%. Previous night she was spitting her medications out. Lisinopril was stopped per Dr. Sr due to low blood pressure. She has attended 8 groups in the past one week, accepted at [facility] when stable. Review of Systems: No CV, , pulmonary, eye system symptoms on review. Mental Status Exam: The patient is oriented to herself. Insight and judgment, recent and remote memory, attention and concentration, fund of knowledge is poor consistent with her diagnoses. Laboratory Data: Reviewed. Impression: Major neurocognitive disorder Alzheimer vascular with delusion, depress*ion, behavioral disturbance. Anxiety disorder unspecified. Impulse control disorder unspecified. Plan: Continue current psychotropics from initial note. Increase Zoloft from 100 mg a day to 125 mg a day. Rest unchanged from initial note. Assessment: Vital Signs/I&O: Vital Signs Date Time Temp Pulse Resp B/P (MAP) Pulse Ox O2 Delivery O2 Flow Rate FiO2 02/11/21 06:24 97.1 76 14 138/75 (96) 96 02/10/21 05:58 Room Air I & O 02/10/21 02/10/21 02/11/21 15:00 23:00 07:00 Intake Total 720 ml 480 ml Balance 720 ml 480 ml Labs: Laboratory Tests Test 02/10/21 07:37 Glucose (Fingerstick) 76 mg/dL (70-99) Current Medications: Meds: Laboratory Tests Test 02/10/21 07:37 Glucose (Fingerstick) 76 mg/dL Current Medications Medications (Trade) Dose Ordered Sig/Toño Route PRN Reason Start Time Stop Time Status Last Admin Dose Admin Acetaminophen (Tylenol) 650 mg PRN Q6HRS PRN PO MILD PAIN / TEMP > 100.3'F 01/20/21 18:00 01/25/21 08:25 Benzonatate (Tessalon Perle) 100 mg PRN TID PRN PO COUGH 01/20/21 18:00 Buspirone HCl (Buspar) 10 mg BID PO 01/20/21 21:00 02/05/21 08:27 DC 02/04/21 20:15 Cetirizine HCl (ZyrTEC) 10 mg PRN DAILY PRN PO ALLERGIES 01/20/21 18:00 Vitamin D (Vitamin D3) 2,000 unit DAILY PO 01/21/21 09:00 02/05/21 08:28 DC 02/04/21 09:09 Donepezil HCl (Aricept) 10 mg QHS PO 01/20/21 21:00 02/09/21 20:48 Lisinopril (Prinivil) 5 mg DAILY PO 01/21/21 09:00 02/05/21 08:29 DC 02/04/21 09:10 Al Hydroxide/Mg Hydroxide (Mylanta Plus Xs) 15 ml PRN AFTMEALHC PRN PO DYSPEPSIA 01/20/21 18:00 Memantine (Namenda) 10 mg BID PO 01/20/21 21:00 02/10/21 08:20 Multi-Ingredient Ointment (Analgesic [place]) 1 micah PRN QID PRN TP MUSCLE PAIN 01/20/21 18:00 Olanzapine (ZyPREXA ZYDIS) 2.5 mg PRN Q2HR PRN PO ANXIETY / AGITATION 01/20/21 18:00 02/09/21 08:55 Pantoprazole Sodium (Protonix) 40 mg DAILY PO 01/21/21 09:00 02/10/21 08:20 Pseudoephedrine HCl (Sudafed 12-Hour) 120 mg PRN BID PRN PO CONGESTION 01/20/21 18:00 Sertraline HCl (Zoloft) 75 mg DAILY PO 01/21/21 09:00 01/21/21 17:45 DC 01/21/21 09:41 Trazodone HCl (Desyrel) 50 mg HS PO 01/20/21 21:00 02/09/21 20:48 Trazodone HCl (Desyrel) 50 mg PRN QHS PRN PO INSOMNIA 01/20/21 18:00 Ascorbic Acid (Vitamin C) 500 mg DAILY PO 01/21/21 09:00 02/05/21 08:26 DC 02/04/21 09:11 Calcium/Vitamin D (Oscal D 500mg/ 200uts) 1 tab BIDWMEALS PO 01/21/21 08:00 02/10/21 16:01 Magnesium Hydroxide (Milk Of Magnesia) 2,400 mg PRN QHS PRN PO CONSTIPATION 01/20/21 18:30 Multivitamins/ Calcium (Thera-M Plus) 1 tab DAILY PO 01/21/21 09:00 02/05/21 08:31 DC 02/04/21 09:10 Fish Oil (Fish Oil) 1,000 mg DAILY PO 01/21/21 09:00 02/07/21 18:16 DC 02/07/21 10:05 Sertraline HCl (Zoloft) 100 mg DAILY PO 01/22/21 09:00 02/05/21 08:32 DC 02/04/21 09:10 Divalproex Sodium (Depakote Sprinkles) 125 mg 0900,1700 PO 01/22/21 09:00 01/26/21 03:28 DC 01/25/21 17:22 Quetiapine Fumarate (SEROquel) 12.5 mg 0900,1700 PO 01/24/21 09:00 01/24/21 17:58 DC 01/24/21 17:00 Quetiapine Fumarate (SEROquel) 12.5 mg 0900,1200,1500,1900 PO 01/25/21 09:00 02/10/21 18:27 Divalproex Sodium (Depakote Sprinkles) 250 mg 0900,1700 PO 01/26/21 09:00 02/03/21 10:19 DC 02/03/21 08:58 Divalproex Sodium (Depakote Sprinkles) 375 mg 0900,1700 PO 02/03/21 17:00 02/10/21 16:01 Ascorbic Acid (Vitamin C) 500 mg DAILY PO 02/05/21 09:00 02/07/21 18:16 DC 02/07/21 10:05 Buspirone HCl (Buspar) 10 mg BID PO 02/05/21 09:00 02/10/21 08:20 Vitamin D (Vitamin D3) 2,000 unit DAILY PO 02/05/21 09:00 02/07/21 18:16 DC 02/07/21 10:05 Lisinopril (Prinivil) 5 mg DAILY PO 02/05/21 09:00 02/09/21 11:06 DC 02/09/21 08:40 Multivitamins/ Calcium (Thera-M Plus) 1 tab DAILY PO 02/05/21 09:00 02/07/21 18:16 DC 02/07/21 10:05 Sertraline HCl (Zoloft) 100 mg DAILY PO 02/05/21 09:00 02/10/21 14:13 DC 02/10/21 08:21 Ascorbic Acid (Vitamin C) 500 mg NOON PO 02/08/21 12:00 02/10/21 12:27 Vitamin D (Vitamin D3) 2,000 unit NOON PO 02/08/21 12:00 02/10/21 12:27 Multivitamins/ Calcium (Thera-M Plus) 1 tab NOON PO 02/08/21 12:00 02/10/21 12:27 Fish Oil (Fish Oil) 1,000 mg NOON PO 02/08/21 12:00 02/10/21 12:27 Sertraline HCl (Zoloft) 125 mg DAILY PO 02/11/21 09:00 I have reviewed the current psychotropics carefully including drug interactions. Risk benefit ratio favors no change other than as noted in my dictated progress note. Diagnosis: Problems: (1) Impulse control disorder, unspecified (2) Anxiety disorder, unspecified (3) Dementia, vascular, with depression (4) Dementia, vascular, with delusions (5) Dementia in Alzheimer's disease with depression (6) Dementia in Alzheimer's disease with delusions (7) Major neurocognitive disorder (8) Dementia in Alzheimer's disease with early onset with behavioral disturbance DIMITRIOS RANDALL MD Feb 11, 2021 07:01
[2021-02-11] MEDS: CALCIUM CARB/VIT D3 500/200 TABLET PO SCH ×2 (08:11→17:11)
[2021-02-11] MEDS: QUEtiapine 25 MG TABLET. PO SCH ×4 (08:11→18:43)
[2021-02-11] MEDS: PANTOPRAZOLE 40 MG TABLET. PO SCH (08:11)
[2021-02-11] MEDS: MEMANTINE 10 MG TABLET. PO SCH ×2 (08:11→20:40)
[2021-02-11] MEDS: busPIRone 10 MG TABLET. PO SCH ×2 (08:12→20:40)
[2021-02-11] MEDS: SERTRALINE 50 MG TABLET. PO SCH (08:12)
[2021-02-11] MEDS: DIVALPROEX 125 MG CAP.SPRINK PO SCH ×2 (08:12→17:12)
[2021-02-11] MEDS: CHOLECALCIFEROL (VITAMIN D3) 1,000 UNIT TABLET PO SCH (12:25)
[2021-02-11] MEDS: OMEGA-3 FATTY ACIDS/FISH OIL 1,000 MG CAPSULE. PO SCH (12:25)
[2021-02-11] MEDS: ASCORBIC ACID 500 MG TABLET PO SCH (12:25)
[2021-02-11] MEDS: MULTIVITAMIN with MINERAL TABLET. PO SCH (12:25)
[2021-02-11 15:55] VITALS: BP 107/55
[2021-02-11] MEDS: traZODone 50 MG TABLET. PO SCH (20:40)
[2021-02-11] MEDS: DONEPEZIL HCL 10 MG TABLET PO SCH (20:40)
--- NOTE | 2021-02-11 22:01 | PDOC ---
Exam Note: Tyler Note: Please also refer to the separate dictated note~for this date of service dictated separately.~Patient seen individually. Discussed the patient with Nursing staff reviewed the chart.~Reviewed interim history and current functioning. Reviewed vital signs,~Labs/ Radiology~and current medications noted below. Continue current treatment with the changes noted in the dictated addendum note Assessment: Vital Signs/I&O: Vital Signs Date Time Temp Pulse Resp B/P (MAP) Pulse Ox O2 Delivery O2 Flow Rate FiO2 02/11/21 15:55 97.8 77 20 107/55 (72) 95 02/10/21 05:58 Room Air I & O 02/10/21 02/10/21 02/11/21 15:00 23:00 07:00 Intake Total 720 ml 480 ml Balance 720 ml 480 ml Current Medications: Meds: Current Medications Medications (Trade) Dose Ordered Sig/Toño Route PRN Reason Start Time Stop Time Status Last Admin Dose Admin Acetaminophen (Tylenol) 650 mg PRN Q6HRS PRN PO MILD PAIN / TEMP > 100.3'F 01/20/21 18:00 01/25/21 08:25 Benzonatate (Tessalon Perle) 100 mg PRN TID PRN PO COUGH 01/20/21 18:00 Buspirone HCl (Buspar) 10 mg BID PO 01/20/21 21:00 02/05/21 08:27 DC 02/04/21 20:15 Cetirizine HCl (ZyrTEC) 10 mg PRN DAILY PRN PO ALLERGIES 01/20/21 18:00 Vitamin D (Vitamin D3) 2,000 unit DAILY PO 01/21/21 09:00 02/05/21 08:28 DC 02/04/21 09:09 Donepezil HCl (Aricept) 10 mg QHS PO 01/20/21 21:00 02/11/21 20:40 Lisinopril (Prinivil) 5 mg DAILY PO 01/21/21 09:00 02/05/21 08:29 DC 02/04/21 09:10 Al Hydroxide/Mg Hydroxide (Mylanta Plus Xs) 15 ml PRN AFTMEALHC PRN PO DYSPEPSIA 01/20/21 18:00 Memantine (Namenda) 10 mg BID PO 01/20/21 21:00 02/11/21 20:40 Multi-Ingredient Ointment (Analgesic [place]) 1 micah PRN QID PRN TP MUSCLE PAIN 01/20/21 18:00 Olanzapine (ZyPREXA ZYDIS) 2.5 mg PRN Q2HR PRN PO ANXIETY / AGITATION 01/20/21 18:00 02/09/21 08:55 Pantoprazole Sodium (Protonix) 40 mg DAILY PO 01/21/21 09:00 02/11/21 08:11 Pseudoephedrine HCl (Sudafed 12-Hour) 120 mg PRN BID PRN PO CONGESTION 01/20/21 18:00 Sertraline HCl (Zoloft) 75 mg DAILY PO 01/21/21 09:00 01/21/21 17:45 DC 01/21/21 09:41 Trazodone HCl (Desyrel) 50 mg HS PO 01/20/21 21:00 02/11/21 20:40 Trazodone HCl (Desyrel) 50 mg PRN QHS PRN PO INSOMNIA 01/20/21 18:00 Ascorbic Acid (Vitamin C) 500 mg DAILY PO 01/21/21 09:00 02/05/21 08:26 DC 02/04/21 09:11 Calcium/Vitamin D (Oscal D 500mg/ 200uts) 1 tab BIDWMEALS PO 01/21/21 08:00 02/11/21 17:11 Magnesium Hydroxide (Milk Of Magnesia) 2,400 mg PRN QHS PRN PO CONSTIPATION 01/20/21 18:30 Multivitamins/ Calcium (Thera-M Plus) 1 tab DAILY PO 01/21/21 09:00 02/05/21 08:31 DC 02/04/21 09:10 Fish Oil (Fish Oil) 1,000 mg DAILY PO 01/21/21 09:00 02/07/21 18:16 DC 02/07/21 10:05 Sertraline HCl (Zoloft) 100 mg DAILY PO 01/22/21 09:00 02/05/21 08:32 DC 02/04/21 09:10 Divalproex Sodium (Depakote Sprinkles) 125 mg 0900,1700 PO 01/22/21 09:00 01/26/21 03:28 DC 01/25/21 17:22 Quetiapine Fumarate (SEROquel) 12.5 mg 0900,1700 PO 01/24/21 09:00 01/24/21 17:58 DC 01/24/21 17:00 Quetiapine Fumarate (SEROquel) 12.5 mg 0900,1200,1500,1900 PO 01/25/21 09:00 02/11/21 18:43 Divalproex Sodium (Depakote Sprinkles) 250 mg 0900,1700 PO 01/26/21 09:00 02/03/21 10:19 DC 02/03/21 08:58 Divalproex Sodium (Depakote Sprinkles) 375 mg 0900,1700 PO 02/03/21 17:00 02/11/21 17:12 Ascorbic Acid (Vitamin C) 500 mg DAILY PO 02/05/21 09:00 02/07/21 18:16 DC 02/07/21 10:05 Buspirone HCl (Buspar) 10 mg BID PO 02/05/21 09:00 02/11/21 20:40 Vitamin D (Vitamin D3) 2,000 unit DAILY PO 02/05/21 09:00 02/07/21 18:16 DC 02/07/21 10:05 Lisinopril (Prinivil) 5 mg DAILY PO 02/05/21 09:00 02/09/21 11:06 DC 02/09/21 08:40 Multivitamins/ Calcium (Thera-M Plus) 1 tab DAILY PO 02/05/21 09:00 02/07/21 18:16 DC 02/07/21 10:05 Sertraline HCl (Zoloft) 100 mg DAILY PO 02/05/21 09:00 02/10/21 14:13 DC 02/10/21 08:21 Ascorbic Acid (Vitamin C) 500 mg NOON PO 02/08/21 12:00 02/11/21 12:25 Vitamin D (Vitamin D3) 2,000 unit NOON PO 02/08/21 12:00 02/11/21 12:25 Multivitamins/ Calcium (Thera-M Plus) 1 tab NOON PO 02/08/21 12:00 02/11/21 12:25 Fish Oil (Fish Oil) 1,000 mg NOON PO 02/08/21 12:00 02/11/21 12:25 Sertraline HCl (Zoloft) 125 mg DAILY PO 02/11/21 09:00 02/11/21 08:12 Current Medications Medications (Trade) Dose Ordered Sig/Toño Route PRN Reason Start Time Stop Time Status Last Admin Dose Admin Sertraline HCl (Zoloft) 125 mg DAILY PO 02/11/21 09:00 02/11/21 08:12 I have reviewed the current psychotropics carefully including drug interactions. Risk benefit ratio favors no change other than as noted in my dictated progress note. Diagnosis: Problems: (1) Impulse control disorder, unspecified (2) Anxiety disorder, unspecified (3) Dementia, vascular, with depression (4) Dementia, vascular, with delusions (5) Dementia in Alzheimer's disease with depression (6) Dementia in Alzheimer's disease with delusions (7) Major neurocognitive disorder (8) Dementia in Alzheimer's disease with early onset with behavioral disturbance DIMITRIOS RANDALL MD Feb 11, 2021 22:01
[2021-02-12 06:17] VITALS: BP 158/84
[2021-02-12] MEDS: DIVALPROEX 125 MG CAP.SPRINK PO SCH ×2 (08:18→18:17)
[2021-02-12] MEDS: SERTRALINE 50 MG TABLET. PO SCH (08:18)
[2021-02-12] MEDS: PANTOPRAZOLE 40 MG TABLET. PO SCH (08:18)
[2021-02-12] MEDS: CALCIUM CARB/VIT D3 500/200 TABLET PO SCH ×2 (08:18→18:16)
[2021-02-12] MEDS: busPIRone 10 MG TABLET. PO SCH ×2 (08:18→20:11)
[2021-02-12] MEDS: MEMANTINE 10 MG TABLET. PO SCH ×2 (08:18→20:10)
[2021-02-12] MEDS: QUEtiapine 25 MG TABLET. PO SCH ×4 (08:21→18:16)
[2021-02-12] MEDS: MULTIVITAMIN with MINERAL TABLET. PO SCH (12:14)
[2021-02-12] MEDS: OMEGA-3 FATTY ACIDS/FISH OIL 1,000 MG CAPSULE. PO SCH (12:14)
[2021-02-12] MEDS: CHOLECALCIFEROL (VITAMIN D3) 1,000 UNIT TABLET PO SCH (12:14)
[2021-02-12] MEDS: ASCORBIC ACID 500 MG TABLET PO SCH (12:18)
[2021-02-12 16:00] VITALS: BP 129/81
[2021-02-12] MEDS: traZODone 50 MG TABLET. PO SCH (20:10)
[2021-02-12] MEDS: DONEPEZIL HCL 10 MG TABLET PO SCH (20:11)
--- NOTE | 2021-02-12 22:15 | PDOC ---
Exam Note: Tyler Note: Please also refer to the separate dictated note~for this date of service dictated separately.~Patient seen individually. Discussed the patient with Nursing staff reviewed the chart.~Reviewed interim history and current functioning. Reviewed vital signs,~Labs/ Radiology~and current medications noted below. Continue current treatment with the changes noted in the dictated addendum note Assessment: Vital Signs/I&O: Vital Signs Date Time Temp Pulse Resp B/P (MAP) Pulse Ox O2 Delivery O2 Flow Rate FiO2 02/12/21 16:00 97.4 66 18 129/81 (97) 99 02/10/21 05:58 Room Air I & O 02/11/21 02/11/21 02/12/21 15:00 23:00 07:00 Intake Total 720 ml 720 ml Balance 720 ml 720 ml Current Medications: Meds: Current Medications Medications (Trade) Dose Ordered Sig/Toño Route PRN Reason Start Time Stop Time Status Last Admin Dose Admin Acetaminophen (Tylenol) 650 mg PRN Q6HRS PRN PO MILD PAIN / TEMP > 100.3'F 01/20/21 18:00 01/25/21 08:25 Benzonatate (Tessalon Perle) 100 mg PRN TID PRN PO COUGH 01/20/21 18:00 Buspirone HCl (Buspar) 10 mg BID PO 01/20/21 21:00 02/05/21 08:27 DC 02/04/21 20:15 Cetirizine HCl (ZyrTEC) 10 mg PRN DAILY PRN PO ALLERGIES 01/20/21 18:00 Vitamin D (Vitamin D3) 2,000 unit DAILY PO 01/21/21 09:00 02/05/21 08:28 DC 02/04/21 09:09 Donepezil HCl (Aricept) 10 mg QHS PO 01/20/21 21:00 02/12/21 20:11 Lisinopril (Prinivil) 5 mg DAILY PO 01/21/21 09:00 02/05/21 08:29 DC 02/04/21 09:10 Al Hydroxide/Mg Hydroxide (Mylanta Plus Xs) 15 ml PRN AFTMEALHC PRN PO DYSPEPSIA 01/20/21 18:00 Memantine (Namenda) 10 mg BID PO 01/20/21 21:00 02/12/21 20:10 Multi-Ingredient Ointment (Analgesic [place]) 1 micah PRN QID PRN TP MUSCLE PAIN 01/20/21 18:00 Olanzapine (ZyPREXA ZYDIS) 2.5 mg PRN Q2HR PRN PO ANXIETY / AGITATION 01/20/21 18:00 02/09/21 08:55 Pantoprazole Sodium (Protonix) 40 mg DAILY PO 01/21/21 09:00 02/12/21 08:18 Pseudoephedrine HCl (Sudafed 12-Hour) 120 mg PRN BID PRN PO CONGESTION 01/20/21 18:00 Sertraline HCl (Zoloft) 75 mg DAILY PO 01/21/21 09:00 01/21/21 17:45 DC 01/21/21 09:41 Trazodone HCl (Desyrel) 50 mg HS PO 01/20/21 21:00 02/12/21 20:10 Trazodone HCl (Desyrel) 50 mg PRN QHS PRN PO INSOMNIA 01/20/21 18:00 Ascorbic Acid (Vitamin C) 500 mg DAILY PO 01/21/21 09:00 02/05/21 08:26 DC 02/04/21 09:11 Calcium/Vitamin D (Oscal D 500mg/ 200uts) 1 tab BIDWMEALS PO 01/21/21 08:00 02/12/21 18:16 Magnesium Hydroxide (Milk Of Magnesia) 2,400 mg PRN QHS PRN PO CONSTIPATION 01/20/21 18:30 Multivitamins/ Calcium (Thera-M Plus) 1 tab DAILY PO 01/21/21 09:00 02/05/21 08:31 DC 02/04/21 09:10 Fish Oil (Fish Oil) 1,000 mg DAILY PO 01/21/21 09:00 02/07/21 18:16 DC 02/07/21 10:05 Sertraline HCl (Zoloft) 100 mg DAILY PO 01/22/21 09:00 02/05/21 08:32 DC 02/04/21 09:10 Divalproex Sodium (Depakote Sprinkles) 125 mg 0900,1700 PO 01/22/21 09:00 01/26/21 03:28 DC 01/25/21 17:22 Quetiapine Fumarate (SEROquel) 12.5 mg 0900,1700 PO 01/24/21 09:00 01/24/21 17:58 DC 01/24/21 17:00 Quetiapine Fumarate (SEROquel) 12.5 mg 0900,1200,1500,1900 PO 01/25/21 09:00 02/12/21 18:16 Divalproex Sodium (Depakote Sprinkles) 250 mg 0900,1700 PO 01/26/21 09:00 02/03/21 10:19 DC 02/03/21 08:58 Divalproex Sodium (Depakote Sprinkles) 375 mg 0900,1700 PO 02/03/21 17:00 02/12/21 18:17 Ascorbic Acid (Vitamin C) 500 mg DAILY PO 02/05/21 09:00 02/07/21 18:16 DC 02/07/21 10:05 Buspirone HCl (Buspar) 10 mg BID PO 02/05/21 09:00 02/12/21 20:11 Vitamin D (Vitamin D3) 2,000 unit DAILY PO 02/05/21 09:00 02/07/21 18:16 DC 02/07/21 10:05 Lisinopril (Prinivil) 5 mg DAILY PO 02/05/21 09:00 02/09/21 11:06 DC 02/09/21 08:40 Multivitamins/ Calcium (Thera-M Plus) 1 tab DAILY PO 02/05/21 09:00 02/07/21 18:16 DC 02/07/21 10:05 Sertraline HCl (Zoloft) 100 mg DAILY PO 02/05/21 09:00 02/10/21 14:13 DC 02/10/21 08:21 Ascorbic Acid (Vitamin C) 500 mg NOON PO 02/08/21 12:00 02/12/21 12:18 Vitamin D (Vitamin D3) 2,000 unit NOON PO 02/08/21 12:00 02/12/21 12:14 Multivitamins/ Calcium (Thera-M Plus) 1 tab NOON PO 02/08/21 12:00 02/12/21 12:14 Fish Oil (Fish Oil) 1,000 mg NOON PO 02/08/21 12:00 02/12/21 12:14 Sertraline HCl (Zoloft) 125 mg DAILY PO 02/11/21 09:00 02/12/21 08:18 I have reviewed the current psychotropics carefully including drug interactions. Risk benefit ratio favors no change other than as noted in my dictated progress note. Diagnosis: Problems: (1) Impulse control disorder, unspecified (2) Anxiety disorder, unspecified (3) Dementia, vascular, with depression (4) Dementia, vascular, with delusions (5) Dementia in Alzheimer's disease with depression (6) Dementia in Alzheimer's disease with delusions (7) Major neurocognitive disorder (8) Dementia in Alzheimer's disease with early onset with behavioral disturbance DIMITRIOS RANDALL MD Feb 12, 2021 22:15
[2021-02-13 05:49] VITALS: BP 159/60
--- NOTE | 2021-02-13 08:12 | PDOC ---
Exam Note: Tyler Note: This note is a late entry for 02/11/2021 covers elements not covered in my initial note. Subjective: The patient was seen individually in the evening of 02/11/2021 with Rosalinda MEDEL, discussed and reviewed the chart. She slept 8-3/4 hours previous night. The patient slept well previous night, did well in the morning, compliant with medications, not questioning the medications, much less paranoid, less frowning. Review of Systems: No CV, , pulmonary, eye system symptoms on review. Mental Status Exam: The patient is oriented to herself. Insight and judgment, recent and remote memory, attention and concentration, fund of knowledge is poor consistent with her diagnoses. Laboratory Data: Reviewed. Impression: Major neurocognitive disorder Alzheimer vascular with delusion, depress*ion, behavioral disturbance. Anxiety disorder unspecified. Impulse control disorder unspecified. Plan: Continue current psychotropics from initial note. Assessment: Vital Signs/I&O: Vital Signs Date Time Temp Pulse Resp B/P (MAP) Pulse Ox O2 Delivery O2 Flow Rate FiO2 02/13/21 05:49 97.3 69 16 159/60 (93) 96 02/10/21 05:58 Room Air I & O 02/12/21 02/12/21 02/13/21 15:00 23:00 07:00 Intake Total 570 ml 360 ml Balance 570 ml 360 ml Current Medications: Meds: Current Medications Medications (Trade) Dose Ordered Sig/Toño Route PRN Reason Start Time Stop Time Status Last Admin Dose Admin Acetaminophen (Tylenol) 650 mg PRN Q6HRS PRN PO MILD PAIN / TEMP > 100.3'F 01/20/21 18:00 01/25/21 08:25 Benzonatate (Tessalon Perle) 100 mg PRN TID PRN PO COUGH 01/20/21 18:00 Buspirone HCl (Buspar) 10 mg BID PO 01/20/21 21:00 02/05/21 08:27 DC 02/04/21 20:15 Cetirizine HCl (ZyrTEC) 10 mg PRN DAILY PRN PO ALLERGIES 01/20/21 18:00 Vitamin D (Vitamin D3) 2,000 unit DAILY PO 01/21/21 09:00 02/05/21 08:28 DC 02/04/21 09:09 Donepezil HCl (Aricept) 10 mg QHS PO 01/20/21 21:00 02/12/21 20:11 Lisinopril (Prinivil) 5 mg DAILY PO 01/21/21 09:00 02/05/21 08:29 DC 02/04/21 09:10 Al Hydroxide/Mg Hydroxide (Mylanta Plus Xs) 15 ml PRN AFTMEALHC PRN PO DYSPEPSIA 01/20/21 18:00 Memantine (Namenda) 10 mg BID PO 01/20/21 21:00 02/12/21 20:10 Multi-Ingredient Ointment (Analgesic [place]) 1 micah PRN QID PRN TP MUSCLE PAIN 01/20/21 18:00 Olanzapine (ZyPREXA ZYDIS) 2.5 mg PRN Q2HR PRN PO ANXIETY / AGITATION 01/20/21 18:00 02/09/21 08:55 Pantoprazole Sodium (Protonix) 40 mg DAILY PO 01/21/21 09:00 02/12/21 08:18 Pseudoephedrine HCl (Sudafed 12-Hour) 120 mg PRN BID PRN PO CONGESTION 01/20/21 18:00 Sertraline HCl (Zoloft) 75 mg DAILY PO 01/21/21 09:00 01/21/21 17:45 DC 01/21/21 09:41 Trazodone HCl (Desyrel) 50 mg HS PO 01/20/21 21:00 02/12/21 20:10 Trazodone HCl (Desyrel) 50 mg PRN QHS PRN PO INSOMNIA 01/20/21 18:00 Ascorbic Acid (Vitamin C) 500 mg DAILY PO 01/21/21 09:00 02/05/21 08:26 DC 02/04/21 09:11 Calcium/Vitamin D (Oscal D 500mg/ 200uts) 1 tab BIDWMEALS PO 01/21/21 08:00 02/12/21 18:16 Magnesium Hydroxide (Milk Of Magnesia) 2,400 mg PRN QHS PRN PO CONSTIPATION 01/20/21 18:30 Multivitamins/ Calcium (Thera-M Plus) 1 tab DAILY PO 01/21/21 09:00 02/05/21 08:31 DC 02/04/21 09:10 Fish Oil (Fish Oil) 1,000 mg DAILY PO 01/21/21 09:00 02/07/21 18:16 DC 02/07/21 10:05 Sertraline HCl (Zoloft) 100 mg DAILY PO 01/22/21 09:00 02/05/21 08:32 DC 02/04/21 09:10 Divalproex Sodium (Depakote Sprinkles) 125 mg 0900,1700 PO 01/22/21 09:00 01/26/21 03:28 DC 01/25/21 17:22 Quetiapine Fumarate (SEROquel) 12.5 mg 0900,1700 PO 01/24/21 09:00 01/24/21 17:58 DC 01/24/21 17:00 Quetiapine Fumarate (SEROquel) 12.5 mg 0900,1200,1500,1900 PO 01/25/21 09:00 02/12/21 18:16 Divalproex Sodium (Depakote Sprinkles) 250 mg 0900,1700 PO 01/26/21 09:00 02/03/21 10:19 DC 02/03/21 08:58 Divalproex Sodium (Depakote Sprinkles) 375 mg 0900,1700 PO 02/03/21 17:00 02/12/21 18:17 Ascorbic Acid (Vitamin C) 500 mg DAILY PO 02/05/21 09:00 02/07/21 18:16 DC 02/07/21 10:05 Buspirone HCl (Buspar) 10 mg BID PO 02/05/21 09:00 02/12/21 20:11 Vitamin D (Vitamin D3) 2,000 unit DAILY PO 02/05/21 09:00 02/07/21 18:16 DC 02/07/21 10:05 Lisinopril (Prinivil) 5 mg DAILY PO 02/05/21 09:00 02/09/21 11:06 DC 02/09/21 08:40 Multivitamins/ Calcium (Thera-M Plus) 1 tab DAILY PO 02/05/21 09:00 02/07/21 18:16 DC 02/07/21 10:05 Sertraline HCl (Zoloft) 100 mg DAILY PO 02/05/21 09:00 02/10/21 14:13 DC 7/8/21 08:21 Ascorbic Acid (Vitamin C) 500 mg NOON PO 02/08/21 12:00 02/12/21 12:18 Vitamin D (Vitamin D3) 2,000 unit NOON PO 02/08/21 12:00 02/12/21 12:14 Multivitamins/ Calcium (Thera-M Plus) 1 tab NOON PO 02/08/21 12:00 02/12/21 12:14 Fish Oil (Fish Oil) 1,000 mg NOON PO 02/08/21 12:00 02/12/21 12:14 Sertraline HCl (Zoloft) 125 mg DAILY PO 02/11/21 09:00 02/12/21 08:18 I have reviewed the current psychotropics carefully including drug interactions. Risk benefit ratio favors no change other than as noted in my dictated progress note. Diagnosis: Problems: (1) Impulse control disorder, unspecified (2) Anxiety disorder, unspecified (3) Dementia, vascular, with depression (4) Dementia, vascular, with delusions (5) Dementia in Alzheimer's disease with depression (6) Dementia in Alzheimer's disease with delusions (7) Major neurocognitive disorder (8) Dementia in Alzheimer's disease with early onset with behavioral disturbance DIMITRIOS RANDALL MD Feb 13, 2021 08:12
[2021-02-13] MEDS: PANTOPRAZOLE 40 MG TABLET. PO SCH (08:14)
[2021-02-13] MEDS: MEMANTINE 10 MG TABLET. PO SCH ×2 (08:14→19:57)
[2021-02-13] MEDS: SERTRALINE 50 MG TABLET. PO SCH (08:14)
[2021-02-13] MEDS: CALCIUM CARB/VIT D3 500/200 TABLET PO SCH ×2 (08:14→18:03)
[2021-02-13] MEDS: busPIRone 10 MG TABLET. PO SCH ×2 (08:14→19:57)
[2021-02-13] MEDS: DIVALPROEX 125 MG CAP.SPRINK PO SCH ×2 (08:14→18:04)
[2021-02-13] MEDS: QUEtiapine 25 MG TABLET. PO SCH ×4 (08:14→18:04)
--- NOTE | 2021-02-13 08:34 | PDOC ---
Exam Note: Tyler Note: This note is a late entry for 02/12/2021 covers elements not covered in my initial note. Subjective: The patient was seen individually in the evening of 02/12/2021 with Barbara MEDEL, discussed and reviewed the chart. She slept 7 hours previous night. The patient needs some encouragement to take her meds. This morning she has been tearful, believing her parents have left her with someone. Review of Systems: No CV, , pulmonary, eye system symptoms on review. Mental Status Exam: The patient is oriented to herself. I met with her in her room. She was already in bed but verbally interactive, confused. Insight and judgment, recent and remote memory, attention and concentration, fund of knowledge is poor consistent with her diagnoses. Laboratory Data: Reviewed. Impression: Major neurocognitive disorder Alzheimer vascular with delusion, depression, behavioral disturbance. Anxiety disorder unspecified. Impulse control disorder unspecified. Plan: Continue current psychotropics from initial note. Assessment: Vital Signs/I&O: Vital Signs Date Time Temp Pulse Resp B/P (MAP) Pulse Ox O2 Delivery O2 Flow Rate FiO2 02/13/21 05:49 97.3 69 16 159/60 (93) 96 02/10/21 05:58 Room Air I & O 02/12/21 02/12/21 02/13/21 15:00 23:00 07:00 Intake Total 570 ml 360 ml Balance 570 ml 360 ml Current Medications: Meds: Current Medications Medications (Trade) Dose Ordered Sig/Toño Route PRN Reason Start Time Stop Time Status Last Admin Dose Admin Acetaminophen (Tylenol) 650 mg PRN Q6HRS PRN PO MILD PAIN / TEMP > 100.3'F 01/20/21 18:00 01/25/21 08:25 Benzonatate (Tessalon Perle) 100 mg PRN TID PRN PO COUGH 01/20/21 18:00 Buspirone HCl (Buspar) 10 mg BID PO 01/20/21 21:00 02/05/21 08:27 DC 02/04/21 20:15 Cetirizine HCl (ZyrTEC) 10 mg PRN DAILY PRN PO ALLERGIES 01/20/21 18:00 Vitamin D (Vitamin D3) 2,000 unit DAILY PO 01/21/21 09:00 02/05/21 08:28 DC 02/04/21 09:09 Donepezil HCl (Aricept) 10 mg QHS PO 01/20/21 21:00 02/12/21 20:11 Lisinopril (Prinivil) 5 mg DAILY PO 01/21/21 09:00 02/05/21 08:29 DC 02/04/21 09:10 Al Hydroxide/Mg Hydroxide (Mylanta Plus Xs) 15 ml PRN AFTMEALHC PRN PO DYSPEPSIA 01/20/21 18:00 Memantine (Namenda) 10 mg BID PO 01/20/21 21:00 02/13/21 08:14 Multi-Ingredient Ointment (Analgesic [place]) 1 micah PRN QID PRN TP MUSCLE PAIN 01/20/21 18:00 Olanzapine (ZyPREXA ZYDIS) 2.5 mg PRN Q2HR PRN PO ANXIETY / AGITATION 01/20/21 18:00 02/09/21 08:55 Pantoprazole Sodium (Protonix) 40 mg DAILY PO 01/21/21 09:00 02/13/21 08:14 Pseudoephedrine HCl (Sudafed 12-Hour) 120 mg PRN BID PRN PO CONGESTION 01/20/21 18:00 Sertraline HCl (Zoloft) 75 mg DAILY PO 01/21/21 09:00 01/21/21 17:45 DC 01/21/21 09:41 Trazodone HCl (Desyrel) 50 mg HS PO 01/20/21 21:00 02/12/21 20:10 Trazodone HCl (Desyrel) 50 mg PRN QHS PRN PO INSOMNIA 01/20/21 18:00 Ascorbic Acid (Vitamin C) 500 mg DAILY PO 01/21/21 09:00 02/05/21 08:26 DC 02/04/21 09:11 Calcium/Vitamin D (Oscal D 500mg/ 200uts) 1 tab BIDWMEALS PO 01/21/21 08:00 02/13/21 08:14 Magnesium Hydroxide (Milk Of Magnesia) 2,400 mg PRN QHS PRN PO CONSTIPATION 01/20/21 18:30 Multivitamins/ Calcium (Thera-M Plus) 1 tab DAILY PO 01/21/21 09:00 02/05/21 08:31 DC 02/04/21 09:10 Fish Oil (Fish Oil) 1,000 mg DAILY PO 01/21/21 09:00 02/07/21 18:16 DC 02/07/21 10:05 Sertraline HCl (Zoloft) 100 mg DAILY PO 01/22/21 09:00 02/05/21 08:32 DC 02/04/21 09:10 Divalproex Sodium (Depakote Sprinkles) 125 mg 0900,1700 PO 01/22/21 09:00 01/26/21 03:28 DC 01/25/21 17:22 Quetiapine Fumarate (SEROquel) 12.5 mg 0900,1700 PO 01/24/21 09:00 01/24/21 17:58 DC 01/24/21 17:00 Quetiapine Fumarate (SEROquel) 12.5 mg 0900,1200,1500,1900 PO 01/25/21 09:00 02/13/21 08:14 Divalproex Sodium (Depakote Sprinkles) 250 mg 0900,1700 PO 01/26/21 09:00 02/03/21 10:19 DC 02/03/21 08:58 Divalproex Sodium (Depakote Sprinkles) 375 mg 0900,1700 PO 02/03/21 17:00 02/13/21 08:14 Ascorbic Acid (Vitamin C) 500 mg DAILY PO 02/05/21 09:00 02/07/21 18:16 DC 02/07/21 10:05 Buspirone HCl (Buspar) 10 mg BID PO 02/05/21 09:00 02/13/21 08:14 Vitamin D (Vitamin D3) 2,000 unit DAILY PO 02/05/21 09:00 02/07/21 18:16 DC 02/07/21 10:05 Lisinopril (Prinivil) 5 mg DAILY PO 02/05/21 09:00 02/09/21 11:06 DC 02/09/21 08:40 Multivitamins/ Calcium (Thera-M Plus) 1 tab DAILY PO 02/05/21 09:00 02/07/21 18:16 DC 02/07/21 10:05 Sertraline HCl (Zoloft) 100 mg DAILY PO 02/05/21 09:00 02/10/21 14:13 DC 02/10/21 08:21 Ascorbic Acid (Vitamin C) 500 mg NOON PO 02/08/21 12:00 02/12/21 12:18 Vitamin D (Vitamin D3) 2,000 unit NOON PO 02/08/21 12:00 02/12/21 12:14 Multivitamins/ Calcium (Thera-M Plus) 1 tab NOON PO 02/08/21 12:00 02/12/21 12:14 Fish Oil (Fish Oil) 1,000 mg NOON PO 02/08/21 12:00 02/12/21 12:14 Sertraline HCl (Zoloft) 125 mg DAILY PO 02/11/21 09:00 02/13/21 08:14 I have reviewed the current psychotropics carefully including drug interactions. Risk benefit ratio favors no change other than as noted in my dictated progress note. Diagnosis: Problems: (1) Impulse control disorder, unspecified (2) Mild cognitive impairment (3) Anxiety disorder, unspecified (4) Dementia, vascular, with depression (5) Dementia, vascular, with delusions (6) Dementia in Alzheimer's disease with depression (7) Dementia in Alzheimer's disease with delusions (8) Major neurocognitive disorder (9) Dementia in Alzheimer's disease with early onset with behavioral disturbance DIMITRIOS RANDALL MD Feb 13, 2021 08:34
[2021-02-13] MEDS: MULTIVITAMIN with MINERAL TABLET. PO SCH (12:10)
[2021-02-13] MEDS: OMEGA-3 FATTY ACIDS/FISH OIL 1,000 MG CAPSULE. PO SCH (12:10)
[2021-02-13] MEDS: ASCORBIC ACID 500 MG TABLET PO SCH (12:10)
[2021-02-13] MEDS: CHOLECALCIFEROL (VITAMIN D3) 1,000 UNIT TABLET PO SCH (12:11)
[2021-02-13 16:04] VITALS: BP 148/79
[2021-02-13] MEDS: traZODone 50 MG TABLET. PO SCH (19:57)
[2021-02-13] MEDS: DONEPEZIL HCL 10 MG TABLET PO SCH (19:57)
--- NOTE | 2021-02-13 22:09 | PDOC ---
Exam Note: Tyler Note: Please also refer to the separate dictated note~for this date of service dictated separately.~Patient seen individually. Discussed the patient with Nursing staff reviewed the chart.~Reviewed interim history and current functioning. Reviewed vital signs,~Labs/ Radiology~and current medications noted below. Continue current treatment with the changes noted in the dictated addendum note Assessment: Vital Signs/I&O: Vital Signs Date Time Temp Pulse Resp B/P (MAP) Pulse Ox O2 Delivery O2 Flow Rate FiO2 02/13/21 16:04 97.9 96 16 148/79 (102) 97 02/10/21 05:58 Room Air I & O 02/12/21 02/12/21 02/13/21 14:59 22:59 06:59 Intake Total 570 ml 360 ml Balance 570 ml 360 ml Current Medications: Meds: Current Medications Medications (Trade) Dose Ordered Sig/Toño Route PRN Reason Start Time Stop Time Status Last Admin Dose Admin Acetaminophen (Tylenol) 650 mg PRN Q6HRS PRN PO MILD PAIN / TEMP > 100.3'F 01/20/21 18:00 01/25/21 08:25 Benzonatate (Tessalon Perle) 100 mg PRN TID PRN PO COUGH 01/20/21 18:00 Buspirone HCl (Buspar) 10 mg BID PO 01/20/21 21:00 02/05/21 08:27 DC 02/04/21 20:15 Cetirizine HCl (ZyrTEC) 10 mg PRN DAILY PRN PO ALLERGIES 01/20/21 18:00 Vitamin D (Vitamin D3) 2,000 unit DAILY PO 01/21/21 09:00 02/05/21 08:28 DC 02/04/21 09:09 Donepezil HCl (Aricept) 10 mg QHS PO 01/20/21 21:00 02/13/21 19:57 Lisinopril (Prinivil) 5 mg DAILY PO 01/21/21 09:00 02/05/21 08:29 DC 02/04/21 09:10 Al Hydroxide/Mg Hydroxide (Mylanta Plus Xs) 15 ml PRN AFTMEALHC PRN PO DYSPEPSIA 01/20/21 18:00 Memantine (Namenda) 10 mg BID PO 01/20/21 21:00 02/13/21 19:57 Multi-Ingredient Ointment (Analgesic [place]) 1 micah PRN QID PRN TP MUSCLE PAIN 01/20/21 18:00 Olanzapine (ZyPREXA ZYDIS) 2.5 mg PRN Q2HR PRN PO ANXIETY / AGITATION 01/20/21 18:00 02/09/21 08:55 Pantoprazole Sodium (Protonix) 40 mg DAILY PO 01/21/21 09:00 02/13/21 08:14 Pseudoephedrine HCl (Sudafed 12-Hour) 120 mg PRN BID PRN PO CONGESTION 01/20/21 18:00 Sertraline HCl (Zoloft) 75 mg DAILY PO 01/21/21 09:00 01/21/21 17:45 DC 01/21/21 09:41 Trazodone HCl (Desyrel) 50 mg HS PO 01/20/21 21:00 02/13/21 19:57 Trazodone HCl (Desyrel) 50 mg PRN QHS PRN PO INSOMNIA 01/20/21 18:00 Ascorbic Acid (Vitamin C) 500 mg DAILY PO 01/21/21 09:00 02/05/21 08:26 DC 02/04/21 09:11 Calcium/Vitamin D (Oscal D 500mg/ 200uts) 1 tab BIDWMEALS PO 01/21/21 08:00 02/13/21 18:03 Magnesium Hydroxide (Milk Of Magnesia) 2,400 mg PRN QHS PRN PO CONSTIPATION 01/20/21 18:30 Multivitamins/ Calcium (Thera-M Plus) 1 tab DAILY PO 01/21/21 09:00 02/05/21 08:31 DC 02/04/21 09:10 Fish Oil (Fish Oil) 1,000 mg DAILY PO 01/21/21 09:00 02/07/21 18:16 DC 02/07/21 10:05 Sertraline HCl (Zoloft) 100 mg DAILY PO 01/22/21 09:00 02/05/21 08:32 DC 02/04/21 09:10 Divalproex Sodium (Depakote Sprinkles) 125 mg 0900,1700 PO 01/22/21 09:00 01/26/21 03:28 DC 01/25/21 17:22 Quetiapine Fumarate (SEROquel) 12.5 mg 0900,1700 PO 01/24/21 09:00 01/24/21 17:58 DC 01/24/21 17:00 Quetiapine Fumarate (SEROquel) 12.5 mg 0900,1200,1500,1900 PO 01/25/21 09:00 02/13/21 18:04 Divalproex Sodium (Depakote Sprinkles) 250 mg 0900,1700 PO 01/26/21 09:00 02/03/21 10:19 DC 02/03/21 08:58 Divalproex Sodium (Depakote Sprinkles) 375 mg 0900,1700 PO 02/03/21 17:00 02/13/21 18:04 Ascorbic Acid (Vitamin C) 500 mg DAILY PO 02/05/21 09:00 02/07/21 18:16 DC 02/07/21 10:05 Buspirone HCl (Buspar) 10 mg BID PO 02/05/21 09:00 02/13/21 19:57 Vitamin D (Vitamin D3) 2,000 unit DAILY PO 02/05/21 09:00 02/07/21 18:16 DC 02/07/21 10:05 Lisinopril (Prinivil) 5 mg DAILY PO 02/05/21 09:00 02/09/21 11:06 DC 02/09/21 08:40 Multivitamins/ Calcium (Thera-M Plus) 1 tab DAILY PO 02/05/21 09:00 02/07/21 18:16 DC 02/07/21 10:05 Sertraline HCl (Zoloft) 100 mg DAILY PO 02/05/21 09:00 02/10/21 14:13 DC 02/10/21 08:21 Ascorbic Acid (Vitamin C) 500 mg NOON PO 02/08/21 12:00 02/13/21 12:10 Vitamin D (Vitamin D3) 2,000 unit NOON PO 02/08/21 12:00 02/13/21 12:11 Multivitamins/ Calcium (Thera-M Plus) 1 tab NOON PO 02/08/21 12:00 02/13/21 12:10 Fish Oil (Fish Oil) 1,000 mg NOON PO 02/08/21 12:00 02/13/21 12:10 Sertraline HCl (Zoloft) 125 mg DAILY PO 02/11/21 09:00 02/13/21 08:14 I have reviewed the current psychotropics carefully including drug interactions. Risk benefit ratio favors no change other than as noted in my dictated progress note. Diagnosis: Problems: (1) Impulse control disorder, unspecified (2) Mild cognitive impairment (3) Anxiety disorder, unspecified (4) Dementia, vascular, with depression (5) Dementia, vascular, with delusions (6) Dementia in Alzheimer's disease with depression (7) Dementia in Alzheimer's disease with delusions (8) Major neurocognitive disorder (9) Dementia in Alzheimer's disease with early onset with behavioral disturbance DIMITRIOS RANDALL MD Feb 13, 2021 22:09
[2021-02-13] MEDS ORDERED: DIVA125C2 PO (22:37)
[2021-02-13] MEDS ORDERED: QUET25TA5 PO (22:42)
[2021-02-14 06:02] VITALS: BP 116/74
--- NOTE | 2021-02-14 06:50 | PDOC ---
Exam Note: Tyler Note: This note is a late entry for 02/13/2021 covers elements not covered in my initial note. Subjective: The patient was seen individually in the evening of 02/13/2021 with Barbara MEDEL, discussed and reviewed the chart. She slept 8 hours previous night. We will be checking labs in the morning. She did take nap in the afternoon and has done much better, less agitated. Review of Systems: No CV, , pulmonary, eye system symptoms on review. Mental Status Exam: The patient is oriented to herself. Insight and judgment, recent and remote memory, attention and concentration, fund of knowledge is poor consistent with her diagnoses. Laboratory Data: Reviewed. Impression: Major neurocognitive disorder Alzheimer vascular with delusion, depression, behavioral disturbance. Anxiety disorder unspecified. Impulse control disorder unspecified. Plan: Continue current psychotropics from initial note. Assessment: Vital Signs/I&O: Vital Signs Date Time Temp Pulse Resp B/P (MAP) Pulse Ox O2 Delivery O2 Flow Rate FiO2 02/14/21 06:02 96.8 64 16 116/74 (88) 95 02/10/21 05:58 Room Air I & O 02/13/21 02/13/21 02/14/21 15:00 23:00 07:00 Intake Total 480 ml 600 ml Balance 480 ml 600 ml Current Medications: Meds: Current Medications Medications (Trade) Dose Ordered Sig/Toño Route PRN Reason Start Time Stop Time Status Last Admin Dose Admin Acetaminophen (Tylenol) 650 mg PRN Q6HRS PRN PO MILD PAIN / TEMP > 100.3'F 01/20/21 18:00 01/25/21 08:25 Benzonatate (Tessalon Perle) 100 mg PRN TID PRN PO COUGH 01/20/21 18:00 Buspirone HCl (Buspar) 10 mg BID PO 01/20/21 21:00 02/05/21 08:27 DC 02/04/21 20:15 Cetirizine HCl (ZyrTEC) 10 mg PRN DAILY PRN PO ALLERGIES 01/20/21 18:00 Vitamin D (Vitamin D3) 2,000 unit DAILY PO 01/21/21 09:00 02/05/21 08:28 DC 02/04/21 09:09 Donepezil HCl (Aricept) 10 mg QHS PO 01/20/21 21:00 02/13/21 19:57 Lisinopril (Prinivil) 5 mg DAILY PO 01/21/21 09:00 02/05/21 08:29 DC 02/04/21 09:10 Al Hydroxide/Mg Hydroxide (Mylanta Plus Xs) 15 ml PRN AFTMEALHC PRN PO DYSPEPSIA 01/20/21 18:00 Memantine (Namenda) 10 mg BID PO 01/20/21 21:00 02/13/21 19:57 Multi-Ingredient Ointment (Analgesic [place]) 1 micah PRN QID PRN TP MUSCLE PAIN 01/20/21 18:00 Olanzapine (ZyPREXA ZYDIS) 2.5 mg PRN Q2HR PRN PO ANXIETY / AGITATION 01/20/21 18:00 02/09/21 08:55 Pantoprazole Sodium (Protonix) 40 mg DAILY PO 01/21/21 09:00 02/13/21 08:14 Pseudoephedrine HCl (Sudafed 12-Hour) 120 mg PRN BID PRN PO CONGESTION 01/20/21 18:00 Sertraline HCl (Zoloft) 75 mg DAILY PO 01/21/21 09:00 01/21/21 17:45 DC 01/21/21 09:41 Trazodone HCl (Desyrel) 50 mg HS PO 01/20/21 21:00 02/13/21 19:57 Trazodone HCl (Desyrel) 50 mg PRN QHS PRN PO INSOMNIA 01/20/21 18:00 Ascorbic Acid (Vitamin C) 500 mg DAILY PO 01/21/21 09:00 02/05/21 08:26 DC 02/04/21 09:11 Calcium/Vitamin D (Oscal D 500mg/ 200uts) 1 tab BIDWMEALS PO 01/21/21 08:00 02/13/21 18:03 Magnesium Hydroxide (Milk Of Magnesia) 2,400 mg PRN QHS PRN PO CONSTIPATION 01/20/21 18:30 Multivitamins/ Calcium (Thera-M Plus) 1 tab DAILY PO 01/21/21 09:00 02/05/21 08:31 DC 02/04/21 09:10 Fish Oil (Fish Oil) 1,000 mg DAILY PO 01/21/21 09:00 02/07/21 18:16 DC 02/07/21 10:05 Sertraline HCl (Zoloft) 100 mg DAILY PO 01/22/21 09:00 02/05/21 08:32 DC 02/04/21 09:10 Divalproex Sodium (Depakote Sprinkles) 125 mg 0900,1700 PO 01/22/21 09:00 01/26/21 03:28 DC 01/25/21 17:22 Quetiapine Fumarate (SEROquel) 12.5 mg 0900,1700 PO 01/24/21 09:00 01/24/21 17:58 DC 01/24/21 17:00 Quetiapine Fumarate (SEROquel) 12.5 mg 0900,1200,1500,1900 PO 01/25/21 09:00 02/13/21 18:04 Divalproex Sodium (Depakote Sprinkles) 250 mg 0900,1700 PO 01/26/21 09:00 02/03/21 10:19 DC 02/03/21 08:58 Divalproex Sodium (Depakote Sprinkles) 375 mg 0900,1700 PO 02/03/21 17:00 02/13/21 18:04 Ascorbic Acid (Vitamin C) 500 mg DAILY PO 02/05/21 09:00 02/07/21 18:16 DC 02/07/21 10:05 Buspirone HCl (Buspar) 10 mg BID PO 02/05/21 09:00 02/13/21 19:57 Vitamin D (Vitamin D3) 2,000 unit DAILY PO 02/05/21 09:00 02/07/21 18:16 DC 02/07/21 10:05 Lisinopril (Prinivil) 5 mg DAILY PO 02/05/21 09:00 02/09/21 11:06 MO 02/09/21 08:40 Multivitamins/ Calcium (Thera-M Plus) 1 tab DAILY PO 02/05/21 09:00 02/07/21 18:16 DC 02/07/21 10:05 Sertraline HCl (Zoloft) 100 mg DAILY PO 02/05/21 09:00 02/10/21 14:13 DC 02/10/21 08:21 Ascorbic Acid (Vitamin C) 500 mg NOON PO 02/08/21 12:00 02/13/21 12:10 Vitamin D (Vitamin D3) 2,000 unit NOON PO 02/08/21 12:00 02/13/21 12:11 Multivitamins/ Calcium (Thera-M Plus) 1 tab NOON PO 02/08/21 12:00 02/13/21 12:10 Fish Oil (Fish Oil) 1,000 mg NOON PO 02/08/21 12:00 02/13/21 12:10 Sertraline HCl (Zoloft) 125 mg DAILY PO 02/11/21 09:00 02/13/21 08:14 I have reviewed the current psychotropics carefully including drug interactions. Risk benefit ratio favors no change other than as noted in my dictated progress note. Diagnosis: Problems: (1) Impulse control disorder, unspecified (2) Mild cognitive impairment (3) Anxiety disorder, unspecified (4) Dementia, vascular, with depression (5) Dementia, vascular, with delusions (6) Dementia in Alzheimer's disease with depression (7) Dementia in Alzheimer's disease with delusions (8) Major neurocognitive disorder (9) Dementia in Alzheimer's disease with early onset with behavioral disturbance DIMITRIOS RANDALL MD Feb 14, 2021 06:50
[2021-02-14 06:55] LABS: BASO % 0 % (0-3); EOS # 0.2 x10^3/uL (0.0-0.7); EOS % 5 % (0-3); LYMPH # 1.3 x10^3/uL (1.0-4.8); LYMPH % 26 % (24-48); MEAN CORPUSCULAR HEMOGLOBIN 30 pg (25-35); MEAN CORPUSCULAR HGB CONC 33 g/dL (31-37); MEAN CORPUSCULAR VOLUME 91 fL (79-100); MONO # 0.5 x10^3/uL (0.0-1.1); MONO % 10 % (0-9); NEUT # 2.8 x10^3uL (1.8-7.7); NEUT % 59 % (31-73); PLATELET COUNT 178 x10^3/uL (140-400); RED BLOOD COUNT 3.74 x10^6/uL (3.50-5.40); RED CELL DISTRIBUTION WIDTH 13.5 % (11.5-14.5); WHITE BLOOD COUNT 4.8 x10^3/uL (4.0-11.0)
[2021-02-14 07:23] LABS: ALBUMIN 3.4 g/dL (3.4-5.0); ALBUMIN/GLOBULIN RATIO 1.2 (1.0-1.7); CALCIUM 8.3 mg/dL (8.5-10.1); CREATININE 1.5 mg/dL (0.6-1.0); GFR 34.1; TOTAL BILIRUBIN 0.4 mg/dL (0.2-1.0); TOTAL PROTEIN 6.3 g/dL (6.4-8.2)
[2021-02-14 07:39] LABS: POTASSIUM 5.2 mmol/L (3.5-5.1)
[2021-02-14] MEDS: MEMANTINE 10 MG TABLET. PO SCH ×2 (08:19→21:10)
[2021-02-14] MEDS: PANTOPRAZOLE 40 MG TABLET. PO SCH (08:19)
[2021-02-14] MEDS: SERTRALINE 50 MG TABLET. PO SCH (08:20)
[2021-02-14] MEDS: DIVALPROEX 125 MG CAP.SPRINK PO SCH ×2 (08:20→17:12)
[2021-02-14] MEDS: busPIRone 10 MG TABLET. PO SCH ×2 (08:20→21:10)
[2021-02-14] MEDS: QUEtiapine 25 MG TABLET. PO SCH ×4 (08:20→17:12)
[2021-02-14] MEDS: CALCIUM CARB/VIT D3 500/200 TABLET PO SCH ×2 (08:20→17:12)
[2021-02-14] MEDS: MULTIVITAMIN with MINERAL TABLET. PO SCH (12:15)
[2021-02-14] MEDS: OMEGA-3 FATTY ACIDS/FISH OIL 1,000 MG CAPSULE. PO SCH (12:15)
[2021-02-14] MEDS: ASCORBIC ACID 500 MG TABLET PO SCH (12:15)
[2021-02-14] MEDS: CHOLECALCIFEROL (VITAMIN D3) 1,000 UNIT TABLET PO SCH (12:15)
[2021-02-14 15:44] VITALS: BP 116/76
[2021-02-14] MEDS: DONEPEZIL HCL 10 MG TABLET PO SCH (21:10)
[2021-02-14] MEDS: traZODone 50 MG TABLET. PO SCH (21:11)
--- NOTE | 2021-02-14 22:07 | PDOC ---
Exam Note: Tyler Note: Please also refer to the separate dictated note~for this date of service dictated separately.~Patient seen individually. Discussed the patient with Nursing staff reviewed the chart.~Reviewed interim history and current functioning. Reviewed vital signs,~Labs/ Radiology~and current medications noted below. Continue current treatment with the changes noted in the dictated addendum note Assessment: Vital Signs/I&O: Vital Signs Date Time Temp Pulse Resp B/P (MAP) Pulse Ox O2 Delivery O2 Flow Rate FiO2 02/14/21 15:44 98.0 51 16 116/76 (89) 95 02/10/21 05:58 Room Air I & O 02/13/21 02/13/21 02/14/21 15:00 23:00 07:00 Intake Total 480 ml 600 ml Balance 480 ml 600 ml Labs: Laboratory Tests Test 02/14/21 06:00 02/14/21 06:20 SARS-CoV-2 (PCR) Negative (NEGATIVE) White Blood Count 4.8 x10^3/uL (4.0-11.0) Red Blood Count 3.74 x10^6/uL (3.50-5.40) Hemoglobin 11.0 g/dL (12.0-15.5) L Hematocrit 34.0 % (36.0-47.0) L Mean Corpuscular Volume 91 fL (79-100) Mean Corpuscular Hemoglobin 30 pg (25-35) Mean Corpuscular Hemoglobin Concent 33 g/dL (31-37) Red Cell Distribution Width 13.5 % (11.5-14.5) Platelet Count 178 x10^3/uL (140-400) Neutrophils (%) (Auto) 59 % (31-73) Lymphocytes (%) (Auto) 26 % (24-48) Monocytes (%) (Auto) 10 % (0-9) H Eosinophils (%) (Auto) 5 % (0-3) H Basophils (%) (Auto) 0 % (0-3) Neutrophils # (Auto) 2.8 x10^3uL (1.8-7.7) Lymphocytes # (Auto) 1.3 x10^3/uL (1.0-4.8) Monocytes # (Auto) 0.5 x10^3/uL (0.0-1.1) Eosinophils # (Auto) 0.2 x10^3/uL (0.0-0.7) Basophils # (Auto) 0.0 x10^3/uL (0.0-0.2) Sodium Level 141 mmol/L (136-145) Potassium Level 5.2 mmol/L (3.5-5.1) H Chloride Level 104 mmol/L (98-107) Carbon Dioxide Level 28 mmol/L (21-32) Anion Gap 9 (6-14) Blood Urea Nitrogen 32 mg/dL (7-20) H Creatinine 1.5 mg/dL (0.6-1.0) H Estimated GFR (Cockcroft-Gault) 34.1 BUN/Creatinine Ratio 21 (6-20) H Glucose Level 87 mg/dL (70-99) Calcium Level 8.3 mg/dL (8.5-10.1) L Total Bilirubin 0.4 mg/dL (0.2-1.0) Aspartate Amino Transferase (AST) 19 U/L (15-37) Alanine Aminotransferase (ALT) 21 U/L (14-59) Alkaline Phosphatase 87 U/L (46-116) Total Protein 6.3 g/dL (6.4-8.2) L Albumin 3.4 g/dL (3.4-5.0) Albumin/Globulin Ratio 1.2 (1.0-1.7) Current Medications: Meds: Laboratory Tests Test 02/14/21 06:00 02/14/21 06:20 Coronavirus (COVID-19)(PCR) Negative White Blood Count 4.8 x10^3/uL Red Blood Count 3.74 x10^6/uL Hemoglobin 11.0 g/dL Hematocrit 34.0 % Mean Corpuscular Volume 91 fL Mean Corpuscular Hemoglobin 30 pg Mean Corpuscular Hemoglobin Concent 33 g/dL Red Cell Distribution Width 13.5 % Platelet Count 178 x10^3/uL Neutrophils (%) (Auto) 59 % Lymphocytes (%) (Auto) 26 % Monocytes (%) (Auto) 10 % Eosinophils (%) (Auto) 5 % Basophils (%) (Auto) 0 % Neutrophils # (Auto) 2.8 x10^3uL Lymphocytes # (Auto) 1.3 x10^3/uL Monocytes # (Auto) 0.5 x10^3/uL Eosinophils # (Auto) 0.2 x10^3/uL Basophils # (Auto) 0.0 x10^3/uL Sodium Level 141 mmol/L Potassium Level 5.2 mmol/L Chloride Level 104 mmol/L Carbon Dioxide Level 28 mmol/L Anion Gap 9 Blood Urea Nitrogen 32 mg/dL Creatinine 1.5 mg/dL Estimated GFR (Cockcroft-Gault) 34.1 BUN/Creatinine Ratio 21 Glucose Level 87 mg/dL Calcium Level 8.3 mg/dL Total Bilirubin 0.4 mg/dL Aspartate Amino Transf (AST/SGOT) 19 U/L Alanine Aminotransferase (ALT/SGPT) 21 U/L Alkaline Phosphatase 87 U/L Total Protein 6.3 g/dL Albumin 3.4 g/dL Albumin/Globulin Ratio 1.2 Current Medications Medications (Trade) Dose Ordered Sig/Toño Route PRN Reason Start Time Stop Time Status Last Admin Dose Admin Acetaminophen (Tylenol) 650 mg PRN Q6HRS PRN PO MILD PAIN / TEMP > 100.3'F 01/20/21 18:00 01/25/21 08:25 Benzonatate (Tessalon Perle) 100 mg PRN TID PRN PO COUGH 01/20/21 18:00 Buspirone HCl (Buspar) 10 mg BID PO 01/20/21 21:00 02/05/21 08:27 DC 02/04/21 20:15 Cetirizine HCl (ZyrTEC) 10 mg PRN DAILY PRN PO ALLERGIES 01/20/21 18:00 Vitamin D (Vitamin D3) 2,000 unit DAILY PO 01/21/21 09:00 02/05/21 08:28 DC 02/04/21 09:09 Donepezil HCl (Aricept) 10 mg QHS PO 01/20/21 21:00 02/14/21 21:10 Lisinopril (Prinivil) 5 mg DAILY PO 01/21/21 09:00 02/05/21 08:29 DC 02/04/21 09:10 Al Hydroxide/Mg Hydroxide (Mylanta Plus Xs) 15 ml PRN AFTMEALHC PRN PO DYSPEPSIA 01/20/21 18:00 Memantine (Namenda) 10 mg BID PO 01/20/21 21:00 02/14/21 21:10 Multi-Ingredient Ointment (Analgesic Hendrum) 1 micah PRN QID PRN TP MUSCLE PAIN 01/20/21 18:00 Olanzapine (ZyPREXA ZYDIS) 2.5 mg PRN Q2HR PRN PO ANXIETY / AGITATION 01/20/21 18:00 02/09/21 08:55 Pantoprazole Sodium (Protonix) 40 mg DAILY PO 01/21/21 09:00 02/14/21 08:19 Pseudoephedrine HCl (Sudafed 12-Hour) 120 mg PRN BID PRN PO CONGESTION 01/20/21 18:00 Sertraline HCl (Zoloft) 75 mg DAILY PO 01/21/21 09:00 01/21/21 17:45 DC 01/21/21 09:41 Trazodone HCl (Desyrel) 50 mg HS PO 01/20/21 21:00 02/14/21 21:11 Trazodone HCl (Desyrel) 50 mg PRN QHS PRN PO INSOMNIA 01/20/21 18:00 Ascorbic Acid (Vitamin C) 500 mg DAILY PO 01/21/21 09:00 02/05/21 08:26 DC 02/04/21 09:11 Calcium/Vitamin D (Oscal D 500mg/ 200uts) 1 tab BIDWMEALS PO 01/21/21 08:00 02/14/21 17:12 Magnesium Hydroxide (Milk Of Magnesia) 2,400 mg PRN QHS PRN PO CONSTIPATION 01/20/21 18:30 Multivitamins/ Calcium (Thera-M Plus) 1 tab DAILY PO 01/21/21 09:00 02/05/21 08:31 DC 02/04/21 09:10 Fish Oil (Fish Oil) 1,000 mg DAILY PO 01/21/21 09:00 02/07/21 18:16 DC 02/07/21 10:05 Sertraline HCl (Zoloft) 100 mg DAILY PO 01/22/21 09:00 02/05/21 08:32 DC 02/04/21 09:10 Divalproex Sodium (Depakote Sprinkles) 125 mg 0900,1700 PO 01/22/21 09:00 01/26/21 03:28 DC 01/25/21 17:22 Quetiapine Fumarate (SEROquel) 12.5 mg 0900,1700 PO 01/24/21 09:00 01/24/21 17:58 DC 01/24/21 17:00 Quetiapine Fumarate (SEROquel) 12.5 mg 0900,1200,1500,1900 PO 01/25/21 09:00 02/14/21 17:12 Divalproex Sodium (Depakote Sprinkles) 250 mg 0900,1700 PO 01/26/21 09:00 02/03/21 10:19 DC 02/03/21 08:58 Divalproex Sodium (Depakote Sprinkles) 375 mg 0900,1700 PO 02/03/21 17:00 02/14/21 17:12 Ascorbic Acid (Vitamin C) 500 mg DAILY PO 02/05/21 09:00 02/07/21 18:16 DC 02/07/21 10:05 Buspirone HCl (Buspar) 10 mg BID PO 02/05/21 09:00 02/14/21 21:10 Vitamin D (Vitamin D3) 2,000 unit DAILY PO 02/05/21 09:00 02/07/21 18:16 DC 02/07/21 10:05 Lisinopril (Prinivil) 5 mg DAILY PO 02/05/21 09:00 02/09/21 11:06 DC 02/09/21 08:40 Multivitamins/ Calcium (Thera-M Plus) 1 tab DAILY PO 02/05/21 09:00 02/07/21 18:16 DC 02/07/21 10:05 Sertraline HCl (Zoloft) 100 mg DAILY PO 02/05/21 09:00 02/10/21 14:13 DC 02/10/21 08:21 Ascorbic Acid (Vitamin C) 500 mg NOON PO 02/08/21 12:00 02/14/21 12:15 Vitamin D (Vitamin D3) 2,000 unit NOON PO 02/08/21 12:00 02/14/21 12:15 Multivitamins/ Calcium (Thera-M Plus) 1 tab NOON PO 02/08/21 12:00 02/14/21 12:15 Fish Oil (Fish Oil) 1,000 mg NOON PO 02/08/21 12:00 02/14/21 12:15 Sertraline HCl (Zoloft) 125 mg DAILY PO 02/11/21 09:00 02/14/21 08:20 I have reviewed the current psychotropics carefully including drug interactions. Risk benefit ratio favors no change other than as noted in my dictated progress note. Diagnosis: Problems: (1) Impulse control disorder, unspecified (2) Mild cognitive impairment (3) Anxiety disorder, unspecified (4) Dementia, vascular, with depression (5) Dementia, vascular, with delusions (6) Dementia in Alzheimer's disease with depression (7) Dementia in Alzheimer's disease with delusions (8) Major neurocognitive disorder (9) Dementia in Alzheimer's disease with early onset with behavioral disturbance DIMITRIOS RANDALL MD Feb 14, 2021 22:07
--- NOTE | 2021-02-15 07:12 | PDOC ---
Exam Note: Tyler Note: This note is a late entry for 02/14/2021 covers elements not covered in my initial note. Subjective: The patient was seen individually in the evening of 02/14/2021 with Barbara MEDEL, discussed and reviewed the chart. She slept 7-1/4 hours previous night. The patient has been confused, but has been attending groups, not aggressive or disruptive. She is resistive to medications. She was dancing to music. Her COVID screen is negative and discharge to longterm is scheduled for 02/15. Review of Systems: No CV, , pulmonary, eye system symptoms on review. Mental Status Exam: The patient is oriented to herself. She was pleasant, smiling, eating chocolate pudding but when I asked her she was somewhat oblivious to it, unable to state what kind of pudding it was. Insight and judgment, recent and remote memory, attention and concentration, fund of knowledge is poor consistent with her diagnoses. No psychotic symptoms suicidal or homicidal ideation. Laboratory Data: Reviewed. Impression: Major neurocognitive disorder Alzheimer vascular with delusion, depression, behavioral disturbance. Anxiety disorder unspecified. Impulse control disorder unspecified. Plan: Continue current psychotropics. Transition to longterm on 02/15. Assessment: Vital Signs/I&O: Vital Signs Date Time Temp Pulse Resp B/P (MAP) Pulse Ox O2 Delivery O2 Flow Rate FiO2 02/14/21 15:44 98.0 51 16 116/76 (89) 95 02/10/21 05:58 Room Air I & O 02/14/21 02/14/21 02/15/21 15:00 23:00 07:00 Intake Total 480 ml 480 ml Balance 480 ml 480 ml Current Medications: Meds: Current Medications Medications (Trade) Dose Ordered Sig/Toño Route PRN Reason Start Time Stop Time Status Last Admin Dose Admin Acetaminophen (Tylenol) 650 mg PRN Q6HRS PRN PO MILD PAIN / TEMP > 100.3'F 01/20/21 18:00 01/25/21 08:25 Benzonatate (Tessalon Perle) 100 mg PRN TID PRN PO COUGH 01/20/21 18:00 Buspirone HCl (Buspar) 10 mg BID PO 01/20/21 21:00 02/05/21 08:27 DC 02/04/21 20:15 Cetirizine HCl (ZyrTEC) 10 mg PRN DAILY PRN PO ALLERGIES 01/20/21 18:00 Vitamin D (Vitamin D3) 2,000 unit DAILY PO 01/21/21 09:00 02/05/21 08:28 DC 02/04/21 09:09 Donepezil HCl (Aricept) 10 mg QHS PO 01/20/21 21:00 02/14/21 21:10 Lisinopril (Prinivil) 5 mg DAILY PO 01/21/21 09:00 02/05/21 08:29 DC 02/04/21 09:10 Al Hydroxide/Mg Hydroxide (Mylanta Plus Xs) 15 ml PRN AFTMEALHC PRN PO DYSPEPSIA 01/20/21 18:00 Memantine (Namenda) 10 mg BID PO 01/20/21 21:00 02/14/21 21:10 Multi-Ingredient Ointment (Analgesic Daniel) 1 micah PRN QID PRN TP MUSCLE PAIN 01/20/21 18:00 Olanzapine (ZyPREXA ZYDIS) 2.5 mg PRN Q2HR PRN PO ANXIETY / AGITATION 01/20/21 18:00 02/09/21 08:55 Pantoprazole Sodium (Protonix) 40 mg DAILY PO 01/21/21 09:00 02/14/21 08:19 Pseudoephedrine HCl (Sudafed 12-Hour) 120 mg PRN BID PRN PO CONGESTION 01/20/21 18:00 Sertraline HCl (Zoloft) 75 mg DAILY PO 01/21/21 09:00 01/21/21 17:45 DC 01/21/21 09:41 Trazodone HCl (Desyrel) 50 mg HS PO 01/20/21 21:00 02/14/21 21:11 Trazodone HCl (Desyrel) 50 mg PRN QHS PRN PO INSOMNIA 01/20/21 18:00 Ascorbic Acid (Vitamin C) 500 mg DAILY PO 01/21/21 09:00 02/05/21 08:26 DC 02/04/21 09:11 Calcium/Vitamin D (Oscal D 500mg/ 200uts) 1 tab BIDWMEALS PO 01/21/21 08:00 02/14/21 17:12 Magnesium Hydroxide (Milk Of Magnesia) 2,400 mg PRN QHS PRN PO CONSTIPATION 01/20/21 18:30 Multivitamins/ Calcium (Thera-M Plus) 1 tab DAILY PO 01/21/21 09:00 02/05/21 08:31 DC 02/04/21 09:10 Fish Oil (Fish Oil) 1,000 mg DAILY PO 01/21/21 09:00 02/07/21 18:16 DC 02/07/21 10:05 Sertraline HCl (Zoloft) 100 mg DAILY PO 01/22/21 09:00 02/05/21 08:32 DC 02/04/21 09:10 Divalproex Sodium (Depakote Sprinkles) 125 mg 0900,1700 PO 01/22/21 09:00 01/26/21 03:28 DC 01/25/21 17:22 Quetiapine Fumarate (SEROquel) 12.5 mg 0900,1700 PO 01/24/21 09:00 01/24/21 17:58 DC 01/24/21 17:00 Quetiapine Fumarate (SEROquel) 12.5 mg 0900,1200,1500,1900 PO 01/25/21 09:00 02/14/21 17:12 Divalproex Sodium (Depakote Sprinkles) 250 mg 0900,1700 PO 01/26/21 09:00 02/03/21 10:19 DC 02/03/21 08:58 Divalproex Sodium (Depakote Sprinkles) 375 mg 0900,1700 PO 02/03/21 17:00 02/14/21 17:12 Ascorbic Acid (Vitamin C) 500 mg DAILY PO 02/05/21 09:00 02/07/21 18:16 DC 02/07/21 10:05 Buspirone HCl (Buspar) 10 mg BID PO 02/05/21 09:00 02/14/21 21:10 Vitamin D (Vitamin D3) 2,000 unit DAILY PO 02/05/21 09:00 02/07/21 18:16 DC 02/07/21 10:05 Lisinopril (Prinivil) 5 mg DAILY PO 02/05/21 09:00 02/09/21 11:06 DC 02/09/21 08:40 Multivitamins/ Calcium (Thera-M Plus) 1 tab DAILY PO 02/05/21 09:00 02/07/21 18:16 DC 02/07/21 10:05 Sertraline HCl (Zoloft) 100 mg DAILY PO 02/05/21 09:00 02/10/21 14:13 DC 02/10/21 08:21 Ascorbic Acid (Vitamin C) 500 mg NOON PO 02/08/21 12:00 02/14/21 12:15 Vitamin D (Vitamin D3) 2,000 unit NOON PO 02/08/21 12:00 02/14/21 12:15 Multivitamins/ Calcium (Thera-M Plus) 1 tab NOON PO 02/08/21 12:00 02/14/21 12:15 Fish Oil (Fish Oil) 1,000 mg NOON PO 02/08/21 12:00 02/14/21 12:15 Sertraline HCl (Zoloft) 125 mg DAILY PO 02/11/21 09:00 02/14/21 08:20 I have reviewed the current psychotropics carefully including drug interactions. Risk benefit ratio favors no change other than as noted in my dictated progress note. Diagnosis: Problems: (1) Impulse control disorder, unspecified (2) Mild cognitive impairment (3) Anxiety disorder, unspecified (4) Dementia, vascular, with depression (5) Dementia, vascular, with delusions (6) Dementia in Alzheimer's disease with depression (7) Dementia in Alzheimer's disease with delusions (8) Major neurocognitive disorder (9) Dementia in Alzheimer's disease with early onset with behavioral disturbance DIMITRIOS RANDALL MD Feb 15, 2021 07:12
[2021-02-15] MEDS: CALCIUM CARB/VIT D3 500/200 TABLET PO SCH (08:24)
[2021-02-15] MEDS: QUEtiapine 25 MG TABLET. PO SCH ×2 (08:24→12:06)
[2021-02-15] MEDS: PANTOPRAZOLE 40 MG TABLET. PO SCH (08:24)
[2021-02-15] MEDS: MEMANTINE 10 MG TABLET. PO SCH (08:24)
[2021-02-15] MEDS: busPIRone 10 MG TABLET. PO SCH (08:24)
[2021-02-15] MEDS: SERTRALINE 50 MG TABLET. PO SCH (08:24)
[2021-02-15] MEDS: DIVALPROEX 125 MG CAP.SPRINK PO SCH (08:25)
[2021-02-15 09:20] VITALS: BP 133/82
[2021-02-15] MEDS: MULTIVITAMIN with MINERAL TABLET. PO SCH (12:05)
[2021-02-15] MEDS: OMEGA-3 FATTY ACIDS/FISH OIL 1,000 MG CAPSULE. PO SCH (12:05)
[2021-02-15] MEDS: CHOLECALCIFEROL (VITAMIN D3) 1,000 UNIT TABLET PO SCH (12:06)
[2021-02-15] MEDS: ASCORBIC ACID 500 MG TABLET PO SCH (12:06)
--- NOTE | 2021-02-15 21:58 | PDOC ---
Exam Note: Tyler Note: Please also refer to the separate dictated note~for this date of service dictated separately.~Patient seen individually. Discussed the patient with Nursing staff reviewed the chart.~Reviewed interim history and current functioning. Reviewed vital signs,~Labs/ Radiology~and current medications noted below. Continue current treatment with the changes noted in the dictated addendum note Assessment: Vital Signs/I&O: Vital Signs Date Time Temp Pulse Resp B/P (MAP) Pulse Ox O2 Delivery O2 Flow Rate FiO2 02/15/21 09:20 97.5 66 16 133/82 (99) 97 02/10/21 05:58 Room Air I & O 02/14/21 02/14/21 02/15/21 15:00 23:00 07:00 Intake Total 480 ml 480 ml Balance 480 ml 480 ml Current Medications: Meds: Current Medications Medications (Trade) Dose Ordered Sig/Toño Route PRN Reason Start Time Stop Time Status Last Admin Dose Admin Acetaminophen (Tylenol) 650 mg PRN Q6HRS PRN PO MILD PAIN / TEMP > 100.3'F 01/20/21 18:00 02/15/21 14:05 DC 01/25/21 08:25 Benzonatate (Tessalon Perle) 100 mg PRN TID PRN PO COUGH 01/20/21 18:00 02/15/21 14:05 DC Buspirone HCl (Buspar) 10 mg BID PO 01/20/21 21:00 02/05/21 08:27 DC 02/04/21 20:15 Cetirizine HCl (ZyrTEC) 10 mg PRN DAILY PRN PO ALLERGIES 01/20/21 18:00 02/15/21 14:05 DC Vitamin D (Vitamin D3) 2,000 unit DAILY PO 01/21/21 09:00 02/05/21 08:28 DC 02/04/21 09:09 Donepezil HCl (Aricept) 10 mg QHS PO 01/20/21 21:00 02/15/21 14:05 DC 02/14/21 21:10 Lisinopril (Prinivil) 5 mg DAILY PO 01/21/21 09:00 02/05/21 08:29 DC 02/04/21 09:10 Al Hydroxide/Mg Hydroxide (Mylanta Plus Xs) 15 ml PRN AFTMEALHC PRN PO DYSPEPSIA 01/20/21 18:00 02/15/21 14:05 DC Memantine (Namenda) 10 mg BID PO 01/20/21 21:00 02/15/21 14:05 DC 02/15/21 08:24 Multi-Ingredient Ointment (Analgesic Burlison) 1 micah PRN QID PRN TP MUSCLE PAIN 01/20/21 18:00 02/15/21 14:05 DC Olanzapine (ZyPREXA ZYDIS) 2.5 mg PRN Q2HR PRN PO ANXIETY / AGITATION 01/20/21 18:00 02/15/21 14:05 DC 02/09/21 08:55 Pantoprazole Sodium (Protonix) 40 mg DAILY PO 01/21/21 09:00 02/15/21 14:05 DC 02/15/21 08:24 Pseudoephedrine HCl (Sudafed 12-Hour) 120 mg PRN BID PRN PO CONGESTION 01/20/21 18:00 02/15/21 14:05 DC Sertraline HCl (Zoloft) 75 mg DAILY PO 01/21/21 09:00 01/21/21 17:45 DC 01/21/21 09:41 Trazodone HCl (Desyrel) 50 mg HS PO 01/20/21 21:00 02/15/21 14:05 DC 02/14/21 21:11 Trazodone HCl (Desyrel) 50 mg PRN QHS PRN PO INSOMNIA 01/20/21 18:00 02/15/21 14:05 DC Ascorbic Acid (Vitamin C) 500 mg DAILY PO 01/21/21 09:00 02/05/21 08:26 DC 02/04/21 09:11 Calcium/Vitamin D (Oscal D 500mg/ 200uts) 1 tab BIDWMEALS PO 01/21/21 08:00 02/15/21 14:05 DC 02/15/21 08:24 Magnesium Hydroxide (Milk Of Magnesia) 2,400 mg PRN QHS PRN PO CONSTIPATION 01/20/21 18:30 02/15/21 14:05 DC Multivitamins/ Calcium (Thera-M Plus) 1 tab DAILY PO 01/21/21 09:00 02/05/21 08:31 DC 02/04/21 09:10 Fish Oil (Fish Oil) 1,000 mg DAILY PO 01/21/21 09:00 02/07/21 18:16 DC 02/07/21 10:05 Sertraline HCl (Zoloft) 100 mg DAILY PO 01/22/21 09:00 02/05/21 08:32 DC 02/04/21 09:10 Divalproex Sodium (Depakote Sprinkles) 125 mg 0900,1700 PO 01/22/21 09:00 01/26/21 03:28 DC 01/25/21 17:22 Quetiapine Fumarate (SEROquel) 12.5 mg 0900,1700 PO 01/24/21 09:00 01/24/21 17:58 DC 01/24/21 17:00 Quetiapine Fumarate (SEROquel) 12.5 mg 0900,1200,1500,1900 PO 01/25/21 09:00 02/15/21 14:05 DC 02/15/21 12:06 Divalproex Sodium (Depakote Sprinkles) 250 mg 0900,1700 PO 01/26/21 09:00 02/03/21 10:19 DC 02/03/21 08:58 Divalproex Sodium (Depakote Sprinkles) 375 mg 0900,1700 PO 02/03/21 17:00 02/15/21 14:05 DC 02/15/21 08:25 Ascorbic Acid (Vitamin C) 500 mg DAILY PO 02/05/21 09:00 02/07/21 18:16 DC 02/07/21 10:05 Buspirone HCl (Buspar) 10 mg BID PO 02/05/21 09:00 02/15/21 14:05 ID 02/15/21 08:24 Vitamin D (Vitamin D3) 2,000 unit DAILY PO 02/05/21 09:00 02/07/21 18:16 DC 02/07/21 10:05 Lisinopril (Prinivil) 5 mg DAILY PO 02/05/21 09:00 02/09/21 11:06 DC 02/09/21 08:40 Multivitamins/ Calcium (Thera-M Plus) 1 tab DAILY PO 02/05/21 09:00 02/07/21 18:16 DC 02/07/21 10:05 Sertraline HCl (Zoloft) 100 mg DAILY PO 02/05/21 09:00 02/10/21 14:13 DC 02/10/21 08:21 Ascorbic Acid (Vitamin C) 500 mg NOON PO 02/08/21 12:00 02/15/21 14:05 DC 02/15/21 12:06 Vitamin D (Vitamin D3) 2,000 unit NOON PO 02/08/21 12:00 02/15/21 14:05 DC 02/15/21 12:06 Multivitamins/ Calcium (Thera-M Plus) 1 tab NOON PO 02/08/21 12:00 02/15/21 14:05 DC 02/15/21 12:05 Fish Oil (Fish Oil) 1,000 mg NOON PO 02/08/21 12:00 02/15/21 14:05 DC 02/15/21 12:05 Sertraline HCl (Zoloft) 125 mg DAILY PO 02/11/21 09:00 02/15/21 14:05 DC 02/15/21 08:24 I have reviewed the current psychotropics carefully including drug interactions. Risk benefit ratio favors no change other than as noted in my dictated progress note. Diagnosis: Problems: (1) Impulse control disorder, unspecified (2) Anxiety disorder, unspecified (3) Dementia, vascular, with depression (4) Dementia, vascular, with delusions (5) Dementia in Alzheimer's disease with depression (6) Dementia in Alzheimer's disease with delusions (7) Major neurocognitive disorder (8) Dementia in Alzheimer's disease with early onset with behavioral disturbance DIMITRIOS RANDALL MD Feb 15, 2021 21:58
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
== END 2021-02-15 14:00 | DRG 57 ==
LOC: ER 13:25 → GEROPSY 17:49
PROVIDERS: ADMIT Psychiatry & Neurology Psychiatry; ATTEND Psychiatry & Neurology Psychiatry
DX: G30.9 Alzheimer's disease, unspecified (principal); F01.51 Vascular dementia, unspecified severity, with behavioral disturbance; F32.3 Major depressive disorder, single episode, severe with psychotic features; F41.9 Anxiety disorder, unspecified; E78.5 Hyperlipidemia, unspecified; K21.9 Gastro-esophageal reflux disease without esophagitis; Z66 Do not resuscitate; F02.80 Dementia in other diseases classified elsewhere, unspecified severity, without behavioral disturbance, psychotic disturbance, mood disturbance, and anxiety; E03.9 Hypothyroidism, unspecified; E55.9 Vitamin D deficiency, unspecified; E28.2 Polycystic ovarian syndrome; F63.9 Impulse disorder, unspecified; I10 Essential (primary) hypertension; Z20.822 Contact with and (suspected) exposure to COVID-19; Z79.899 Other long term (current) drug therapy; Z02.89 Encounter for other administrative examinations
CPT/HCPCS: 36415; 70450; 73502; 80053; 80164; 81001; 82140; 82306; 82607; 82947; 83540; 83550; 83735; 85025; 85379; 87086; 93005; U0003; 97535; 99285-25